=== PATIENT | male | born 2005 | race Caucasian/White ===

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

== ENCOUNTER 2024-01-10 00:16 | Emergency (ER) | payer MEDICAID, SELFPAY ==
[2024-01-10 00:14] VITALS: BP 121/84; PULSE 140; TEMP 36.6; O2SAT 99; BMI 16.0
--- OUTSIDE RECORDS SUMMARY | 2024-01-10 00:21 | XMS_ITS | CCD ---
Author Organization [facility] Care Team Providers Care Clinical Unit Coordinator Name Role Phone Christina Marcano Primary Care Provider [phone] EMMIE NIEVES Admitting Unavailable EMMIE NIEVES Attending [...] VICTOR HUGO Palmer Admitting Unavailabl e Santiago FEATHER CURLING MACHINE OPERATOR, Reyna Primary Care Provider EBONY ROBLEDO Attending Unavailable SANTIAGO, REYNA Referring Unavailable SANTIAGO, REYNA Primary Care Unavailable EBONY ROBLEDO Attending Unavailable SANTIAGO, REYNA Referring Unavailable SANTIAGO, REYNA Primary Care Unavailable KRISHAN BENOIT Attending Unavailable SANTIAGO, REYNA Referring Unavailable [...] Admit Provider MD Raymond Baez Attending Provider [phone] MD Dominga Pete Other Provider MD Dominic Rodrigez Attending Provider [phone] NO FAMILY, PHYSICIAN Primary Care Provider Unava ilable DO Israel Sanchez Emergency Provider MD Raymond Baez Admit Provider MD Ryan Pete Other Provider MD Dominic Rodrigez Attending Provider [phone] [place], [facility] [place] Emergency Provider MD Kartik Schwarz Admit Provider [phone] MD Kartik Schwarz Attending Provider PARISH Harris Other Provider Unavailable PARISH Hogan Other Provider Unavailable Osmani RN Helen Other Provider Unavailable PARISH Price Other Provider Unavailable PARISH Rivera Other Provider Unavailable PARISH Burns Other Provider Unavailable Dials, RAIL ENGINEER Char M Other Provider DO Esteban Barraza Other Provider MD Rubio Pérez Other Provider DO Palomo Banegas Other Provider MD Harvey Crain Other Provider MD Stella Powell Other Provider [phone] KESHA Godfrey Other Provider [phone] MD Dominic Rodrigez Other Provider [phone] MD Arnoldo Weber Other Provider MD Allison Malik Other Provider MD Raymond Baez Other Provider DO Otf Turner Other Provider [phone] MD Fransico Culp Other Provider MD Alberto Rodriguez Other Provider NISREEN Cavanaugh-Kit Lemus Other Provider MD Sukhi Posadas Other Provider MD Kris Bolanos Other Provider MD Preston Medrano Other Provider MD Vahe Bass Other Provider DO Madison Vogel Other Provider DO Cliff Brar Other Provider DO Nomi Cooper Other Provider [phone] KESHA Hogan Other Provider DO Ari Dodson Other Provider [phone] MD Rashi Clark Other Provider KESHA Purcell Other Provider KESHA Robert Other Provider MD Jeri Deleon Other Provider MD Anthony Samson Other Provider KESHA Groves Other Provider DO Salma Thorne Other Provider PARISH Robertson Other Provider Unavailable NO FAMILY, PHYSICIAN Primary Care Provider Unava ilable MD Ryan Pete Attending Provider [phone] MD Tash Purcell Emergency Provider [phone] MD Rashi Clark Admit Provider MD Rashi Clark Attending Provider NO FAMILY, PHYSICIAN Primary Care Unavailable Keri [...] 0 02/16/2020 02/23/2020 Active Baqsimi 3 mg/actuation [place] (1 source) Start: 05-10-2020 Baqsimi 3 mg/actuation [place] PLACE 1 SPRAY(S) IN ONE NOSTRIL ONCE [...] Antihypoglycemic Agent Start: 05-10-2020 Baqsimi 3 mg/actuation [place] PL[place] 1 SPRAY(S) IN ONE NOSTRIL ONCE [...] 6.5 mmol/L Normal 6.0-15.0 [facility] Comment on above: Performed By: #### B MP ####[place] [id number] [facility] Calcium [Mass/Vol] 7.3 mg/dL Low 8.6-10.3 [facility] Comment on above: Performed By: #### B MP ####[place] [id number] [facility] Chloride [Moles/Vol] 117 mmol/L High 98-107 [facility] Comment on above: Performed By: #### B MP ####[place] [id number] [facility] CO2 [Moles/Vol] 23.2 mmol/L Normal 21.0-31.0 [facility] Comment on above: Performed By: #### B MP ####[place] [id number] [facility] Creatinine [Mass/Vol] 0.46 mg/dL Low 0.70-1.30 [facility] Comment on above: Performed By: #### B MP ####[place] [id number] [facility] Creatinine Clr Calc Pharmacy 215.91 Normal [facility] Comment on above: Result Comment: PERF ORMED BY:[address] [place], [place] [phone] MEDICAL JEFFREY VALENTINO M.D. Performed By: #### B MP ####[address] [address] [facility] GFR/1.73 sq M.predicted MDRD (S/P/Bld) [Vol rate/Area] mL/min/{1.73_m2} Normal [facility] Comment on above: Performed By: #### B MP ####[place] [id number] [facility] Glucose [Mass/Vol] 102 mg/dL High 70-100 [facility] Comment on above: Result Comment: [place] Glucose Reference Range is dependent on time and content of last meal. Glucose of more than 200 mg/dL in a nonstressed, ambulatory subject supports the diagnosis of Diabetes Mellitus. ADA recommended reference range Performed By: #### B MP ####[address] [address] [facility] Potassium [Moles/Vol] 3.7 mmol/L Normal 3.5-5.1 [facility] Comment on above: Performed By: #### B MP ####[place] [id number] [facility] Sodium [Moles/Vol] 143 mmol/L Normal 136-145 [facility] Comment on above: Performed By: #### B MP ####[place] [id number] [facility] Urea nitrogen [Mass/Vol] 2 mg/dL Low 7-25 [facility] Comment on above: Performed By: #### B MP ####[address] [address] [facility] Anion gap [Moles/Vol] 12.4 mmol/L Normal 6.0-15.0 Th e [facility] Comment on above: Order Comment: Comme nt DKA Performed By: #### B MP ####[address] [address] [facility] Calcium [Mass/Vol] 7.2 mg/dL Low 8.6-10.3 [facility] Comment on above: Order Comment: Comme nt DKA Performed By: #### B MP ####[address] [address] [place] Chloride [Moles/Vol] 110 mmol/L High 98-107 [facility] Comment on above: Order Comment: Comme nt DKA Performed By: #### B MP ####[address] [address] [place] CO2 [Moles/Vol] 22.8 mmol/L Normal 21.0-31.0 [facility] Comment on above: Order Comment: Comme nt DKA Performed By: #### B MP ####[place] [address] [place] [address] [facility] Creatinine [Mass/Vol] 0.47 mg/dL Low 0.70-1.30 [facility] Comment on above: Order Comment: Comme nt DKA Performed By: #### B MP ####[address] [address] [place] Creatinine Clr Calc Pharmacy 211.32 Normal [facility] Comment on above: Order Comment: Comme nt DKA Result Comment: PERF ORMED BY:[address] [place], [place] [phone] MEDICAL DIRECTORANN VALENTINO M.D. Performed By: #### B MP ####[address] [address] [place] GFR/1.73 sq M.predicted MDRD (S/P/Bld) [Vol rate/Area] mL/min/{1.73_m2} Normal [facility] Comment on above: Order Comment: Comme nt DKA Performed By: #### B MP ####[address] [address] [facility] Glucose [Mass/Vol] 147 mg/dL High 70-100 [facility] Comment on above: Order Comment: Comme nt DKA Result Comment: [place] Glucose Reference Range is dependent on time and content of last meal. Glucose of more than 200 mg/dL in a nonstressed, ambulatory subject supports the diagnosis of Diabetes Mellitus. ADA recommended reference range Performed By: #### B MP ####[address] [address] [facility] Potassium [Moles/Vol] 3.2 mmol/L Low 3.5-5.1 [facility] Comment on above: Order Comment: Comme nt DKA Performed By: #### B MP ####[address] [address] [facility] Sodium [Moles/Vol] 142 mmol/L Normal 136-145 [facility] Comment on above: Order Comment: Comme nt DKA Performed By: #### B MP ####[facility] [id number] [place] [address] [facility] Urea nitrogen [Mass/Vol] 2 mg/dL Low 7-25 [facility] Comment on above: Order Comment: Comme nt DKA Performed By: #### B MP ####[facility] [id number] [place] [address] [facility] Glucose Poct Glucometerson 0 04-10-2023 Glucose [Mass/Vol] 217 mg/dL Normal [facility] Comment on above: Result Comment: [place] om Glucose Reference Range is dependent on time and content of last meal. Glucose of more than 200 mg/dL in a nonstressed, ambulatory subject supports the diagnosis of Diabetes Mellitus.PERFORMED BY:[address] [place], [place] [phone] MEDICAL DIRECTORANN VALENTINO M.D. Performed By: #### G LULS ####Point of Care testing, Glucose [Mass/Vol] 165 mg/dL Normal [facility] Comment on above: Result Comment: [place] Glucose Reference Range is dependent on time and content of last meal. Glucose of more than 200 mg/dL in a nonstressed, ambulatory subject supports the diagnosis of Diabetes Mellitus.PERFORMED BY:[place] [address] [address] [place], [place] [phone] MEDICAL DIRECTORANN VALENTINO M.D. Performed By: #### G LULS ####Point of Care testing, Glucose [Mass/Vol] 115 mg/dL Normal [facility] Comment on above: Result Comment: [place] Glucose Reference Range is dependent on time and content of last meal. Glucose of more than 200 mg/dL in a nonstressed, ambulatory subject supports the diagnosis of Diabetes Mellitus. Performed By: #### G LULS ####Point of Care testing, Commemt1 Glu2: Cleaned Meter Normal [facility] Comment on above: Result Comment: PERF ORMED BY:[place] [address] [address] [place], [place] [phone] MEDICAL DIRECTORANN VALENTINO M.D. Performed By: #### G LULS ####Point of Care testing, Glucose [Mass/Vol] 124 mg/dL Normal [facility] Comment on above: Result Comment: [place] om Glucose Reference Range is dependent on time and content of last meal. Glucose of more than 200 mg/dL in a nonstressed, ambulatory subject supports the diagnosis of Diabetes Mellitus. Performed By: #### G LULS ####Point of Care testing, Glucose [Mass/Vol] 151 mg/dL Normal [facility] Comment on above: Result Comment: [place] om Glucose Reference Range is dependent on time and content of last meal. Glucose of more than 200 mg/dL in a nonstressed, ambulatory subject supports the diagnosis of Diabetes Mellitus. Performed By: #### G LULS ####Point of Care testing, Glucose [Mass/Vol] 107 mg/dL Normal [facility] Comment on above: Result Comment: [place] om Glucose Reference Range is dependent on time and content of last meal. Glucose of more than 200 mg/dL in a nonstressed, ambulatory subject supports the diagnosis of Diabetes Mellitus. Performed By: #### G LULS ####Point of Care testing, Glucose [Mass/Vol] 129 mg/dL Normal [facility] Comment on above: Result Comment: [place] om Glucose Reference Range is dependent on time and content of last meal. Glucose of more than 200 mg/dL in a nonstressed, ambulatory subject supports the diagnosis of Diabetes Mellitus. Performed By: #### G LULS ####Point of Care testing, Commemt1 Glu2: Cleaned Meter Normal [facility] Comment on above: Result Comment: PERF ORMED BY:[place] [id number] [place] [place], [place] [phone] MEDICAL DIRECTORANN VALENTINO M.D. Performed By: #### G LULS ####Point of Care testing, Glucose [Mass/Vol] 115 mg/dL Normal [facility] Comment on above: Result Comment: [place] om Glucose Reference Range is dependent on time and content of last meal. Glucose of more than 200 mg/dL in a nonstressed, ambulatory subject supports the diagnosis of Diabetes Mellitus. Performed By: #### G LULS ####Point of Care testing, Glucose [Mass/Vol] 135 mg/dL Normal [facility] Comment on above: Result Comment: [facility] Glucose Reference Range is dependent on time and content of last meal. Glucose of more than 200 mg/dL in a nonstressed, ambulatory subject supports the diagnosis of Diabetes Mellitus. Performed By: #### G BRII ####Point of Care testing, Basic Metabolic Panelon 03-14 Anion gap [Moles/Vol] 9.7 mmol/L Normal 6.0-15.0 [facility] Comment on above: Performed By: #### B MP ####[address] [address] [facility] Calcium [Mass/Vol] 7.0 mg/dL Low 8.6-10.3 [facility] Comment on above: Performed By: #### B MP ####[address] [address] [facility] Chloride [Moles/Vol] 112 mmol/L High 98-107 [facility] Comment on above: Performed By: #### B MP ####[address] [address] [facility] CO2 [Moles/Vol] 20.0 mmol/L Low 21.0-31.0 [facility] Comment on above: Performed By: #### B MP ####[address] [address] [facility] Creatinine [Mass/Vol] 0.45 mg/dL Low 0.70-1.30 [facility] Comment on above: Performed By: #### B MP ####[address] [address] [facility] Creatinine Clr Calc Pharmacy 220.71 Normal [facility] Comment on above: Result Comment: PERF ORMED BY:[address] [place], [place] [phone] MEDICAL DIRECTORANN VALENTINO M.D. Performed By: #### B MP ####[address] [address] [place] GFR/1.73 sq M.predicted MDRD (S/P/Bld) [Vol rate/Area] mL/min/{1.73_m2} Normal [facility] Comment on above: Performed By: #### B MP ####[address] [address] [facility] Glucose [Mass/Vol] 188 mg/dL High 70-100 [facility] Comment on above: Result Comment: [place] Glucose Reference Range is dependent on time and content of last meal. Glucose of more than 200 mg/dL in a nonstressed, ambulatory subject supports the diagnosis of Diabetes Mellitus. ADA recommended reference range Performed By: #### B MP ####[address] [address] [facility] Potassium [Moles/Vol] 3.7 mmol/L Normal 3.5-5.1 [facility] Comment on above: Performed By: #### B MP ####[address] [address] [facility] Sodium [Moles/Vol] 138 mmol/L Normal 136-145 [facility] Comment on above: Performed By: #### B MP ####[address] [address] [facility] Urea nitrogen [Mass/Vol] 2 mg/dL Low 7-25 [facility] Comment on above: Performed By: #### B MP ####[address] [address] [facility] Anion gap [Moles/Vol] Not performed Normal 6.0-15.0 [facility] Comment on above: Performed By: #### M Mis, BMP ####[address] [address] [facility] Calcium [Mass/Vol] 7.1 mg/dL Low 8.6-10.3 [facility] Comment on above: Performed By: #### M Mis, BMP ####[address] [address] [facility] Chloride [Moles/Vol] 114 mmol/L High 98-107 [facility] Comment on above: Performed By: #### Melany Abebe, BMP ####[address] [place] [address] [facility] CO2 [Moles/Vol] 19.5 mmol/L Low 21.0-31.0 [facility] Comment on above: Performed By: #### Melany Mis, BMP ####[place] [address] [facility] Creatinine [Mass/Vol] 0.52 mg/dL Low 0.70-1.30 [facility] Comment on above: Performed By: #### Melany Abebe, BMP ####[place] [address] [facility] Creatinine Clr Calc Pharmacy 191.00 Normal [facility] Comment on above: Performed By: #### M Mis, BMP ####[place] [id number] [facility] GFR/1.73 sq M.predicted MDRD (S/P/Bld) [Vol rate/Area] mL/min/{1.73_m2} Normal [facility] Comment on above: Performed By: #### Melany Abebe, BMP ####[place] [address] [facility] Glucose [Mass/Vol] 137 mg/dL High 70-100 [facility] Comment on above: Result Comment: [facility] Glucose Reference Range is dependent on time and content of last meal. Glucose of more than 200 mg/dL in a nonstressed, ambulatory subject supports the diagnosis of Diabetes Mellitus. ADA recommended reference range Performed By: #### M G, BMP ####[place] [id number] [facility] Potassium Normal 3.5-5.1 [facility] Comment on above: Result Comment: Spec imen hemolyzed, redraw requested Performed By: #### M G, BMP ####[place] [address] [facility] Sodium [Moles/Vol] 137 mmol/L Normal 136-145 [facility] Comment on above: Performed By: #### M G, BMP ####[place] [address] [facility] Urea nitrogen [Mass/Vol] 3 mg/dL Low 7-25 [facility] Comment on above: Performed By: #### M G, BMP ####[place] [address] [facility] Anion gap [Moles/Vol] 6.3 mmol/L Normal 6.0-15.0 [facility] Comment on above: Performed By: #### B MP ####[place] [address] [facility] Calcium [Mass/Vol] 7.1 mg/dL Low 8.6-10.3 [facility] Comment on above: Performed By: #### B MP ####[place] [address] [facility] Chloride [Moles/Vol] 116 mmol/L High 98-107 [facility] Comment on above: Performed By: #### B MP ####[place] [address] [facility] CO2 [Moles/Vol] 19.9 mmol/L Low 21.0-31.0 [facility] Comment on above: Performed By: #### B MP ####[place] [address] [facility] Creatinine [Mass/Vol] 0.55 mg/dL Low 0.70-1.30 [facility] Comment on above: Performed By: #### B MP ####[place] [address] [facility] Creatinine Clr Calc Pharmacy 180.58 Normal [facility] Comment on above: Result Comment: PERF ORMED BY:[address] [place], [place] [phone] MEDICAL DIRECTORANN VALENTINO M.D. Performed By: #### B MP ####[address] [address] [facility] GFR/1.73 sq M.predicted MDRD (S/P/Bld) [Vol rate/Area] mL/min/{1.73_m2} Normal [facility] Comment on above: Performed By: #### B MP ####[place] [address] [place] [id number] [facility] Glucose [Mass/Vol] 115 mg/dL High 70-100 [facility] Comment on above: Result Comment: [place] Glucose Reference Range is dependent on time and content of last meal. Glucose of more than 200 mg/dL in a nonstressed, ambulatory subject supports the diagnosis of Diabetes Mellitus. ADA recommended reference range Performed By: #### B MP ####[address] Potassium [Moles/Vol] 3.2 mmol/L Low 3.5-5.1 [facility] Comment on above: Performed By: #### B MP ####[address] Sodium [Moles/Vol] 139 mmol/L Normal 136-145 [facility] Comment on above: Performed By: #### B MP ####[address] Urea nitrogen [Mass/Vol] 4 mg/dL Low 7-25 [facility] Comment on above: Performed By: #### B MP ####[address] Anion gap [Moles/Vol] 5.9 mmol/L Low 6.0-15.0 [facility] Comment on above: Performed By: #### B MP ####[address] Calcium [Mass/Vol] 7.0 mg/dL Low 8.6-10.3 [facility] Comment on above: Performed By: #### B MP ####[place] [id number] [place] Chloride [Moles/Vol] 116 mmol/L High 98-107 [facility] Comment on above: Performed By: #### B MP ####[address] CO2 [Moles/Vol] 18.3 mmol/L Low 21.0-31.0 [facility] Comment on above: Performed By: #### B MP ####[address] [address] [facility] Creatinine [Mass/Vol] 0.55 mg/dL Low 0.70-1.30 [facility] Comment on above: Performed By: #### B MP ####[address] [address] [facility] Creatinine Clr Calc Pharmacy 176.92 Normal [facility] Comment on above: Result Comment: PERF ORMED BY:[address] [place], [place] [id number] MEDICAL JEFFREY VALENTINO M.D. Performed By: #### B MP ####[address] [address] [facility] GFR/1.73 sq M.predicted MDRD (S/P/Bld) [Vol rate/Area] mL/min/{1.73_m2} Normal [facility] Comment on above: Performed By: #### B MP ####[place] [id number] [facility] Glucose [Mass/Vol] 144 mg/dL High 70-100 [facility] Comment on above: Result Comment: [place] Glucose Reference Range is dependent on time and content of last meal. Glucose of more than 200 mg/dL in a nonstressed, ambulatory subject supports the diagnosis of Diabetes Mellitus. ADA recommended reference range Performed By: #### B MP ####[place] [id number] [facility] Potassium [Moles/Vol] 3.2 mmol/L Low 3.5-5.1 [facility] Comment on above: Performed By: #### B MP ####[address] [address] [facility] Sodium [Moles/Vol] 137 mmol/L Normal 136-145 [facility] Comment on above: Performed By: #### B MP ####[place] [address] [facility] Urea nitrogen [Mass/Vol] 4 mg/dL Low 7-25 [facility] Comment on above: Performed By: #### B MP ####[address] [address] [facility] Complete Blood Count Auto Di ffon 04-09-2023 Basophils (Bld) [#/Vol] 0.0 10*3/uL Normal 0.0-0.2 [facility] Comment on above: Result Comment: PERF ORMED BY:[address] SANTOSMiriFELICITAS, [place] [phone] MEDICAL DIRECTORANN VALENTION M.D. Performed By: #### C BC ####[place] [id number] [facility] Basophils/100 WBC (Bld) 0.7 % Normal . [facility] Comment on above: Performed By: #### C BC ####[address] Eosinophils (Bld) [#/Vol] 0.6 10*3/uL High 0.0-0.45 [facility] Comment on above: Performed By: #### C BC ####[place] [id number] [facility] Eosinophils/100 WBC (Bld) 8.9 % Normal . [facility] Comment on above: Performed By: #### C BC ####[place] [id number] [facility] Erythrocyte distribution width (RBC) [Ratio] 13.1 % Normal 12.0-14.8 [facility] Comment on above: Performed By: #### C BC ####[place] [id number] [facility] Hematocrit (Bld) [Volume fraction] 37.9 % Low 38.8-50.0 [facility] Comment on above: Performed By: #### C BC ####[place] [id number] [facility] Hemoglobin (Bld) [Mass/Vol] 13.3 g/dL Normal 13.0-17.0 [facility] Comment on above: Performed By: #### C BC ####[address] Lymphocytes (Bld) [#/Vol] 1.6 10*3/uL Normal 1.00-4.8 [facility] Comment on above: Performed By: #### C BC ####[address] Lymphocytes/100 WBC (Bld) 21.8 % Normal . [facility] Comment on above: Performed By: #### C BC ####[address] MCH (RBC) [Entitic mass] 31.2 pg Normal 27.5-35.2 [facility] Comment on above: Performed By: #### C BC ####[address] MCV (RBC) [Entitic vol] 88.5 fL Normal 83.5-101 [facility] Comment on above: Performed By: #### C BC ####[address] Mean Corpuscular HGB Conc 35.2 g/dL Normal 32.5-35.6 [facility] Comment on above: Performed By: #### C BC ####[address] Monocytes (Bld) [#/Vol] 0.9 10*3/uL High 0.0-0.8 [facility] Comment on above: Performed By: #### C BC ####[address] Monocytes/100 WBC (Bld) 12.0 % Normal . [facility] Comment on above: Performed By: #### C BC ####[address] Neutrophils (Bld) [#/Vol] 4.0 10*3/uL Normal 1.8-7.7 [facility] Comment on above: Performed By: #### C BC ####[address] Neutrophils/100 WBC (Bld) 56.6 % Normal . [facility] Comment on above: Performed By: #### C BC ####[address] NRBC% 0.1 /100{WBC} Normal 0-0.5 [facility] Comment on above: Performed By: #### C BC ####[place] [id number] [facility] Platelet mean volume (Bld) [Entitic vol] 6.8 fL Normal 6.6-10.1 [facility] Comment on above: Performed By: #### C BC ####[address] Platelets (Bld) [#/Vol] 297 10*3/uL Normal 150-450 [facility] Comment on above: Performed By: #### C BC ####[address] RBC (Bld) [#/Vol] 4.28 10*6/uL Normal 3.90-5.60 [facility] Comment on above: Performed By: #### C BC ####[place] [id number] [facility] WBC (Bld) [#/Vol] 7.1 10*3/uL Normal 4.1-10.5 [facility] Comment on above: Performed By: #### C BC ####[place] [id number] [facility] Glucose Poct Glucometerson 0 04-09-2023 Commemt1 Glu2: Cleaned Meter Normal [facility] Comment on above: Result Comment: PERF ORMED BY:[address] [place], [place] [id number] MEDICAL JEFFREY VALENTINO M.D. Performed By: #### G BRII ####Point of Care testing, Glucose [Mass/Vol] 133 mg/dL Normal [facility] Comment on above: Result Comment: [place] Glucose Reference Range is dependent on time and content of last meal. Glucose of more than 200 mg/dL in a nonstressed, ambulatory subject supports the diagnosis of Diabetes Mellitus. Performed By: #### G LULS ####Point of Care testing, Commemt1 Glu2: Cleaned Meter Normal [facility] Comment on above: Result Comment: PERF ORMED BY:[address] SANTOSMiriFELICITAS, [place] [phone] MEDICAL DIRECTORANN VALENTINO M.D. Performed By: #### G LULS ####Point of Care testing, Glucose [Mass/Vol] 151 mg/dL Normal [facility] Comment on above: Result Comment: [place] om Glucose Reference Range is dependent on time and content of last meal. Glucose of more than 200 mg/dL in a nonstressed, ambulatory subject supports the diagnosis of Diabetes Mellitus. Performed By: #### G LULS ####Point of Care testing, Glucose [Mass/Vol] 174 mg/dL Normal [facility] Comment on above: Result Comment: [place] om Glucose Reference Range is dependent on time and content of last meal. Glucose of more than 200 mg/dL in a nonstressed, ambulatory subject supports the diagnosis of Diabetes Mellitus.PERFORMED BY:[address] SANTSOMiriFELICITAS, [place] [phone] MEDICAL JEFFREY VALENTINO M.D. Performed By: #### G LULS ####Point of Care testing, Glucose [Mass/Vol] 171 mg/dL Normal [facility] Comment on above: Result Comment: [place] om Glucose Reference Range is dependent on time and content of last meal. Glucose of more than 200 mg/dL in a nonstressed, ambulatory subject supports the diagnosis of Diabetes Mellitus.PERFORMED BY:[address]OH[address] NUÑEZDRUMMOND ISLAND, [place] [phone] MEDICAL JEFFREY VALENTINO M.D. Performed By: #### G LULS ####Point of Care testing, Glucose [Mass/Vol] 109 mg/dL Normal [facility] Comment on above: Result Comment: [place] om Glucose Reference Range is dependent on time and content of last meal. Glucose of more than 200 mg/dL in a nonstressed, ambulatory subject supports the diagnosis of Diabetes Mellitus.PERFORMED BY:[place] [address] [address] SANTOSMiriFELICITASDRUMMOND [place]LAND, [place] [phone] MEDICAL JEFFREY VALENTINO M.D. Performed By: #### G LULS ####Point of Care testing, Glucose [Mass/Vol] 136 mg/dL Normal [facility] Comment on above: Result Comment: [facility] Glucose Reference Range is dependent on time and content of last meal. Glucose of more than 200 mg/dL in a nonstressed, ambulatory subject supports the diagnosis of Diabetes Mellitus.PERFORMED BY:[address] SANTOSMiriFELICITASDRUMMOND [place], [place] [id number] MEDICAL DIRECTORANN VALENTINO M.D. Performed By: #### G LULS ####Point of Care testing, Glucose [Mass/Vol] 129 mg/dL Normal [facility] Comment on above: Result Comment: [facility] Glucose Reference Range is dependent on time and content of last meal. Glucose of more than 200 mg/dL in a nonstressed, ambulatory subject supports the diagnosis of Diabetes Mellitus.PERFORMED BY:[place] [address] [address] SANTOSANUPFELICITAS, [place] [phone] MEDICAL JEFFREY VALENTINO M.D. Performed By: #### G LULS ####Point of Care testing, Glucose [Mass/Vol] 125 mg/dL Normal [facility] Comment on above: Result Comment: [facility] Glucose Reference Range is dependent on time and content of last meal. Glucose of more than 200 mg/dL in a nonstressed, ambulatory subject supports the diagnosis of Diabetes Mellitus.PERFORMED BY:[address] SANTOSMiriFELICITASDRUMMOND [place], [place] [phone] BREANN VALENTINO M.D. Performed By: #### G LULS ####Point of Care testing, Glucose [Mass/Vol] 114 mg/dL Normal [facility] Comment on above: Result Comment: [facility] Glucose Reference Range is dependent on time and content of last meal. Glucose of more than 200 mg/dL in a nonstressed, ambulatory subject supports the diagnosis of Diabetes Mellitus.PERFORMED BY:[place] [address] [address] [place]OSMiriF[place], [place] [phone] MEDICAL JEFFREY VALENTINO M.D. Performed By: #### G LULS ####Point of Care testing, Glucose [Mass/Vol] 126 mg/dL Normal [facility] Comment on above: Result Comment: [place] Glucose Reference Range is dependent on time and content of last meal. Glucose of more than 200 mg/dL in a nonstressed, ambulatory subject supports the diagnosis of Diabetes Mellitus.PERFORMED BY:[address] SANTOSMiriFELICITAS, [place] [phone] MEDICAL JEFFREY VALENTINO M.D. Performed By: #### G LULS ####Point of Care testing, Glucose [Mass/Vol] 136 mg/dL Normal [facility] Comment on above: Result Comment: [facility] Glucose Reference Range is dependent on time and content of last meal. Glucose of more than 200 mg/dL in a nonstressed, ambulatory subject supports the diagnosis of Diabetes Mellitus.PERFORMED BY:[place] [address] [address] [place]OS[place], [place] [phone] BREANN VALENTINO M.D. Performed By: #### G LULS ####Point of Care testing, Glucose [Mass/Vol] 130 mg/dL Normal [facility] Comment on above: Result Comment: [facility] Glucose Reference Range is dependent on time and content of last meal. Glucose of more than 200 mg/dL in a nonstressed, ambulatory subject supports the diagnosis of Diabetes Mellitus.PERFORMED BY:[address] SANTOSMiriFEL[place]ITASDRUM[place], [place] [phone] BREANN VALENTINO M.D. Performed By: #### G LULS ####Point of Care testing, Glucose [Mass/Vol] 123 mg/dL Normal [facility] Comment on above: Result Comment: [place] Glucose Reference Range is dependent on time and content of last meal. Glucose of more than 200 mg/dL in a nonstressed, ambulatory subject supports the diagnosis of Diabetes Mellitus.PERFORMED BY:[place] [address] [address] [place], [place] [phone] MEDICAL DIRECTORANN VALENTINO M.D. Performed By: #### G BRII ####Point of Care testing, Magnesiumon 04-09-2023 Magnesium [Mass/Vol] 1.6 mg/dL Low 1.9-2.7 [facility] Comment on above: Result Comment: PERF ORMED BY:[place] [address] [address] [place], [place] [phone] MEDICAL DIRECTORANN VALENTINO M.D. Performed By: #### M Mis, BMP ####[address] [address] [facility] Redraw Potassiumon Potassium [Moles/Vol] 3.5 mmol/L Normal 3.5-5.1 [facility] Comment on above: Result Comment: PERF ORMED BY:[place] [address] [address] [place], [place] [phone] MEDICAL DIRECTORANN VALENTINO M.D. Performed By: #### R BLANCHE Madden ####[address] [address] [facility] Arterial Blood Gason 024 ABG Base Excess -22.5 mmol/L Low -3.0-3.0 [facility] Comment on above: Performed By: #### A BG ####Point of Care testing, ABG Frac Inspired O2 21 % Normal [facility] Comment on above: Performed By: #### A BG ####Point of Care testing, ABG Oxygen Content 10.5 mmol/L High 6.6-9.7 [facility] Comment on above: Performed By: #### A BG ####Point of Care testing, ABG Oxygen Saturation 98.0 % Normal 95.0-100.0 [facility] Comment on above: Performed By: #### A BG ####Point of Care testing, ABG PCO2 19.9 mm[Hg] Off scale low 35.0-45.0 [facility] Comment on above: Performed By: #### A BG ####Point of Care testing, ABG PH 7.07 Off scale low 7.35-7.45 [facility] Comment on above: Performed By: #### A BG ####Point of Care testing, ABG PO2 116.0 mm[Hg] High 80.0-100.0 [facility] Comment on above: Performed By: #### A BG ####Point of Care testing, CO2 [Moles/Vol] 6.3 mmol/L Low 23.0-27.0 [facility] Comment on above: Performed By: #### A BG ####Point of Care testing, HCO3 (Bld) [Moles/Vol] 5.7 mmol/L Low 23.0-29.0 [facility] Comment on above: Performed By: #### A BG ####Point of Care testing, Respiratory Critical Normal [facility] Comment on above: Result Comment: Crit ical Value called on: 04/08/2023 at 02:25PERFORMED BY:[address] [place], [place] [phone] MEDICAL DIRECTORANN VALETNINO M.D. Performed By: #### A BG ####Point of Care testing, VBG Draw Site Left Radial Normal [facility] Comment on above: Performed By: #### A BG ####Point of Care testing, Basic Metabolic Panel 03-14 Anion gap [Moles/Vol] 11.1 mmol/L Normal 6.0-15.0 Th e [facility] Comment on above: Performed By: #### P HOS, MG, BMP ####[address] [address] [facility] Calcium [Mass/Vol] 7.0 mg/dL Low 8.6-10.3 [facility] Comment on above: Performed By: #### P HOS, MG, BMP ####[address] [address] [facility] Chloride [Moles/Vol] 114 mmol/L High 98-107 [facility] Comment on above: Performed By: #### P HOS, MG, BMP ####[address] CO2 [Moles/Vol] 15.5 mmol/L Low 21.0-31.0 [facility] Comment on above: Performed By: #### P HOS, MG, BMP ####[address] Creatinine [Mass/Vol] 0.54 mg/dL Low 0.70-1.30 [facility] Comment on above: Performed By: #### P HOS, MG, BMP ####[address] Creatinine Clr Calc Pharmacy 180.19 Normal [facility] Comment on above: Performed By: #### P HOS, MG, BMP ####[address] GFR/1.73 sq M.predicted MDRD (S/P/Bld) [Vol rate/Area] mL/min/{1.73_m2} Normal [facility] Comment on above: Performed By: #### P HOS, MG, BMP ####[address] Glucose [Mass/Vol] 132 mg/dL High 70-100 [facility] Comment on above: Result Comment: [place] Glucose Reference Range is dependent on time and content of last meal. Glucose of more than 200 mg/dL in a nonstressed, ambulatory subject supports the diagnosis of Diabetes Mellitus. ADA recommended reference range Performed By: #### P HOS, MG, BMP ####[address] Potassium [Moles/Vol] 3.6 mmol/L Normal 3.5-5.1 [facility] Comment on above: Performed By: #### P HOS, MG, BMP ####[address] Sodium [Moles/Vol] 137 mmol/L Normal 136-145 [facility] Comment on above: Performed By: #### P HOS, MG, BMP ####[address] [address] [facility] Urea nitrogen [Mass/Vol] 6 mg/dL Low 7-25 [facility] Comment on above: Performed By: #### P HOS, MG, BMP ####[address] [address] [facility] Anion gap [Moles/Vol] 9.0 mmol/L Normal 6.0-15.0 [facility] Comment on above: Performed By: #### B MP ####[address] [address] [facility] Calcium [Mass/Vol] 7.3 mg/dL Low 8.6-10.3 [facility] Comment on above: Performed By: #### B MP ####[place] [id number] [facility] Chloride [Moles/Vol] 115 mmol/L High 98-107 [facility] Comment on above: Performed By: #### B MP ####[place] [id number] [facility] CO2 [Moles/Vol] 15.4 mmol/L Low 21.0-31.0 [facility] Comment on above: Performed By: #### B MP ####[place] [id number] [facility] Creatinine [Mass/Vol] 0.59 mg/dL Low 0.70-1.30 [facility] Comment on above: Performed By: #### B MP ####[address] [address] [facility] Creatinine Clr Calc Pharmacy 164.92 Normal [facility] Comment on above: Result Comment: PERF ORMED BY:[place] [address] [address]OT[address] IZQUIERDOFELICITAS, [place] [phone] MEDICAL DIRECTORANN VALENTINO M.D. Performed By: #### B MP ####[place] [phone] [facility] GFR/1.73 sq M.predicted MDRD (S/P/Bld) [Vol rate/Area] mL/min/{1.73_m2} Normal [facility] Comment on above: Performed By: #### B MP ####[place] [id number] Glucose [Mass/Vol] 145 mg/dL High 70-100 [facility] Comment on above: Result Comment: [facility] Glucose Reference Range is dependent on time and content of last meal. Glucose of more than 200 mg/dL in a nonstressed, ambulatory subject supports the diagnosis of Diabetes Mellitus. ADA recommended reference range Performed By: #### B MP ####[address] Potassium [Moles/Vol] 3.4 mmol/L Low 3.5-5.1 [facility] Comment on above: Performed By: #### B MP ####[address] Sodium [Moles/Vol] 136 mmol/L Normal 136-145 [facility] Comment on above: Performed By: #### B MP ####[place] [id number] [facility] Urea nitrogen [Mass/Vol] 6 mg/dL Low 7-25 [facility] Comment on above: Performed By: #### B MP ####[place] [id number] [facility] Anion gap [Moles/Vol] 11.3 mmol/L Normal 6.0-15.0 [facility] e [facility] Comment on above: Performed By: #### B HOB, BMP, PHOS, MG ####[place] [id number] [place] Calcium [Mass/Vol] 7.1 mg/dL Low 8.6-10.3 [facility] Comment on above: Performed By: #### B HOB, BMP, PHOS, MG ####[place] [id number] [facility] Chloride [Moles/Vol] 112 mmol/L High 98-107 [facility] Comment on above: Performed By: #### B HOB, BMP, PHOS, MG ####[place] [id number] CO2 [Moles/Vol] 16.1 mmol/L Low 21.0-31.0 [facility] Comment on above: Performed By: #### B HOB, BMP, PHOS, MG ####[address] Creatinine [Mass/Vol] 0.69 mg/dL Low 0.70-1.30 [facility] Comment on above: Performed By: #### B HOB, BMP, PHOS, MG ####[place] [address] [place] Creatinine Clr Calc Pharmacy 141.02 Normal [facility] Comment on above: Performed By: #### B HOB, BMP, PHOS, MG ####[address] GFR/1.73 sq M.predicted MDRD (S/P/Bld) [Vol rate/Area] mL/min/{1.73_m2} Normal [facility] Comment on above: Performed By: #### B HOB, BMP, PHOS, MG ####[address] Glucose [Mass/Vol] 168 mg/dL High 70-100 [facility] Comment on above: Result Comment: [place] Glucose Reference Range is dependent on time and content of last meal. Glucose of more than 200 mg/dL in a nonstressed, ambulatory subject supports the diagnosis of Diabetes Mellitus. ADA recommended reference range Performed By: #### B HOB, BMP, PHOS, MG ####[address] Potassium [Moles/Vol] 3.4 mmol/L Low 3.5-5.1 [facility] Comment on above: Performed By: #### B HOB, BMP, PHOS, MG ####[address] Sodium [Moles/Vol] 136 mmol/L Normal 136-145 [facility] Comment on above: Performed By: #### B HOB, BMP, PHOS, MG ####[address] Urea nitrogen [Mass/Vol] 7 mg/dL Normal 7-25 [facility] Comment on above: Performed By: #### B HOB, BMP, PHOS, MG ####[address] Anion gap [Moles/Vol] 14.8 mmol/L Normal 6.0-15.0 Th e [facility] Comment on above: Performed By: #### B MP ####[address] Calcium [Mass/Vol] 7.3 mg/dL Low 8.6-10.3 [facility] Comment on above: Performed By: #### B MP ####[address] Chloride [Moles/Vol] 114 mmol/L High 98-107 [facility] Comment on above: Performed By: #### B MP ####[address] CO2 [Moles/Vol] 10.3 mmol/L Low 21.0-31.0 [facility] Comment on above: Performed By: #### B MP ####[place] [id number] [facility] Creatinine [Mass/Vol] 0.67 mg/dL Low 0.70-1.30 [facility] Comment on above: Performed By: #### B MP ####[place] [id number] [facility] Creatinine Clr Calc Pharmacy 145.23 Normal [facility] Comment on above: Result Comment: PERF ORMED BY:[address] [place], [place] [phone] MEDICAL DIRECTORANN VALENTINO M.D. Performed By: #### B MP ####[place] [id number] [facility] GFR/1.73 sq M.predicted MDRD (S/P/Bld) [Vol rate/Area] mL/min/{1.73_m2} Normal [facility] Comment on above: Performed By: #### B MP ####[address] Glucose [Mass/Vol] 250 mg/dL High 70-100 [facility] Comment on above: Result Comment: [facility] Glucose Reference Range is dependent on time and content of last meal. Glucose of more than 200 mg/dL in a nonstressed, ambulatory subject supports the diagnosis of Diabetes Mellitus. ADA recommended reference range Performed By: #### B MP ####[address] Potassium [Moles/Vol] 4.1 mmol/L Normal 3.5-5.1 [facility] Comment on above: Performed By: #### B MP ####[address] Sodium [Moles/Vol] 135 mmol/L Low 136-145 [facility] Comment on above: Performed By: #### B MP ####[place] [id number] [facility] Urea nitrogen [Mass/Vol] 8 mg/dL Normal 7-25 [facility] Comment on above: Performed By: #### B MP ####[place] [phone] [facility] Anion gap [Moles/Vol] 18.8 mmol/L High 6.0-15.0 [facility] e [facility] Comment on above: Performed By: #### C BC, BMP ####[place] [phone] [place] Calcium [Mass/Vol] 6.5 mg/dL Significant change down 8.6-10.3 [facility] Comment on above: Performed By: #### C BC, BMP ####[place] [phone] [place] Chloride [Moles/Vol] 117 mmol/L High 98-107 [facility] Comment on above: Performed By: #### C BC, BMP ####[address] [address] [facility] CO2 [Moles/Vol] 6.3 mmol/L Low 21.0-31.0 [facility] Comment on above: Performed By: #### C BC, BMP ####[address] [address] [facility] Creatinine [Mass/Vol] 0.66 mg/dL Low 0.70-1.30 [facility] Comment on above: Performed By: #### C BC, BMP ####[address] [address] [place] Creatinine Clr Calc Pharmacy 147.43 Normal [facility] Comment on above: Result Comment: PERF ORMED BY:[address] [place], [place] [phone] MEDICAL DIRECTORANN VALENTINO M.D. Performed By: #### C BC, BMP ####[address] [address] [facility] GFR/1.73 sq M.predicted MDRD (S/P/Bld) [Vol rate/Area] mL/min/{1.73_m2} Normal [facility] Comment on above: Performed By: #### C BC, BMP ####[address] [address] [facility] Glucose [Mass/Vol] 280 mg/dL Significant change up 70-100 [facility] Comment on above: Result Comment: [place] Glucose Reference Range is dependent on time and content of last meal. Glucose of more than 200 mg/dL in a nonstressed, ambulatory subject supports the diagnosis of Diabetes Mellitus. ADA recommended reference range Performed By: #### C BC, BMP ####[address] [address] [facility] Potassium [Moles/Vol] 4.1 mmol/L Normal 3.5-5.1 [facility] Comment on above: Performed By: #### C BC, BMP ####[place] [id number] [facility] Sodium [Moles/Vol] 138 mmol/L Normal 136-145 [facility] Comment on above: Performed By: #### C BC, BMP ####[address] Urea nitrogen [Mass/Vol] 9 mg/dL Normal 7-25 [facility] Comment on above: Performed By: #### C BC, BMP ####[place] [id number] [facility] Beta Hydroxybuterateon 04-08 Beta Hydroxybuterate 0.70 mmol/L High 0.02-0.27 [facility] Comment on above: Result Comment: PERF ORMED BY:[address] [place]IERDO[place], [place] [phone] MEDICAL DIRECTORANN VALENTINO M.D. Performed By: #### B HOB, BMP, PHOS, MG ####[address] Beta Hydroxybuterate 11.10 mmol/L High 0.02-0.27 [facility] Comment on above: Result Comment: PERF ORMED BY:[address] [place]IERDO[place], [place] [phone] MEDICAL DIRECTORANN VALENTINO M.D. Performed By: #### M G, PHOS, CMP, BHOB, DIFF CBC ####[place] [id number] [facility] Complete Blood Count Auto Di ffon 04-08-2023 Basophils (Bld) [#/Vol] 0.0 10*3/uL Normal 0.0-0.2 [facility] Comment on above: Result Comment: PERF ORMED BY:[address] [place], [place] [phone] MEDICAL DIRECTORANN VALENTINO M.D. Performed By: #### C BC, BMP ####[place] [id number] [facility] Basophils/100 WBC (Bld) 0.4 % Normal . [facility] Comment on above: Performed By: #### C BC, BMP ####[address] Eosinophils (Bld) [#/Vol] 0.4 10*3/uL Normal 0.0-0.45 [facility] Comment on above: Performed By: #### C BC, BMP ####[address] Eosinophils/100 WBC (Bld) 3.1 % Normal . [facility] Comment on above: Performed By: #### C BC, BMP ####[address] Erythrocyte distribution width (RBC) [Ratio] 12.9 % Normal 12.0-14.8 [facility] Comment on above: Performed By: #### C BC, BMP ####[address] Hematocrit (Bld) [Volume fraction] 42.1 % Significant change down 38.8-50.0 [facility] Comment on above: Performed By: #### C BC, BMP ####[address] Hemoglobin (Bld) [Mass/Vol] 14.2 g/dL Significant change down 13.0-17.0 [facility] Comment on above: Performed By: #### C BC, BMP ####[address] Lymphocytes (Bld) [#/Vol] 1.3 10*3/uL Normal 1.00-4.8 [facility] Comment on above: Performed By: #### C BC, BMP ####[address] Lymphocytes/100 WBC (Bld) 11.7 % Normal . [facility] Comment on above: Performed By: #### C BC, BMP ####[address] MCH (RBC) [Entitic mass] 30.9 pg Normal 27.5-35.2 [facility] Comment on above: Performed By: #### C BC, BMP ####[address] MCV (RBC) [Entitic vol] 91.3 fL Normal 83.5-101 [facility] Comment on above: Performed By: #### C BC, BMP ####[address] Mean Corpuscular HGB Conc 33.9 g/dL Normal 32.5-35.6 [facility] Comment on above: Performed By: #### C BC, BMP ####[address] Monocytes (Bld) [#/Vol] 0.8 10*3/uL Normal 0.0-0.8 [facility] Comment on above: Performed By: #### C BC, BMP ####[address] Monocytes/100 WBC (Bld) 7.3 % Normal . [facility] Comment on above: Performed By: #### C BC, BMP ####[address] Neutrophils (Bld) [#/Vol] 8.8 10*3/uL High 1.8-7.7 [facility] Comment on above: Performed By: #### C BC, BMP ####[address] Neutrophils/100 WBC (Bld) 77.5 % Normal . [facility] Comment on above: Performed By: #### C BC, BMP ####[address] NRBC% 0.1 /100{WBC} Normal 0-0.5 [facility] Comment on above: Performed By: #### C BC, BMP ####[address] Platelet mean volume (Bld) [Entitic vol] 7.2 fL Normal 6.6-10.1 [facility] Comment on above: Performed By: #### C BC, BMP ####[address] Platelets (Bld) [#/Vol] 334 10*3/uL Normal 150-450 [facility] Comment on above: Performed By: #### C BC, BMP ####[address] RBC (Bld) [#/Vol] 4.61 10*6/uL Normal 3.90-5.60 [facility] Comment on above: Performed By: #### C BC, BMP ####[address] WBC (Bld) [#/Vol] 11.3 10*3/uL High 4.1-10.5 [facility] Comment on above: Performed By: #### C BC, BMP ####[address] Comprehensive Metabolic Pane maureen 04-08-2023 Albumin [Mass/Vol] 3.8 g/dL Normal 3.5-5.7 [facility] Comment on above: Performed By: #### M G, PHOS, CMP, BHOB, DIFF CBC ####[address] Albumin/Globulin [Mass ratio] 1.5 {ratio} Normal [facility] Comment on above: Performed By: #### M G, PHOS, CMP, BHOB, DIFF CBC ####[address] ALP [Catalytic activity/Vol] 98 U/L Normal 34-104 [facility] Comment on above: Performed By: #### M G, PHOS, CMP, BHOB, DIFF CBC ####[address] ALT [Catalytic activity/Vol] 12 U/L Normal 7-52 [facility] Comment on above: Performed By: #### M G, PHOS, CMP, BHOB, DIFF CBC ####[address] Anion gap [Moles/Vol] 28.9 mmol/L High 6.0-15.0 [facility] Comment on above: Performed By: #### M G, PHOS, CMP, BHOB, DIFF CBC ####[address] AST [Catalytic activity/Vol] 10 U/L Low 13-39 [facility] Comment on above: Performed By: #### M G, PHOS, CMP, BHOB, DIFF CBC ####[address] Bilirubin [Mass/Vol] 0.4 mg/dL Normal 0.3-1.0 [facility] Comment on above: Performed By: #### M G, PHOS, CMP, BHOB, DIFF CBC ####[address] Calcium [Mass/Vol] 8.2 mg/dL Low 8.6-10.3 [facility] Comment on above: Performed By: #### M G, PHOS, CMP, BHOB, DIFF CBC ####[address] Chloride [Moles/Vol] 105 mmol/L Normal 98-107 [facility] Comment on above: Performed By: #### M G, PHOS, CMP, BHOB, DIFF CBC ####[address] CO2 [Moles/Vol] 6.1 mmol/L Low 21.0-31.0 [facility] Comment on above: Performed By: #### M G, PHOS, CMP, BHOB, DIFF CBC ####[address] Creatinine [Mass/Vol] 0.85 mg/dL Normal 0.70-1.30 [facility] Comment on above: Performed By: #### M G, PHOS, CMP, BHOB, DIFF CBC ####[place] [id number] [place] [id number] [facility] Creatinine Clr Calc Pharmacy 115.86 Normal [facility] Comment on above: Result Comment: PERF ORMED BY:[address] [place], [place] [phone] MEDICAL JEFFREY VALENTINO M.D. Performed By: #### M G, PHOS, CMP, BHOB, DIFF CBC ####[place] [id number] [facility] GFR/1.73 sq M.predicted MDRD (S/P/Bld) [Vol rate/Area] mL/min/{1.73_m2} Normal [facility] Comment on above: Performed By: #### M G, PHOS, CMP, BHOB, DIFF CBC ####[place] [id number] [facility] Globulin (S) [Mass/Vol] 2.5 g/dL Normal [facility] Comment on above: Performed By: #### M G, PHOS, CMP, BHOB, DIFF CBC ####[place] [id number] [facility] Glucose [Mass/Vol] 421 mg/dL High 70-100 [facility] Comment on above: Result Comment: [facility] Glucose Reference Range is dependent on time and content of last meal. Glucose of more than 200 mg/dL in a nonstressed, ambulatory subject supports the diagnosis of Diabetes Mellitus. ADA recommended reference range Performed By: #### M G, PHOS, CMP, BHOB, DIFF CBC ####[place] [id number] [facility] Potassium [Moles/Vol] 4.0 mmol/L Normal 3.5-5.1 [facility] Comment on above: Performed By: #### M G, PHOS, CMP, BHOB, DIFF CBC ####[place] [id number] [facility] Protein [Mass/Vol] 6.3 g/dL Low 6.4-8.9 [facility] Comment on above: Performed By: #### M G, PHOS, CMP, BHOB, DIFF CBC ####[address] Sodium [Moles/Vol] 136 mmol/L Normal 136-145 [facility] Comment on above: Performed By: #### M G, PHOS, CMP, BHOB, DIFF CBC ####[address] Urea nitrogen [Mass/Vol] 9 mg/dL Normal 7-25 [facility] Comment on above: Performed By: #### M G, PHOS, CMP, BHOB, DIFF CBC ####[address] Diff and CBCon 04-08-2023 Basophils/100 WBC (Bld) 3 % High 0-2 [facility] Comment on above: Performed By: #### M G, PHOS, CMP, BHOB, DIFF CBC ####[address] Eosinophils/100 WBC (Bld) 3 % Normal 1-3 [facility] Comment on above: Performed By: #### M G, PHOS, CMP, BHOB, DIFF CBC ####[address] Erythrocyte distribution width (RBC) [Ratio] 13.0 % Normal 12.0-14.8 [facility] Comment on above: Performed By: #### M G, PHOS, CMP, BHOB, DIFF CBC ####[address] Hematocrit (Bld) [Volume fraction] 53.6 % High 38.8-50.0 [facility] Comment on above: Performed By: #### M G, PHOS, CMP, BHOB, DIFF CBC ####[address] Hemoglobin (Bld) [Mass/Vol] 18.3 g/dL High 13.0-17.0 [facility] Comment on above: Performed By: #### M G, PHOS, CMP, BHOB, DIFF CBC ####[address] Lymphocytes/100 WBC (Bld) 17 % Low 18-42 [facility] Comment on above: Performed By: #### M G, PHOS, CMP, BHOB, DIFF CBC ####[address] MCH (RBC) [Entitic mass] 31.0 pg Normal 27.5-35.2 [facility] Comment on above: Performed By: #### M G, PHOS, CMP, BHOB, DIFF CBC ####[address] MCV (RBC) [Entitic vol] 91.0 fL Normal 83.5-101 [facility] Comment on above: Performed By: #### M G, PHOS, CMP, BHOB, DIFF CBC ####[address] Mean Corpuscular HGB Conc 34.0 g/dL Normal 32.5-35.6 [facility] Comment on above: Performed By: #### M G, PHOS, CMP, BHOB, DIFF CBC ####[address] Metamyelocytes 3 % High 0-0 [facility] Comment on above: Performed By: #### M G, PHOS, CMP, BHOB, DIFF CBC ####[address] Monocytes/100 WBC (Bld) 16.06 % Normal 0.00-20.00 [facility] Comment on above: Result Comment: PERF ORMED BY:[address] [place], [place] [phone] MEDICAL DIRECTORANN VALENTINO M.D. Performed By: #### M G, PHOS, CMP, BHOB, DIFF CBC ####[address] Monocytes/100 WBC (Bld) 9 % Normal 2-11 [facility] Comment on above: Performed By: #### M G, PHOS, CMP, BHOB, DIFF CBC ####[address] Myelocytes 3 % High 0-0 [facility] Comment on above: Performed By: #### M G, PHOS, CMP, BHOB, DIFF CBC ####[place] [id number] [facility] Platelet Estimate Increased Normal Normal [facility] Comment on above: Performed By: #### M G, PHOS, CMP, BHOB, DIFF CBC ####[place] [phone] [facility] Platelet mean volume (Bld) [Entitic vol] 7.5 fL Normal 6.6-10.1 [facility] Comment on above: Performed By: #### M G, PHOS, CMP, BHOB, DIFF CBC ####[address] Platelet Morphology Normal Normal Normal [facility] Comment on above: Result Comment: PERF ORMED BY:[address] [place], [place] [phone] MEDICAL DIRECTORANN VALENTINO M.D. Performed By: #### M G, PHOS, CMP, BHOB, DIFF CBC ####[address] [address] [facility] Platelets (Bld) [#/Vol] 460 10*3/uL High 150-450 [facility] Comment on above: Performed By: #### M G, PHOS, CMP, BHOB, DIFF CBC ####[address] [address] [facility] RBC (Bld) [#/Vol] 5.89 10*6/uL High 3.90-5.60 [facility] Comment on above: Performed By: #### M G, PHOS, CMP, BHOB, DIFF CBC ####[place] [phone] [facility] RBC morphology finding Nom (Bld) Normal Normal Normal [facility] Comment on above: Performed By: #### M G, PHOS, CMP, BHOB, DIFF CBC ####[address] [address] [facility] Reactive Lymphocytes 1 % Normal 0-12 [facility] Comment on above: Performed By: #### M G, PHOS, CMP, BHOB, DIFF CBC ####[address] [address] [facility] Segmented neutrophils/100 WBC (Bld) 62 % Normal 50-70 [facility] Comment on above: Performed By: #### M G, PHOS, CMP, BHOB, DIFF CBC ####[address] [address] [facility] WBC (Bld) [#/Vol] 12.5 10*3/uL High 4.1-10.5 [facility] Comment on above: Performed By: #### M G, PHOS, CMP, BHOB, DIFF CBC ####[address] [address] [facility] Dipstick and Microscopicon 0 04-08-2023 Appearance (U) Clear Normal Clear [facility] Comment on above: Order Comment: Name Collection Type:: Clean-Voided Midstream Performed By: #### A DDONUAPLUS ####[address] [address] [facility] Bacteria,Urine None Seen Normal None Seen [facility] Comment on above: Order Comment: Name Collection Type:: Clean-Voided Midstream Performed By: #### A DDONUAPLUS ####[address] [address] [facility] Bilirubin,Urine Negative Normal Negative [facility] Comment on above: Order Comment: Name Collection Type:: Clean-Voided Midstream Performed By: #### A DDONUAPLUS ####[address] [address] [facility] Color (U) Yellow Normal Yellow [facility] Comment on above: Order Comment: Name Collection Type:: Clean-Voided Midstream Performed By: #### A DDONUAPLUS ####[address] [address] [facility] Glucose Ql (U) >=1000 High Normal [facility] Comment on above: Order Comment: Name Collection Type:: Clean-Voided Midstream Performed By: #### A DDONUAPLUS ####[address] [address] [facility] Hyaline Casts,Urine 0-8 Normal 0-8 [facility] Comment on above: Order Comment: Name Collection Type:: Clean-Voided Midstream Result Comment: PERF ORMED BY:[place] [address] [address] [place], [place] [phone] MEDICAL DIRECTORANN VALENTINO M.D. Performed By: #### A DDONUAPLUS ####[address] [address] [facility] Ketones Ql (U) 4+ High Negative [facility] Comment on above: Order Comment: Name Collection Type:: Clean-Voided Midstream Performed By: #### A DDONUAPLUS ####[address] [address] [facility] Leukocyte esterase Test strip Ql (U) Negative Normal Negative [facility] Comment on above: Order Comment: Name Collection Type:: Clean-Voided Midstream Performed By: #### A DDONUAPLUS ####[address] [address] [facility] Nitrite,Urine Negative Normal Negative [facility] Comment on above: Order Comment: Name Collection Type:: Clean-Voided Midstream Performed By: #### A DDONUAPLUS ####[address] [address] [facility] Occult Blood,Urine Negative Normal Negative [facility] Comment on above: Order Comment: Name Collection Type:: Clean-Voided Midstream Result Comment: PERF ORMED BY:[place] [address] [address] [place], [place] [phone] MEDICAL DIRECTORANN VALENTINO M.D. Performed By: #### A DDONUAPLUS ####[address] pH (U) 5.5 [pH] Normal 5.0-9.0 [facility] Comment on above: Order Comment: Name Collection Type:: Clean-Voided Midstream Performed By: #### A DDONUAPLUS ####[address] Protein (U) [Mass/Vol] 30 mg/dL High Negative [facility] Comment on above: Order Comment: Name Collection Type:: Clean-Voided Midstream Performed By: #### A DDONUAPLUS ####[address] RBC,Urine None Seen Normal 0-4 [facility] Comment on above: Order Comment: Name Collection Type:: Clean-Voided Midstream Performed By: #### A DDONUAPLUS ####[address] Specificy [place],Urine 1.027 Normal 1.001-1.030 [facility] Comment on above: Order Comment: Name Collection Type:: Clean-Voided Midstream Performed By: #### A DDONUAPLUS ####[address] Squamous Epithelial Cell,Urine 0-1 Normal 0-2 [facility] Comment on above: Order Comment: Name Collection Type:: Clean-Voided Midstream Performed By: #### A DDONUAPLUS ####[address] Urobilinogen,Urine Normal Normal Normal [facility] Comment on above: Order Comment: Name Collection Type:: Clean-Voided Midstream Performed By: #### A DDONUAPLUS ####[address] WBC LM.HPF (Urine sed) [#/Area] 0 /[HPF] Normal 0-4 [facility] Comment on above: Order Comment: Name Collection Type:: Clean-Voided Midstream Performed By: #### A DDONUAPLUS ####[address] [address] [facility] ECG 12 lead ECGon 04-08-2023 ECG 12 lead ECG Normal [facility] Glucose Poct Glucometerson 0 04-08-2023 Glucose [Mass/Vol] 126 mg/dL Normal [facility] Comment on above: Result Comment: [facility] Glucose Reference Range is dependent on time and content of last meal. Glucose of more than 200 mg/dL in a nonstressed, ambulatory subject supports the diagnosis of Diabetes Mellitus.PERFORMED BY:[address] [place], [place] [phone] MEDICAL DIRECTORANN VALENTINO M.D. Performed By: #### G LULS ####Point of Care testing, Glucose [Mass/Vol] 128 mg/dL Normal [facility] Comment on above: Result Comment: [facility] Glucose Reference Range is dependent on time and content of last meal. Glucose of more than 200 mg/dL in a nonstressed, ambulatory subject supports the diagnosis of Diabetes Mellitus.PERFORMED BY:[address] [place], [place] [phone] MEDICAL JEFFREY VALENTINO M.D. Performed By: #### G LULS ####Point of Care testing, Glucose [Mass/Vol] 145 mg/dL Normal [facility] Comment on above: Result Comment: [facility] Glucose Reference Range is dependent on time and content of last meal. Glucose of more than 200 mg/dL in a nonstressed, ambulatory subject supports the diagnosis of Diabetes Mellitus.PERFORMED BY:[address] NUÑE[place]MON[place], [place] [phone] MEDICAL JEFFREY VALENTINO M.D. Performed By: #### G LULS ####Point of Care testing, Glucose [Mass/Vol] 140 mg/dL Normal [facility] Comment on above: Result Comment: [facility] Glucose Reference Range is dependent on time and content of last meal. Glucose of more than 200 mg/dL in a nonstressed, ambulatory subject supports the diagnosis of Diabetes Mellitus.PERFORMED BY:[address] N[address]ÑE[place]MON[place], [place] [phone] MEDICAL JEFFREY VALENTINO M.D. Performed By: #### G LULS ####Point of Care testing, Glucose [Mass/Vol] 128 mg/dL Normal [facility] Comment on above: Result Comment: [facility] Glucose Reference Range is dependent on time and content of last meal. Glucose of more than 200 mg/dL in a nonstressed, ambulatory subject supports the diagnosis of Diabetes Mellitus.PERFORMED BY:[address] [place]OMPKINSS[place], [place] [phone] MEDICAL DIRECTORANN VALENTINO M.D. Performed By: #### G LULS ####Point of Care testing, Glucose [Mass/Vol] 130 mg/dL Normal [facility] Comment on above: Result Comment: [facility] Glucose Reference Range is dependent on time and content of last meal. Glucose of more than 200 mg/dL in a nonstressed, ambulatory subject supports the diagnosis of Diabetes Mellitus.PERFORMED BY:[address] [place], [place] [phone] MEDICAL JEFFREY VALENTINO M.D. Performed By: #### G LULS ####Point of Care testing, Glucose [Mass/Vol] 116 mg/dL Normal [facility] Comment on above: Result Comment: [facility] Glucose Reference Range is dependent on time and content of last meal. Glucose of more than 200 mg/dL in a nonstressed, ambulatory subject supports the diagnosis of Diabetes Mellitus.PERFORMED BY:[address] [place], [place] [phone] MEDICAL JEFFREY VALENTINO M.D. Performed By: #### G LULS ####Point of Care testing, Glucose [Mass/Vol] 155 mg/dL Normal [facility] Comment on above: Result Comment: [facility] Glucose Reference Range is dependent on time and content of last meal. Glucose of more than 200 mg/dL in a nonstressed, ambulatory subject supports the diagnosis of Diabetes Mellitus.PERFORMED BY:[address] [place], [place] [phone] MEDICAL JEFFREY VALENTINO M.D. Performed By: #### G LULS ####Point of Care testing, Glucose [Mass/Vol] 194 mg/dL Normal [facility] Comment on above: Result Comment: [facility] Glucose Reference Range is dependent on time and content of last meal. Glucose of more than 200 mg/dL in a nonstressed, ambulatory subject supports the diagnosis of Diabetes Mellitus.PERFORMED BY:[address] [place], [place] [phone] MEDICAL JEFFREY VALENTINO M.D. Performed By: #### G LULS ####Point of Care testing, Glucose [Mass/Vol] 236 mg/dL Normal [facility] Comment on above: Result Comment: [facility] Glucose Reference Range is dependent on time and content of last meal. Glucose of more than 200 mg/dL in a nonstressed, ambulatory subject supports the diagnosis of Diabetes Mellitus.PERFORMED BY:[address] [place], [place] [phone] MEDICAL JEFFREY VALENTINO M.D. Performed By: #### G LULS ####Point of Care testing, Glucose [Mass/Vol] 203 mg/dL Normal [facility] Comment on above: Result Comment: [facility] Glucose Reference Range is dependent on time and content of last meal. Glucose of more than 200 mg/dL in a nonstressed, ambulatory subject supports the diagnosis of Diabetes Mellitus.PERFORMED BY:[place] [address] [address] [place], [place] [phone] MEDICAL JEFFREY VALENTINO M.D. Performed By: #### G LULS ####Point of Care testing, Commemt1 Glu2: Cleaned Meter Normal [facility] Comment on above: Result Comment: PERF ORMED BY:[place] [address] [address] [place], [place] [phone] BREANN VALENTINO M.D. Performed By: #### G LULS ####Point of Care testing, Glucose [Mass/Vol] 217 mg/dL Normal [facility] Comment on above: Result Comment: [facility] Glucose Reference Range is dependent on time and content of last meal. Glucose of more than 200 mg/dL in a nonstressed, ambulatory subject supports the diagnosis of Diabetes Mellitus. Performed By: #### G LULS ####Point of Care testing, Commemt1 Glu2: Cleaned Meter Normal [facility] Comment on above: Result Comment: PERF ORMED BY:[address] [place], [place] [phone] MEDICAL DIRECTORANN VALENTINO M.D. Performed By: #### G LULS ####Point of Care testing, Glucose [Mass/Vol] 211 mg/dL Normal [facility] Comment on above: Result Comment: [facility] Glucose Reference Range is dependent on time and content of last meal. Glucose of more than 200 mg/dL in a nonstressed, ambulatory subject supports the diagnosis of Diabetes Mellitus. Performed By: #### G LULS ####Point of Care testing, Commemt1 Glu2: Cleaned Meter Normal [facility] Comment on above: Result Comment: PERF ORMED BY:[address] [place], [place] [phone] MEDICAL DIRECTORANN VALENTINO M.D. Performed By: #### G LULS ####Point of Care testing, Glucose [Mass/Vol] 259 mg/dL Normal [facility] Comment on above: Result Comment: [facility] Glucose Reference Range is dependent on time and content of last meal. Glucose of more than 200 mg/dL in a nonstressed, ambulatory subject supports the diagnosis of Diabetes Mellitus. Performed By: #### G LULS ####Point of Care testing, Commemt1 Glu2: Cleaned Meter Normal [facility] Comment on above: Result Comment: PERF ORMED BY:[address] SANTOSMiriFELIC[place], [place] [phone] MEDICAL JEFFREY VALENTINO M.D. Performed By: #### G LULS ####Point of Care testing, Glucose [Mass/Vol] 237 mg/dL Normal [facility] Comment on above: Result Comment: [facility] Glucose Reference Range is dependent on time and content of last meal. Glucose of more than 200 mg/dL in a nonstressed, ambulatory subject supports the diagnosis of Diabetes Mellitus. Performed By: #### G LULS ####Point of Care testing, Commemt1 Glu2: Cleaned Meter Normal [facility] Comment on above: Result Comment: PERF ORMED BY:[address] [place], [place] [phone] MEDICAL DIRECTORANN VALENTINO M.D. Performed By: #### G LULS ####Point of Care testing, Glucose [Mass/Vol] 285 mg/dL Normal [facility] Comment on above: Result Comment: [facility] Glucose Reference Range is dependent on time and content of last meal. Glucose of more than 200 mg/dL in a nonstressed, ambulatory subject supports the diagnosis of Diabetes Mellitus. Performed By: #### G LULS ####Point of Care testing, Glucose [Mass/Vol] 397 mg/dL Normal [facility] Comment on above: Result Comment: [facility] Glucose Reference Range is dependent on time and content of last meal. Glucose of more than 200 mg/dL in a nonstressed, ambulatory subject supports the diagnosis of Diabetes Mellitus.PERFORMED BY:[address] [place], [place] [phone] MEDICAL JEFFREY VALENTINO M.D. Performed By: #### G LULS ####Point of Care testing, Magnesiumon 04-08-2023 Magnesium [Mass/Vol] 1.8 mg/dL Low 1.9-2.7 [facility] Comment on above: Result Comment: PERF ORMED BY:[address] [place], [place] [id number] MEDICAL DIRECTORANN VALENTINO M.D. Performed By: #### P HOS, MG, BMP ####[address] [address] [facility] Magnesium [Mass/Vol] 1.5 mg/dL Low 1.9-2.7 [facility] Comment on above: Performed By: #### B HOB, BMP, PHOS, MG ####[place] [id number] [facility] Magnesium [Mass/Vol] 1.9 mg/dL Normal 1.9-2.7 [facility] Comment on above: Performed By: #### M G, PHOS, CMP, BHOB, DIFF CBC ####[place] [id number] [facility] Phosphoruson 04-08-2023 Phosphate [Mass/Vol] 4.4 mg/dL Normal 2.5-4.5 [facility] Comment on above: Performed By: #### P HOS, MG, BMP ####[address] Phosphate [Mass/Vol] 1.9 mg/dL Low 2.5-4.5 [facility] Comment on above: Performed By: #### B HOB, BMP, PHOS, MG ####[place] [id number] [facility] Phosphate [Mass/Vol] 3.4 mg/dL Normal 2.5-4.5 [facility] Comment on above: Performed By: #### M G, PHOS, CMP, BHOB, DIFF CBC ####[place] [id number] [facility] XR lumbar spine 2-3V*on 03-14 XR lumbar spine 2-3V* Normal [facility] Basic Metabolic Panelon 03-13 Anion gap [Moles/Vol] 7.3 mmol/L Normal 6.0-15.0 [facility] Comment on above: Performed By: #### M G, CBCNO, BMP ####[place] [id number] [facility] Calcium [Mass/Vol] 7.4 mg/dL Low 8.6-10.3 [facility] Comment on above: Performed By: #### M G, CBCNO, BMP ####[place] [id number] [facility] Chloride [Moles/Vol] 110 mmol/L High 98-107 [facility] Comment on above: Performed By: #### ZAYRA Dimas, BMP ####[place] [address] CO2 [Moles/Vol] 25.9 mmol/L Normal 21.0-31.0 [facility] Comment on above: Performed By: #### ZAYRA Dimas, BMP ####[address] Creatinine [Mass/Vol] 0.46 mg/dL Low 0.70-1.30 [facility] Comment on above: Performed By: #### ZAYRA Dimas, BMP ####[place] [address] Creatinine Clr Calc Pharmacy 224.68 Normal [facility] Comment on above: Performed By: #### ZAYRA Dimas, BMP ####[address] GFR/1.73 sq M.predicted MDRD (S/P/Bld) [Vol rate/Area] mL/min/{1.73_m2} Normal [facility] Comment on above: Performed By: #### ZAYRA Dimas, BMP ####[address] Glucose [Mass/Vol] 157 mg/dL High 70-100 [facility] Comment on above: Result Comment: [place] Glucose Reference Range is dependent on time and content of last meal. Glucose of more than 200 mg/dL in a nonstressed, ambulatory subject supports the diagnosis of Diabetes Mellitus. ADA recommended reference range Performed By: #### ZAYRA Dimas, BMP ####[place] [address] [place] [id number] [facility] Potassium [Moles/Vol] 3.2 mmol/L Low 3.5-5.1 [facility] Comment on above: Performed By: #### ZAYRA Dimas, BMP ####[place] [address] Sodium [Moles/Vol] 140 mmol/L Normal 136-145 [facility] Comment on above: Performed By: #### M G, CBCNO, BMP ####[facility] Acw[address] [place] [id number] [facility] Urea nitrogen [Mass/Vol] 9 mg/dL Normal 7-25 [facility] Comment on above: Performed By: #### M G, CBCNO, BMP ####[facility] Cac[address] [place] [id number] [facility] Calcium [Mass/volume] in Ser um or PlasmaOrdered By: Obkarla Hahnomar on 03-23-2023 Calcium [Mass/Vol] 7.4 mg/dL 8.6-10.3 [facility] Carbon dioxide, total [Moles /volume] in Serum or PlasmaOrdered By: Rashi Hahnomar on 03-23-2023 CO2 [Moles/Vol] 25.9 mmol/L 21.0-31.0 [facility] Chloride [Moles/volume] in S del or PlasmaOrdered By: Rashi Hahnomar on 03-23-2023 Chloride [Moles/Vol] 110 mmol/L 98-107 [facility] Creatinine [Mass/volume] in Serum or PlasmaOrdered By: Obdeenadacandace Hahnomar on 03-23-2023 Creatinine [Mass/Vol] 0.46 mg/dL 0.70-1.30 [facility] Erythrocyte distribution wid th Auto (RBC) [Ratio]Ordered By: Rashi Clark on 03-23-2023 Erythrocyte distribution width (RBC) [Ratio] 12.3 % 12.0-14.8 [facility] Glucose Glucometer (BldC) [M ass/Vol]Ordered By: Rashi Clark on 03-23-2023 Glucose [Mass/Vol] 272 mg/dL [facility] Comment on above: Random Glucose Refer ence Range is dependent on time and content of last meal. Glucose of more than 200 mg/dL in a nonstressed, ambulatory subject supports the diagnosis of Diabetes Mellitus. Glucose Poct Glucometerson 0 03-23-2023 Commemt1 Glu2: Cleaned Meter Normal [facility] Comment on above: Result Comment: PERF ORMED BY:[facility] [place], [place] [phone] MEDICAL DIRECTORANN VALENTINO M.D. Performed By: #### G LULS ####Point of Care testing, Glucose [Mass/Vol] 272 mg/dL Normal [facility] Comment on above: Result Comment: [place] om Glucose Reference Range is dependent on time and content of last meal. Glucose of more than 200 mg/dL in a nonstressed, ambulatory subject supports the diagnosis of Diabetes Mellitus. Performed By: #### G LULS ####Point of Care testing, Glucose [Mass/volume] in Ser um or PlasmaOrdered By: Rashi Clark on 03-23-2023 Glucose [Mass/Vol] 157 mg/dL 70-100 [facility] Comment on above: ADA recommended refe rence rangeRandom Glucose Reference Range is dependent on time and content of last meal. Glucose of more than 200 mg/dL in a nonstressed, ambulatory subject supports the diagnosis of Diabetes Mellitus. Hematocrit Auto (Bld) [Volum e fraction]Ordered By: Rashi Clark on 03-23-2023 Hematocrit (Bld) [Volume fraction] 34.6 % 38.8-50.0 [facility] Hemoglobin [Mass/volume] in BloodOrdered By: Rashi Clark on 03-23-2023 Hemoglobin (Bld) [Mass/Vol] 12.3 g/dL 13.0-17.0 [facility] Hemogram CBC Without Diffon 03-23-2023 Erythrocyte distribution width (RBC) [Ratio] 12.3 % Normal 12.0-14.8 [facility] Comment on above: Performed By: #### M Mis, CBCNO, BMP ####[facility] [id number] [place] [id number] [facility] Hematocrit (Bld) [Volume fraction] 34.6 % Low 38.8-50.0 [facility] Comment on above: Performed By: #### M G, CBCNO, BMP ####[facility] Uvi[address] [place] [id number] [facility] Hemoglobin (Bld) [Mass/Vol] 12.3 g/dL Low 13.0-17.0 [facility] Comment on above: Performed By: #### AZYRA Dimas, BMP ####[address] MCH (RBC) [Entitic mass] 31.3 pg Normal 27.5-35.2 [facility] Comment on above: Performed By: #### ZAYRA Dimas, BMP ####[address] MCV (RBC) [Entitic vol] 88.2 fL Normal 83.5-101 [facility] Comment on above: Performed By: #### ZAYRA Dimas, BMP ####[address] Mean Corpuscular HGB Conc 35.5 g/dL Normal 32.5-35.6 [facility] Comment on above: Performed By: #### ZAYRA Dimas, BMP ####[address] Platelet mean volume (Bld) [Entitic vol] 7.1 fL Normal 6.6-10.1 [facility] Comment on above: Result Comment: PERF ORMED BY:[address] [place], [place] [phone] MEDICAL DIRECTORANN VALENTINO M.D. Performed By: #### ZAYRA Dimas, BMP ####[address] Platelets (Bld) [#/Vol] 271 10*3/uL Normal 150-450 [facility] Comment on above: Performed By: #### ZAYRA Dimas, BMP ####[address] RBC (Bld) [#/Vol] 3.93 10*6/uL Normal 3.90-5.60 [facility] Comment on above: Performed By: #### ZAYRA Dimas, BMP ####[address] [place] [address] [facility] WBC (Bld) [#/Vol] 5.8 10*3/uL Normal 4.1-10.5 [facility] Comment on above: Performed By: #### M ZAYRA Abebe, BMP ####[address] [address] [facility] Leukocytes [#/volume] correc fide for nucleated erythrocytes in Blood by Automated counOrdered By: Obdeenadacandace Hahnomar on 03-23-2023 WBC corrected for nucl RBC Auto (Bld) [#/Vol] 5.8 10*3/uL 4.1-10.5 [facility] MCH Auto (RBC) [Entitic mass ]Ordered By: Rashi Hahnomar on 03-23-2023 MCH (RBC) [Entitic mass] 31.3 pg 27.5-35.2 [facility] MCHC Auto (RBC) [Mass/Vol]Or dered By: Obdeenadacandace Hahnomar on 03-23-2023 MCHC (RBC) [Mass/Vol] 35.5 g/dL 32.5-35.6 [facility] MCV Auto (RBC) [Entitic vol] Ordered By: Rashi Hahnomar on 03-23-2023 MCV (RBC) [Entitic vol] 88.2 fL 83.5-101 [facility] Magnesiumon 03-23-2023 Magnesium [Mass/Vol] 1.7 mg/dL Low 1.9-2.7 [facility] Comment on above: Result Comment: PERF ORMED BY:[address] [place], [place] [phone] MEDICAL DIRECTORANN VALENTINO M.D. Performed By: #### M ZAYRA Abebe, BMP ####[address] [address] [facility] Magnesium [Mass/volume] in S del or PlasmaOrdered By: Rashi Hahnomar on 03-23-2023 Magnesium [Mass/Vol] 1.7 mg/dL 1.9-2.7 [facility] No Panel InformationOrdered By: Rasih Clark on 03-23-2023 Bedside Glucose Comment Glu2: cleaned meter [facility] Estimated GFR (CKD-EPI) > 60.0 mL/Min [facility] Pharmacy Creatinine Clearance (Chem 224.68 [facility] Platelet mean volume Auto (B ld) [Entitic vol]Ordered By: Obdeenadah Daromar on 03-23-2023 Platelet mean volume (Bld) [Entitic vol] 7.1 fL 6.6-10.1 [facility] Platelets Auto (Bld) [#/Vol] Ordered By: Obaydah Daromar on 03-23-2023 Platelets (Bld) [#/Vol] 271 10*3/uL 150-450 [facility] Potassium [Moles/volume] in Serum or PlasmaOrdered By: Obdeenadah Daromar on 03-23-2023 Potassium [Moles/Vol] 3.2 mmol/L 3.5-5.1 [facility] RBC Auto (Bld) [#/Vol]Ordere d By: Obdeenadah Daromar on 03-23-2023 RBC (Bld) [#/Vol] 3.93 10*6/uL 3.90-5.60 [facility] Serum or plasma anion gap de terminationOrdered By: Obdeenadah Daromar on 03-23-2023 Anion gap [Moles/Vol] 7.3 mmol/L 6.0-15.0 [facility] Sodium [Moles/volume] in Ser um or PlasmaOrdered By: Obdeenadah Daromar on 03-23-2023 Sodium [Moles/Vol] 140 mmol/L 136-145 [facility] Urea nitrogen [Mass/volume] in Serum or PlasmaOrdered By: Obdeenadah Daromar on 03-23-2023 Urea nitrogen [Mass/Vol] 9 mg/dL 7-25 [facility] A1C with Estimated Average G luon 03-22-2023 Glucose [Mass/Vol] 433 mg/dL Normal [facility] Comment on above: Order Comment: Comme nt add Result Comment: PERF ORMED BY:[place] [id number] [place] [phone] MEDICAL DIRECTORANN VALENTINO M.D. Performed By: #### A 1C [facility] eA ####[place] [address] [place] [address] [facility] HbA1c (Bld) [Mass fraction] 16.7 % High 4.3-5.6 [facility] Comment on above: Order Comment: Comme nt add Result Comment: Incr eased risk for diabetes: 5.7 - 6.4 diabetes: >6.4 glycemic control for adults with diabetes: <7.0 Performed By: #### A 1C [facility] eA ####[place] [address] [place] [address] [facility] Alanine aminotransferase [En zymatic activity/volume] in Serum or PlasmaOrdered By: Rashi Rodriguezr on 03-22-2023 ALT [Catalytic activity/Vol] 10 U/L 7-52 [facility] Albumin [Mass/volume] in Ser um or Plasma by Bromocresol green (BCG) dye binding methoOrdered By: Obkarla Rodriguezr on 03-22-2023 Albumin BCG dye [Mass/Vol] 2.4 g/dL 3.5-5.7 [facility] Comment on above: Delta: 3.5 on -1435 Alkaline phosphatase [Enzyma tic activity/volume] in Serum or PlasmaOrdered By: Obdeenadacandace Hahnomar on 03-22-2023 ALP [Catalytic activity/Vol] 60 U/L 34-104 [facility] Aspartate aminotransferase [ Enzymatic activity/volume] in Serum or PlasmaOrdered By: Obdeenadah Jovaniomar on 03-22-2023 AST [Catalytic activity/Vol] 11 U/L 13-39 [facility] Basic Metabolic Panelon 03-13 Anion gap [Moles/Vol] 9.1 mmol/L Normal 6.0-15.0 [facility] Comment on above: Performed By: #### B MP ####[place] [address] [place] [address] [facility] Calcium [Mass/Vol] 7.5 mg/dL Low 8.6-10.3 [facility] Comment on above: Performed By: #### B MP ####[place] [id number] [facility] Chloride [Moles/Vol] 110 mmol/L High 98-107 [facility] Comment on above: Performed By: #### B MP ####[place] [id number] [facility] CO2 [Moles/Vol] 21.4 mmol/L Normal 21.0-31.0 [facility] Comment on above: Performed By: #### B MP ####[place] [id number] [facility] Creatinine [Mass/Vol] 0.57 mg/dL Low 0.70-1.30 [facility] Comment on above: Performed By: #### B MP ####[place] [id number] [facility] Creatinine Clr Calc Pharmacy 176.31 Normal [facility] Comment on above: Result Comment: PERF ORMED BY:[address] [place], [place] [phone] MEDICAL JEFFREY VALENTINO M.D. Performed By: #### B MP ####[place] [id number] [facility] GFR/1.73 sq M.predicted MDRD (S/P/Bld) [Vol rate/Area] mL/min/{1.73_m2} Normal [facility] Comment on above: Performed By: #### B MP ####[place] [id number] [facility] Glucose [Mass/Vol] 130 mg/dL Significant change up 70-100 [facility] Comment on above: Result Comment: [place] om Glucose Reference Range is dependent on time and content of last meal. Glucose of more than 200 mg/dL in a nonstressed, ambulatory subject supports the diagnosis of Diabetes Mellitus. ADA recommended reference range Performed By: #### B MP ####[place] [id number] [facility] Potassium [Moles/Vol] 3.5 mmol/L Normal 3.5-5.1 [facility] Comment on above: Performed By: #### B MP ####[place] [address] [place] [address] [facility] Sodium [Moles/Vol] 137 mmol/L Normal 136-145 [facility] Comment on above: Performed By: #### B MP ####[place] [address] [place] [address] [facility] Urea nitrogen [Mass/Vol] 10 mg/dL Normal 7-25 [facility] Comment on above: Performed By: #### B MP ####[facility] [place] [address] [facility] Basophils Auto (Bld) [#/Vol] Ordered By: Obdeenadacandace Hahnomar on 03-22-2023 Basophils (Bld) [#/Vol] 0.0 10*3/uL 0.0-0.2 [facility] Basophils/100 WBC Auto (Bld) Ordered By: Obaydah Jovaniomar on 03-22-2023 Basophils/100 WBC (Bld) 0.5 % . [facility] Bilirubin.total [Mass/volume ] in Serum or PlasmaOrdered By: Obdeenadacandace Hahnomar on 03-22-2023 Bilirubin [Mass/Vol] 0.5 mg/dL 0.3-1.0 [facility] Complete Blood Count Auto Di ffon 03-22-2023 Basophils (Bld) [#/Vol] 0.0 10*3/uL Normal 0.0-0.2 [facility] Comment on above: Order Comment: DRAW ALL LABS AT 0800 PER RN Result Comment: PERF ORMED BY:[address] [place], [place] [phone] MEDICAL JEFFREY VALENTINO M.D. Performed By: #### C MP, CBC, MG ####[facility] [place] [address] [facility] Basophils/100 WBC (Bld) 0.5 % Normal . [facility] Comment on above: Order Comment: DRAW ALL LABS AT 0800 PER RN Performed By: #### C MP, CBC, MG ####[address] Eosinophils (Bld) [#/Vol] 0.4 10*3/uL Normal 0.0-0.45 [facility] Comment on above: Order Comment: DRAW ALL LABS AT 0800 PER RN Performed By: #### C MP, CBC, MG ####[address] Eosinophils/100 WBC (Bld) 6.2 % Normal . [facility] Comment on above: Order Comment: DRAW ALL LABS AT 0800 PER RN Performed By: #### C MP, CBC, MG ####[address] Erythrocyte distribution width (RBC) [Ratio] 12.2 % Normal 12.0-14.8 [facility] Comment on above: Order Comment: DRAW ALL LABS AT 0800 PER RN Performed By: #### C MP, CBC, MG ####[address] Hematocrit (Bld) [Volume fraction] 35.3 % Significant change down 38.8-50.0 [facility] Comment on above: Order Comment: DRAW ALL LABS AT 0800 PER RN Performed By: #### C MP, CBC, MG ####[address] Hemoglobin (Bld) [Mass/Vol] 12.3 g/dL Low 13.0-17.0 [facility] Comment on above: Order Comment: DRAW ALL LABS AT 0800 PER RN Performed By: #### C MP, CBC, MG ####[address] Lymphocytes (Bld) [#/Vol] 1.4 10*3/uL Normal 1.00-4.8 [facility] Comment on above: Order Comment: DRAW ALL LABS AT 0800 PER RN Performed By: #### C MP, CBC, MG ####[address] Lymphocytes/100 WBC (Bld) 19.7 % Normal . [facility] Comment on above: Order Comment: DRAW ALL LABS AT 0800 PER RN Performed By: #### C MP, CBC, MG ####[address] MCH (RBC) [Entitic mass] 30.8 pg Normal 27.5-35.2 [facility] Comment on above: Order Comment: DRAW ALL LABS AT 0800 PER RN Performed By: #### C MP, CBC, MG ####[address] MCV (RBC) [Entitic vol] 88.5 fL Normal 83.5-101 [facility] Comment on above: Order Comment: DRAW ALL LABS AT 0800 PER RN Performed By: #### C MP, CBC, MG ####[address] Mean Corpuscular HGB Conc 34.9 g/dL Normal 32.5-35.6 [facility] Comment on above: Order Comment: DRAW ALL LABS AT 0800 PER RN Performed By: #### C MP, CBC, MG ####[address] Monocytes (Bld) [#/Vol] 0.6 10*3/uL Normal 0.0-0.8 [facility] Comment on above: Order Comment: DRAW ALL LABS AT 0800 PER RN Performed By: #### C MP, CBC, MG ####[address] Monocytes/100 WBC (Bld) 9.1 % Normal . [facility] Comment on above: Order Comment: DRAW ALL LABS AT 0800 PER RN Performed By: #### C MP, CBC, MG ####[address] Neutrophils (Bld) [#/Vol] 4.5 10*3/uL Normal 1.8-7.7 [facility] Comment on above: Order Comment: DRAW ALL LABS AT 0800 PER RN Performed By: #### C MP, CBC, MG ####[place] [id number] [place] Neutrophils/100 WBC (Bld) 64.5 % Normal . [facility] Comment on above: Order Comment: DRAW ALL LABS AT 0800 PER RN Performed By: #### C MP, CBC, MG ####[address] NRBC% 0.1 /100{WBC} Normal 0-0.5 [facility] Comment on above: Order Comment: DRAW ALL LABS AT 0800 PER RN Performed By: #### C MP, CBC, MG ####[address] Platelet mean volume (Bld) [Entitic vol] 7.4 fL Normal 6.6-10.1 [facility] Comment on above: Order Comment: DRAW ALL LABS AT 0800 PER RN Performed By: #### C MP, CBC, MG ####[address] Platelets (Bld) [#/Vol] 279 10*3/uL Normal 150-450 [facility] Comment on above: Order Comment: DRAW ALL LABS AT 0800 PER RN Performed By: #### C MP, CBC, MG ####[address] RBC (Bld) [#/Vol] 3.99 10*6/uL Normal 3.90-5.60 [facility] Comment on above: Order Comment: DRAW ALL LABS AT 0800 PER RN Performed By: #### C MP, CBC, MG ####[address] WBC (Bld) [#/Vol] 7.0 10*3/uL Normal 4.1-10.5 [facility] Comment on above: Order Comment: DRAW ALL LABS AT 0800 PER RN Performed By: #### C MP, CBC, MG ####[address] Comprehensive Metabolic Pane maureen 03-22-2023 Albumin [Mass/Vol] 2.4 g/dL Significant change down 3.5-5.7 [facility] Comment on above: Order Comment: DRAW ALL LABS AT 0800 PER RN Performed By: #### C MP, CBC, MG ####[place] [id number] [facility] Albumin/Globulin [Mass ratio] 1.7 {ratio} Normal [facility] Comment on above: Order Comment: DRAW ALL LABS AT 0800 PER RN Performed By: #### C MP, CBC, MG ####[place] [id number] [facility] ALP [Catalytic activity/Vol] 60 U/L Normal 34-104 [facility] Comment on above: Order Comment: DRAW ALL LABS AT 0800 PER RN Performed By: #### C MP, CBC, MG ####[place] [id number] [facility] ALT [Catalytic activity/Vol] 10 U/L Normal 7-52 [facility] Comment on above: Order Comment: DRAW ALL LABS AT 0800 PER RN Performed By: #### C MP, CBC, MG ####[place] [id number] [facility] Anion gap [Moles/Vol] 11.1 mmol/L Normal 6.0-15.0 [facility] e [facility] Comment on above: Order Comment: DRAW ALL LABS AT 0800 PER RN Performed By: #### C MP, CBC, MG ####[place] [id number] [facility] AST [Catalytic activity/Vol] 11 U/L Low 13-39 [facility] Comment on above: Order Comment: DRAW ALL LABS AT 0800 PER RN Performed By: #### C MP, CBC, MG ####[place] [id number] [facility] Bilirubin [Mass/Vol] 0.5 mg/dL Normal 0.3-1.0 [facility] Comment on above: Order Comment: DRAW ALL LABS AT 0800 PER RN Performed By: #### C MP, CBC, MG ####[place] [id number] [facility] Calcium [Mass/Vol] 7.1 mg/dL Low 8.6-10.3 [facility] Comment on above: Order Comment: DRAW ALL LABS AT 0800 PER RN Performed By: #### C MP, CBC, MG ####[address] Chloride [Moles/Vol] 109 mmol/L High 98-107 [facility] Comment on above: Order Comment: DRAW ALL LABS AT 0800 PER RN Performed By: #### C MP, CBC, MG ####[address] CO2 [Moles/Vol] 20.2 mmol/L Low 21.0-31.0 [facility] Comment on above: Order Comment: DRAW ALL LABS AT 0800 PER RN Performed By: #### C MP, CBC, MG ####[address] Creatinine [Mass/Vol] 0.59 mg/dL Low 0.70-1.30 [facility] Comment on above: Order Comment: DRAW ALL LABS AT 0800 PER RN Performed By: #### C MP, CBC, MG ####[address] Creatinine Clr Calc Pharmacy 175.18 Normal [facility] Comment on above: Order Comment: DRAW ALL LABS AT 0800 PER RN Performed By: #### C MP, CBC, MG ####[address] GFR/1.73 sq M.predicted MDRD (S/P/Bld) [Vol rate/Area] mL/min/{1.73_m2} Normal [facility] Comment on above: Order Comment: DRAW ALL LABS AT 0800 PER RN Performed By: #### C MP, CBC, MG ####[place] [id number] [facility] Globulin (S) [Mass/Vol] 1.4 g/dL Normal [facility] Comment on above: Order Comment: DRAW ALL LABS AT 0800 PER RN Performed By: #### C MP, CBC, MG ####[place] [address] [place] Glucose [Mass/Vol] 224 mg/dL High 70-100 [facility] Comment on above: Order Comment: DRAW ALL LABS AT 0800 PER RN Result Comment: [facility] Glucose Reference Range is dependent on time and content of last meal. Glucose of more than 200 mg/dL in a nonstressed, ambulatory subject supports the diagnosis of Diabetes Mellitus. ADA recommended reference range Performed By: #### C MP, CBC, MG ####[place] [id number] Potassium [Moles/Vol] 3.3 mmol/L Low 3.5-5.1 [facility] Comment on above: Order Comment: DRAW ALL LABS AT 0800 PER RN Performed By: #### C MP, CBC, MG ####[place] [id number] Protein [Mass/Vol] 3.8 g/dL Significant change down 6.4-8.9 [facility] Comment on above: Order Comment: DRAW ALL LABS AT 0800 PER RN Performed By: #### C MP, CBC, MG ####[place] [id number] [facility] Sodium [Moles/Vol] 137 mmol/L Normal 136-145 [facility] Comment on above: Order Comment: DRAW ALL LABS AT 0800 PER RN Performed By: #### C MP, CBC, MG ####[place] [id number] [facility] Urea nitrogen [Mass/Vol] 9 mg/dL Normal 7-25 [facility] Comment on above: Order Comment: DRAW ALL LABS AT 0800 PER RN Performed By: #### C MP, CBC, MG ####[place] [id number] [place] Eosinophils Auto (Bld) [#/Vo l]Ordered By: Rashi Clark on 03-22-2023 Eosinophils (Bld) [#/Vol] 0.4 10*3/uL 0.0-0.45 [facility] Eosinophils/100 WBC Auto (Bl d)Ordered By: Rashi Clark on 03-22-2023 Eosinophils/100 WBC (Bld) 6.2 % . [facility] Globulin Calc (S) [Mass/Vol] Ordered By: Rashi Clark on 03-22-2023 Globulin (S) [Mass/Vol] 1.4 g/dL [facility] Glucose Poct Glucometerson 0 03-22-2023 Glucose [Mass/Vol] 313 mg/dL Normal [facility] Comment on above: Result Comment: [facility] Glucose Reference Range is dependent on time and content of last meal. Glucose of more than 200 mg/dL in a nonstressed, ambulatory subject supports the diagnosis of Diabetes Mellitus.PERFORMED BY:[address] TOMPKINSSYR[address], [place] [phone] MEDICAL DIRECTORANN VALENTINO M.D. Performed By: #### G LULS ####Point of Care testing, Glucose [Mass/Vol] 282 mg/dL Normal [facility] Comment on above: Result Comment: [facility] Glucose Reference Range is dependent on time and content of last meal. Glucose of more than 200 mg/dL in a nonstressed, ambulatory subject supports the diagnosis of Diabetes Mellitus.PERFORMED BY:[place] [address] [address]Ñ[place], [place] [phone] MEDICAL JEFFREY VALENTINO M.D. Performed By: #### G LULS ####Point of Care testing, Glucose [Mass/Vol] 235 mg/dL Normal [facility] Comment on above: Result Comment: [facility] Glucose Reference Range is dependent on time and content of last meal. Glucose of more than 200 mg/dL in a nonstressed, ambulatory subject supports the diagnosis of Diabetes Mellitus.PERFORMED BY:[address] N[address]ÑEZDRUMMOND ISLAND, [place] [phone] MEDICAL JEFFREY VALENTINO M.D. Performed By: #### G LULS ####Point of Care testing, Glucose [Mass/Vol] 152 mg/dL Normal [facility] Comment on above: Result Comment: [facility] Glucose Reference Range is dependent on time and content of last meal. Glucose of more than 200 mg/dL in a nonstressed, ambulatory subject supports the diagnosis of Diabetes Mellitus.PERFORMED BY:[place] [address] [address]Ñ[place], [place] [phone] MEDICAL JEFFREY VALENTINO M.D. Performed By: #### G LULS ####Point of Care testing, Commemt1 Glu2: Cleaned Meter Normal [facility] Comment on above: Result Comment: PERF ORMED BY:[place] [address] [address]UÑ[place], [place] [phone] MEDICAL JEFFREY VALENTINO M.D. Performed By: #### G LULS ####Point of Care testing, Glucose [Mass/Vol] 198 mg/dL Normal [facility] Comment on above: Result Comment: [facility] [facility] Glucose Reference Range is dependent on time and content of last meal. Glucose of more than 200 mg/dL in a nonstressed, ambulatory subject supports the diagnosis of Diabetes Mellitus. Performed By: #### G LULS ####Point of Care testing, Commemt1 Glu2: Cleaned Meter Normal [facility] Comment on above: Result Comment: PERF ORMED BY:[address] TOMPKINSSYRACUSE, [place] [phone] MEDICAL JEFFREY VALENTINO M.D. Performed By: #### G LULS ####Point of Care testing, Glucose [Mass/Vol] 226 mg/dL Normal [facility] Comment on above: Result Comment: [place] [facility] Glucose Reference Range is dependent on time and content of last meal. Glucose of more than 200 mg/dL in a nonstressed, ambulatory subject supports the diagnosis of Diabetes Mellitus. Performed By: #### G LULS ####Point of Care testing, Commemt1 Glu2: Cleaned Meter Normal [facility] Comment on above: Result Comment: PERF ORMED BY:[address] NUÑEZDRUMMOND [place]LAND, [place] [phone] BREANN VALENTINO M.D. Performed By: #### G LULS ####Point of Care testing, Glucose [Mass/Vol] 119 mg/dL Normal [facility] Comment on above: Result Comment: [place] [facility] Glucose Reference Range is dependent on time and content of last meal. Glucose of more than 200 mg/dL in a nonstressed, ambulatory subject supports the diagnosis of Diabetes Mellitus. Performed By: #### G LULS ####Point of Care testing, Glucose [Mass/Vol] 128 mg/dL Normal [facility] Comment on above: Result Comment: [place] [facility] Glucose Reference Range is dependent on time and content of last meal. Glucose of more than 200 mg/dL in a nonstressed, ambulatory subject supports the diagnosis of Diabetes Mellitus.PERFORMED BY:[address] ALIDAOtiliaMiriFELICITAS, [place] [phone] MEDICAL DIRECTORANN VALENTINO M.D. Performed By: #### G LULS ####Point of Care testing, Glucose [Mass/Vol] 98 mg/dL Normal [facility] Comment on above: Result Comment: [place] [facility] Glucose Reference Range is dependent on time and content of last meal. Glucose of more than 200 mg/dL in a nonstressed, ambulatory subject supports the diagnosis of Diabetes Mellitus.PERFORMED BY:[address] DANIELLEMiriFELICIT[place], [place] [phone] MEDICAL JEFFREY VALENTINO M.D. Performed By: #### G LULS ####Point of Care testing, Glucose [Mass/Vol] 119 mg/dL Normal [facility] Comment on above: Result Comment: [place] [facility] Glucose Reference Range is dependent on time and content of last meal. Glucose of more than 200 mg/dL in a nonstressed, ambulatory subject supports the diagnosis of Diabetes Mellitus.PERFORMED BY:[address] [place]ANIELLEMiriFELICIT[place], [place] [phone] MEDICAL DIRECTORANN VALENTINO M.D. Performed By: #### G LULS ####Point of Care testing, Glucose [Mass/Vol] 123 mg/dL Normal [facility] Comment on above: Result Comment: [place] [facility] Glucose Reference Range is dependent on time and content of last meal. Glucose of more than 200 mg/dL in a nonstressed, ambulatory subject supports the diagnosis of Diabetes Mellitus.PERFORMED BY:[place] [address] [address] SANTOSMiriFELICITASDR[place], [place] [phone] MEDICAL DIRECTORANN VALENTINO M.D. Performed By: #### G LULS ####Point of Care testing, Glucose [Mass/Vol] 135 mg/dL Normal [facility] Comment on above: Result Comment: [place] [facility] Glucose Reference Range is dependent on time and content of last meal. Glucose of more than 200 mg/dL in a nonstressed, ambulatory subject supports the diagnosis of Diabetes Mellitus.PERFORMED BY:[address] TOMPKINSSYRACUSE, [place] [phone] MEDICAL DIRECTORANN VALENTINO M.D. Performed By: #### G LULS ####Point of Care testing, Glucose [Mass/Vol] 178 mg/dL Normal [facility] Comment on above: Result Comment: [place] [facility] Glucose Reference Range is dependent on time and content of last meal. Glucose of more than 200 mg/dL in a nonstressed, ambulatory subject supports the diagnosis of Diabetes Mellitus.PERFORMED BY:[place] [address] [address] SANTOSMiriFELICITAS, [place] [phone] MEDICAL DIRECTORANN VAELNTINO M.D. Performed By: #### G LULS ####Point of Care testing, Glucose [Mass/Vol] 174 mg/dL Normal [facility] Comment on above: Result Comment: [place] [facility] Glucose Reference Range is dependent on time and content of last meal. Glucose of more than 200 mg/dL in a nonstressed, ambulatory subject supports the diagnosis of Diabetes Mellitus.PERFORMED BY:[address] SANTOSMiriFELICITASDRUMMOND [place]LAND, [place] [phone] MEDICAL DIRECTORANN VALENTINO M.D. Performed By: #### G LULS ####Point of Care testing, Glucose [Mass/Vol] 180 mg/dL Normal [facility] Comment on above: Result Comment: [place] [facility] Glucose Reference Range is dependent on time and content of last meal. Glucose of more than 200 mg/dL in a nonstressed, ambulatory subject supports the diagnosis of Diabetes Mellitus.PERFORMED BY:[address] N[address]ÑEZ, [place] [phone] MEDICAL DIRECTORANN VALENTINO M.D. Performed By: #### G LULEE ####Point of Care testing, Glucose mean value [Mass/vol ume] in Blood Estimated from glycated hemoglobinOrdered By: Rashi Clark on 03-22-2023 Average glucose Estimated from glycated hemoglobin (Bld) [Mass/Vol] 433 mg/dL [facility] Hemoglobin A1c percentageOrd ered By: Rashi Clark on 03-22-2023 HbA1c (Bld) [Mass fraction] 16.7 % 4.3-5.6 [facility] Comment on above: Increased risk for d iabetes: 5.7 - 6.4diabetes: >6.4glycemic control for adults with diabetes: <7.0 Lymphocytes Auto (Bld) [#/Vo l]Ordered By: Rashi Rodriguezr on 03-22-2023 Lymphocytes (Bld) [#/Vol] 1.4 10*3/uL 1.00-4.8 [facility] Lymphocytes/100 WBC Auto (Bl d)Ordered By: [facility] Michaelr on 03-22-2023 Lymphocytes/100 WBC (Bld) 19.7 % . [facility] Magnesiumon 03-22-2023 Magnesium [Mass/Vol] 1.4 mg/dL Low 1.9-2.7 [facility] Comment on above: Order Comment: DRAW ALL LABS AT 0800 PER RN Result Comment: PERF ORMED BY:[place] [address] [address] [place], [place] [phone] MEDICAL DIRECTORANN VALENTINO M.D. Performed By: #### C MP, CBC, MG ####[facility] [place] [address] [place] Monocytes Auto (Bld) [#/Vol] Ordered By: Rashi Clark on 03-22-2023 Monocytes (Bld) [#/Vol] 0.6 10*3/uL 0.0-0.8 [facility] Monocytes/100 WBC Auto (Bld) Ordered By: Rashi Clark on 03-22-2023 Monocytes/100 WBC (Bld) 9.1 % . [facility] Neutrophils Auto (Bld) [#/Vo l]Ordered By: Obdeenadacandace Daromar on 03-22-2023 Neutrophils (Bld) [#/Vol] 4.5 10*3/uL 1.8-7.7 [facility] Neutrophils/100 WBC Auto (Bl d)Ordered By: Obdeenadah Jovaniomar on 03-22-2023 Neutrophils/100 WBC (Bld) 64.5 % . [facility] Nucleated erythrocytes [Pres ence] in Blood by Automated countOrdered By: Obdeenadacandace Hahnomar on 03-22-2023 Nucleated RBC Auto Ql (Bld) 0.1 /100{WBC} 0-0.5 [facility] Protein [Mass/volume] in Ser um or PlasmaOrdered By: Obdeenadacandace Hahnomar on 03-22-2023 Protein [Mass/Vol] 3.8 g/dL 6.4-8.9 [facility] Comment on above: Delta: 6.1 on -1435 Serum or plasma albumin/glob ulin mass ratioOrdered By: Obdeenadah Jovaniomar on 03-22-2023 Albumin/Globulin [Mass ratio] 1.7 {ratio} [facility] WBC Auto (Bld) [#/Vol]Ordere d By: Obaydah Daromar on 03-22-2023 WBC (Bld) [#/Vol] 7.0 10*3/uL 4.1-10.5 [facility] Activated partial thrombopla stin time (aPTT) in platelet poor plasma by coagulation aOrdered By: Piper Yarbrough on 03-21-2023 aPTT Coag (PPP) [Time] 30.6 s 25.1-36.5 [facility] Comment on above: A hematocrit value g reater than 55% may lead to inaccurate results in coagulation testing. Patients having hematocrit values >55% require a special collection tube for coagulation studies. Please contact the laboratory at [phone] for redraw instructions. Alanine aminotransferase [En zymatic activity/volume] in Serum or PlasmaOrdered By: Piper Yarbrough on 03-21-2023 ALT [Catalytic activity/Vol] 17 U/L 7-52 [facility] Albumin [Mass/volume] in Ser um or Plasma by Bromocresol green (BCG) dye binding methoOrdered By: Piper Yarbrough on 03-21-2023 Albumin BCG dye [Mass/Vol] 3.5 g/dL 3.5-5.7 [facility] Alkaline phosphatase [Enzyma tic activity/volume] in Serum or PlasmaOrdered By: Piper Yarbrough on 03-21-2023 ALP [Catalytic activity/Vol] 136 U/L 34-104 [facility] Aspartate aminotransferase [ Enzymatic activity/volume] in Serum or PlasmaOrdered By: Piper Yarbrough on 03-21-2023 AST [Catalytic activity/Vol] 14 U/L 13-39 [facility] Basic Metabolic Panelon 02 Anion gap [Moles/Vol] 16.4 mmol/L High 6.0-15.0 [facility] Comment on above: Performed By: #### B MP ####[address] Calcium [Mass/Vol] 7.2 mg/dL Low 8.6-10.3 [facility] Comment on above: Performed By: #### B MP ####[address] Chloride [Moles/Vol] 109 mmol/L High 98-107 [facility] Comment on above: Performed By: #### B MP ####[place] [id number] [facility] CO2 [Moles/Vol] 14.6 mmol/L Low 21.0-31.0 [facility] Comment on above: Performed By: #### B MP ####[place] [id number] [facility] Creatinine [Mass/Vol] 0.57 mg/dL Low 0.70-1.30 [facility] Comment on above: Performed By: #### B MP ####[place] [id number] [facility] Creatinine Clr Calc Pharmacy 176.31 Normal [facility] Comment on above: Result Comment: PERF ORMED BY:[place] [address] [address] [place], [place] [phone] MEDICAL JEFFREY VALENTINO M.D. Performed By: #### B MP ####[place] [id number] [facility] GFR/1.73 sq M.predicted MDRD (S/P/Bld) [Vol rate/Area] mL/min/{1.73_m2} Normal [facility] Comment on above: Performed By: #### B MP ####[place] [id number] [facility] Glucose [Mass/Vol] 250 mg/dL Significant change up 70-100 [facility] Comment on above: Result Comment: [place] Glucose Reference Range is dependent on time and content of last meal. Glucose of more than 200 mg/dL in a nonstressed, ambulatory subject supports the diagnosis of Diabetes Mellitus. ADA recommended reference range Performed By: #### B MP ####[place] [id number] [facility] Potassium [Moles/Vol] 4.0 mmol/L Normal 3.5-5.1 [facility] Comment on above: Performed By: #### B MP ####[place] [id number] [facility] Sodium [Moles/Vol] 136 mmol/L Normal 136-145 [facility] Comment on above: Performed By: #### B MP ####[place] [id number] [facility] Urea nitrogen [Mass/Vol] 13 mg/dL Normal 7-25 [facility] Comment on above: Performed By: #### B MP ####[place] [id number] [facility] Anion gap [Moles/Vol] Not performed Normal 6.0-15.0 [facility] Comment on above: Performed By: #### B HOB, BMP, HEPATIC, CBC, LIPASE ####[address] [place] [address] [place] Calcium [Mass/Vol] 8.2 mg/dL Low 8.6-10.3 [facility] Comment on above: Performed By: #### B HOB, BMP, HEPATIC, CBC, LIPASE ####[address] Chloride [Moles/Vol] 96 mmol/L Low 98-107 [facility] Comment on above: Performed By: #### B HOB, BMP, HEPATIC, CBC, LIPASE ####[address] CO2 [Moles/Vol] 15.1 mmol/L Low 21.0-31.0 [facility] Comment on above: Performed By: #### B HOB, BMP, HEPATIC, CBC, LIPASE ####[address] Creatinine [Mass/Vol] 0.78 mg/dL Normal 0.70-1.30 [facility] Comment on above: Performed By: #### B HOB, BMP, HEPATIC, CBC, LIPASE ####[address] Creatinine Clr Calc Pharmacy 129.81 Normal [facility] Comment on above: Performed By: #### B HOB, BMP, HEPATIC, CBC, LIPASE ####[address] GFR/1.73 sq M.predicted MDRD (S/P/Bld) [Vol rate/Area] mL/min/{1.73_m2} Normal [facility] Comment on above: Performed By: #### B HOB, BMP, HEPATIC, CBC, LIPASE ####[address] Glucose [Mass/Vol] 482 mg/dL High 70-100 [facility] Comment on above: Result Comment: [place] Glucose Reference Range is dependent on time and content of last meal. Glucose of more than 200 mg/dL in a nonstressed, ambulatory subject supports the diagnosis of Diabetes Mellitus. ADA recommended reference range Performed By: #### B HOB, BMP, HEPATIC, CBC, LIPASE ####[place] [id number] Potassium Normal 3.5-5.1 [facility] Comment on above: Result Comment: Spec imen hemolyzed, redraw requested Performed By: #### B HOB, BMP, HEPATIC, CBC, LIPASE ####[place] [id number] Sodium [Moles/Vol] 132 mmol/L Low 136-145 [facility] Comment on above: Performed By: #### B HOB, BMP, HEPATIC, CBC, LIPASE ####[address] Urea nitrogen [Mass/Vol] 15 mg/dL Normal 7-25 [facility] Comment on above: Performed By: #### B HOB, BMP, HEPATIC, CBC, LIPASE ####[address] Basophils Auto (Bld) [#/Vol] Ordered By: Piper Yarbrough on 03-21-2023 Basophils (Bld) [#/Vol] 0.1 10*3/uL 0.0-0.2 [facility] Basophils/100 WBC Auto (Bld) Ordered By: Piper Yarbrough on 03-21-2023 Basophils/100 WBC (Bld) 0.9 % . [facility] Beta Hydroxybuterateon 03-21 Beta Hydroxybuterate 8.80 mmol/L High 0.02-0.27 [facility] Comment on above: Result Comment: PERF ORMED BY:[address] [place], [place] [phone] MEDICAL DIRECTORANN VALENTINO M.D. Performed By: #### B HOB, BMP, HEPATIC, CBC, LIPASE ####[address] Beta hydroxybutyrate [Moles/ volume] in Serum or PlasmaOrdered By: Piper Yarbrough on 03-21-2023 Beta hydroxybutyrate [Moles/Vol] 8.80 mmol/L 0.02-0.27 [facility] Bilirubin Test strip Ql (U)O rdered By: Piper Yarbrough on 03-21-2023 Bilirubin Ql (U) Negative Negative [facility] Bilirubin.direct [Mass/volum e] in Serum or PlasmaOrdered By: Piper Yarbrough on 03-21-2023 Bilirubin.direct [Mass/Vol] 0.10 mg/dL 0.03-0.18 [facility] Bilirubin.total [Mass/volume ] in Serum or PlasmaOrdered By: Piper Yarbrough on 03-21-2023 Bilirubin [Mass/Vol] 0.6 mg/dL 0.3-1.0 [facility] CT abdomen pelvis w conon CT abdomen pelvis w con Normal [facility] Calcium [Mass/volume] in Ser um or PlasmaOrdered By: Piper Yarbrough on 03-21-2023 Calcium [Mass/Vol] 8.2 mg/dL 8.6-10.3 [facility] Carbon dioxide, total [Moles /volume] in Serum or PlasmaOrdered By: Piper Yarbrough on 03-21-2023 CO2 [Moles/Vol] 15.1 mmol/L 21.0-31.0 [facility] Chloride [Moles/volume] in S del or PlasmaOrdered By: Piper Yarbrough on 03-21-2023 Chloride [Moles/Vol] 96 mmol/L 98-107 [facility] Color Auto (U)Ordered By: Irish Yarbrough on 03-21-2023 Color (U) Yellow Yellow [facility] Complete Blood Count Auto Di ffon 03-21-2023 Basophils (Bld) [#/Vol] 0.1 10*3/uL Normal 0.0-0.2 [facility] Comment on above: Result Comment: PERF ORMED BY:[facility] [place], [place] [phone] MEDICAL DIRECTORANN VALENTINO M.D. Performed By: #### B HOB, BMP, HEPATIC, CBC, LIPASE ####[facility] [place] [address] [facility] Basophils/100 WBC (Bld) 0.9 % Normal . [facility] Comment on above: Performed By: #### B HOB, BMP, HEPATIC, CBC, LIPASE ####[address] Eosinophils (Bld) [#/Vol] 0.4 10*3/uL Normal 0.0-0.45 [facility] Comment on above: Performed By: #### B HOB, BMP, HEPATIC, CBC, LIPASE ####[address] Eosinophils/100 WBC (Bld) 4.3 % Normal . [facility] Comment on above: Performed By: #### B HOB, BMP, HEPATIC, CBC, LIPASE ####[address] Erythrocyte distribution width (RBC) [Ratio] 12.1 % Normal 12.0-14.8 [facility] Comment on above: Performed By: #### B HOB, BMP, HEPATIC, CBC, LIPASE ####[address] Hematocrit (Bld) [Volume fraction] 49.9 % Normal 38.8-50.0 [facility] Comment on above: Performed By: #### B HOB, BMP, HEPATIC, CBC, LIPASE ####[address] Hemoglobin (Bld) [Mass/Vol] 16.9 g/dL Normal 13.0-17.0 [facility] Comment on above: Performed By: #### B HOB, BMP, HEPATIC, CBC, LIPASE ####[address] Lymphocytes (Bld) [#/Vol] 1.4 10*3/uL Normal 1.00-4.8 [facility] Comment on above: Performed By: #### B HOB, BMP, HEPATIC, CBC, LIPASE ####[address] Lymphocytes/100 WBC (Bld) 14.5 % Normal . [facility] Comment on above: Performed By: #### B HOB, BMP, HEPATIC, CBC, LIPASE ####[address] MCH (RBC) [Entitic mass] 30.8 pg Normal 27.5-35.2 [facility] Comment on above: Performed By: #### B HOB, BMP, HEPATIC, CBC, LIPASE ####[address] MCV (RBC) [Entitic vol] 90.7 fL Normal 83.5-101 [facility] Comment on above: Performed By: #### B HOB, BMP, HEPATIC, CBC, LIPASE ####[address] Mean Corpuscular HGB Conc 33.9 g/dL Normal 32.5-35.6 [facility] Comment on above: Performed By: #### B HOB, BMP, HEPATIC, CBC, LIPASE ####[address] Monocytes (Bld) [#/Vol] 0.8 10*3/uL Normal 0.0-0.8 [facility] Comment on above: Performed By: #### B HOB, BMP, HEPATIC, CBC, LIPASE ####[address] Monocytes/100 WBC (Bld) 15.43 % Normal 0.00-20.00 [facility] Comment on above: Performed By: #### B HOB, BMP, HEPATIC, CBC, LIPASE ####[address] Monocytes/100 WBC (Bld) 8.0 % Normal . [facility] Comment on above: Performed By: #### B HOB, BMP, HEPATIC, CBC, LIPASE ####[address] Neutrophils (Bld) [#/Vol] 7.1 10*3/uL Normal 1.8-7.7 [facility] Comment on above: Performed By: #### B HOB, BMP, HEPATIC, CBC, LIPASE ####[address] Neutrophils/100 WBC (Bld) 72.3 % Normal . [facility] Comment on above: Performed By: #### B HOB, BMP, HEPATIC, CBC, LIPASE ####[address] NRBC% 0.2 /100{WBC} Normal 0-0.5 [facility] Comment on above: Performed By: #### B HOB, BMP, HEPATIC, CBC, LIPASE ####[address] Platelet mean volume (Bld) [Entitic vol] 7.8 fL Normal 6.6-10.1 [facility] Comment on above: Performed By: #### B HOB, BMP, HEPATIC, CBC, LIPASE ####[address] Platelets (Bld) [#/Vol] 352 10*3/uL Normal 150-450 [facility] Comment on above: Performed By: #### B HOB, BMP, HEPATIC, CBC, LIPASE ####[address] RBC (Bld) [#/Vol] 5.50 10*6/uL Normal 3.90-5.60 [facility] Comment on above: Performed By: #### B HOB, BMP, HEPATIC, CBC, LIPASE ####[address] WBC (Bld) [#/Vol] 9.8 10*3/uL Normal 4.1-10.5 [facility] Comment on above: Performed By: #### B HOB, BMP, HEPATIC, CBC, LIPASE ####[address] Creatinine [Mass/volume] in Serum or PlasmaOrdered By: Piper Yarbrough on 03-21-2023 Creatinine [Mass/Vol] 0.78 mg/dL 0.70-1.30 [facility] ECG 12 lead ECGon 03-21-2023 ECG 12 lead ECG Normal [facility] Eosinophils Auto (Bld) [#/Vo l]Ordered By: Piper Yarbrough on 03-21-2023 Eosinophils (Bld) [#/Vol] 0.4 10*3/uL 0.0-0.45 [facility] Eosinophils/100 WBC Auto (Bl d)Ordered By: Piper Yarbrough on 03-21-2023 Eosinophils/100 WBC (Bld) 4.3 % . [facility] Erythrocyte distribution wid th Auto (RBC) [Ratio]Ordered By: Piper Yarbrough on 03-21-2023 Erythrocyte distribution width (RBC) [Ratio] 12.1 % 12.0-14.8 [facility] Globulin Calc (S) [Mass/Vol] Ordered By: Piper Yarbrough on 03-21-2023 Globulin (S) [Mass/Vol] 2.6 g/dL [facility] Glucose Glucometer (BldC) [M ass/Vol]Ordered By: Tash Purcell on 03-21-2023 Glucose [Mass/Vol] 305 mg/dL [facility] Comment on above: Random Glucose Refer ence Range is dependent on time and content of last meal. Glucose of more than 200 mg/dL in a nonstressed, ambulatory subject supports the diagnosis of Diabetes Mellitus. Glucose Poct Glucometerson 0 03-21-2023 Glucose [Mass/Vol] 178 mg/dL Normal [facility] Comment on above: Result Comment: [facility] Glucose Reference Range is dependent on time and content of last meal. Glucose of more than 200 mg/dL in a nonstressed, ambulatory subject supports the diagnosis of Diabetes Mellitus.PERFORMED BY:[facility] [place], [place] [phone] MEDICAL DIRECTORANN VALENTINO M.D. Performed By: #### G LULS ####Point of Care testing, Glucose [Mass/Vol] 250 mg/dL Normal [facility] Comment on above: Result Comment: [facility] Glucose Reference Range is dependent on time and content of last meal. Glucose of more than 200 mg/dL in a nonstressed, ambulatory subject supports the diagnosis of Diabetes Mellitus.PERFORMED BY:[place] [address] [address] [place], [place] [phone] MEDICAL DIRECTORANN VALENTINO M.D. Performed By: #### G LULS ####Point of Care testing, Commemt1 Glu2: Cleaned Meter Normal [facility] Comment on above: Result Comment: PERF ORMED BY:[address] NUÑEZDRUMMON[place], [place] [phone] MEDICAL DIRECTORANN VALENTINO M.D. Performed By: #### G LULS ####Point of Care testing, Glucose [Mass/Vol] 272 mg/dL Normal [facility] Comment on above: Result Comment: [facility] Glucose Reference Range is dependent on time and content of last meal. Glucose of more than 200 mg/dL in a nonstressed, ambulatory subject supports the diagnosis of Diabetes Mellitus. Performed By: #### G LULS ####Point of Care testing, Glucose [Mass/Vol] 305 mg/dL Normal [facility] Comment on above: Result Comment: [facility] Glucose Reference Range is dependent on time and content of last meal. Glucose of more than 200 mg/dL in a nonstressed, ambulatory subject supports the diagnosis of Diabetes Mellitus.PERFORMED BY:[place] [address] [address], [place] [phone] MEDICAL JEFFREY VALENTINO M.D. Performed By: #### G LULS ####Point of Care testing, Commemt1 Glu2: Cleaned Meter Normal [facility] Comment on above: Result Comment: PERF ORMED BY:[address] TOMPKINSSYRAC[place], [place] [phone] MEDICAL DIRECTORANN VALENTINO M.D. Performed By: #### G LULS ####Point of Care testing, Glucose [Mass/Vol] 395 mg/dL Normal [facility] Comment on above: Result Comment: [facility] [facility] Glucose Reference Range is dependent on time and content of last meal. Glucose of more than 200 mg/dL in a nonstressed, ambulatory subject supports the diagnosis of Diabetes Mellitus. Performed By: #### G LULS ####Point of Care testing, Glucose [Mass/Vol] 385 mg/dL Normal [facility] Comment on above: Result Comment: [place] Glucose Reference Range is dependent on time and content of last meal. Glucose of more than 200 mg/dL in a nonstressed, ambulatory subject supports the diagnosis of Diabetes Mellitus.PERFORMED BY:[place] [address] [address], [place] [phone] MEDICAL DIRECTORANN VALENITNO M.D. Performed By: #### G LULS ####Point of Care testing, Commemt1 Glu2: Cleaned Meter Normal [facility] Comment on above: Performed By: #### G LULS ####Point of Care testing, Commemt2 WILL NOTIFY DR/PARISH Normal [facility] Comment on above: Result Comment: PERF ORMED BY:[place] [address] [address] SANTOSMiriFELICITASDRUMMOND ISLAND, [place] [phone] MEDICAL DIRECTORANN VALENTINO M.D. Performed By: #### G LULS ####Point of Care testing, Glucose [Mass/Vol] 503 mg/dL Off scale high Th [facility] Comment on above: Result Comment: [place] [facility] Glucose Reference Range is dependent on time and content of last meal. Glucose of more than 200 mg/dL in a nonstressed, ambulatory subject supports the diagnosis of Diabetes Mellitus. Performed By: #### G LULS ####Point of Care testing, Glucose [Mass/volume] in Ser um or PlasmaOrdered By: Piper Yarbrough on 03-21-2023 Glucose [Mass/Vol] 482 mg/dL 70-100 [facility] Comment on above: ADA recommended refe rence rangeRandom Glucose Reference Range is dependent on time and content of last meal. Glucose of more than 200 mg/dL in a nonstressed, ambulatory subject supports the diagnosis of Diabetes Mellitus. Hematocrit Auto (Bld) [Volum e fraction]Ordered By: Piper Yarbrough on 03-21-2023 Hematocrit (Bld) [Volume fraction] 49.9 % 38.8-50.0 [facility] Hemoglobin [Mass/volume] in BloodOrdered By: Piper Yarbrough on 03-21-2023 Hemoglobin (Bld) [Mass/Vol] 16.9 g/dL 13.0-17.0 [facility] Hepatic Panelon 03-21-2023 Albumin [Mass/Vol] 3.5 g/dL Normal 3.5-5.7 [facility] Comment on above: Performed By: #### B HOB, BMP, HEPATIC, CBC, LIPASE ####[address] Albumin/Globulin [Mass ratio] 1.3 {ratio} Normal [facility] Comment on above: Performed By: #### B HOB, BMP, HEPATIC, CBC, LIPASE ####[address] ALP [Catalytic activity/Vol] 136 U/L High 34-104 [facility] Comment on above: Performed By: #### B HOB, BMP, HEPATIC, CBC, LIPASE ####[address] ALT [Catalytic activity/Vol] 17 U/L Normal 7-52 [facility] Comment on above: Performed By: #### B HOB, BMP, HEPATIC, CBC, LIPASE ####[address] AST [Catalytic activity/Vol] 14 U/L Normal 13-39 [facility] Comment on above: Performed By: #### B HOB, BMP, HEPATIC, CBC, LIPASE ####[place] [id number] [facility] Bilirubin [Mass/Vol] 0.6 mg/dL Normal 0.3-1.0 [facility] Comment on above: Performed By: #### B HOB, BMP, HEPATIC, CBC, LIPASE ####[place] [id number] [facility] Bilirubin,Indirect 0.5 mg/dL Normal [facility] Comment on above: Performed By: #### B HOB, BMP, HEPATIC, CBC, LIPASE ####[address] Bilirubin.indirect [Mass/Vol] 0.10 mg/dL Normal 0.03-0.18 [facility] Comment on above: Performed By: #### B HOB, BMP, HEPATIC, CBC, LIPASE ####[place] [id number] Globulin (S) [Mass/Vol] 2.6 g/dL Normal [facility] Comment on above: Performed By: #### B HOB, BMP, HEPATIC, CBC, LIPASE ####[place] [phone] Protein [Mass/Vol] 6.1 g/dL Low 6.4-8.9 [facility] Comment on above: Performed By: #### B HOB, BMP, HEPATIC, CBC, LIPASE ####[place] [phone] INR in Platelet poor plasma by Coagulation assayOrdered By: Piper Yarbrough on 03-21-2023 INR Coag (PPP) [Relative time] 0.9 {INR} [facility] Comment on above: INR Therapeutic Rang [...] on 03-21-2023 Ketones (U) [Mass/Vol] 4+ Negative [facility] Laboratory - Chemistry and C hemistry - challengeOrdered By: PROVIDER TEMP on 03-21-2023 CO2 [Moles/Vol] 16.5 mmol/L 24.0-29.0 [facility] HCO3 (Bld) [Moles/Vol] 15.3 mmol/L 23.0-29.0 [facility] Leukocytes [#/volume] correc fide for nucleated erythrocytes in Blood by Automated counOrdered By: Piper Yarbrough on 03-21-2023 WBC corrected for nucl RBC Auto (Bld) [#/Vol] 9.8 10*3/uL 4.1-10.5 [facility] Lipaseon 03-21-2023 Lipase [Catalytic activity/Vol] 5.0 U/L Low 11.0-82.0 [facility] Comment on above: Performed By: #### B HOB, BMP, HEPATIC, CBC, LIPASE ####[facility] [id number] [place] [id number] [facility] Lipase [Enzymatic activity/v olume] in Serum or PlasmaOrdered By: Piper Yarbrough on 03-21-2023 Lipase [Catalytic activity/Vol] 5.0 U/L 11.0-82.0 [facility] Lymphocytes Auto (Bld) [#/Vo l]Ordered By: Piper Yarbrough on 03-21-2023 Lymphocytes (Bld) [#/Vol] 1.4 10*3/uL 1.00-4.8 [facility] Lymphocytes/100 WBC Auto (Bl d)Ordered By: Piper Yarbrough on 03-21-2023 Lymphocytes/100 WBC (Bld) 14.5 % . [facility] MCH Auto (RBC) [Entitic mass ]Ordered By: Piper Yarbrough on 03-21-2023 MCH (RBC) [Entitic mass] 30.8 pg 27.5-35.2 [facility] MCHC Auto (RBC) [Mass/Vol]Or dered By: Piper Yarbrough on 03-21-2023 MCHC (RBC) [Mass/Vol] 33.9 g/dL 32.5-35.6 [facility] MCV Auto (RBC) [Entitic vol] Ordered By: Piper Yarbrough on 03-21-2023 MCV (RBC) [Entitic vol] 90.7 fL 83.5-101 [facility] Monocyte distribution width [Entitic volume] in Blood by AutomatedOrdered By: Piper Yarbrough on 03-21-2023 Monocyte distribution width Auto (Bld) [Entitic vol] 15.43 % 0.00-20.00 [facility] Monocytes Auto (Bld) [#/Vol] Ordered By: Piper Yarbrough on 03-21-2023 Monocytes (Bld) [#/Vol] 0.8 10*3/uL 0.0-0.8 [facility] Monocytes/100 WBC Auto (Bld) Ordered By: Piper Yarbrough on 03-21-2023 Monocytes/100 WBC (Bld) 8.0 % . [facility] Neutrophils Auto (Bld) [#/Vo l]Ordered By: Piper Yarbrough on 03-21-2023 Neutrophils (Bld) [#/Vol] 7.1 10*3/uL 1.8-7.7 [facility] Neutrophils/100 WBC Auto (Bl d)Ordered By: Piper Yarbrough on 03-21-2023 Neutrophils/100 WBC (Bld) 72.3 % . [facility] Nitrite Test strip Ql (U)Ord ered By: Piper Yarbrough on 03-21-2023 Nitrite Ql (U) Negative Negative [facility] No Panel InformationOrdered By: Tash Purcell on 03-21-2023 Bedside Glucose Comment Glu2: cleaned meter [facility] No Panel InformationOrdered By: CLAY MEJIA on 03-21-2023 Blood Gas Critical Value See comment [facility] Comment on above: Critical Value arambula d on: 03/21/2023 at 14:52 Blood Gas Sample Site Venous Fir [facility] FiO2 21 % [facility] Venous Blood Base Excess -12.0 mmol/L -3.0-3.0 [facility] Venous Blood Oxygen Content 6.1 mmol/L 6.6-9.7 [facility] Venous Blood Oxygen Saturation 55.0 % 73.0-76.0 [facility] Venous Blood Partial Pressure CO2 39.5 mm[Hg] 38.0-50.0 [facility] Venous Blood Partial Pressure O2 30.1 mm[Hg] 35.0-45.0 [facility] Venous Blood pH 7.21 7.32-7.43 [facility] Bedside Glucose #[address]/rn [facility] No Panel InformationOrdered By: Piper Yarbrough on 03-21-2023 Estimated GFR (CKD-EPI) > 60.0 mL/Min [facility] Creatinine Clearance (Chem 129.81 [facility] Nucleated erythrocytes [Pres ence] in Blood by Automated countOrdered By: Piper Yarbrough on 03-21-2023 Nucleated RBC Auto Ql (Bld) 0.2 /100{WBC} 0-0.5 [facility] Partial Thromboplastin Timeo n 03-21-2023 aPTT Coag (Bld) [Time] 30.6 s Normal 25.1-36.5 [facility] Comment on above: Result Comment: A he matocrit value greater than 55% may lead to inaccurate results in coagulation testing. Patients having hematocrit values >55% require a special collection tube for coagulation studies. Please contact the laboratory at [phone] for redraw instructions.PERFORMED BY:[facility] [place], [place] [phone] MEDICAL DIRECTORANN VALENTINO M.D. Performed By: #### P TT, PT ####[facility] [place] [address] [facility] Platelet mean volume Auto (B ld) [Entitic vol]Ordered By: Piper Yarbrough on 03-21-2023 Platelet mean volume (Bld) [Entitic vol] 7.8 fL 6.6-10.1 [facility] Platelets Auto (Bld) [#/Vol] Ordered By: Piper Yarbrough on 03-21-2023 Platelets (Bld) [#/Vol] 352 10*3/uL 150-450 [facility] Potassium [Moles/volume] in Serum or PlasmaOrdered By: Tash Purcell on 03-21-2023 Potassium [Moles/Vol] 3.9 mmol/L 3.5-5.1 [facility] Protein Auto test strip (U) [Mass/Vol]Ordered By: Piper Yarbrough on 03-21-2023 Protein (U) [Mass/Vol] Negative Negative [facility] Protein [Mass/volume] in Ser um or PlasmaOrdered By: Piper Yarbrough on 03-21-2023 Protein [Mass/Vol] 6.1 g/dL 6.4-8.9 [facility] Prothrombin Time INRon 03-21 INR Coag (PPP) [Relative time] 0.9 {INR} Normal [facility] Comment on above: Result Comment: [...] 4.5 Performed By: #### P TT, PT ####[facility] [place] [address] [facility] PT Coag (PPP) [Time] 10.5 s Normal 9.0-12.9 [facility] Comment on above: Result Comment: A he matocrit value greater than 55% may lead to inaccurate results in coagulation testing. Patients having hematocrit values >55% require a special collection tube for coagulation studies. Please contact the laboratory at [phone] for redraw instructions. Performed By: #### P TT, PT ####[facility] [place] [address] [facility] Prothrombin time (PT)Ordered By: Piper Yarbrough on 03-21-2023 PT Coag (PPP) [Time] 10.5 s 9.0-12.9 [facility] Comment on above: A hematocrit value g reater than 55% may lead to inaccurate results in coagulation testing. Patients having hematocrit values >55% require a special collection tube for coagulation studies. Please contact the laboratory at [phone] for redraw instructions. RBC Auto (Bld) [#/Vol]Ordere d By: Piper Yarbrough on 03-21-2023 RBC (Bld) [#/Vol] 5.50 10*6/uL 3.90-5.60 [facility] Redraw Potassiumon Potassium [Moles/Vol] 3.9 mmol/L Normal 3.5-5.1 [facility] Comment on above: Result Comment: PERF ORMED BY:[facility] [place] [address] [place], [place] [phone] MEDICAL DIRECTORANN VALENTINO M.D. Performed By: #### R EDRAW K ####[place] [id number] Serum or plasma albumin/glob ulin mass ratioOrdered By: Piper Yarbrough on 03-21-2023 Albumin/Globulin [Mass ratio] 1.3 {ratio} [facility] Serum or plasma anion gap de terminationOrdered By: Piper Yarbrough on 03-21-2023 Anion gap [Moles/Vol] TNP [facility] Comment on above: Test not performed Serum or plasma non-glucuron idated bilirubin measurement (mass/volume)Ordered By: Piper Yarbrough on 03-21-2023 Bilirubin.indirect [Mass/Vol] 0.5 mg/dL [facility] Sodium [Moles/volume] in Ser um or PlasmaOrdered By: Piper Yarbrough on 03-21-2023 Sodium [Moles/Vol] 132 mmol/L 136-145 [facility] Specific gravity Auto test s trip (U) [Rel density]Ordered By: Piper Yarbrough on 03-21-2023 Specific gravity (U) [Rel density] 1.031 1.001-1.030 [facility] Urea nitrogen [Mass/volume] in Serum or PlasmaOrdered By: Piper Yarbrough on 03-21-2023 Urea nitrogen [Mass/Vol] 15 mg/dL 7-25 [facility] Urinalysison 03-21-2023 Appearance (U) Clear Normal Clear [facility] Comment on above: Order Comment: Name Collection Type:: Clean-Voided Midstream Performed By: #### U A ####[address] Bilirubin,Urine Negative Normal Negative [facility] Comment on above: Order Comment: Name Collection Type:: Clean-Voided Midstream Performed By: #### U A ####[address] Color (U) Yellow Normal Yellow [facility] Comment on above: Order Comment: Name Collection Type:: Clean-Voided Midstream Performed By: #### U A ####[place] [id number] [facility] Glucose Ql (U) >=1000 High Normal [facility] Comment on above: Order Comment: Name Collection Type:: Clean-Voided Midstream Performed By: #### U A ####[address] [address] [facility] Ketones Ql (U) 4+ High Negative [facility] Comment on above: Order Comment: Name Collection Type:: Clean-Voided Midstream Performed By: #### U A ####[address] [address] [facility] Leukocyte esterase Test strip Ql (U) Negative Normal Negative [facility] Comment on above: Order Comment: Name Collection Type:: Clean-Voided Midstream Performed By: #### U A ####[place] [id number] [facility] Nitrite,Urine Negative Normal Negative [facility] Comment on above: Order Comment: Name Collection Type:: Clean-Voided Midstream Performed By: #### U A ####[address] [address] [facility] Occult Blood,Urine Negative Normal Negative [facility] Comment on above: Order Comment: Name Collection Type:: Clean-Voided Midstream Result Comment: PERF ORMED BY:[address] [place], [place] [phone] MEDICAL JEFFREY VALENTINO M.D. Performed By: #### U A ####[address] [address] [facility] pH (U) 5.0 [pH] Normal 5.0-9.0 [facility] Comment on above: Order Comment: Name Collection Type:: Clean-Voided Midstream Performed By: #### U A ####[address] [address] [facility] Protein,Urine Negative Normal Negative [facility] Comment on above: Order Comment: Name Collection Type:: Clean-Voided Midstream Performed By: #### U A ####[address] [address] [facility] Specificy [place],Urine 1.031 High 1.001-1.030 [facility] Comment on above: Order Comment: Name Collection Type:: Clean-Voided Midstream Performed By: #### U A ####[facility] [id number] [place] [id number] [facility] Urobilinogen,Urine Normal Normal Normal [facility] Comment on above: Order Comment: Name Collection Type:: Clean-Voided Midstream Performed By: #### U A ####[facility] [id number] [place] [id number] [facility] Urine clarity by refractomet ry automatedOrdered By: Piper Yarbrough on 03-21-2023 Clarity Refractometry automated (U) Clear Clear [facility] Urine glucose measurement by automated test strip (mass/volume)Ordered By: Piper Yarbrough on 03-21-2023 Glucose Auto test strip (U) [Mass/Vol] >=1000 mg/dL Normal [facility] Urine hemoglobin detection b y automated test stripOrdered By: Piper Yarbrough on 03-21-2023 Hemoglobin Auto test strip Ql (U) Negative Negative [facility] Urine leukocyte esterase det ection by automated test stripOrdered By: Piper Yarbrough on 03-21-2023 Leukocyte esterase Auto test strip Ql (U) Negative Negative [facility] Urobilinogen Auto test strip (U) [Mass/Vol]Ordered By: Piper Yarbrough on 03-21-2023 Urobilinogen (U) [Mass/Vol] Normal mg/dL Normal [facility] Venous Blood Gason CO2 [Moles/Vol] 16.5 mmol/L Low 24.0-29.0 [facility] Comment on above: Performed By: #### V BG ####Point of Care testing, HCO3 (Bld) [Moles/Vol] 15.3 mmol/L Low 23.0-29.0 [facility] Comment on above: Performed By: #### V BG ####Point of Care testing, Respiratory Critical Normal [facility] Comment on above: Result Comment: Crit ical Value called on: 03/21/2023 at 14:52PERFORMED BY:[facility] [place] [phone] MEDICAL DIRECTORANN VALENTINO M.D. Performed By: #### V BG ####Point of Care testing, VBG Base Excess -12.0 mmol/L Low -3.0-3.0 [facility] Comment on above: Performed By: #### V BG ####Point of Care testing, VBG Draw Site Venous Normal [facility] Comment on above: Performed By: #### V BG ####Point of Care testing, VBG Frac Inspired O2 21 % Normal [facility] Comment on above: Performed By: #### V BG ####Point of Care testing, VBG O2 Content 6.1 mmol/L Low 6.6-9.7 [facility] Comment on above: Performed By: #### V BG ####Point of Care testing, VBG Oxygen Saturation 55.0 % Off scale low 73.0-76.0 [facility] Comment on above: Performed By: #### V BG ####Point of Care testing, VBG PCO2 39.5 mm[Hg] Normal 38.0-50.0 [facility] Comment on above: Performed By: #### V BG ####Point of Care testing, VBG PH Venous PH 7.21 Low 7.32-7.43 [facility] Comment on above: Performed By: #### V BG ####Point of Care testing, VBG PO2 30.1 mm[Hg] Low 35.0-45.0 [facility] Comment on above: Performed By: #### V BG ####Point of Care testing, WBC Auto (Bld) [#/Vol]Ordere d By: Piper Yarbrough on 03-21-2023 WBC (Bld) [#/Vol] 9.8 10*3/uL 4.1-10.5 [facility] XR chest 2V*on 03-21-2023 XR chest 2V* Normal [facility] pH Auto test strip (U)Ordere d By: Piper Yarbrough on 03-21-2023 pH (U) 5.0 [pH] 5.0-9.0 [facility] Glucose Glucometer (BldC) [M ass/Vol]Ordered By: Kartik Schwarz on 01-13-2023 Glucose [Mass/Vol] 111 mg/dL [facility] Comment on above: Random Glucose Refer ence Range is dependent on time and content of last meal. Glucose of more than 200 mg/dL in a nonstressed, ambulatory subject supports the diagnosis of Diabetes Mellitus. Glucose Poct Glucometerson 1 03-16-2022 Glucose [Mass/Vol] 111 mg/dL Normal [facility] Comment on above: Result Comment: [place] Glucose Reference Range is dependent on time and content of last meal. Glucose of more than 200 mg/dL in a nonstressed, ambulatory subject supports the diagnosis of Diabetes Mellitus.PERFORMED BY:[place] [address] [address] [place], [place] [phone] MEDICAL DIRECTORANN VALENTINO M.D. Performed By: #### G LULS ####Point of Care testing, Glucose [Mass/Vol] 361 mg/dL Normal [facility] Comment on above: Result Comment: [place] Glucose Reference Range is dependent on time and content of last meal. Glucose of more than 200 mg/dL in a nonstressed, ambulatory subject supports the diagnosis of Diabetes Mellitus.PERFORMED BY:[place] [address] [address] [place], [place] [phone] MEDICAL JEFFREY VALENTINO M.D. Performed By: #### G LULS ####Point of Care testing, Glucose [Mass/Vol] 205 mg/dL Normal [facility] Comment on above: Result Comment: [place] Glucose Reference Range is dependent on time and content of last meal. Glucose of more than 200 mg/dL in a nonstressed, ambulatory subject supports the diagnosis of Diabetes Mellitus.PERFORMED BY:[place] [address] [address] [place], [place] [phone] MEDICAL JEFFREY VALENTINO M.D. Performed By: #### G LULS ####Point of Care testing, Glucose Poct Glucometerson 1 2-03-2023 Commemt1 Glu2: Cleaned Meter Normal [facility] Comment on above: Result Comment: PERF ORMED BY:[place] [address] [address], [place] [phone] MEDICAL DIRECTORANN VALENTINO M.D. Performed By: #### G LULS ####Point of Care testing, Glucose [Mass/Vol] 333 mg/dL Normal [facility] Comment on above: Result Comment: [place] [facility] Glucose Reference Range is dependent on time and content of last meal. Glucose of more than 200 mg/dL in a nonstressed, ambulatory subject supports the diagnosis of Diabetes Mellitus. Performed By: #### G LULS ####Point of Care testing, Commemt1 Glu2: Cleaned Meter Normal [facility] Comment on above: Result Comment: PERF ORMED BY:[address] TOMPKINSSYRACUSE, [place] [phone] MEDICAL DIRECTORANN VALENTINO M.D. Performed By: #### G LULS ####Point of Care testing, Glucose [Mass/Vol] 307 mg/dL Normal [facility] Comment on above: Result Comment: [place] om Glucose Reference Range is dependent on time and content of last meal. Glucose of more than 200 mg/dL in a nonstressed, ambulatory subject supports the diagnosis of Diabetes Mellitus. Performed By: #### G LULS ####Point of Care testing, Commemt1 Glu2: Cleaned Meter Normal [facility] Comment on above: Result Comment: PERF ORMED BY:[address] [place], [place] [phone] MEDICAL DIRECTORANN VALENTINO M.D. Performed By: #### G LULS ####Point of Care testing, Glucose [Mass/Vol] 351 mg/dL Normal [facility] Comment on above: Result Comment: [place] om Glucose Reference Range is dependent on time and content of last meal. Glucose of more than 200 mg/dL in a nonstressed, ambulatory subject supports the diagnosis of Diabetes Mellitus. Performed By: #### G LULS ####Point of Care testing, Commemt1 Normal [facility] Comment on above: Result Comment: Glu2 : WILL NOTIFY DR/RN Performed By: #### G LULS ####Point of Care testing, Commemt2 Cleaned Meter Normal [facility] Comment on above: Result Comment: PERF ORMED BY:[address] [address] [address] TOMPKINSSYRACUSE, [place] [phone] MEDICAL DIRECTORANN VALENTINO M.D. Performed By: #### G LULS ####Point of Care testing, Glucose [Mass/Vol] 500 mg/dL Off scale high Th e [facility] Comment on above: Result Comment: [place] om Glucose Reference Range is dependent on time and content of last meal. Glucose of more than 200 mg/dL in a nonstressed, ambulatory subject supports the diagnosis of Diabetes Mellitus. Performed By: #### G LULS ####Point of Care testing, Commemt1 Glu2: Cleaned Meter Normal [facility] Comment on above: Result Comment: PERF ORMED BY:[address] [place]IERDO[place], [place] [phone] MEDICAL DIRECTORANN VALENTINO M.D. Performed By: #### G LULS ####Point of Care testing, Glucose [Mass/Vol] 345 mg/dL Normal [facility] Comment on above: Result Comment: [place] Glucose Reference Range is dependent on time and content of last meal. Glucose of more than 200 mg/dL in a nonstressed, ambulatory subject supports the diagnosis of Diabetes Mellitus. Performed By: #### G LULS ####Point of Care testing, No Panel InformationOrdered By: Kartik Schwarz on 01-12-2023 Bedside Glucose Comment Glu2: cleaned meter [facility] Bedside Glucose #2 Comment Cleaned meter [facility] Basic Metabolic Panelon Anion gap [Moles/Vol] 8.7 mmol/L Normal 6.0-15.0 [facility] Comment on above: Performed By: #### B MP, BHOB ####[address] [address] [facility] Calcium [Mass/Vol] 8.7 mg/dL Normal 8.6-10.3 [facility] Comment on above: Performed By: #### B ACOSTA, BHOB ####[address] Chloride [Moles/Vol] 101 mmol/L Normal 98-107 [facility] Comment on above: Performed By: #### B ACOSTA, BHOB ####[address] CO2 [Moles/Vol] 30.4 mmol/L Normal 21.0-31.0 [facility] Comment on above: Performed By: #### B ACOSTA, BHOB ####[address] Creatinine [Mass/Vol] 0.90 mg/dL Normal 0.70-1.30 [facility] Comment on above: Performed By: #### B ACOSTA, BHOB ####[address] Creatinine Clr Calc Pharmacy 111.19 Normal [facility] Comment on above: Performed By: #### B ACOSTA, BHOB ####[address] GFR/1.73 sq M.predicted MDRD (S/P/Bld) [Vol rate/Area] mL/min/{1.73_m2} Normal [facility] Comment on above: Performed By: #### B ACOSTA, BHOB ####[address] Glucose [Mass/Vol] 428 mg/dL High 70-100 [facility] Comment on above: Result Comment: [place] Glucose Reference Range is dependent on time and content of last meal. Glucose of more than 200 mg/dL in a nonstressed, ambulatory subject supports the diagnosis of Diabetes Mellitus. ADA recommended reference range Performed By: #### B ACOSTA, BHOB ####[address] Potassium [Moles/Vol] 4.1 mmol/L Normal 3.5-5.1 [facility] Comment on above: Performed By: #### B MP, BHOB ####[facility] [id number] [facility] Sodium [Moles/Vol] 136 mmol/L Normal 136-145 [facility] Comment on above: Performed By: #### B ACOSTA, BHOB ####[facility] [id number] [facility] Urea nitrogen [Mass/Vol] 12 mg/dL Normal 7-25 [facility] Comment on above: Performed By: #### B ACOSTA, BHOB ####[address] [place] [id number] [facility] Beta Hydroxybuterateon 01-11 Beta Hydroxybuterate 0.20 mmol/L Normal 0.02-0.27 [facility] Comment on above: Result Comment: PERF ORMED BY:[address] [place], [place] [phone] MEDICAL DIRECTORANN VALENTINO M.D. Performed By: #### B ACOSTA, BHOB ####[address] [place] [phone] [facility] Beta hydroxybutyrate [Moles/ volume] in Serum or PlasmaOrdered By: Marianela Hogan on 01-11-2023 Beta hydroxybutyrate [Moles/Vol] 0.20 mmol/L 0.02-0.27 [facility] Calcium [Mass/volume] in Ser um or PlasmaOrdered By: Marianela Hogan on 01-11-2023 Calcium [Mass/Vol] 8.7 mg/dL 8.6-10.3 [facility] Carbon dioxide, total [Moles /volume] in Serum or PlasmaOrdered By: Marianela Hogan on 01-11-2023 CO2 [Moles/Vol] 30.4 mmol/L 21.0-31.0 [facility] Chloride [Moles/volume] in S del or PlasmaOrdered By: Marianela Hogan on 01-11-2023 Chloride [Moles/Vol] 101 mmol/L 98-107 [facility] Creatinine [Mass/volume] in Serum or PlasmaOrdered By: Marianela Hogan on 01-11-2023 Creatinine [Mass/Vol] 0.90 mg/dL 0.70-1.30 [facility] Glucose Poct Glucometerson 1 03-14-2022 Commemt1 Glu2: Cleaned Meter Normal [facility] Comment on above: Result Comment: PERF ORMED BY:[address] [address] [address] [place], [place] [phone] MEDICAL DIRECTORANN VALENTINO M.D. Performed By: #### G LULS ####Point of Care testing, Glucose [Mass/Vol] 314 mg/dL Normal [facility] Comment on above: Result Comment: [place] Glucose Reference Range is dependent on time and content of last meal. Glucose of more than 200 mg/dL in a nonstressed, ambulatory subject supports the diagnosis of Diabetes Mellitus. Performed By: #### G LULS ####Point of Care testing, Commemt1 Glu2: Cleaned Meter Normal [facility] Comment on above: Result Comment: PERF ORMED BY:[address] [address] [address] [place], [place] [phone] MEDICAL JEFFREY VALENTINO M.D. Performed By: #### G LULS ####Point of Care testing, Glucose [Mass/Vol] 361 mg/dL Normal [facility] Comment on above: Result Comment: [place] Glucose Reference Range is dependent on time and content of last meal. Glucose of more than 200 mg/dL in a nonstressed, ambulatory subject supports the diagnosis of Diabetes Mellitus. Performed By: #### G LULS ####Point of Care testing, Commemt1 Normal [facility] Comment on above: Result Comment: Glu2 : WILL NOTIFY DR/PARISH Performed By: #### G LULS ####Point of Care testing, Commemt2 Cleaned Meter Normal [facility] Comment on above: Result Comment: PERF ORMED BY:[address] [address] [address] [place], [place] [phone] MEDICAL JEFFREY VALENTINO M.D. Performed By: #### G LULS ####Point of Care testing, Glucose [Mass/Vol] 453 mg/dL Off scale high Th e [facility] Comment on above: Result Comment: [place] Glucose Reference Range is dependent on time and content of last meal. Glucose of more than 200 mg/dL in a nonstressed, ambulatory subject supports the diagnosis of Diabetes Mellitus. Performed By: #### G LULS ####Point of Care testing, Commemt1 Glu2: Cleaned Meter Normal [facility] Comment on above: Performed By: #### G LULS ####Point of Care testing, Commemt2 Will Repeat Test Normal [facility] Comment on above: Result Comment: PERF ORMED BY:[address] IRWINOtiliaMiriFELICITAS, [place] [phone] MEDICAL DIRECTORANN VALENTINO M.D. Performed By: #### G LULS ####Point of Care testing, Glucose [Mass/Vol] 491 mg/dL Off scale high Th e [facility] Comment on above: Result Comment: [place] Glucose Reference Range is dependent on time and content of last meal. Glucose of more than 200 mg/dL in a nonstressed, ambulatory subject supports the diagnosis of Diabetes Mellitus. Performed By: #### G LULS ####Point of Care testing, Commemt1 Glu2: Cleaned Meter Normal [facility] Comment on above: Result Comment: PERF ORMED BY:[address] [place], [place] [phone] MEDICAL DIRECTORANN VALENTINO M.D. Performed By: #### G LULS ####Point of Care testing, Glucose [Mass/Vol] 322 mg/dL Normal [facility] Comment on above: Result Comment: [place] Glucose Reference Range is dependent on time and content of last meal. Glucose of more than 200 mg/dL in a nonstressed, ambulatory subject supports the diagnosis of Diabetes Mellitus. Performed By: #### G LULS ####Point of Care testing, Glucose [Mass/volume] in Ser um or PlasmaOrdered By: Marianela Hogan on 01-11-2023 Glucose [Mass/Vol] 428 mg/dL 70-100 [facility] Comment on above: ADA recommended refe rence rangeRandom Glucose Reference Range is dependent on time and content of last meal. Glucose of more than 200 mg/dL in a nonstressed, ambulatory subject supports the diagnosis of Diabetes Mellitus. No Panel InformationOrdered By: Marianela Hogan on 01-11-2023 Estimated GFR (CKD-EPI) > 60.0 mL/Min [facility] Creatinine Clearance (Chem 111.19 [facility] Potassium [Moles/volume] in Serum or PlasmaOrdered By: Marianela Hogan on 01-11-2023 Potassium [Moles/Vol] 4.1 mmol/L 3.5-5.1 [facility] Serum or plasma anion gap de terminationOrdered By: Marianela Hogan on 01-11-2023 Anion gap [Moles/Vol] 8.7 mmol/L 6.0-15.0 [facility] Sodium [Moles/volume] in Ser um or PlasmaOrdered By: Marianela Hogan on 01-11-2023 Sodium [Moles/Vol] 136 mmol/L 136-145 [facility] Urea nitrogen [Mass/volume] in Serum or PlasmaOrdered By: Marianela Hogan on 01-11-2023 Urea nitrogen [Mass/Vol] 12 mg/dL 7-25 [facility] Glucose Poct Glucometerson 1 03-13-2022 Glucose [Mass/Vol] 328 mg/dL Normal [facility] Comment on above: Result Comment: [facility] Glucose Reference Range is dependent on time and content of last meal. Glucose of more than 200 mg/dL in a nonstressed, ambulatory subject supports the diagnosis of Diabetes Mellitus.PERFORMED BY:[address] [address] [address] [place], [place] [phone] MEDICAL DIRECTORANN VALENTINO M.D. Performed By: #### G BRII ####Point of Care testing, Glucose [Mass/Vol] 379 mg/dL Normal [facility] Comment on above: Result Comment: [facility] Glucose Reference Range is dependent on time and content of last meal. Glucose of more than 200 mg/dL in a nonstressed, ambulatory subject supports the diagnosis of Diabetes Mellitus.PERFORMED BY:[address] [address] [address] NUEÑZDRUMMOND ISLAND, [place] [phone] MEDICAL DIRECTORANN VALENTINO M.D. Performed By: #### G LULS ####Point of Care testing, Commemt1 Glu2: Cleaned Meter Normal [facility] Comment on above: Result Comment: PERF ORMED BY:[address] [address] [address] NUÑEZDRUMMOND ISLAND, [place] [phone] MEDICAL DIRECTORANN VALENTINO M.D. Performed By: #### G LULS ####Point of Care testing, Glucose [Mass/Vol] 351 mg/dL Normal [facility] Comment on above: Result Comment: [place] Glucose Reference Range is dependent on time and content of last meal. Glucose of more than 200 mg/dL in a nonstressed, ambulatory subject supports the diagnosis of Diabetes Mellitus. Performed By: #### G LULS ####Point of Care testing, Glucose [Mass/Vol] 210 mg/dL Normal [facility] Comment on above: Result Comment: [place] Glucose Reference Range is dependent on time and content of last meal. Glucose of more than 200 mg/dL in a nonstressed, ambulatory subject supports the diagnosis of Diabetes Mellitus.PERFORMED BY:[address] [address] [address] NUÑEZDRUMMOND IS[place], [place] [phone] MEDICAL JEFFREY VALENTINO M.D. Performed By: #### G LULS ####Point of Care testing, Glucose Poct Glucometerson 03-11-2022 Commemt1 Normal [facility] Comment on above: Result Comment: Glu2 : WILL NOTIFY /MATILDEERFORMED BY:[address] [address] [address] NUÑEZDRUMMOND ISLAND, [place] [phone] MEDICAL DIRECTORANN VALENTINO M.D. Performed By: #### G LULS ####Point of Care testing, Glucose [Mass/Vol] 450 mg/dL Off scale high Th e [facility] Comment on above: Result Comment: [place] Glucose Reference Range is dependent on time and content of last meal. Glucose of more than 200 mg/dL in a nonstressed, ambulatory subject supports the diagnosis of Diabetes Mellitus. Performed By: #### G LULS ####Point of Care testing, Commemt1 Glu2: Cleaned Meter Normal [facility] Comment on above: Result Comment: PERF ORMED BY:[address] [address] [address] NUÑEZDRUMMOND ISLAND, [place] [phone] MEDICAL DIRECTORANN VALENTINO M.D. Performed By: #### G LULS ####Point of Care testing, Glucose [Mass/Vol] 395 mg/dL Normal [facility] Comment on above: Result Comment: [place] Glucose Reference Range is dependent on time and content of last meal. Glucose of more than 200 mg/dL in a nonstressed, ambulatory subject supports the diagnosis of Diabetes Mellitus. Performed By: #### G LULS ####Point of Care testing, Commemt1 Glu2: Cleaned Meter Normal [facility] Comment on above: Result Comment: PERF ORMED BY:[address] [place], [place] [phone] MEDICAL DIRECTORANN VALENTINO M.D. Performed By: #### G LULS ####Point of Care testing, Glucose [Mass/Vol] 141 mg/dL Normal [facility] Comment on above: Result Comment: [place] Glucose Reference Range is dependent on time and content of last meal. Glucose of more than 200 mg/dL in a nonstressed, ambulatory subject supports the diagnosis of Diabetes Mellitus. Performed By: #### G LULS ####Point of Care testing, Commemt1 Glu2: Cleaned Meter Normal [facility] Comment on above: Result Comment: PERF ORMED BY:[address] [place], [place] [phone] MEDICAL DIRECTORANN VALENTINO M.D. Performed By: #### G LULS ####Point of Care testing, Glucose [Mass/Vol] 96 mg/dL Normal [facility] Comment on above: Result Comment: [place] Glucose Reference Range is dependent on time and content of last meal. Glucose of more than 200 mg/dL in a nonstressed, ambulatory subject supports the diagnosis of Diabetes Mellitus. Performed By: #### G LULS ####Point of Care testing, Commemt1 Glu2: Cleaned Meter Normal [facility] Comment on above: Result Comment: PERF ORMED BY:[address] [address] [address] NUÑEZDRUMMOND [place], [place] [phone] MEDICAL DIRECTORANN VALENTINO M.D. Performed By: #### G LULS ####Point of Care testing, Glucose [Mass/Vol] 64 mg/dL Normal [facility] Comment on above: Result Comment: [place] Glucose Reference Range is dependent on time and content of last meal. Glucose of more than 200 mg/dL in a nonstressed, ambulatory subject supports the diagnosis of Diabetes Mellitus. Performed By: #### G LULS ####Point of Care testing, Glucose Poct Glucometerson 1 03-10-2022 Glucose [Mass/Vol] 160 mg/dL Normal [facility] Comment on above: Result Comment: [place] Glucose Reference Range is dependent on time and content of last meal. Glucose of more than 200 mg/dL in a nonstressed, ambulatory subject supports the diagnosis of Diabetes Mellitus.PERFORMED BY:[address] TOMPKINSSYRACUSE, [place] [phone] MEDICAL JEFFREY VALENTINO M.D. Performed By: #### G LULS ####Point of Care testing, Glucose [Mass/Vol] 288 mg/dL Normal [facility] Comment on above: Result Comment: [place] Glucose Reference Range is dependent on time and content of last meal. Glucose of more than 200 mg/dL in a nonstressed, ambulatory subject supports the diagnosis of Diabetes Mellitus.PERFORMED BY:[address] NUÑEZDRUMMOND ISLAND, [place] [phone] MEDICAL JEFFREY VALENTINO M.D. Performed By: #### G LULS ####Point of Care testing, Glucose [Mass/Vol] 221 mg/dL Normal [facility] Comment on above: Result Comment: [place] Glucose Reference Range is dependent on time and content of last meal. Glucose of more than 200 mg/dL in a nonstressed, ambulatory subject supports the diagnosis of Diabetes Mellitus.PERFORMED BY:[address] SANTOSMiriFELICITASDRUMMOND ISLAND, [place] [phone] MEDICAL DIRECTORANN VALENTINO M.D. Performed By: #### G LULS ####Point of Care testing, Glucose [Mass/Vol] 307 mg/dL Normal [facility] Comment on above: Result Comment: [place] Glucose Reference Range is dependent on time and content of last meal. Glucose of more than 200 mg/dL in a nonstressed, ambulatory subject supports the diagnosis of Diabetes Mellitus.PERFORMED BY:[address] ALIDAOtiliaMiriFELICITASDRUMMOND ISLAND, [place] [phone] MEDICAL DIRECTORANN VALENTINO M.D. Performed By: #### G LULS ####Point of Care testing, Commemt1 Glu2: Cleaned Meter Normal [facility] Comment on above: Result Comment: PERF ORMED BY:[address] ALIDAOtiliaMiriFELICITASDRUMMOND ISLAND, [place] [phone] MEDICAL DIRECTORANN VALENTINO M.D. Performed By: #### G LULS ####Point of Care testing, Glucose [Mass/Vol] 84 mg/dL Normal [facility] Comment on above: Result Comment: [place] Glucose Reference Range is dependent on time and content of last meal. Glucose of more than 200 mg/dL in a nonstressed, ambulatory subject supports the diagnosis of Diabetes Mellitus. Performed By: #### G LULS ####Point of Care testing, A1C with Estimated Average [facility] 01-07-2023 Glucose [Mass/Vol] 407 mg/dL Normal [facility] Comment on above: Result Comment: PERF ORMED BY:[address] SANTOSMiriFELICITASDRUMMOND ISLAND, [place] [phone] MEDICAL DIRECTORANN VALENTINO M.D. Performed By: #### A 1C [facility] eA ####[address] [address] [facility] HbA1c (Bld) [Mass fraction] 15.8 % High 4.3-5.6 [facility] Comment on above: Result Comment: Incr eased risk for diabetes: 5.7 - 6.4 diabetes: >6.4 glycemic control for adults with diabetes: <7.0 Performed By: #### A 1C [facility] ####[facility] Jeanunc health [place] [address] [place] Glucose Glucometer (BldC) [M ass/Vol]Ordered By: Kartik Schwarz on 01-07-2023 Glucose [Mass/Vol] 215 mg/dL [facility] Comment on above: Random Glucose Refer ence Range is dependent on time and content of last meal. Glucose of more than 200 mg/dL in a nonstressed, ambulatory subject supports the diagnosis of Diabetes Mellitus. Glucose Poct Glucometerson 1 03-09-2022 Commemt1 Glu2: Cleaned Meter Normal [facility] Comment on above: Result Comment: PERF ORMED BY:[address] [address] [place], [place] [phone] MEDICAL DIRECTORANN VALENTINO M.D. Performed By: #### G LULS ####Point of Care testing, Glucose [Mass/Vol] 96 mg/dL Normal [facility] Comment on above: Result Comment: [place] Glucose Reference Range is dependent on time and content of last meal. Glucose of more than 200 mg/dL in a nonstressed, ambulatory subject supports the diagnosis of Diabetes Mellitus. Performed By: #### G LULS ####Point of Care testing, Glucose [Mass/Vol] 136 mg/dL Normal [facility] Comment on above: Result Comment: [place] om Glucose Reference Range is dependent on time and content of last meal. Glucose of more than 200 mg/dL in a nonstressed, ambulatory subject supports the diagnosis of Diabetes Mellitus.PERFORMED BY:[address] [address] [address] IZQUIERDOFELICITASDRUMMOND [place]LAND, [place] [phone] MEDICAL DIRECTORANN VALENTINO M.D. Performed By: #### G LULS ####Point of Care testing, Glucose [Mass/Vol] 194 mg/dL Normal [facility] Comment on above: Result Comment: [place] om Glucose Reference Range is dependent on time and content of last meal. Glucose of more than 200 mg/dL in a nonstressed, ambulatory subject supports the diagnosis of Diabetes Mellitus.PERFORMED BY:[address] [address] [address] ALIDAOtiliaMiriFELICITAS, [place] [phone] MEDICAL DIRECTORANN VALENTINO M.D. Performed By: #### G LULS ####Point of Care testing, Glucose [Mass/Vol] 209 mg/dL Normal [facility] Comment on above: Result Comment: [facility] Glucose Reference Range is dependent on time and content of last meal. Glucose of more than 200 mg/dL in a nonstressed, ambulatory subject supports the diagnosis of Diabetes Mellitus.PERFORMED BY:[address] [address] [address] SANTOSMiriFELICITAS, [place] [phone] MEDICAL DIRECTORANN VALENTINO M.D. Performed By: #### G LULS ####Point of Care testing, Glucose [Mass/Vol] 215 mg/dL Normal [facility] Comment on above: Result Comment: [facility] Glucose Reference Range is dependent on time and content of last meal. Glucose of more than 200 mg/dL in a nonstressed, ambulatory subject supports the diagnosis of Diabetes Mellitus.PERFORMED BY:[address] [address] [address] SANTOSMiriFELICITAS, [place] [phone] MEDICAL DIRECTORANN VALENTINO M.D. Performed By: #### G LULS ####Point of Care testing, Glucose mean value [Mass/vol ume] in Blood Estimated from glycated hemoglobinOrdered By: Kartik Schwarz on 01-07-2023 Average glucose Estimated from glycated hemoglobin (Bld) [Mass/Vol] 407 mg/dL [facility] Hemoglobin A1c percentageOrd ered By: Kartik Schwarz on 01-07-2023 HbA1c (Bld) [Mass fraction] 15.8 % 4.3-5.6 [facility] Comment on above: Increased risk for d iabetes: 5.7 - 6.4diabetes: >6.4glycemic control for adults with diabetes: <7.0 Alanine aminotransferase [En zymatic activity/volume] in Serum or PlasmaOrdered By: Jalen Orellana on 01-06-2023 ALT [Catalytic activity/Vol] 11 U/L 7-52 [facility] Albumin [Mass/volume] in Ser um or Plasma by Bromocresol green (BCG) dye binding methoOrdered By: Jalen Orellana on 01-06-2023 Albumin BCG dye [Mass/Vol] 3.8 g/dL 3.5-5.7 [facility] Alkaline phosphatase [Enzyma tic activity/volume] in Serum or PlasmaOrdered By: Jalen Orellana on 01-06-2023 ALP [Catalytic activity/Vol] 95 U/L 34-104 [facility] Amphetamine Screen Ql (U)Ord ered By: Jalen Orellana on 01-06-2023 Amphetamines Ql (U) Negative Negative [facility] Aspartate aminotransferase [ Enzymatic activity/volume] in Serum or PlasmaOrdered By: Jalen Orellana on 01-06-2023 AST [Catalytic activity/Vol] 11 U/L 13-39 [facility] Barbiturates [Presence] in U rine by Screen methodOrdered By: Jalen Orellana on 01-06-2023 Barbiturates Screen Ql (U) Negative Negative [facility] Basophils Auto (Bld) [#/Vol] Ordered By: Jalen Orellana on 01-06-2023 Basophils (Bld) [#/Vol] 0.0 10*3/uL 0.0-0.1 [facility] Basophils/100 WBC Auto (Bld) Ordered By: Jalen Orellana on 01-06-2023 Basophils/100 WBC (Bld) 0.5 % . [facility] Benzodiazepines Screen Ql (U )Ordered By: Jalen Orellana on 01-06-2023 Benzodiazepines Ql (U) Negative Negative [facility] Benzoylecgonine [Presence] i n Urine by Screen methodOrdered By: Jalen Orellana on 01-06-2023 Benzoylecgonine Screen Ql (U) Negative Negative [facility] Beta Hydroxybuterateon 01-06 Beta Hydroxybuterate 2.70 mmol/L High 0.02-0.27 [facility] Comment on above: Result Comment: PERF ORMED BY:[place] [id number] [address] [place], [place] [phone] MEDICAL DIRECTORANN VALENTINO M.D. Performed By: #### C MP, CBC, BHOB, ETOH ####[facility] [id number] [place] [id number] [facility] Beta hydroxybutyrate [Moles/ volume] in Serum or PlasmaOrdered By: Jalen Orellana on 01-06-2023 Beta hydroxybutyrate [Moles/Vol] 2.70 mmol/L 0.02-0.27 [facility] Bilirubin Test strip Ql (U)O rdered By: Jalen Orellana on 01-06-2023 Bilirubin Ql (U) Negative Negative [facility] Bilirubin.total [Mass/volume ] in Serum or PlasmaOrdered By: Jalen Orellana on 01-06-2023 Bilirubin [Mass/Vol] 0.6 mg/dL 0.3-1.0 [facility] Calcium [Mass/volume] in Ser um or PlasmaOrdered By: Jalen Orellana on 01-06-2023 Calcium [Mass/Vol] 8.6 mg/dL 8.6-10.3 [facility] Cannabinoids [Presence] in U rine by Screen methodOrdered By: Jalen Orellana on 01-06-2023 Cannabinoids Screen Ql (U) Negative Negative [facility] Comment on above: These are unconfirme d results and should not be used for legal purposes. Drug Cut-Off Concentration: AMPH 1000 ng/mL DUKE 200 ng/mL ARNOLD 200 ng/mL COCM 300 ng/mL OP 300 ng/mL PCP 25 ng/mL THC 20 ng/mL Carbon dioxide, total [Moles /volume] in Serum or PlasmaOrdered By: Jalen Orellana on 01-06-2023 CO2 [Moles/Vol] 27.7 mmol/L 21.0-31.0 [facility] Chloride [Moles/volume] in S del or PlasmaOrdered By: Jalen Orellana on 01-06-2023 Chloride [Moles/Vol] 98 mmol/L 98-107 [facility] Cholesterol [Mass/volume] in Serum or PlasmaOrdered By: Kartik Schwarz on 01-06-2023 Cholesterol [Mass/Vol] 188 mg/dL 140-200 [facility] Comment on above: Chol less than 200 m g/dl low riskChol 201-239 mg/dl borderline riskChol 240 mg/dl and greater high risk Cholesterol in LDL Calc [Mas s/Vol]Ordered By: Kartik Schwarz on 01-06-2023 Cholesterol in LDL [Mass/Vol] 102 mg/dL 0-100 [facility] Comment on above: LDL ATP III CLASSIFI CATIONLDL less than 100 mg/dL OptimalLDL 100-129 mg/dL Near or above optimalLDL 130-159 mg/dL Borderline highLDL 160-189 mg/dL HighLDL greater than 189 mg/dL Very high Cholesterol in VLDL Calc [Ma ss/Vol]Ordered By: Kartik Schwarz on 01-06-2023 Cholesterol in VLDL [Mass/Vol] 49 mg/dL [facility] Color Auto (U)Ordered By: Herbert Orellana on 01-06-2023 Color (U) Yellow Yellow [facility] Complete Blood Count Auto Di ffon 01-06-2023 Basophils (Bld) [#/Vol] 0.0 10*3/uL Normal 0.0-0.1 [facility] Comment on above: Result Comment: PERF ORMED BY:[address] [place], [place] [phone] MEDICAL DIRECTORANN VALENTINO M.D. Performed By: #### C MP, CBC, BHOB, ETOH ####[place] [id number] [facility] Basophils/100 WBC (Bld) 0.5 % Normal . [facility] Comment on above: Performed By: #### C MP, CBC, BHOB, ETOH ####[facility] [place] [address] [place] Eosinophils (Bld) [#/Vol] 0.6 10*3/uL Normal 0.0-0.7 [facility] Comment on above: Performed By: #### C MP, CBC, BHOB, ETOH ####[place] [id number] [place] Eosinophils/100 WBC (Bld) 8.4 % Normal . [facility] Comment on above: Performed By: #### C MP, CBC, BHOB, ETOH ####[address] Erythrocyte distribution width (RBC) [Ratio] 12.8 % Normal 12.0-14.8 [facility] Comment on above: Performed By: #### C MP, CBC, BHOB, ETOH ####[address] Hematocrit (Bld) [Volume fraction] 46.3 % Normal 37.0-49.0 [facility] Comment on above: Performed By: #### C MP, CBC, BHOB, ETOH ####[address] Hemoglobin (Bld) [Mass/Vol] 16.4 g/dL High 13.0-16.0 [facility] Comment on above: Performed By: #### C MP, CBC, BHOB, ETOH ####[address] Lymphocytes (Bld) [#/Vol] 1.5 10*3/uL Normal 1.20-4.8 [facility] Comment on above: Performed By: #### C MP, CBC, BHOB, ETOH ####[address] Lymphocytes/100 WBC (Bld) 20.9 % Normal . [facility] Comment on above: Performed By: #### C MP, CBC, BHOB, ETOH ####[address] MCH (RBC) [Entitic mass] 30.6 pg Normal 25.0-35.0 [facility] Comment on above: Performed By: #### C MP, CBC, BHOB, ETOH ####[address] MCV (RBC) [Entitic vol] 86.2 fL Normal 78-98 [facility] Comment on above: Performed By: #### C MP, CBC, BHOB, ETOH ####[address] Mean Corpuscular HGB Conc 35.5 g/dL Normal 31.0-37.0 [facility] Comment on above: Performed By: #### C MP, CBC, BHOB, ETOH ####[address] Monocytes (Bld) [#/Vol] 0.5 10*3/uL Normal 0.1-1.00 [facility] Comment on above: Performed By: #### C MP, CBC, BHOB, ETOH ####[address] Monocytes/100 WBC (Bld) 18.46 % Normal 0.00-20.00 [facility] Comment on above: Performed By: #### C MP, CBC, BHOB, ETOH ####[address] Monocytes/100 WBC (Bld) 7.5 % Normal . [facility] Comment on above: Performed By: #### C MP, CBC, BHOB, ETOH ####[address] Neutrophils (Bld) [#/Vol] 4.4 10*3/uL Normal 1.2-7.7 [facility] Comment on above: Performed By: #### C MP, CBC, BHOB, ETOH ####[address] Neutrophils/100 WBC (Bld) 62.7 % Normal . [facility] Comment on above: Performed By: #### C MP, CBC, BHOB, ETOH ####[address] NRBC% 0.5 /100{WBC} Normal 0-0.5 [facility] Comment on above: Performed By: #### C MP, CBC, BHOB, ETOH ####[address] Platelet mean volume (Bld) [Entitic vol] 7.9 fL Normal 6.6-10.1 [facility] Comment on above: Performed By: #### C MP, CBC, BHOB, ETOH ####[address] Platelets (Bld) [#/Vol] 332 10*3/uL Normal 150-450 [facility] Comment on above: Performed By: #### C MP, CBC, BHOB, ETOH ####[address] RBC (Bld) [#/Vol] 5.38 10*6/uL High 4.50-5.30 [facility] Comment on above: Performed By: #### C MP, CBC, BHOB, ETOH ####[address] WBC (Bld) [#/Vol] 7.0 10*3/uL Normal 4.5-13.5 [facility] Comment on above: Performed By: #### C MP, CBC, BHOB, ETOH ####[address] Comprehensive Metabolic Pane maureen 01-06-2023 Albumin [Mass/Vol] 3.8 g/dL Normal 3.5-5.7 [facility] Comment on above: Performed By: #### C MP, CBC, BHOB, ETOH ####[address] Albumin/Globulin [Mass ratio] 1.7 {ratio} Normal [facility] Comment on above: Performed By: #### C MP, CBC, BHOB, ETOH ####[address] ALP [Catalytic activity/Vol] 95 U/L Normal 34-104 [facility] Comment on above: Performed By: #### C MP, CBC, BHOB, ETOH ####[address] ALT [Catalytic activity/Vol] 11 U/L Normal 7-52 [facility] Comment on above: Performed By: #### C MP, CBC, BHOB, ETOH ####[facility] [address] Anion gap [Moles/Vol] 12.3 mmol/L Normal 6.0-15.0 [facility] Comment on above: Performed By: #### C MP, CBC, BHOB, ETOH ####[address] AST [Catalytic activity/Vol] 11 U/L Low 13-39 [facility] Comment on above: Performed By: #### C MP, CBC, BHOB, ETOH ####[address] Bilirubin [Mass/Vol] 0.6 mg/dL Normal 0.3-1.0 [facility] Comment on above: Performed By: #### C MP, CBC, BHOB, ETOH ####[address] Calcium [Mass/Vol] 8.6 mg/dL Normal 8.6-10.3 [facility] Comment on above: Performed By: #### C MP, CBC, BHOB, ETOH ####[address] Chloride [Moles/Vol] 98 mmol/L Normal 98-107 [facility] Comment on above: Performed By: #### C MP, CBC, BHOB, ETOH ####[place] [id number] [facility] CO2 [Moles/Vol] 27.7 mmol/L Normal 21.0-31.0 [facility] Comment on above: Performed By: #### C MP, CBC, BHOB, ETOH ####[place] [id number] [facility] Creatinine [Mass/Vol] 0.71 mg/dL Normal 0.70-1.30 [facility] Comment on above: Performed By: #### C MP, CBC, BHOB, ETOH ####[place] [id number] [facility] Creatinine Clr Calc Pharmacy 138.54 Normal [facility] Comment on above: Result Comment: PERF ORMED BY:[address] [place], [place] [phone] MEDICAL DIRECTORANN VALENTINO M.D. Performed By: #### C MP, CBC, BHOB, ETOH ####[address] [address] [facility] GFR/1.73 sq M.predicted MDRD (S/P/Bld) [Vol rate/Area] mL/min/{1.73_m2} Normal [facility] Comment on above: Performed By: #### C MP, CBC, BHOB, ETOH ####[place] [id number] [facility] Globulin (S) [Mass/Vol] 2.2 g/dL Normal [facility] Comment on above: Performed By: #### C MP, CBC, BHOB, ETOH ####[address] Glucose [Mass/Vol] 413 mg/dL High 70-100 [facility] Comment on above: Result Comment: [facility] Glucose Reference Range is dependent on time and content of last meal. Glucose of more than 200 mg/dL in a nonstressed, ambulatory subject supports the diagnosis of Diabetes Mellitus. ADA recommended reference range Performed By: #### C MP, CBC, BHOB, ETOH ####[place] [id number] [facility] Potassium [Moles/Vol] 4.0 mmol/L Normal 3.5-5.1 [facility] Comment on above: Performed By: #### C MP, CBC, BHOB, ETOH ####[place] [id number] [facility] Protein [Mass/Vol] 6.0 g/dL Low 6.4-8.9 [facility] Comment on above: Performed By: #### C MP, CBC, BHOB, ETOH ####[place] [id number] [facility] Sodium [Moles/Vol] 134 mmol/L Low 136-145 [facility] Comment on above: Performed By: #### C MP, CBC, BHOB, ETOH ####[place] [id number] [facility] Urea nitrogen [Mass/Vol] 11 mg/dL Normal 7-25 [facility] Comment on above: Performed By: #### C MP, CBC, BHOB, ETOH ####[place] [id number] [facility] Creatinine [Mass/volume] in Serum or PlasmaOrdered By: Jalen Orellana on 01-06-2023 Creatinine [Mass/Vol] 0.71 mg/dL 0.70-1.30 [facility] Drug Screen,Urineon 01-07-20 23 Amphetamine Screen,Urine Negative Normal Negative [facility] Comment on above: Performed By: #### U A, URDS ####[place] [id number] [facility] Barbiturate Screen,Urine Negative Normal Negative [facility] Comment on above: Performed By: #### U A, URDS ####[place] [id number] [facility] Benzodiazepines Screen,Urine Negative Normal Negative [facility] Comment on above: Performed By: #### U A, URDS ####[place] [id number] [facility] Cannabinoid Screen,Urine Negative Normal Negative [facility] Comment on above: Result Comment: Thes e are unconfirmed results and should not be used for legal purposes. Drug Cut-Off Concentration: AMPH 1000 ng/mL DUKE 200 ng/mL ARNOLD 200 ng/mL COCM 300 ng/mL OP 300 ng/mL PCP 25 ng/mL THC 20 ng/mLPERFORMED BY:[address] [place], [place] [phone] MEDICAL DIRECTORANN VALENTINO M.D. Performed By: #### U A, URDS ####[place] [id number] [facility] Cocaine Screen,Urine Negative Normal Negative [facility] Comment on above: Performed By: #### U A, URDS ####[place] [id number] [place] Opiate Screen,Urine Negative Normal Negative [facility] Comment on above: Performed By: #### U A, URDS ####[place] [id number] [address] Phencyclidine Screen,Urine Negative Normal Negative [facility] Comment on above: Performed By: #### U A, URDS ####[address] ECG 12 lead ECGon 01-06-2023 ECG 12 lead ECG Normal [facility] Eosinophils Auto (Bld) [#/Vo l]Ordered By: Jalen Orellana on 01-06-2023 Eosinophils (Bld) [#/Vol] 0.6 10*3/uL 0.0-0.7 [facility] Eosinophils/100 WBC Auto (Bl d)Ordered By: Jalen Orellana on 01-06-2023 Eosinophils/100 WBC (Bld) 8.4 % . [facility] Erythrocyte distribution wid th Auto (RBC) [Ratio]Ordered By: Jalen Orellana on 01-06-2023 Erythrocyte distribution width (RBC) [Ratio] 12.8 % 12.0-14.8 [facility] Ethanol [Mass/volume] in Ser um or PlasmaOrdered By: Jalen Orellana on 01-06-2023 Ethanol [Mass/Vol] mg/dL [facility] Ethanol [Mass/Vol] TNP [facility] Comment on above: Test not performed Ethyl Alcohol Profileon 12-12 Ethanol [Mass/Vol] mg/dL Normal [facility] Comment on above: Performed By: #### C MP, CBC, BHOB, ETOH ####[address] Percent Ethanol Not performed Normal [facility] Comment on above: Result Comment: PERF ORMED BY:[address] [place], [place] [phone] MEDICAL DIRECTORANN VALENTINO M.D. Performed By: #### C MP, CBC, BHOB, ETOH ####[address] Globulin Calc (S) [Mass/Vol] Ordered By: Jalen Orellana on 01-06-2023 Globulin (S) [Mass/Vol] 2.2 g/dL [facility] Glucose [Mass/volume] in Ser um or PlasmaOrdered By: Jalen Orellana on 01-06-2023 Glucose [Mass/Vol] 413 mg/dL 70-100 [facility] Comment on above: ADA recommended refe rence rangeRandom Glucose Reference Range is dependent on time and content of last meal. Glucose of more than 200 mg/dL in a nonstressed, ambulatory subject supports the diagnosis of Diabetes Mellitus. Hematocrit Auto (Bld) [Volum e fraction]Ordered By: Jalen Orellana on 01-06-2023 Hematocrit (Bld) [Volume fraction] 46.3 % 37.0-49.0 [facility] Hemoglobin [Mass/volume] in BloodOrdered By: Jalen Orellana on 01-06-2023 Hemoglobin (Bld) [Mass/Vol] 16.4 g/dL 13.0-16.0 [facility] Ketones Auto test strip (U) [Mass/Vol]Ordered By: Jalen Orellana on 01-06-2023 Ketones (U) [Mass/Vol] 2+ Negative [facility] Leukocytes [#/volume] correc fide for nucleated erythrocytes in Blood by Automated counOrdered By: Jalen Orellana on 01-06-2023 WBC corrected for nucl RBC Auto (Bld) [#/Vol] 7.0 10*3/uL 4.5-13.5 [facility] Lipid Panelon 01-06-2023 Cholesterol [Mass/Vol] 188 mg/dL Normal 140-200 [facility] Comment on above: Order Comment: CROW Soliz Comment USE BLODD COLLECTED IN ER PLEASE Result Comment: Chol less than 200 mg/dl low risk Chol 201-239 mg/dl borderline risk Chol 240 mg/dl and greater high risk Performed By: #### L IPID, [id number], TSH3 wRFLX ####[facility] [id number] [place] [id number] [facility] Cholesterol in HDL [Mass/Vol] 37 mg/dL Normal 23-92 [facility] Comment on above: Order Comment: CROW Soliz Comment USE BLODD COLLECTED IN ER PLEASE Result Comment: HDL CHOL ATP-III CLASSIFICATION Cardiovascular Risk HDL > or equal to 60 mg/dL LOW HDL < 40 mg/dL HIGH Performed By: #### L IPID, [id number], TSH3 wRFLX ####[place] [id number] [facility] Cholesterol.total/Cho lesterol in HDL [Mass ratio] 5.1 {ratio} Normal <5.0 [facility] Comment on above: Order Comment: CROW Soliz Comment USE BLODD COLLECTED IN ER PLEASE Performed By: #### L IPID, [id number], TSH3 wRFLX ####[address] LDL Cholesterol,Calculate d 102 mg/dL High 0-100 [facility] Comment on above: Order Comment: CROW Soliz Comment USE BLODD COLLECTED IN ER PLEASE Result Comment: LDL ATP III CLASSIFICATION LDL less than 100 mg/dL Optimal LDL 100-129 mg/dL Near or above optimal LDL 130-159 mg/dL Borderline high LDL 160-189 mg/dL High LDL greater than 189 mg/dL Very high Performed By: #### L IPID, [id number], TSH3 wRFLX ####[address] Triglyceride w/Reflex 247 mg/dL High 0-149 [facility] Comment on above: Order Comment: CROW Soliz Comment USE BLODD COLLECTED IN ER PLEASE Result Comment: TRIG ATP III CLASSIFICATION TRIG less than 150 mg/dL Normal TRIG 150-199 mg/dL Borderline high TRIG 200-500 mg/dL High TRIG greater than 500 mg/dL Very high Standard traceable to the Center for Disease Conrtrol and Prevention (CDC) test method. Performed By: #### L IPID, [id number], TSH3 wRFLX ####[facility] [id number] [place], [place] [id number] [facility] VLDL CHOLESTEROL 49 mg/dL Normal [facility] Comment on above: Order Comment: CROW Soliz Comment USE BLODD COLLECTED IN ER PLEASE Performed By: #### L IPID, [id number], TSH3 wRFLX ####[facility] [id number] [place] [address] [facility] Lymphocytes Auto (Bld) [#/Vo l]Ordered By: Jalen Orellana on 01-06-2023 Lymphocytes (Bld) [#/Vol] 1.5 10*3/uL 1.20-4.8 [facility] Lymphocytes/100 WBC Auto (Bl d)Ordered By: Jalen Orellana on 01-06-2023 Lymphocytes/100 WBC (Bld) 20.9 % . [facility] MCH Auto (RBC) [Entitic mass ]Ordered By: Jalen Orellana on 01-06-2023 MCH (RBC) [Entitic mass] 30.6 pg 25.0-35.0 [facility] MCHC Auto (RBC) [Mass/Vol]Or dered By: Jalen Orellana on 01-06-2023 MCHC (RBC) [Mass/Vol] 35.5 g/dL 31.0-37.0 [facility] MCV Auto (RBC) [Entitic vol] Ordered By: Jalen Orellana on 01-06-2023 MCV (RBC) [Entitic vol] 86.2 fL 78-98 [facility] Monocyte distribution width [Entitic volume] in Blood by AutomatedOrdered By: Jalen Orellana on 01-06-2023 Monocyte distribution width Auto (Bld) [Entitic vol] 18.46 % 0.00-20.00 [facility] Monocytes Auto (Bld) [#/Vol] Ordered By: Jalen Orellana on 01-06-2023 Monocytes (Bld) [#/Vol] 0.5 10*3/uL 0.1-1.00 [facility] Monocytes/100 WBC Auto (Bld) Ordered By: Jalen Orellana on 01-06-2023 Monocytes/100 WBC (Bld) 7.5 % . [facility] Neutrophils Auto (Bld) [#/Vo l]Ordered By: Jalen Orellana on 01-06-2023 Neutrophils (Bld) [#/Vol] 4.4 10*3/uL 1.2-7.7 [facility] Neutrophils/100 WBC Auto (Bl d)Ordered By: Jalen Orellana on 01-06-2023 Neutrophils/100 WBC (Bld) 62.7 % . [facility] Nitrite Test strip Ql (U)Ord ered By: Jalen Orellana on 01-06-2023 Nitrite Ql (U) Negative Negative [facility] No Panel InformationOrdered By: Jalen Orellana on 01-06-2023 Estimated GFR (CKD-EPI) > 60.0 mL/Min [facility] Creatinine Clearance (Chem 138.54 [facility] Nucleated erythrocytes [Pres ence] in Blood by Automated countOrdered By: Jalen Orellana on 01-06-2023 Nucleated RBC Auto Ql (Bld) 0.5 /100{WBC} 0-0.5 [facility] Opiates [Presence] in Urine by Screen methodOrdered By: Jalen Orellana on 01-06-2023 Opiates Screen Ql (U) Negative Negative [facility] Phencyclidine Screen Ql (U)O rdered By: Jalen Orellana on 01-06-2023 Phencyclidine Ql (U) Negative Negative [facility] Platelet mean volume Auto (B ld) [Entitic vol]Ordered By: Jalen Orellana on 01-06-2023 Platelet mean volume (Bld) [Entitic vol] 7.9 fL 6.6-10.1 [facility] Platelets Auto (Bld) [#/Vol] Ordered By: Jalen Orellana on 01-06-2023 Platelets (Bld) [#/Vol] 332 10*3/uL 150-450 [facility] Potassium [Moles/volume] in Serum or PlasmaOrdered By: Jalen Orellana on 01-06-2023 Potassium [Moles/Vol] 4.0 mmol/L 3.5-5.1 [facility] Protein Auto test strip (U) [Mass/Vol]Ordered By: Jalen Orellana on 01-06-2023 Protein (U) [Mass/Vol] Negative Negative [facility] Protein [Mass/volume] in Ser um or PlasmaOrdered By: Jalen Orellana on 01-06-2023 Protein [Mass/Vol] 6.0 g/dL 6.4-8.9 [facility] RBC Auto (Bld) [#/Vol]Ordere d By: Jalen Orellana on 01-06-2023 RBC (Bld) [#/Vol] 5.38 10*6/uL 4.50-5.30 [facility] Serum or plasma albumin/glob ulin mass ratioOrdered By: Jalen Orellana on 01-06-2023 Albumin/Globulin [Mass ratio] 1.7 {ratio} [facility] Serum or plasma anion gap de terminationOrdered By: Jalen Orellana on 01-06-2023 Anion gap [Moles/Vol] 12.3 mmol/L 6.0-15.0 [facility] Serum or plasma high density lipoprotein (HDL) cholesterol measurementOrdered By: Kartik Schwarz on 01-06-2023 Cholesterol in HDL [Mass/Vol] 37 mg/dL 23-92 [facility] Comment on above: HDL CHOL ATP-III CLA SSIFICATION Cardiovascular RiskHDL > or equal to 60 mg/dL LOWHDL < 40 mg/dL HIGH Serum or plasma total choles terol/high density lipoprotein (HDL) cholesterol mass ratOrdered By: Kartik Schwarz on 01-06-2023 Cholesterol.total/Cho lesterol in HDL [Mass ratio] 5.1 {ratio} <5.0 [facility] Sodium [Moles/volume] in Ser um or PlasmaOrdered By: Jalen Orellana on 01-06-2023 Sodium [Moles/Vol] 134 mmol/L 136-145 [facility] Specific gravity Auto test s trip (U) [Rel density]Ordered By: Jalen Orellana on 01-06-2023 Specific gravity (U) [Rel density] 1.034 1.001-1.030 [facility] Thyroid Stim Hormone w/Rflxo n 01-06-2023 Thyroid Stim Hormone w/Rflx 0.51 u[iU]/mL Normal 0.45-5.33 [facility] Comment on above: Order Comment: FASTNida DIAZ Y Comment USE BLODD COLLECTED IN ER PLEASE Performed By: #### L IPID, [id number], TSH3 [id number] ####[facility] [id number] [place] [address] [facility] Thyrotropin [Units/volume] i n Serum or PlasmaOrdered By: Kartik Schwarz on 01-06-2023 TSH Qn 0.51 m[IU]/L 0.45-5.33 [facility] Triglyceride [Mass/volume] i n Serum or PlasmaOrdered By: Kartik Schwarz on 01-06-2023 Triglyceride [Mass/Vol] 247 mg/dL 0-149 [facility] Comment on above: TRIG ATP III CLASSIF ICATIONTRIG less than 150 mg/dL NormalTRIG 150-199 mg/dL Borderline highTRIG 200-500 mg/dL High TRIG greater than 500 mg/dL Very highStandard traceable to the Center for Disease Conrtrol and Prevention (CDC) test method. Urea nitrogen [Mass/volume] in Serum or PlasmaOrdered By: Jalen Orellana on 01-06-2023 Urea nitrogen [Mass/Vol] 11 mg/dL 7-25 [facility] Urinalysison 01-06-2023 Appearance (U) Clear Normal Clear [facility] Comment on above: Order Comment: Name Collection Type:: Clean-Voided Midstream Performed By: #### U A, URDS ####[address] Bilirubin,Urine Negative Normal Negative [facility] Comment on above: Order Comment: Name Collection Type:: Clean-Voided Midstream Performed By: #### U A, URDS ####[address] Color (U) Yellow Normal Yellow [facility] Comment on above: Order Comment: Name Collection Type:: Clean-Voided Midstream Performed By: #### U A, URDS ####[place] [id number] [facility] Glucose Ql (U) >=1000 High Normal [facility] Comment on above: Order Comment: Name Collection Type:: Clean-Voided Midstream Performed By: #### U A, URDS ####[place] [id number] [facility] Ketones Ql (U) 2+ High Negative [facility] Comment on above: Order Comment: Name Collection Type:: Clean-Voided Midstream Performed By: #### U A, URDS ####[place] [id number] [facility] Leukocyte esterase Test strip Ql (U) Negative Normal Negative [facility] Comment on above: Order Comment: Name Collection Type:: Clean-Voided Midstream Performed By: #### U A, URDS ####[address] [address] [facility] Nitrite,Urine Negative Normal Negative [facility] Comment on above: Order Comment: Name Collection Type:: Clean-Voided Midstream Performed By: #### U A, URDS ####[address] [address] [facility] Occult Blood,Urine Negative Normal Negative [facility] Comment on above: Order Comment: Name Collection Type:: Clean-Voided Midstream Result Comment: PERF ORMED BY:[address] [place], [place] [id number] MEDICAL DIRECTORANN VALENTINO M.D. Performed By: #### U A, URDS ####[place] [id number] [facility] pH (U) 6.0 [pH] Normal 5.0-9.0 [facility] Comment on above: Order Comment: Name Collection Type:: Clean-Voided Midstream Performed By: #### U A, URDS ####[place] [id number] [facility] Protein,Urine Negative Normal Negative [facility] Comment on above: Order Comment: Name Collection Type:: Clean-Voided Midstream Performed By: #### U A, URDS ####[place] [id number] [facility] Specificy [place],Urine 1.034 High 1.001-1.030 [facility] Comment on above: Order Comment: Name Collection Type:: Clean-Voided Midstream Performed By: #### U A, URDS ####[place] [id number] [facility] Urobilinogen,Urine Normal Normal Normal [facility] Comment on above: Order Comment: Name Collection Type:: Clean-Voided Midstream Performed By: #### U A, URDS ####[place] [address] [place] [address] [facility] Urine clarity by refractomet ry automatedOrdered By: Jalen Orellana on 01-06-2023 Clarity Refractometry automated (U) Clear Clear [facility] Urine glucose measurement by automated test strip (mass/volume)Ordered By: Jalen Orellana on 01-06-2023 Glucose Auto test strip (U) [Mass/Vol] >=1000 mg/dL Normal [facility] Urine hemoglobin detection b y automated test stripOrdered By: Jalen Orellana on 01-06-2023 Hemoglobin Auto test strip Ql (U) Negative Negative [facility] Urine leukocyte esterase det ection by automated test stripOrdered By: Jalen Orellana on 01-06-2023 Leukocyte esterase Auto test strip Ql (U) Negative Negative [facility] Urobilinogen Auto test strip (U) [Mass/Vol]Ordered By: Jalen Orellana on 01-06-2023 Urobilinogen (U) [Mass/Vol] Normal mg/dL Normal [facility] Vitamin D 25 Hydroxy Totalon 01-06-2023 Vitamin D 25 Hydroxy Total 23.4 ng/mL Low 30-100 [facility] Comment on above: Order Comment: FASTI NG Y Comment USE BLODD COLLECTED IN ER PLEASE Result Comment: ANGELO MIN D STATUS 25(OH)VITAMIN D RANGE (ng/mL) Deficient <20 Insufficient 20 to <30 Sufficient 30 to 100 Reference: Woody MF,Karissa NC, Dakota FARRELL, et al. Evaluation,treatment, and prevention of vitamin D deficiency; an Endocrine Society clinical practice guideline. JCEM. 2010; 96(7):1911-30.PERFORMED BY:[facility] [place], [place] [phone] MEDICAL DIRECTORANN VALENTINO M.D. Performed By: #### L IPID, [id number], TSH3 [id number] ####[facility] [id number] [place] [address] [facility] Vitamin D+Metabolites [Mass/ volume] in Serum or PlasmaOrdered By: Kartik Schwarz on 01-06-2023 Vitamin D+Metabolites [Mass/Vol] 23.4 ng/mL 30-100 [facility] Comment on above: VITAMIN D STATUS 25( [place])VITAMIN D RANGE (ng/mL) Deficient <20 Insufficient 20 to <30Sufficient 30 to 100Reference: Woody MF,Karissa MILLIGAN, Dakota FARRELL, et al. Evaluation,treatment, and prevention of vitamin D deficiency; an Endocrine Society clinical practice guideline. JCEM. 2010; 96(7):1911-30. WBC Auto (Bld) [#/Vol]Ordere d By: Jalen Orellana on 01-06-2023 WBC (Bld) [#/Vol] 7.0 10*3/uL 4.5-13.5 [facility] pH Auto test strip (U)Ordere d By: Jalen Orellana on 01-06-2023 pH (U) 6.0 [pH] 5.0-9.0 [facility] Basic Metabolic Panelon 10-11 Anion gap [Moles/Vol] 4.8 mmol/L Low 6.0-15.0 [facility] Comment on above: Performed By: #### C BC, BMP ####[address] [address] [facility] Calcium [Mass/Vol] 7.9 mg/dL Low 8.6-10.3 [facility] Comment on above: Performed By: #### C BC, BMP ####[address] [address] [facility] Chloride [Moles/Vol] 110 mmol/L High 98-107 [facility] Comment on above: Performed By: #### C BC, BMP ####[address] [address] [facility] CO2 [Moles/Vol] 28.1 mmol/L Normal 21.0-31.0 [facility] Comment on above: Performed By: #### C BC, BMP ####[place] [address] [place] [address] [facility] Creatinine [Mass/Vol] 0.65 mg/dL Low 0.70-1.30 [facility] Comment on above: Performed By: #### C BC, BMP ####[address] [place] [address] [facility] Creatinine Clr Calc Pharmacy 159.02 Normal [facility] Comment on above: Result Comment: PERF ORMED BY:[place] [address] [address] [place], [place] [phone] MEDICAL JEFFREY VALENTINO M.D. Performed By: #### C BC, BMP ####[address] [address] [facility] GFR/1.73 sq M.predicted MDRD (S/P/Bld) [Vol rate/Area] mL/min/{1.73_m2} Normal [facility] Comment on above: Performed By: #### C BC, BMP ####[place] [id number] [facility] Glucose [Mass/Vol] 112 mg/dL Significant change up 70-100 [facility] Comment on above: Result Comment: [facility] Glucose Reference Range is dependent on time and content of last meal. Glucose of more than 200 mg/dL in a nonstressed, ambulatory subject supports the diagnosis of Diabetes Mellitus. ADA recommended reference range Performed By: #### C BC, BMP ####[place] [id number] [facility] Potassium [Moles/Vol] 2.9 mmol/L Off scale low 3.5-5.1 [facility] Comment on above: Result Comment: Crit ical Result Called to and read back by: MAGALYS MORRELL at: 10/28/2022 05:03:32 by:[id number] Performed By: #### C BC, BMP ####[address] [address] [facility] Sodium [Moles/Vol] 140 mmol/L Normal 136-145 [facility] Comment on above: Performed By: #### C BC, BMP ####[place] [id number] [facility] Urea nitrogen [Mass/Vol] 7 mg/dL Normal 7-25 [facility] Comment on above: Performed By: #### C BC, BMP ####[address] [place] [address] [facility] Basophils Auto (Bld) [#/Vol] Ordered By: Raymond Baez on 10-28-2022 Basophils (Bld) [#/Vol] 0.1 10*3/uL 0.0-0.1 [facility] Basophils/100 WBC Auto (Bld) Ordered By: Raymond Baez on 10-28-2022 Basophils/100 WBC (Bld) 0.8 % . [facility] Calcium [Mass/volume] in Ser um or PlasmaOrdered By: Raymond Baez on 10-28-2022 Calcium [Mass/Vol] 7.9 mg/dL 8.6-10.3 [facility] Carbon dioxide, total [Moles /volume] in Serum or PlasmaOrdered By: Raymond Baez on 10-28-2022 CO2 [Moles/Vol] 28.1 mmol/L 21.0-31.0 [facility] Chloride [Moles/volume] in S del or PlasmaOrdered By: Raymond Baez on 10-28-2022 Chloride [Moles/Vol] 110 mmol/L 98-107 [facility] Complete Blood Count Auto Di ffon 10-28-2022 Basophils (Bld) [#/Vol] 0.1 10*3/uL Normal 0.0-0.1 [facility] Comment on above: Result Comment: PERF ORMED BY:[address] [place], [place] [phone] MEDICAL DIRECTORANN VALENTINO M.D. Performed By: #### C GRACIELA, BMP ####[place] [id number] [facility] Basophils/100 WBC (Bld) 0.8 % Normal . [facility] Comment on above: Performed By: #### C GRACIELA, BMP ####[place] [id number] [facility] Eosinophils (Bld) [#/Vol] 0.7 10*3/uL Normal 0.0-0.7 [facility] Comment on above: Performed By: #### C GRACIELA, BMP ####[place] [id number] [facility] Eosinophils/100 WBC (Bld) 10.5 % Normal . [facility] Comment on above: Performed By: #### C BC, BMP ####[place] [id number] [facility] Erythrocyte distribution width (RBC) [Ratio] 13.0 % Normal 12.0-14.8 [facility] Comment on above: Performed By: #### C BC, BMP ####[place] [id number] [facility] Hematocrit (Bld) [Volume fraction] 35.5 % Low 37.0-49.0 [facility] Comment on above: Performed By: #### C BC, BMP ####[address] Hemoglobin (Bld) [Mass/Vol] 12.5 g/dL Low 13.0-16.0 [facility] Comment on above: Performed By: #### C BC, BMP ####[address] Lymphocytes (Bld) [#/Vol] 2.2 10*3/uL Normal 1.20-4.8 [facility] Comment on above: Performed By: #### C BC, BMP ####[place] [id number] [facility] Lymphocytes/100 WBC (Bld) 32.6 % Normal . [facility] Comment on above: Performed By: #### C BC, BMP ####[place] [id number] [facility] MCH (RBC) [Entitic mass] 30.6 pg Normal 25.0-35.0 [facility] Comment on above: Performed By: #### C BC, BMP ####[place] [id number] [facility] MCV (RBC) [Entitic vol] 86.8 fL Normal 78-98 [facility] Comment on above: Performed By: #### C BC, BMP ####[address] [address] [facility] Mean Corpuscular HGB Conc 35.3 g/dL Normal 31.0-37.0 [facility] Comment on above: Performed By: #### C BC, BMP ####[address] [address] [facility] Monocytes (Bld) [#/Vol] 0.7 10*3/uL Normal 0.1-1.00 [facility] Comment on above: Performed By: #### C BC, BMP ####[place] [id number] [facility] Monocytes/100 WBC (Bld) 11.2 % Normal . [facility] Comment on above: Performed By: #### C GRACIELA, BMP ####[address] [address] [facility] Neutrophils (Bld) [#/Vol] 3.0 10*3/uL Normal 1.2-7.7 [facility] Comment on above: Performed By: #### C GRACIELA, BMP ####[address] [address] [facility] Neutrophils/100 WBC (Bld) 44.9 % Normal . [facility] Comment on above: Performed By: #### C GRACIELA, BMP ####[address] [address] [facility] NRBC% 0.2 /100{WBC} Normal 0-0.5 [facility] Comment on above: Performed By: #### C BC, BMP ####[place] [id number] [facility] Platelet mean volume (Bld) [Entitic vol] 7.4 fL Normal 6.6-10.1 [facility] Comment on above: Performed By: #### C BC, BMP ####[address] [address] [facility] Platelets (Bld) [#/Vol] 259 10*3/uL Normal 150-450 [facility] Comment on above: Performed By: #### C BC, BMP ####[place] [address] [place] [address] [facility] RBC (Bld) [#/Vol] 4.09 10*6/uL Low 4.50-5.30 [facility] Comment on above: Performed By: #### C BC, BMP ####[facility] [place] [address] [facility] WBC (Bld) [#/Vol] 6.7 10*3/uL Normal 4.5-13.5 [facility] Comment on above: Performed By: #### C GRACIELA, BMP ####[place] [address] [place] [address] [facility] Creatinine [Mass/volume] in Serum or PlasmaOrdered By: Raymond Baez on 10-28-2022 Creatinine [Mass/Vol] 0.65 mg/dL 0.70-1.30 [facility] Eosinophils Auto (Bld) [#/Vo l]Ordered By: Raymond Baez on 10-28-2022 Eosinophils (Bld) [#/Vol] 0.7 10*3/uL 0.0-0.7 [facility] Eosinophils/100 WBC Auto (Bl d)Ordered By: Raymond Baez on 10-28-2022 Eosinophils/100 WBC (Bld) 10.5 % . [facility] Erythrocyte distribution wid th Auto (RBC) [Ratio]Ordered By: Raymond Baez on 10-28-2022 Erythrocyte distribution width (RBC) [Ratio] 13.0 % 12.0-14.8 [facility] Glucose Glucometer (BldC) [M ass/Vol]Ordered By: Dominic Rodrigez on 10-28-2022 Glucose [Mass/Vol] 261 mg/dL [facility] Comment on above: Random Glucose Refer ence Range is dependent on time and content of last meal. Glucose of more than 200 mg/dL in a nonstressed, ambulatory subject supports the diagnosis of Diabetes Mellitus. Glucose Poct Glucometerson 0 10-28-2022 Commemt1 Glu2: Cleaned Meter Normal [facility] Comment on above: Result Comment: PERF ORMED BY:[place] [id number] [id number] MEDICAL DIRECTORANN VALENTINO M.D. Performed By: #### G LULS ####Point of Care testing, Glucose [Mass/Vol] 261 mg/dL Normal [facility] Comment on above: Result Comment: [facility] Glucose Reference Range is dependent on time and content of last meal. Glucose of more than 200 mg/dL in a nonstressed, ambulatory subject supports the diagnosis of Diabetes Mellitus. Performed By: #### G LULS ####Point of Care testing, Commemt1 Glu2: Cleaned Meter Normal [facility] Comment on above: Result Comment: PERF ORMED BY:[facility] [place], [place] [phone] MEDICAL DIRECTORANN VALENTINO M.D. Performed By: #### G LULS ####Point of Care testing, Glucose [Mass/Vol] 168 mg/dL Normal [facility] Comment on above: Result Comment: [facility] Glucose Reference Range is dependent on time and content of last meal. Glucose of more than 200 mg/dL in a nonstressed, ambulatory subject supports the diagnosis of Diabetes Mellitus. Performed By: #### G LULS ####Point of Care testing, Glucose [Mass/volume] in Ser um or PlasmaOrdered By: Raymond Baez on 10-28-2022 Glucose [Mass/Vol] 112 mg/dL 70-100 [facility] Comment on above: Delta: 473 on -[id number] recommended reference rangeRandom Glucose Reference Range is dependent on time and content of last meal. Glucose of more than 200 mg/dL in a nonstressed, ambulatory subject supports the diagnosis of Diabetes Mellitus. Hematocrit Auto (Bld) [Volum e fraction]Ordered By: Raymond Baez on 10-28-2022 Hematocrit (Bld) [Volume fraction] 35.5 % 37.0-49.0 [facility] Hemoglobin [Mass/volume] in BloodOrdered By: Raymond Baez on 10-28-2022 Hemoglobin (Bld) [Mass/Vol] 12.5 g/dL 13.0-16.0 [facility] Leukocytes [#/volume] correc fide for nucleated erythrocytes in Blood by Automated counOrdered By: Raymond Baez on 10-28-2022 WBC corrected for nucl RBC Auto (Bld) [#/Vol] 6.7 10*3/uL 4.5-13.5 [facility] Lymphocytes Auto (Bld) [#/Vo l]Ordered By: Raymond Baez on 10-28-2022 Lymphocytes (Bld) [#/Vol] 2.2 10*3/uL 1.20-4.8 [facility] Lymphocytes/100 WBC Auto (Bl d)Ordered By: Raymond Baez on 10-28-2022 Lymphocytes/100 WBC (Bld) 32.6 % . [facility] MCH Auto (RBC) [Entitic mass ]Ordered By: Raymond Baez on 10-28-2022 MCH (RBC) [Entitic mass] 30.6 pg 25.0-35.0 [facility] MCHC Auto (RBC) [Mass/Vol]Or dered By: Raymond Baez on 10-28-2022 MCHC (RBC) [Mass/Vol] 35.3 g/dL 31.0-37.0 [facility] MCV Auto (RBC) [Entitic vol] Ordered By: Raymond Baez on 10-28-2022 MCV (RBC) [Entitic vol] 86.8 fL 78-98 [facility] Monocytes Auto (Bld) [#/Vol] Ordered By: Raymond Baez on 10-28-2022 Monocytes (Bld) [#/Vol] 0.7 10*3/uL 0.1-1.00 [facility] Monocytes/100 WBC Auto (Bld) Ordered By: Raymond Baez on 10-28-2022 Monocytes/100 WBC (Bld) 11.2 % . [facility] Neutrophils Auto (Bld) [#/Vo l]Ordered By: Raymond Baez on 10-28-2022 Neutrophils (Bld) [#/Vol] 3.0 10*3/uL 1.2-7.7 [facility] Neutrophils/100 WBC Auto (Bl d)Ordered By: Raymond Baez on 10-28-2022 Neutrophils/100 WBC (Bld) 44.9 % . [facility] No Panel InformationOrdered By: Dominic oRdrigez on 10-28-2022 Bedside Glucose Comment Glu2: cleaned meter [facility] No Panel InformationOrdered By: Raymond Baez on 10-28-2022 Estimated GFR (CKD-EPI) > 60.0 mL/Min [facility] Creatinine Clearance (Chem 159.02 [facility] Nucleated erythrocytes [Pres ence] in Blood by Automated countOrdered By: Raymond Baez on 10-28-2022 Nucleated RBC Auto Ql (Bld) 0.2 /100{WBC} 0-0.5 [facility] Platelet mean volume Auto (B ld) [Entitic vol]Ordered By: Raymond Baez on 10-28-2022 Platelet mean volume (Bld) [Entitic vol] 7.4 fL 6.6-10.1 [facility] Platelets Auto (Bld) [#/Vol] Ordered By: Raymond Baez on 10-28-2022 Platelets (Bld) [#/Vol] 259 10*3/uL 150-450 [facility] Potassium [Moles/volume] in Serum or PlasmaOrdered By: Raymond Baez on 10-28-2022 Potassium [Moles/Vol] 2.9 mmol/L 3.5-5.1 [facility] Comment on above: Critical Result Call ed to and read back by: MAGALYS MORRELL at: 10/28/2022 05:03:32 by:[id number] RBC Auto (Bld) [#/Vol]Ordere d By: Raymond Baez on 10-28-2022 RBC (Bld) [#/Vol] 4.09 10*6/uL 4.50-5.30 [facility] Serum or plasma anion gap de terminationOrdered By: Raymond Baez on 10-28-2022 Anion gap [Moles/Vol] 4.8 mmol/L 6.0-15.0 [facility] Sodium [Moles/volume] in Ser um or PlasmaOrdered By: Raymond Baez on 10-28-2022 Sodium [Moles/Vol] 140 mmol/L 136-145 [facility] Urea nitrogen [Mass/volume] in Serum or PlasmaOrdered By: Raymond Baez on 10-28-2022 Urea nitrogen [Mass/Vol] 7 mg/dL 7- [facility] WBC Auto (Bld) [#/Vol]Ordere d By: Raymond Baez on 10-28-2022 WBC (Bld) [#/Vol] 6.7 10*3/uL 4.5-13.5 [facility] Basic Metabolic Panelon 10-11 Anion gap [Moles/Vol] Not performed Normal 6.0-15.0 [facility] Comment on above: Performed By: #### B MP ####[place] [id number] [facility] Calcium [Mass/Vol] 7.4 mg/dL Low 8.6-10.3 [facility] Comment on above: Performed By: #### B MP ####[place] [id number] [facility] Chloride [Moles/Vol] 110 mmol/L High 98-107 [facility] Comment on above: Performed By: #### B MP ####[address] [address] [facility] CO2 [Moles/Vol] 20.6 mmol/L Low 21.0-31.0 [facility] Comment on above: Performed By: #### B MP ####[place] [id number] [facility] Creatinine [Mass/Vol] 0.86 mg/dL Normal 0.70-1.30 [facility] Comment on above: Performed By: #### B MP ####[address] [address] [facility] Creatinine Clr Calc Pharmacy 120.19 Normal [facility] Comment on above: Result Comment: PERF ORMED BY:[address] [place], [place] [phone] MEDICAL DIRECTORANN VALENTINO M.D. Performed By: #### B MP ####[address] [address] [facility] GFR/1.73 sq M.predicted MDRD (S/P/Bld) [Vol rate/Area] mL/min/{1.73_m2} Normal [facility] Comment on above: Performed By: #### B MP ####[address] [address] [facility] Glucose [Mass/Vol] 473 mg/dL Significant change up 70-100 [facility] Comment on above: Result Comment: [facility] Glucose Reference Range is dependent on time and content of last meal. Glucose of more than 200 mg/dL in a nonstressed, ambulatory subject supports the diagnosis of Diabetes Mellitus. ADA recommended reference range Performed By: #### B MP ####[address] [address] [facility] Potassium Normal 3.5-5.1 [facility] Comment on above: Result Comment: Spec imen hemolyzed, redraw requested Performed By: #### B MP ####[address] [address] [facility] Sodium Normal 136-145 [facility] Comment on above: Result Comment: Spec imen hemolyzed, redraw requested Performed By: #### B MP ####[address] [address] [facility] Urea nitrogen [Mass/Vol] 10 mg/dL Normal 7-25 [facility] Comment on above: Performed By: #### B MP ####[address] [address] [facility] Anion gap [Moles/Vol] 11.0 mmol/L Normal 6.0-15.0 [facility] e [facility] Comment on above: Performed By: #### B MP ####[place] [id number] [facility] Calcium [Mass/Vol] 7.7 mg/dL Low 8.6-10.3 [facility] Comment on above: Performed By: #### B MP ####[place] [id number] [facility] Chloride [Moles/Vol] 110 mmol/L High 98-107 [facility] Comment on above: Performed By: #### B MP ####[place] [id number] [facility] CO2 [Moles/Vol] 18.9 mmol/L Low 21.0-31.0 [facility] Comment on above: Performed By: #### B MP ####[place] [id number] [facility] Creatinine [Mass/Vol] 0.70 mg/dL Normal 0.70-1.30 [facility] Comment on above: Performed By: #### B MP ####[place] [id number] [facility] Creatinine Clr Calc Pharmacy 147.66 Normal [facility] Comment on above: Result Comment: PERF ORMED BY:[address] [place], [place] [phone] MEDICAL DIRECTORANN VALENTINO M.D. Performed By: #### B MP ####[place] [id number] [facility] GFR/1.73 sq M.predicted MDRD (S/P/Bld) [Vol rate/Area] mL/min/{1.73_m2} Normal [facility] Comment on above: Performed By: #### B MP ####[place] [id number] [facility] Glucose [Mass/Vol] 225 mg/dL High 70-100 [facility] Comment on above: Result Comment: [facility] Glucose Reference Range is dependent on time and content of last meal. Glucose of more than 200 mg/dL in a nonstressed, ambulatory subject supports the diagnosis of Diabetes Mellitus. ADA recommended reference range Performed By: #### B MP ####[place] [id number] [facility] Potassium [Moles/Vol] 3.9 mmol/L Normal 3.5-5.1 [facility] Comment on above: Performed By: #### B MP ####[place] [id number] [facility] Sodium [Moles/Vol] 136 mmol/L Normal 136-145 [facility] Comment on above: Performed By: #### B MP ####[place] [id number] [facility] Urea nitrogen [Mass/Vol] 10 mg/dL Normal 7-25 [facility] Comment on above: Performed By: #### B MP ####[address] Anion gap [Moles/Vol] 14.1 mmol/L Normal 6.0-15.0 Th e [facility] Comment on above: Performed By: #### B MP ####[address] Calcium [Mass/Vol] 7.3 mg/dL Low 8.6-10.3 [facility] Comment on above: Performed By: #### B MP ####[address] Chloride [Moles/Vol] 108 mmol/L High 98-107 [facility] Comment on above: Performed By: #### B MP ####[place] [id number] [facility] CO2 [Moles/Vol] 18.2 mmol/L Low 21.0-31.0 [facility] Comment on above: Performed By: #### B MP ####[place] [id number] [facility] Creatinine [Mass/Vol] 0.77 mg/dL Normal 0.70-1.30 [facility] Comment on above: Performed By: #### B MP ####[place] [id number] [facility] Creatinine Clr Calc Pharmacy 134.24 Normal [facility] Comment on above: Result Comment: PERF ORMED BY:[address] [place], [place] [phone] MEDICAL DIRECTORANN VALENTINO M.D. Performed By: #### B MP ####[place] [id number] [facility] GFR/1.73 sq M.predicted MDRD (S/P/Bld) [Vol rate/Area] mL/min/{1.73_m2} Normal [facility] Comment on above: Performed By: #### B MP ####[place] [id number] [facility] Glucose [Mass/Vol] 261 mg/dL Significant change up 70-100 [facility] Comment on above: Result Comment: [facility] Glucose Reference Range is dependent on time and content of last meal. Glucose of more than 200 mg/dL in a nonstressed, ambulatory subject supports the diagnosis of Diabetes Mellitus. ADA recommended reference range Performed By: #### B MP ####[place] [id number] [facility] Potassium [Moles/Vol] 3.3 mmol/L Low 3.5-5.1 [facility] Comment on above: Performed By: #### B MP ####[place] [id number] [facility] Sodium [Moles/Vol] 137 mmol/L Normal 136-145 [facility] Comment on above: Performed By: #### B MP ####[place] [id number] [facility] Urea nitrogen [Mass/Vol] 12 mg/dL Normal 7-25 [facility] Comment on above: Performed By: #### B MP ####[place] [id number] [facility] Anion gap [Moles/Vol] 13.6 mmol/L Normal 6.0-15.0 Th e [facility] Comment on above: Performed By: #### B MP ####[place] [id number] [facility] Calcium [Mass/Vol] 7.7 mg/dL Low 8.6-10.3 [facility] Comment on above: Performed By: #### B MP ####[place] [id number] [facility] Chloride [Moles/Vol] 109 mmol/L High 98-107 [facility] Comment on above: Performed By: #### B MP ####[address] CO2 [Moles/Vol] 18.8 mmol/L Low 21.0-31.0 [facility] Comment on above: Performed By: #### B MP ####[address] Creatinine [Mass/Vol] 0.75 mg/dL Normal 0.70-1.30 [facility] Comment on above: Performed By: #### B MP ####[address] Creatinine Clr Calc Pharmacy 137.81 Normal [facility] Comment on above: Result Comment: PERF ORMED BY:[address] [place], [place] [phone] MEDICAL DIRECTORANN VALENTINO M.D. Performed By: #### B MP ####[address] GFR/1.73 sq M.predicted MDRD (S/P/Bld) [Vol rate/Area] mL/min/{1.73_m2} Normal [facility] Comment on above: Performed By: #### B MP ####[address] Glucose [Mass/Vol] 154 mg/dL High 70-100 [facility] Comment on above: Result Comment: [place] Glucose Reference Range is dependent on time and content of last meal. Glucose of more than 200 mg/dL in a nonstressed, ambulatory subject supports the diagnosis of Diabetes Mellitus. ADA recommended reference range Performed By: #### B MP ####[address] Potassium [Moles/Vol] 3.4 mmol/L Low 3.5-5.1 [facility] Comment on above: Performed By: #### B MP ####[place] [id number] [facility] Sodium [Moles/Vol] 138 mmol/L Normal 136-145 [facility] Comment on above: Performed By: #### B MP ####[place] [id number] [facility] Urea nitrogen [Mass/Vol] 12 mg/dL Normal 7-25 [facility] Comment on above: Performed By: #### B MP ####[address] Bilirubin Test strip Ql (U)O rdered By: Israel Sanchez on 10-27-2022 Bilirubin Ql (U) Negative Negative [facility] Color Auto (U)Ordered By: Mega Sanchez on 10-27-2022 Color (U) Yellow Yellow [facility] Complete Blood Count Auto Di ffon 10-27-2022 Basophils (Bld) [#/Vol] 0.0 10*3/uL Normal 0.0-0.1 [facility] Comment on above: Result Comment: PERF ORMED BY:[address] [place], [place] [phone] MEDICAL DIRECTORANN VALENTINO M.D. Performed By: #### P HOS, MG, CBC ####[address] Basophils/100 WBC (Bld) 0.4 % Normal . [facility] Comment on above: Performed By: #### P HOS, MG, CBC ####[place] [id number] [facility] Eosinophils (Bld) [#/Vol] 0.5 10*3/uL Normal 0.0-0.7 [facility] Comment on above: Performed By: #### P HOS, MG, CBC ####[address] Eosinophils/100 WBC (Bld) 6.4 % Normal . [facility] Comment on above: Performed By: #### P HOS, MG, CBC ####[place] [id number] [place] Erythrocyte distribution width (RBC) [Ratio] 12.8 % Normal 12.0-14.8 [facility] Comment on above: Performed By: #### P HOS, MG, CBC ####[address] Hematocrit (Bld) [Volume fraction] 33.9 % Significant change down 37.0-49.0 [facility] Comment on above: Performed By: #### P HOS, MG, CBC ####[address] Hemoglobin (Bld) [Mass/Vol] 11.9 g/dL Low 13.0-16.0 [facility] Comment on above: Performed By: #### P HOS, MG, CBC ####[address] Lymphocytes (Bld) [#/Vol] 1.8 10*3/uL Normal 1.20-4.8 [facility] Comment on above: Performed By: #### P HOS, MG, CBC ####[address] Lymphocytes/100 WBC (Bld) 21.8 % Normal . [facility] Comment on above: Performed By: #### P HOS, MG, CBC ####[address] MCH (RBC) [Entitic mass] 30.8 pg Normal 25.0-35.0 [facility] Comment on above: Performed By: #### P HOS, MG, CBC ####[address] MCV (RBC) [Entitic vol] 87.9 fL Normal 78-98 [facility] Comment on above: Performed By: #### P HOS, MG, CBC ####[address] Mean Corpuscular HGB Conc 35.1 g/dL Normal 31.0-37.0 [facility] Comment on above: Performed By: #### P HOS, MG, CBC ####[place] [id number] [facility] Monocytes (Bld) [#/Vol] 0.9 10*3/uL Normal 0.1-1.00 [facility] Comment on above: Performed By: #### P HOS, MG, CBC ####[place] [id number] [facility] Monocytes/100 WBC (Bld) 11.0 % Normal . [facility] Comment on above: Performed By: #### P HOS, MG, CBC ####[place] [id number] [facility] Neutrophils (Bld) [#/Vol] 4.9 10*3/uL Normal 1.2-7.7 [facility] Comment on above: Performed By: #### P HOS, MG, CBC ####[place] [id number] [facility] Neutrophils/100 WBC (Bld) 60.4 % Normal . [facility] Comment on above: Performed By: #### P HOS, MG, CBC ####[place] [id number] [facility] NRBC% 0.2 /100{WBC} Normal 0-0.5 [facility] Comment on above: Performed By: #### P HOS, MG, CBC ####[place] [id number] [facility] Platelet mean volume (Bld) [Entitic vol] 7.7 fL Normal 6.6-10.1 [facility] Comment on above: Performed By: #### P HOS, MG, CBC ####[place] [id number] [facility] Platelets (Bld) [#/Vol] 252 10*3/uL Normal 150-450 [facility] Comment on above: Performed By: #### P HOS, MG, CBC ####[place] [id number] [facility] RBC (Bld) [#/Vol] 3.86 10*6/uL Low 4.50-5.30 [facility] Comment on above: Performed By: #### P HOS, MG, CBC ####[address] [address] [facility] WBC (Bld) [#/Vol] 8.1 10*3/uL Normal 4.5-13.5 [facility] Comment on above: Performed By: #### P HOS, MG, CBC ####[place] [id number] [facility] Glucose Poct Glucometerson 0 10-27-2022 Glucose [Mass/Vol] 227 mg/dL Normal [facility] Comment on above: Result Comment: [place] [facility] Glucose Reference Range is dependent on time and content of last meal. Glucose of more than 200 mg/dL in a nonstressed, ambulatory subject supports the diagnosis of Diabetes Mellitus.PERFORMED BY:[address] TOMPKINSSYR[place], [place] [phone] MEDICAL DIRECTORANN VALENTINO M.D. Performed By: #### G LULS ####Point of Care testing, Commemt1 Glu2: Cleaned Meter Normal [facility] Comment on above: Result Comment: PERF ORMED BY:[address] SANTOSMiriFELICITAS, [place] [phone] MEDICAL JEFFREY VALENTINO M.D. Performed By: #### G LULS ####Point of Care testing, Glucose [Mass/Vol] 345 mg/dL Normal [facility] Comment on above: Result Comment: [place] [facility] Glucose Reference Range is dependent on time and content of last meal. Glucose of more than 200 mg/dL in a nonstressed, ambulatory subject supports the diagnosis of Diabetes Mellitus. Performed By: #### G LULS ####Point of Care testing, Commemt1 Glu2: Cleaned Meter Normal [facility] Comment on above: Result Comment: PERF ORMED BY:[address] TOMPKINSSYR[place], [place] [phone] MEDICAL DIRECTORANN VALENTINO M.D. Performed By: #### G LULS ####Point of Care testing, Glucose [Mass/Vol] 345 mg/dL Normal [facility] Comment on above: Result Comment: [place] [facility] Glucose Reference Range is dependent on time and content of last meal. Glucose of more than 200 mg/dL in a nonstressed, ambulatory subject supports the diagnosis of Diabetes Mellitus. Performed By: #### G LULS ####Point of Care testing, Commemt1 Glu2: Cleaned Meter Normal [facility] Comment on above: Result Comment: PERF ORMED BY:[place] [address] [address] SANTOSMiriFELIC[place], [place] [phone] MEDICAL DIRECTORANN VALENTINO M.D. Performed By: #### G LULS ####Point of Care testing, Glucose [Mass/Vol] 196 mg/dL Normal [facility] Comment on above: Result Comment: [place] [facility] Glucose Reference Range is dependent on time and content of last meal. Glucose of more than 200 mg/dL in a nonstressed, ambulatory subject supports the diagnosis of Diabetes Mellitus. Performed By: #### G LULS ####Point of Care testing, Glucose [Mass/Vol] 216 mg/dL Normal [facility] Comment on above: Result Comment: [place] [facility] Glucose Reference Range is dependent on time and content of last meal. Glucose of more than 200 mg/dL in a nonstressed, ambulatory subject supports the diagnosis of Diabetes Mellitus.PERFORMED BY:[address] SANTOSMiriFELICITAS, [place] [phone] MEDICAL JEFFREY VALENTINO M.D. Performed By: #### G LULS ####Point of Care testing, Glucose [Mass/Vol] 209 mg/dL Normal [facility] Comment on above: Result Comment: [place] [facility] Glucose Reference Range is dependent on time and content of last meal. Glucose of more than 200 mg/dL in a nonstressed, ambulatory subject supports the diagnosis of Diabetes Mellitus.PERFORMED BY:[place] [address] [address] [place], [place] [phone] MEDICAL JEFFREY VALENTINO M.D. Performed By: #### G LULS ####Point of Care testing, Glucose [Mass/Vol] 272 mg/dL Normal [facility] Comment on above: Result Comment: [place] [facility] Glucose Reference Range is dependent on time and content of last meal. Glucose of more than 200 mg/dL in a nonstressed, ambulatory subject supports the diagnosis of Diabetes Mellitus.PERFORMED BY:[address] [place]OMPKINSSYRAC[place], [place] [phone] MEDICAL DIRECTORANN VALENTINO M.D. Performed By: #### G LULS ####Point of Care testing, Glucose [Mass/Vol] 268 mg/dL Normal [facility] Comment on above: Result Comment: [place] [facility] Glucose Reference Range is dependent on time and content of last meal. Glucose of more than 200 mg/dL in a nonstressed, ambulatory subject supports the diagnosis of Diabetes Mellitus.PERFORMED BY:[address] [place], [place] [phone] MEDICAL JEFFREY VALENTINO M.D. Performed By: #### G LULS ####Point of Care testing, Glucose [Mass/Vol] 289 mg/dL Normal [facility] Comment on above: Result Comment: [place] [facility] Glucose Reference Range is dependent on time and content of last meal. Glucose of more than 200 mg/dL in a nonstressed, ambulatory subject supports the diagnosis of Diabetes Mellitus.PERFORMED BY:[address] [place], [place] [phone] MEDICAL JEFFREY VALENTINO M.D. Performed By: #### G LULS ####Point of Care testing, Glucose [Mass/Vol] 143 mg/dL Normal [facility] Comment on above: Result Comment: [place] [facility] Glucose Reference Range is dependent on time and content of last meal. Glucose of more than 200 mg/dL in a nonstressed, ambulatory subject supports the diagnosis of Diabetes Mellitus.PERFORMED BY:[address] [place], [place] [phone] BREANN VALENTINO M.D. Performed By: #### G LULS ####Point of Care testing, Glucose [Mass/Vol] 157 mg/dL Normal [facility] Comment on above: Result Comment: [place] [facility] Glucose Reference Range is dependent on time and content of last meal. Glucose of more than 200 mg/dL in a nonstressed, ambulatory subject supports the diagnosis of Diabetes Mellitus.PERFORMED BY:[place] [address] [address] [place], [place] [phone] MEDICAL DIRECTORANN VALENTINO M.D. Performed By: #### G LULS ####Point of Care testing, Commemt1 Glu2: Cleaned Meter Normal [facility] Comment on above: Result Comment: PERF ORMED BY:[address] [place], [place] [phone] MEDICAL DIRECTORANN VALENTINO M.D. Performed By: #### G LULS ####Point of Care testing, Glucose [Mass/Vol] 182 mg/dL Normal [facility] Comment on above: Result Comment: [place] [facility] Glucose Reference Range is dependent on time and content of last meal. Glucose of more than 200 mg/dL in a nonstressed, ambulatory subject supports the diagnosis of Diabetes Mellitus. Performed By: #### G LULS ####Point of Care testing, Glucose [Mass/Vol] 191 mg/dL Normal [facility] Comment on above: Result Comment: [place] [facility] Glucose Reference Range is dependent on time and content of last meal. Glucose of more than 200 mg/dL in a nonstressed, ambulatory subject supports the diagnosis of Diabetes Mellitus.PERFORMED BY:[place] [address] [address] [place], [place] [phone] MEDICAL DIRECTORANN VALENTINO M.D. Performed By: #### G LULS ####Point of Care testing, Ketones Auto test strip (U) [Mass/Vol]Ordered By: Israel Sanchez on 10-27-2022 Ketones (U) [Mass/Vol] 4+ Negative [facility] Magnesiumon 10-27-2022 Magnesium [Mass/Vol] 1.5 mg/dL Low 1.9-2.7 [facility] Comment on above: Result Comment: PERF ORMED BY:[place] [address] [address] [place], [place] [phone] MEDICAL DIRECTORANN VALENTINO M.D. Performed By: #### P HOS, MG, CBC ####[address] [address] [facility] Magnesium [Mass/volume] in S del or PlasmaOrdered By: Raymond Baez on 10-27-2022 Magnesium [Mass/Vol] 1.5 mg/dL 1.9-2.7 [facility] Nitrite Test strip Ql (U)Ord ered By: Israel Sanchez on 10-27-2022 Nitrite Ql (U) Negative Negative [facility] Phosphate [Mass/volume] in S del or PlasmaOrdered By: Raymond Baez on 10-27-2022 Phosphate [Mass/Vol] 3.1 mg/dL 3.7-7.2 [facility] Phosphoruson 10-27-2022 Phosphate [Mass/Vol] 3.1 mg/dL Low 3.7-7.2 [facility] Comment on above: Performed By: #### P HOS, MG, CBC ####[address] [address] [facility] Protein Auto test strip (U) [Mass/Vol]Ordered By: Israel Sanchez on 10-27-2022 Protein (U) [Mass/Vol] Negative Negative [facility] Redraw Potassiumon 3 Potassium [Moles/Vol] 3.8 mmol/L Normal 3.5-5.1 [facility] Comment on above: Result Comment: PERF ORMED BY:[place] [address] [address] [place], [place] [phone] MEDICAL DIRECTORANN VALENTINO M.D. Performed By: #### R PASTORA WALTERW K ####[address] [address] [facility] Redraw Sodiumon 10-27-2022 Sodium [Moles/Vol] 133 mmol/L Low 136-145 [facility] Comment on above: Performed By: #### R BLANCHE HE REDRAW K ####[address] [address] [facility] Specific gravity Auto test s trip (U) [Rel density]Ordered By: Israel Daniel on 10-27-2022 Specific gravity (U) [Rel density] 1.031 1.001-1.030 [facility] Urinalysison 10-27-2022 Appearance (U) Clear Normal Clear [facility] Comment on above: Order Comment: Name Collection Type:: Clean-Voided Midstream Performed By: #### U A ####[place] [id number] [facility] Bilirubin,Urine Negative Normal Negative [facility] Comment on above: Order Comment: Name Collection Type:: Clean-Voided Midstream Performed By: #### U A ####[address] [address] [facility] Color (U) Yellow Normal Yellow [facility] Comment on above: Order Comment: Name Collection Type:: Clean-Voided Midstream Performed By: #### U A ####[address] [address] [facility] Glucose Ql (U) >=1000 High Normal [facility] Comment on above: Order Comment: Name Collection Type:: Clean-Voided Midstream Performed By: #### U A ####[address] [address] [facility] Ketones Ql (U) 4+ High Negative [facility] Comment on above: Order Comment: Name Collection Type:: Clean-Voided Midstream Performed By: #### U A ####[address] [address] [facility] Leukocyte esterase Test strip Ql (U) Negative Normal Negative [facility] Comment on above: Order Comment: Name Collection Type:: Clean-Voided Midstream Performed By: #### U A ####[address] [address] [facility] Nitrite,Urine Negative Normal Negative [facility] Comment on above: Order Comment: Name Collection Type:: Clean-Voided Midstream Performed By: #### U A ####[place] [id number] [facility] Occult Blood,Urine Negative Normal Negative [facility] Comment on above: Order Comment: Name Collection Type:: Clean-Voided Midstream Result Comment: PERF ORMED BY:[address] [place], [place] [phone] MEDICAL DIRECTORANN VALENTINO M.D. Performed By: #### U A ####[place] [id number] [facility] pH (U) 5.5 [pH] Normal 5.0-9.0 [facility] Comment on above: Order Comment: Name Collection Type:: Clean-Voided Midstream Performed By: #### U A ####[place] [id number] [facility] Protein,Urine Negative Normal Negative [facility] Comment on above: Order Comment: Name Collection Type:: Clean-Voided Midstream Performed By: #### U A ####[place] [id number] [facility] Specificy [place],Urine 1.031 High 1.001-1.030 [facility] Comment on above: Order Comment: Name Collection Type:: Clean-Voided Midstream Performed By: #### U A ####[place] [id number] [facility] Urobilinogen,Urine Normal Normal Normal [facility] Comment on above: Order Comment: Name Collection Type:: Clean-Voided Midstream Performed By: #### U A ####[place] [id number] [facility] Urine clarity by refractomet ry automatedOrdered By: Israel Sanchez on 10-27-2022 Clarity Refractometry automated (U) Clear Clear [facility] Urine glucose measurement by automated test strip (mass/volume)Ordered By: Israel Sanchez on 10-27-2022 Glucose Auto test strip (U) [Mass/Vol] >=1000 mg/dL Normal [facility] Urine hemoglobin detection b y automated test stripOrdered By: Israel Sanchez on 10-27-2022 Hemoglobin Auto test strip Ql (U) Negative Negative [facility] Urine leukocyte esterase det ection by automated test stripOrdered By: Israel Sanchez on 10-27-2022 Leukocyte esterase Auto test strip Ql (U) Negative Negative [facility] Urobilinogen Auto test strip (U) [Mass/Vol]Ordered By: Israel Sanchez on 10-27-2022 Urobilinogen (U) [Mass/Vol] Normal mg/dL Normal [facility] pH Auto test strip (U)Ordere d By: Israel Sanchez on 10-27-2022 pH (U) 5.5 [pH] 5.0-9.0 [facility] Alanine aminotransferase [En zymatic activity/volume] in Serum or PlasmaOrdered By: Israel Sanchez on 10-26-2022 ALT [Catalytic activity/Vol] 18 U/L 7-52 [facility] Albumin [Mass/volume] in Ser um or Plasma by Bromocresol green (BCG) dye binding methoOrdered By: Israel Sanchez on 10-26-2022 Albumin BCG dye [Mass/Vol] 4.1 g/dL 3.5-5.7 [facility] Alkaline phosphatase [Enzyma tic activity/volume] in Serum or PlasmaOrdered By: Israel Sanchez on 10-26-2022 ALP [Catalytic activity/Vol] 180 U/L 34-104 [facility] Arterial Blood Gason 023 ABG Base Excess -12.3 mmol/L Low -3.0-3.0 [facility] Comment on above: Performed By: #### A BG ####Point of Care testing, ABG Frac Inspired O2 21 % Normal [facility] Comment on above: Performed By: #### A BG ####Point of Care testing, ABG Oxygen Content 9.3 mmol/L Normal 6.6-9.7 [facility] Comment on above: Performed By: #### A BG ####Point of Care testing, ABG Oxygen Saturation 97.8 % Normal 95.0-100.0 [facility] Comment on above: Performed By: #### A BG ####Point of Care testing, ABG PCO2 28.9 mm[Hg] Off scale low 35.0-45.0 [facility] Comment on above: Performed By: #### A BG ####Point of Care testing, ABG PH 7.27 Low 7.35-7.45 [facility] Comment on above: Performed By: #### A BG ####Point of Care testing, ABG PO2 105.7 mm[Hg] High 80.0-100.0 [facility] Comment on above: Performed By: #### A BG ####Point of Care testing, CO2 [Moles/Vol] 13.9 mmol/L Low 23.0-27.0 [facility] Comment on above: Performed By: #### A BG ####Point of Care testing, HCO3 (Bld) [Moles/Vol] 13.0 mmol/L Low 23.0-29.0 [facility] Comment on above: Performed By: #### A BG ####Point of Care testing, Respiratory Critical Normal [facility] Comment on above: Result Comment: Crit ical Value called on: 10/26/2022 at 16:27PERFORMED BY:[place] [id number] [place], [place] [phone] MEDICAL DIRECTORANN VALENTINO M.D. Performed By: #### A BG ####Point of Care testing, VBG Draw Site Left Radial Normal [facility] Comment on above: Performed By: #### A BG ####Point of Care testing, Aspartate aminotransferase [ Enzymatic activity/volume] in Serum or PlasmaOrdered By: Israel Sanchez on 10-26-2022 AST [Catalytic activity/Vol] 19 U/L 13-39 [facility] Basic Metabolic Panelon 10-11 Anion gap [Moles/Vol] 16.2 mmol/L High 6.0-15.0 [facility] Comment on above: Performed By: #### B MP ####[facility] [place] [address] [place] Calcium [Mass/Vol] 7.9 mg/dL Low 8.6-10.3 [facility] Comment on above: Performed By: #### B MP ####[place] [id number] [facility] Chloride [Moles/Vol] 106 mmol/L Normal 98-107 [facility] Comment on above: Performed By: #### B MP ####[place] [id number] [facility] CO2 [Moles/Vol] 15.8 mmol/L Low 21.0-31.0 [facility] Comment on above: Performed By: #### B MP ####[place] [id number] [facility] Creatinine [Mass/Vol] 0.84 mg/dL Normal 0.70-1.30 [facility] Comment on above: Performed By: #### B MP ####[place] [id number] [facility] Creatinine Clr Calc Pharmacy 123.05 Normal [facility] Comment on above: Result Comment: PERF ORMED BY:[address] [place], [place] [phone] MEDICAL JEFFREY VALENTINO M.D. Performed By: #### B MP ####[place] [id number] [facility] GFR/1.73 sq M.predicted MDRD (S/P/Bld) [Vol rate/Area] mL/min/{1.73_m2} Normal [facility] Comment on above: Performed By: #### B MP ####[place] [id number] [facility] Glucose [Mass/Vol] 242 mg/dL High 70-100 [facility] Comment on above: Result Comment: [place] Glucose Reference Range is dependent on time and content of last meal. Glucose of more than 200 mg/dL in a nonstressed, ambulatory subject supports the diagnosis of Diabetes Mellitus. ADA recommended reference range Performed By: #### B MP ####[place] [id number] [facility] Potassium [Moles/Vol] 4.0 mmol/L Normal 3.5-5.1 [facility] Comment on above: Performed By: #### B MP ####[address] [address] [facility] Sodium [Moles/Vol] 134 mmol/L Low 136-145 [facility] Comment on above: Performed By: #### B MP ####[address] [address] [facility] Urea nitrogen [Mass/Vol] 14 mg/dL Normal 7-25 [facility] Comment on above: Performed By: #### B MP ####[place] [id number] [facility] Anion gap [Moles/Vol] 24.3 mmol/L High 6.0-15.0 [facility] e [facility] Comment on above: Performed By: #### B MP ####[place] [id number] [facility] Calcium [Mass/Vol] 8.7 mg/dL Normal 8.6-10.3 [facility] Comment on above: Performed By: #### B MP ####[place] [id number] [facility] Chloride [Moles/Vol] 103 mmol/L Normal 98-107 [facility] Comment on above: Performed By: #### B MP ####[place] [id number] [facility] CO2 [Moles/Vol] 14.5 mmol/L Low 21.0-31.0 [facility] Comment on above: Performed By: #### B MP ####[place] [id number] [facility] Creatinine [Mass/Vol] 0.90 mg/dL Normal 0.70-1.30 [facility] Comment on above: Performed By: #### B MP ####[place] [id number] [facility] Creatinine Clr Calc Pharmacy 114.85 Normal [facility] Comment on above: Result Comment: PERF ORMED BY:[address] [place], [place] [phone] MEDICAL DIRECTORANN VALENTINO M.D. Performed By: #### B MP ####[place] [id number] [facility] GFR/1.73 sq M.predicted MDRD (S/P/Bld) [Vol rate/Area] mL/min/{1.73_m2} Normal [facility] Comment on above: Performed By: #### B MP ####[place] [id number] [facility] Glucose [Mass/Vol] 328 mg/dL Significant change up 70-100 [facility] Comment on above: Result Comment: [facility] Glucose Reference Range is dependent on time and content of last meal. Glucose of more than 200 mg/dL in a nonstressed, ambulatory subject supports the diagnosis of Diabetes Mellitus. ADA recommended reference range Performed By: #### B MP ####[place] [id number] [facility] Potassium [Moles/Vol] 4.8 mmol/L Normal 3.5-5.1 [facility] Comment on above: Performed By: #### B MP ####[place] [id number] [facility] Sodium [Moles/Vol] 137 mmol/L Normal 136-145 [facility] Comment on above: Performed By: #### B MP ####[place] [id number] [facility] Urea nitrogen [Mass/Vol] 17 mg/dL Normal 7-25 [facility] Comment on above: Performed By: #### B MP ####[place] [id number] [facility] Anion gap [Moles/Vol] 30.7 mmol/L High 6.0-15.0 [facility] Comment on above: Performed By: #### H EPATIC, CBC, LIPASE, BMP, BHOB ####[place] [id number] [facility] Calcium [Mass/Vol] 9.0 mg/dL Normal 8.6-10.3 [facility] Comment on above: Performed By: #### H EPATIC, CBC, LIPASE, BMP, BHOB ####[address] Chloride [Moles/Vol] 93 mmol/L Low 98-107 [facility] Comment on above: Performed By: #### H EPATIC, CBC, LIPASE, BMP, BHOB ####[address] CO2 [Moles/Vol] 13.0 mmol/L Low 21.0-31.0 [facility] Comment on above: Performed By: #### H EPATIC, CBC, LIPASE, BMP, BHOB ####[address] Creatinine [Mass/Vol] 1.05 mg/dL Normal 0.70-1.30 [facility] Comment on above: Performed By: #### H EPATIC, CBC, LIPASE, BMP, BHOB ####[address] Creatinine Clr Calc Pharmacy 99.55 Normal [facility] Comment on above: Performed By: #### H EPATIC, CBC, LIPASE, BMP, BHOB ####[address] GFR/1.73 sq M.predicted MDRD (S/P/Bld) [Vol rate/Area] mL/min/{1.73_m2} Normal [facility] Comment on above: Performed By: #### H EPATIC, CBC, LIPASE, BMP, BHOB ####[address] Glucose [Mass/Vol] 583 mg/dL Off scale high 70-100 [facility] e [facility] Comment on above: Result Comment: [...] #### H EPATIC, CBC, LIPASE, BMP, BHOB ####[place] [id number] Potassium [Moles/Vol] 4.7 mmol/L Normal 3.5-5.1 [facility] Comment on above: Performed By: #### H EPATIC, CBC, LIPASE, BMP, BHOB ####[address] Sodium [Moles/Vol] 132 mmol/L Low 136-145 [facility] Comment on above: Performed By: #### H EPATIC, CBC, LIPASE, BMP, BHOB ####[address] Urea nitrogen [Mass/Vol] 19 mg/dL Normal 7-25 [facility] Comment on above: Performed By: #### H EPATIC, CBC, LIPASE, BMP, BHOB ####[address] Basophils Auto (Bld) [#/Vol] Ordered By: Israel Sanchez on 10-26-2022 Basophils (Bld) [#/Vol] 0.0 10*3/uL 0.0-0.1 [facility] Basophils/100 WBC Auto (Bld) Ordered By: Israel Sanchez on 10-26-2022 Basophils/100 WBC (Bld) 0.3 % . [facility] Beta Hydroxybuterateon 10-26 Beta Hydroxybuterate 8.60 mmol/L High 0.02-0.27 [facility] Comment on above: Result Comment: PERF ORMED BY:[address] [place], [place] [phone] MEDICAL DIRECTORANN VALENTINO M.D. Performed By: #### H EPATIC, CBC, LIPASE, BMP, BHOB ####[address] Beta hydroxybutyrate [Moles/ volume] in Serum or PlasmaOrdered By: Israel Sanchez on 10-26-2022 Beta hydroxybutyrate [Moles/Vol] 8.60 mmol/L 0.02-0.27 [facility] Bilirubin.direct [Mass/volum e] in Serum or PlasmaOrdered By: Israel Sanchez on 10-26-2022 Bilirubin.direct [Mass/Vol] 0.20 mg/dL 0.03-0.18 [facility] Bilirubin.total [Mass/volume ] in Serum or PlasmaOrdered By: Israel Sanchez on 10-26-2022 Bilirubin [Mass/Vol] 0.9 mg/dL 0.3-1.0 [facility] Calcium [Mass/volume] in Ser um or PlasmaOrdered By: Israel Sanchez on 10-26-2022 Calcium [Mass/Vol] 9.0 mg/dL 8.6-10.3 [facility] Carbon dioxide, total [Moles /volume] in Serum or PlasmaOrdered By: Israel Sanchez on 10-26-2022 CO2 [Moles/Vol] 13.0 mmol/L 21.0-31.0 [facility] Chloride [Moles/volume] in S del or PlasmaOrdered By: Israel Sanchez on 10-26-2022 Chloride [Moles/Vol] 93 mmol/L 98-107 [facility] Complete Blood Count Auto Di ffon 10-26-2022 Basophils (Bld) [#/Vol] 0.0 10*3/uL Normal 0.0-0.1 [facility] Comment on above: Result Comment: PERF ORMED BY:[address] [place], [place] [phone] MEDICAL DIRECTORANN VALENTINO M.D. Performed By: #### H EPATIC, CBC, LIPASE, BMP, BHOB ####[address] [address] [facility] Basophils/100 WBC (Bld) 0.3 % Normal . [facility] Comment on above: Performed By: #### H EPATIC, CBC, LIPASE, BMP, BHOB ####[facility] [place] [address] [facility] Eosinophils (Bld) [#/Vol] 0.4 10*3/uL Normal 0.0-0.7 [facility] Comment on above: Performed By: #### H EPATIC, CBC, LIPASE, BMP, BHOB ####[address] Eosinophils/100 WBC (Bld) 3.0 % Normal . [facility] Comment on above: Performed By: #### H EPATIC, CBC, LIPASE, BMP, BHOB ####[address] Erythrocyte distribution width (RBC) [Ratio] 13.0 % Normal 12.0-14.8 [facility] Comment on above: Performed By: #### H EPATIC, CBC, LIPASE, BMP, BHOB ####[address] Hematocrit (Bld) [Volume fraction] 46.0 % Normal 37.0-49.0 [facility] Comment on above: Performed By: #### H EPATIC, CBC, LIPASE, BMP, BHOB ####[address] Hemoglobin (Bld) [Mass/Vol] 15.6 g/dL Normal 13.0-16.0 [facility] Comment on above: Performed By: #### H EPATIC, CBC, LIPASE, BMP, BHOB ####[address] Lymphocytes (Bld) [#/Vol] 1.8 10*3/uL Normal 1.20-4.8 [facility] Comment on above: Performed By: #### H EPATIC, CBC, LIPASE, BMP, BHOB ####[address] Lymphocytes/100 WBC (Bld) 12.6 % Normal . [facility] Comment on above: Performed By: #### H EPATIC, CBC, LIPASE, BMP, BHOB ####[address] MCH (RBC) [Entitic mass] 30.5 pg Normal 25.0-35.0 [facility] Comment on above: Performed By: #### H EPATIC, CBC, LIPASE, BMP, BHOB ####[address] MCV (RBC) [Entitic vol] 89.6 fL Normal 78-98 [facility] Comment on above: Performed By: #### H EPATIC, CBC, LIPASE, BMP, BHOB ####[address] Mean Corpuscular HGB Conc 34.0 g/dL Normal 31.0-37.0 [facility] Comment on above: Performed By: #### H EPATIC, CBC, LIPASE, BMP, BHOB ####[address] Monocytes (Bld) [#/Vol] 1.1 10*3/uL High 0.1-1.00 [facility] Comment on above: Performed By: #### H EPATIC, CBC, LIPASE, BMP, BHOB ####[address] Monocytes/100 WBC (Bld) 17.77 % Normal 0.00-20.00 [facility] Comment on above: Performed By: #### H EPATIC, CBC, LIPASE, BMP, BHOB ####[address] Monocytes/100 WBC (Bld) 7.5 % Normal . [facility] Comment on above: Performed By: #### H EPATIC, CBC, LIPASE, BMP, BHOB ####[address] Neutrophils (Bld) [#/Vol] 11.0 10*3/uL High 1.2-7.7 [facility] Comment on above: Performed By: #### H EPATIC, CBC, LIPASE, BMP, BHOB ####[address] Neutrophils/100 WBC (Bld) 76.6 % Normal . [facility] Comment on above: Performed By: #### H EPATIC, CBC, LIPASE, BMP, BHOB ####[address] NRBC% 0.0 /100{WBC} Normal 0-0.5 [facility] Comment on above: Performed By: #### H EPATIC, CBC, LIPASE, BMP, BHOB ####[address] Platelet mean volume (Bld) [Entitic vol] 8.2 fL Normal 6.6-10.1 [facility] Comment on above: Performed By: #### H EPATIC, CBC, LIPASE, BMP, BHOB ####[address] Platelets (Bld) [#/Vol] 339 10*3/uL Normal 150-450 [facility] Comment on above: Performed By: #### H EPATIC, CBC, LIPASE, BMP, BHOB ####[address] RBC (Bld) [#/Vol] 5.13 10*6/uL Normal 4.50-5.30 [facility] Comment on above: Performed By: #### H EPATIC, CBC, LIPASE, BMP, BHOB ####[address] WBC (Bld) [#/Vol] 14.3 10*3/uL High 4.5-13.5 [facility] Comment on above: Performed By: #### H EPATIC, CBC, LIPASE, BMP, BHOB ####[address] Creatinine [Mass/volume] in Serum or PlasmaOrdered By: Israel Sanchez on 10-26-2022 Creatinine [Mass/Vol] 1.05 mg/dL 0.70-1.30 [facility] Eosinophils Auto (Bld) [#/Vo l]Ordered By: Israel Sanchez on 10-26-2022 Eosinophils (Bld) [#/Vol] 0.4 10*3/uL 0.0-0.7 [facility] Eosinophils/100 WBC Auto (Bl d)Ordered By: Israel Sanchez on 10-26-2022 Eosinophils/100 WBC (Bld) 3.0 % . [facility] Erythrocyte distribution wid th Auto (RBC) [Ratio]Ordered By: Israel Sanchez on 10-26-2022 Erythrocyte distribution width (RBC) [Ratio] 13.0 % 12.0-14.8 [facility] Globulin Calc (S) [Mass/Vol] Ordered By: Israel Sanchez on 10-26-2022 Globulin (S) [Mass/Vol] 2.5 g/dL [facility] Glucose Glucometer (BldC) [M ass/Vol]Ordered By: Raymond Baez on 10-26-2022 Glucose [Mass/Vol] 306 mg/dL [facility] Comment on above: Random Glucose Refer ence Range is dependent on time and content of last meal. Glucose of more than 200 mg/dL in a nonstressed, ambulatory subject supports the diagnosis of Diabetes Mellitus. Glucose Poct Glucometerson 0 10-26-2022 Glucose [Mass/Vol] 234 mg/dL Normal [facility] Comment on above: Result Comment: [place] Glucose Reference Range is dependent on time and content of last meal. Glucose of more than 200 mg/dL in a nonstressed, ambulatory subject supports the diagnosis of Diabetes Mellitus.PERFORMED BY:[place] [address] [address] [place], [place] [phone] MEDICAL DIRECTORANN VALENTINO M.D. Performed By: #### G LULS ####Point of Care testing, Glucose [Mass/Vol] 269 mg/dL Normal [facility] Comment on above: Result Comment: [place] Glucose Reference Range is dependent on time and content of last meal. Glucose of more than 200 mg/dL in a nonstressed, ambulatory subject supports the diagnosis of Diabetes Mellitus.PERFORMED BY:[place] [address] [address] [place], [place] [phone] MEDICAL JEFFREY VALENTINO M.D. Performed By: #### G LULS ####Point of Care testing, Glucose [Mass/Vol] 294 mg/dL Normal [facility] Comment on above: Result Comment: [place] om Glucose Reference Range is dependent on time and content of last meal. Glucose of more than 200 mg/dL in a nonstressed, ambulatory subject supports the diagnosis of Diabetes Mellitus.PERFORMED BY:[place] [address] [address] [place], [place] [phone] MEDICAL DIRECTORANN VALENTINO M.D. Performed By: #### G LULS ####Point of Care testing, Glucose [Mass/Vol] 306 mg/dL Normal [facility] Comment on above: Result Comment: [place] om Glucose Reference Range is dependent on time and content of last meal. Glucose of more than 200 mg/dL in a nonstressed, ambulatory subject supports the diagnosis of Diabetes Mellitus.PERFORMED BY:[place] [address] [address] [place], [place] [phone] MEDICAL DIRECTORANN VALENTINO M.D. Performed By: #### G LULS ####Point of Care testing, Glucose [Mass/Vol] 390 mg/dL Normal [facility] Comment on above: Result Comment: [place] om Glucose Reference Range is dependent on time and content of last meal. Glucose of more than 200 mg/dL in a nonstressed, ambulatory subject supports the diagnosis of Diabetes Mellitus.PERFORMED BY:[place] [address] [address] [place], [place] [phone] MEDICAL DIRECTORANN VALENTINO M.D. Performed By: #### G LULS ####Point of Care testing, Commemt1 Normal [facility] Comment on above: Result Comment: Glu2 : WILL NOTIFY DR/MATILDEERFORMED BY:[place] [address] [address]OS[address]F[place], [place] [phone] MEDICAL DIRECTORANN VALENTINO M.D. Performed By: #### G LULS ####Point of Care testing, Glucose [Mass/Vol] 540 mg/dL Off scale high Th e [facility] Comment on above: Result Comment: [place] om Glucose Reference Range is dependent on time and content of last meal. Glucose of more than 200 mg/dL in a nonstressed, ambulatory subject supports the diagnosis of Diabetes Mellitus. Performed By: #### G BRII ####Point of Care testing, Glucose [Mass/volume] in Ser um or PlasmaOrdered By: Israel Sanchez on 10-26-2022 Glucose [Mass/Vol] 583 mg/dL 70-100 [facility] Comment on above: Critical Result Call [...] Hematocrit (Bld) [Volume fraction] 46.0 % 37.0-49.0 [facility] Hemoglobin [Mass/volume] in BloodOrdered By: Israel Sanchez on 10-26-2022 Hemoglobin (Bld) [Mass/Vol] 15.6 g/dL 13.0-16.0 [facility] Hepatic Panelon 10-26-2022 Albumin [Mass/Vol] 4.1 g/dL Normal 3.5-5.7 [facility] Comment on above: Performed By: #### H EPATIC, CBC, LIPASE, BMP, BHOB ####[place] [id number] Albumin/Globulin [Mass ratio] 1.6 {ratio} Normal [facility] Comment on above: Performed By: #### H EPATIC, CBC, LIPASE, BMP, BHOB ####[place] [address] [place] [id number] [facility] ALP [Catalytic activity/Vol] 180 U/L High 34-104 [facility] Comment on above: Performed By: #### H EPATIC, CBC, LIPASE, BMP, BHOB ####[facility] [place] [id number] [facility] ALT [Catalytic activity/Vol] 18 U/L Normal 7-52 [facility] Comment on above: Performed By: #### H EPATIC, CBC, LIPASE, BMP, BHOB ####[address] AST [Catalytic activity/Vol] 19 U/L Normal 13-39 [facility] Comment on above: Performed By: #### H EPATIC, CBC, LIPASE, BMP, BHOB ####[address] Bilirubin [Mass/Vol] 0.9 mg/dL Normal 0.3-1.0 [facility] Comment on above: Performed By: #### H EPATIC, CBC, LIPASE, BMP, BHOB ####[address] Bilirubin,Indirect 0.7 mg/dL Normal [facility] Comment on above: Performed By: #### H EPATIC, CBC, LIPASE, BMP, BHOB ####[address] Bilirubin.indirect [Mass/Vol] 0.20 mg/dL High 0.03-0.18 [facility] Comment on above: Performed By: #### H EPATIC, CBC, LIPASE, BMP, BHOB ####[address] Globulin (S) [Mass/Vol] 2.5 g/dL Normal [facility] Comment on above: Performed By: #### H EPATIC, CBC, LIPASE, BMP, BHOB ####[address] Protein [Mass/Vol] 6.6 g/dL Normal 6.4-8.9 [facility] Comment on above: Performed By: #### H EPATIC, CBC, LIPASE, BMP, BHOB ####[address] Laboratory - Chemistry and C hemistry - challengeOrdered By: Israel Sanchez on 10-26-2022 CO2 [Moles/Vol] 13.9 mmol/L 23.0-27.0 [facility] HCO3 (Bld) [Moles/Vol] 13.0 mmol/L 23.0-29.0 [facility] Leukocytes [#/volume] correc fide for nucleated erythrocytes in Blood by Automated counOrdered By: Israel Sanchez on 10-26-2022 WBC corrected for nucl RBC Auto (Bld) [#/Vol] 14.3 10*3/uL 4.5-13.5 [facility] Lipaseon 10-26-2022 Lipase [Catalytic activity/Vol] 6.0 U/L Low 11.0-82.0 [facility] Comment on above: Performed By: #### H EPATIC, CBC, LIPASE, BMP, BHOB ####[facility] [id number] [place] [address] [facility] Lipase [Enzymatic activity/v olume] in Serum or PlasmaOrdered By: Israel Sanchez on 10-26-2022 Lipase [Catalytic activity/Vol] 6.0 U/L 11.0-82.0 [facility] Lymphocytes Auto (Bld) [#/Vo l]Ordered By: Israel Sanchez on 10-26-2022 Lymphocytes (Bld) [#/Vol] 1.8 10*3/uL 1.20-4.8 [facility] Lymphocytes/100 WBC Auto (Bl d)Ordered By: Israel Sanchez on 10-26-2022 Lymphocytes/100 WBC (Bld) 12.6 % . [facility] MCH Auto (RBC) [Entitic mass ]Ordered By: Israel Sanchez on 10-26-2022 MCH (RBC) [Entitic mass] 30.5 pg 25.0-35.0 [facility] MCHC Auto (RBC) [Mass/Vol]Or dered By: Israel Sanchez on 10-26-2022 MCHC (RBC) [Mass/Vol] 34.0 g/dL 31.0-37.0 [facility] MCV Auto (RBC) [Entitic vol] Ordered By: Israel Sanchez on 10-26-2022 MCV (RBC) [Entitic vol] 89.6 fL 78-98 [facility] Monocyte distribution width [Entitic volume] in Blood by AutomatedOrdered By: Israel Sanchez on 10-26-2022 Monocyte distribution width Auto (Bld) [Entitic vol] 17.77 % 0.00-20.00 [facility] Monocytes Auto (Bld) [#/Vol] Ordered By: Israel Sanchez on 10-26-2022 Monocytes (Bld) [#/Vol] 1.1 10*3/uL 0.1-1.00 [facility] Monocytes/100 WBC Auto (Bld) Ordered By: Israel Sanchez on 10-26-2022 Monocytes/100 WBC (Bld) 7.5 % . [facility] Neutrophils Auto (Bld) [#/Vo l]Ordered By: Israel Sanchez on 10-26-2022 Neutrophils (Bld) [#/Vol] 11.0 10*3/uL 1.2-7.7 [facility] Neutrophils/100 WBC Auto (Bl d)Ordered By: Israel Sanchez on 10-26-2022 Neutrophils/100 WBC (Bld) 76.6 % . [facility] No Panel InformationOrdered By: Israel Sanchez on 10-26-2022 Arterial Blood Base Excess -12.3 mmol/L -3.0-3.0 [facility] Arterial Blood Oxygen Content 9.3 mmol/L 6.6-9.7 [facility] Arterial Blood Oxygen Saturation 97.8 % 95.0-100.0 [facility] Arterial Blood Partial Pressure CO2 28.9 mm[Hg] 35.0-45.0 [facility] Arterial Blood Partial Pressure O2 105.7 mm[Hg] 80.0-100.0 [facility] Arterial Blood pH 7.27 7.35-7.45 [facility] Blood Gas Critical Value See comment [facility] Comment on above: Critical Value arambula d on: 10/26/2022 at 16:27 Blood Gas Sample Site Left radial [facility] FiO2 21 % [facility] Estimated GFR (CKD-EPI) > 60.0 mL/Min [facility] Pharmacy Creatinine Clearance (Chem 99.55 [facility] Bedside Glucose Comment See comment [facility] Comment on above: Glu2: WILL NOTIFY DR /RN Nucleated erythrocytes [Pres ence] in Blood by Automated countOrdered By: Israel Sanchez on 10-26-2022 Nucleated RBC Auto Ql (Bld) 0.0 /100{WBC} 0-0.5 [facility] Platelet mean volume Auto (B ld) [Entitic vol]Ordered By: Israel Sanchez on 10-26-2022 Platelet mean volume (Bld) [Entitic vol] 8.2 fL 6.6-10.1 [facility] Platelets Auto (Bld) [#/Vol] Ordered By: Israel Sanchez on 10-26-2022 Platelets (Bld) [#/Vol] 339 10*3/uL 150-450 [facility] Potassium [Moles/volume] in Serum or PlasmaOrdered By: Israel Sanchez on 10-26-2022 Potassium [Moles/Vol] 4.7 mmol/L 3.5-5.1 [facility] Protein [Mass/volume] in Ser um or PlasmaOrdered By: Israel Sanchez on 10-26-2022 Protein [Mass/Vol] 6.6 g/dL 6.4-8.9 [facility] RBC Auto (Bld) [#/Vol]Ordere d By: Israel Sanchez on 10-26-2022 RBC (Bld) [#/Vol] 5.13 10*6/uL 4.50-5.30 [facility] Serum or plasma albumin/glob ulin mass ratioOrdered By: Israel Sanchez on 10-26-2022 Albumin/Globulin [Mass ratio] 1.6 {ratio} [facility] Serum or plasma anion gap de terminationOrdered By: Israel Sanchez on 10-26-2022 Anion gap [Moles/Vol] 30.7 mmol/L 6.0-15.0 [facility] Serum or plasma non-glucuron idated bilirubin measurement (mass/volume)Ordered By: Israel Sanchez on 10-26-2022 Bilirubin.indirect [Mass/Vol] 0.7 mg/dL [facility] Sodium [Moles/volume] in Ser um or PlasmaOrdered By: Israel Sanchez on 10-26-2022 Sodium [Moles/Vol] 132 mmol/L 136-145 [facility] Urea nitrogen [Mass/volume] in Serum or PlasmaOrdered By: Israel Sanchez on 10-26-2022 Urea nitrogen [Mass/Vol] 19 mg/dL 7-25 [facility] WBC Auto (Bld) [#/Vol]Ordere d By: Israel Sanchez on 10-26-2022 WBC (Bld) [#/Vol] 14.3 10*3/uL 4.5-13.5 [facility] HEMOGLOBIN A1Con 04-12-2022 HbA1c (Bld) [Mass fraction] 13.8 % High 4.0-6.0 [facility] Comment on above: Result Comment: [facility], [address] [place] [address] CLIA NO. [id number] Performed By: #### H A1C #### [facility] [address] [place] [address] 23567 HEMOGLOBIN A1Con 01-11-2022 HbA1c (Bld) [Mass fraction] 9.8 % High 4.0-6.0 [facility] Comment on above: Result Comment: [facility], [address] [place] [address] 187[address] CLIA NO. [id number] Performed By: #### H A1C #### [facility] [address] [place] [address]503 BASIC METABOLIC PANELon 10-11 Calcium [Mass/Vol] 9.0 mg/dL Normal 8.4-10.2 [facility] Comment on above: Result Comment: [facility], [address] [place] [address] CLIA NO. [id number] Performed By: #### B MP #### [facility] [address] [place] [address] 67415 Chloride [Moles/Vol] 105 mmol/L Normal 97-107 [facility] Comment on above: Performed By: #### B MP #### [facility] [address] [place] [address] 47547 CO2 [Moles/Vol] 28.0 mmol/L Normal 17-31 [facility] Comment on above: Performed By: #### B MP #### [facility] [address] [facility] [address] Creatinine [Mass/Vol] 0.8 mg/dL Normal 0.6-1.0 [facility] Comment on above: Performed By: #### B MP #### [facility] [address] [facility] [address] Glucose [Mass/Vol] 170 mg/dL High 65-106 [facility] Comment on above: Performed By: #### B MP #### [facility] [address] [facility] [address] Potassium [Moles/Vol] 3.9 mmol/L Normal 3.3-4.7 [facility] Comment on above: Performed By: #### B MP #### [facility] [address] [place] [address] 79576 Sodium [Moles/Vol] 136 mmol/L Normal 135-145 [facility] Comment on above: Performed By: #### B MP #### [facility] [address] [facility] [address] Urea nitrogen [Mass/Vol] 14 mg/dL Normal 6-21 [facility] Comment on above: Performed By: #### B MP #### [facility] [address] [place] [address] Calcium [Mass/Vol] 9.0 mg/dL 8.4 - 10. 2 mg/dL [facility] Comment on above: [facility], [address] [place], [place] [address] CLIA NO. [id number] Chloride [Moles/Vol] 105 mmol/L 97 - 10 7 mmol/L [facility] CO2 [Moles/Vol] 28.0 mmol/L 17 - 31 mmol/L [facility] Creatinine [Mass/Vol] 0.8 mg/dL 0.6 - 1.0 mg/dL [facility] Glucose [Mass/Vol] 170 mg/dL High 65 - 106 mg/dL [facility] Interpretation and review of laboratory results Abnormal [facility] Potassium [Moles/Vol] 3.9 mmol/L 3.3 - 4.7 mmol/L [facility] Sodium [Moles/Vol] 136 mmol/L 135 - 145 mmol/L [facility] Urea nitrogen [Mass/Vol] 14 mg/dL 6 - 21 mg/dL [facility] HEMOGLOBIN A1Con 10-26-2021 HbA1c (Bld) [Mass fraction] 10.8 % High 4.0-6.0 [facility] Comment on above: Result Comment: [facility], [address] [place] [address] CLIA NO. [id number] Performed By: #### H A1C #### [facility] [address] [place] [address] 26946 LIPID PANELon 10-26-2021 Cholesterol [Mass/Vol] 127 mg/dL Normal 1-199 [facility] Comment on above: Result Comment: PEDIATRIC REFERENCE RANGE DESIRABLE <170 mg/dL BORDERLINE 170-199 mg/dL HIGH >199 mg/dL Performed By: #### U AD #### [facility] [address] [place] [address] Cholesterol in HDL [Mass/Vol] 49 mg/dL Normal >40 [facility] Comment on above: Performed By: #### U AD #### [facility] [address] [place] [address] 33934 LDL CHOLESTEROL, CALC 56 mg/dL Normal [facility] Comment on above: Result Comment: PEDIATRIC REFERENCE RANGE DESIRABLE <110 mg/dL BORDERLINE 110-129 mg/dL HIGH >129 mg/dL [facility], [address] [place] [address] CLIA NO. [id number] Performed By: #### U AD #### [facility] [address] [place] [address] 29489 Triglyceride [Mass/Vol] 111 mg/dL Normal 1-129 [facility] Comment on above: Performed By: #### U AD #### [facility] [address] [place] [address] 52718 VLDL CHOLESTEROL, CALC 22 mg/dL Normal [facility] Comment on above: Result Comment: Reference Range: DESIRABLE <20 mg/dL BORDERLINE 21-39 mg/dL HIGH >39 mg/dL Performed By: #### U AD #### [facility] [address] [place] [address] 23704 Cholesterol [Mass/Vol] 127 mg/dL 1 - 199 mg/dL [facility] Comment on above: PEDIATRIC REFERENCE RANGE DESIRABLE <170 mg/dL BORDERLINE 170-199 mg/dL HIGH >199 mg/dL Cholesterol in HDL [Mass/Vol] 49 mg/dL >40 [facility] Cholesterol in LDL [Mass/Vol] 56 mg/dL [facility] Comment on above: PEDIATRIC REFERENCE RANGE DESIRABLE <110 mg/dL BORDERLINE 110-129 mg/dL HIGH >129 mg/dL [facility], [address] [place] [address] CLIA NO. [id number] Cholesterol in VLDL [Mass/Vol] 22 mg/dL [facility] Comment on above: Reference Range: DESIRABLE <20 mg/dL BORDERLINE 21-39 mg/dL HIGH >39 mg/dL Triglyceride [Mass/Vol] 111 mg/dL 1 - 129 mg/dL [facility] MICROALBUMIN,RANDOM URINEon 10-26-2021 Creatinine (U) [Mass/Vol] 91.2 mg/dL Normal [facility] Comment on above: Performed By: #### M IALB #### [facility] [address] [place] [address]6980 MICROALBUMIN/CREATINI NE RATIO 6.5 mg/g Creat Normal [facility] Comment on above: Result Comment: Refe anuja Range: Overnight Ratio: 0-30 mg/g Creatinine Performed By: #### M IALB #### [facility] [address] [place] [address] 55207 TIME PERIOD RANDOM Normal [facility] Comment on above: Result Comment: [facility], [address] [place] [address] CLIA NO. [id number] Performed By: #### M IALB #### [facility] [address] [place] [address] 23049 URINE MICROALBUMIN 5.94 mg/L Normal [facility] Comment on above: Result Comment: Refe rence Range: 24 Hour: 5-30 mg/24 hr Timed: 5-20 ug/min Performed By: #### M IALB #### [facility] [address] [place] [address] 46270 Albumin DL <= 20 mg/L (U) [Mass/Vol] 5.94 mg/L [facility] Comment on above: Reference Range: 24 Hour: 5-30 mg/24 hr Timed: 5-20 ug/min Albumin/Creatinine DL <= 20 mg/L (U) [Mass ratio] 6.5 mg/g mg/g Creat [facility] Comment on above: Reference Range: Overnight Ratio: 0-30 mg/g Creatinine Collection duration (U) RANDOM [facility] Comment on above: [facility], [address] [place] [address] CLIA NO. [id number] Creatinine (U) [Mass/Vol] 91.2 mg/dL [facility] No Panel Informationon 10-26 [facility] T4 FREEon 10-26-2021 Free T4 [Mass/Vol] 1.43 ng/dL Normal 0.77-2.31 [facility] Comment on above: Result Comment: NOTE NEW REFERENCE RANGE [facility], [address] [place] [address]62 CLIA NO. [id number] Performed By: #### F T4 #### [facility] [address] [place] [address] 99327 Free T4 [Mass/Vol] 1.43 ng/dL 0.77 - 2. 31 ng/dL [facility] Comment on above: NOTE NEW REFERENCE R ROYAL [facility], [address] [place] [address]10 CLIA NO. [id number] THYROID ANTIBODY PANELon Thyroglobulin Ab Qn [IU]/mL <40.1 IU/mL [facility] Comment on above: Siemens Immulite 200 0 XPI [facility], [address] [place] [address] 11267 CLIA NO. [id number] TPO Ab Qn [IU]/mL <35.1 IU/mL [facility] ANTI-TG <20.0 Normal <40.1 [facility] Comment on above: Result Comment: Siem ens Immulite 2000 XPI [facility], [address] [place] [address] CLIA NO. [id number] Performed By: #### A TAGC #### [facility] [address] [place] [address] ANTI-TPO <10.0 Normal <35.1 [facility] Comment on above: Performed By: #### A TAGC #### [facility] [address] [place], [place] [id number] TSHon 10-26-2021 TSH 0.66 uIU/mL Normal 0.45-4.52 [facility] Comment on above: Result Comment: NOTE NEW REFERENCE RANGE [facility], [address] [place] [address] CLIA NO. [id number] Performed By: #### T SH #### [facility] [address] [place] [address] TSH Qn 0.66 m[IU]/L [facility] Comment on above: NOTE NEW REFERENCE R ROYAL [facility], [address] [place] [address] 36627 CLIA NO. [id number] TTG IGAon 10-26-2021 TTG IGA 0.3 U/mL Normal <7.0 [facility] Comment on above: Result Comment: INTE RTRETIVE DATA: <7=NEGATIVE 7-10 EQUIVOCAL >10 POSITIVE [facility], [address] [place] [address] CLIA NO. [id number] Performed By: #### T TGIGA #### [facility] [address] [place] [address] 21590 URINALYSIS DIPSTICKon 2021 Appearance (U) CLEAR [facility] Bilirubin (U) [Mass/Vol] Negative NEG mg/dL [facility] Blood Visual Ql (U) Negative NEG [facility] Color (U) YELLOW [facility] Glucose Auto test strip (U) [Mass/Vol] >1000 Abnormal NEG mg/dL [facility] Interpretation and review of laboratory results Abnormal [facility] Ketones (U) [Mass/Vol] Negative NEG mg/dL [facility] Leukocyte esterase Auto test strip Ql (U) Negative NEG [facility] Comment on above: [facility], [address] [place] [address] 19309 CLIA NO. [id number] Nitrite Auto test strip Ql (U) Negative NEG [facility] pH (U) 6.0 [pH] [facility] Protein (U) [Mass/Vol] Negative NEG mg/dL [facility] Specific gravity Refractometry (U) [Rel density] 1.020 g/mL 1.003 - 1.035 g/mL [facility] Urinalysis specimen collection method Nom (U) RAN RANDOM [facility] Urobilinogen (U) [Mass/Vol] 0.2 mg/dL 0.2 - 1.0 mg/dL [facility] URINALYSIS, DIPSTICKon 10-26 Appearance (U) CLEAR Normal [facility] Comment on above: Performed By: #### U AD #### [facility] [address] [place] [address]35 Bilirubin Ql (U) Negative Normal NEG [facility] Comment on above: Performed By: #### U AD #### [facility] [address] [place] [address]157 Color (U) YELLOW Normal [facility] Comment on above: Performed By: #### U AD #### [facility] [address] [place] [address]4314 Glucose Ql (U) >1000 Abnormal NEG [facility] Comment on above: Performed By: #### U AD #### [facility] [address] [facility] [address] Hemoglobin Ql (U) Negative Normal NEG [facility] Comment on above: Performed By: #### U AD #### [facility] [address] [facility] [address] Ketones Ql (U) Negative Normal NEG [facility] Comment on above: Performed By: #### U AD #### [facility] [address] [facility] [address] Leukocyte esterase Test strip Ql (U) Negative Normal NEG [facility] Comment on above: Result Comment: [facility], [address] [place] [address] 33216 CLIA NO. [id number] Performed By: #### U AD #### [facility] [address] [facility] [address] Nitrite Ql (U) Negative Normal NEG [facility] Comment on above: Performed By: #### U AD #### [facility] [address] [place] [address] 41215 pH (U) 6.0 [pH] Normal 4.5-8.0 [facility] Comment on above: Performed By: #### U AD #### [facility] [address] [place] [address] 48105 Protein Ql (U) Negative Normal NEG [facility] Comment on above: Performed By: #### U AD #### [facility] [address] [facility] [address] Specific gravity (U) [Rel density] 1.020 g/mL Normal 1.003-1.035 [facility] Comment on above: Performed By: #### U AD #### [facility] [address] [facility] [address] URINE SOURCE RAN RANDOM Normal [facility] Comment on above: Performed By: #### U AD #### [facility] [address] [facility] [address] Urobilinogen (U) [Mass/Vol] 0.2 mg/dL Normal 0.2-1.0 [facility] Comment on above: Performed By: #### U AD #### [facility] [address] [facility] [address] XR Shoulder - right 2 Viewso n 07-19-2021 IMPRESSION: Healing mildly angulated proximal right humeral metaphyseal fracture. JOHANNA DYER M.D. This document has been electronically reviewed and approved by JOHANNA DYER M.D. The above information is part of the patient's medical record and should be maintained in a confidential manner consistent with medical record policies. MEDICAL IMAGING AT [place] [address] MEDICAL IMAGING DEPARTMENT PATIENT NAME: KIRAN BENSON ORDER: BIRTHDATE: 2005 ACCT: [id number] DOCTOR: , MR: LOCATION: [facility] -- XR SHOULDER 2+ VIEW [...] bone lesion is identified. [place] [facility] [place]anna Dyer MD - 07/19/2021 [place] [address] MEDICAL IMAGING DEPARTMENT PATIENT NAME: KIRAN BENSON ORDER: BIRTHDATE: 2005 ACCT: [id number] DOCTOR: , MR: LOCATION: [facility] -- XR SHOULDER 2+ VIEW [...] confidential manner consistent with medical record policies. [facility] Radiology Study observation (narrative) [facility] XR Shoulder - right 2 ViewsO rdered By: Johanna Dyer on 07-19-2021 [facility] Work Phone: XR Humerus - right 2 Viewson 07-03-2021 IMPRESSION: Mildly impacted and angulated incomplete fracture of the proximal humeral metaphysis. TASH SYED MD This document has been electronically reviewed and approved by TASH SYED MD The above information is part of the patient's medical record and should be maintained in a confidential manner consistent with medical record policies[place] [address] MEDICAL IMAGING DEPARTMENT PATIENT NAME: KIRAN BENSON ORDER: BIRTHDATE: 2005 ACCT: [id number] DOCTOR: , MR: LOCATION: [facility] -- XR HUMERUS 2+ VIEW [...] foreign body is identified. [place] [facility] [place] Tash Syed MD - 07/03/2021 [place] [address] MEDICAL IMAGING DEPARTMENT PATIENT NAME: KIRAN BENSON ORDER: BIRTHDATE: 2005 ACCT: [id number] DOCTOR: , MR: LOCATION: [facility] -- XR HUMERUS 2+ VIEW [...] confidential manner consistent with medical record policies. [facility] Radiology Study observation (narrative) [facility] XR Humerus - right 2 ViewsOr dered By: Tash Syed on 07-03-2021 [facility] Work Phone: XR Shoulder - right 2 Viewso n 07-03-2021 IMPRESSION: Mildly angulated proximal humeral metaphyseal fracture. TASH SYED MD This document has been electronically reviewed and approved by TASH SYED MD The above information is part of the patient's medical record and should be maintained in a confidential manner consistent with medical record policies[place] [address] MEDICAL IMAGING DEPARTMENT PATIENT NAME: KIRAN BENSON ORDER: BIRTHDATE: 2005 ACCT: [id number] DOCTOR: , MR: LOCATION: [facility] -- XR SHOULDER 2+ VIEW RIGHT ORDERING DOCTOR: LEIDA LANDERS ALSO INCLUDES ORDER #(S): -- Right shoulder, axillary and scapular Y views: 07/03/2021 Comparison: Humerus radiographs 07/03/2021 Clinical History: 16-year-old male with history of humerus fracture Findings: There is mild apex anterior angulation at the proximal humeral metaphyseal fracture site. No bone lesion is identified. [place] [place] [facility] [place] Tash Syed MD - 07/03/2021 [place] [address] MEDICAL IMAGING DEPARTMENT PATIENT NAME: KIRAN BENSON ORDER: BIRTHDATE: 2005 ACCT: [id number] DOCTOR: , MR: LOCATION: [facility] -- XR SHOULDER 2+ VIEW [...] confidential manner consistent with medical record policies. [facility] Radiology Study observation (narrative) [facility] SARS CoV 2 RNA(COVID 19), QU [facility] 08-25-2020 SARS CoV 2 RNA Not detected Normal NOT DETECTED [facility] Comment on above: Order Comment: 0 Result [...] providers and patients using the following websites: [email or web address]/fact-she [email or web address]/[email or web address]/Patients/NAAT/ fact-sheet2 This test has been authorized by the FDA under an Emergency Use Authorization (EUA) for use by authorized laboratories. Due to the current public health emergency, [facility] is receiving a high volume of samples [...] about COVID-19 can be found at the [employer] website: [email or web address]. Performed By: #### [id number] #### [facility] [address] [place] [address], [address] [place] [address] In Class Special Education Teacher: Rian Cheney MD Beta hydroxybutyrate [Moles/ Vol]Ordered By: Victor Hugo Hurtado on 08-17-2020 Interpretation and review of laboratory results Abnormal [facility] Beta-HydroxybutyrateOrdered By: Victor Hugo Hurtado on 08-17-2020 Beta hydroxybutyrate [Moles/Vol] 3.5 mmol/L High 0.0 - 0.3 mmol/L [facility] CBC WITH AUTO DIFFERENTIALOr dered By: Victor Hugo Hurtado on 08-17-2020 Basophils (Bld) [#/Vol] 0.05 10*3/uL [facility] Basophils/100 WBC (Bld) 0.4 % [facility] Eosinophils (Bld) [#/Vol] 0.09 10*3/uL [facility] Eosinophils/100 WBC (Bld) 0.8 % [facility] Erythrocyte distribution width (RBC) [Entitic vol] 11.5 % Low 11.6 - 14.8 % [facility] Hematocrit (Bld) [Volume fraction] 43.7 % 37.0 - 49.0 % [facility] Hemoglobin (Bld) [Mass/Vol] 15.5 g/dL 13.0 - 16.0 g/dL [facility] Immature granulocytes (Bld) [#/Vol] 0.04 10*3/uL [facility] Immature granulocytes/100 WBC (Bld) 0.30 % [facility] Comment on above: The IG parameter is the percentage of metamyelocytes, myelocytes and promyelocytes. An immature granulocyte count (IG) of 1% or more suggests the possibility of infection, an IG count of 3% is very likely related to an infection. Interpretation and review of laboratory results Abnormal [facility] Lymphocytes (Bld) [#/Vol] 0.77 10*3/uL Low [facility] Lymphocytes/100 WBC (Bld) 6.7 % [facility] MCH (RBC) [Entitic mass] 30.9 pg 25.0 - 35.0 pg [facility] MCHC (RBC) [Mass/Vol] 35.5 g/dL 31.0 - 37.0 g/dL [facility] MCV (RBC) [Entitic vol] 87.1 fL 78.0 - 98.0 fL [facility] Monocytes (Bld) [#/Vol] 0.66 10*3/uL [facility] Monocytes/100 WBC (Bld) 5.7 % [facility] Neutrophils (Bld) [#/Vol] 9.96 10*3/uL High [facility] Neutrophils/100 WBC (Bld) 86.1 % [facility] Nucleated RBC (Bld) [#/Vol] 0.00 10*3/uL [facility] Nucleated RBC/100 WBC (Bld) [Ratio] 0.0 % [facility] Platelet mean volume (Bld) [Entitic vol] 9.7 fL 9.4 - 12.4 fL [facility] Platelets (Bld) [#/Vol] 265 10*3/uL [facility] RBC (Bld) [#/Vol] 5.02 10*6/uL [facility] WBC (Bld) [#/Vol] 11.57 10*3/uL [facility] CT ABDOMEN PELVIS WITH IV CO NTRAST [...] on FriAug 18, 2020 6:25:19 PM EDT [facility] Comment on above: Order Comment: Injur y/Trauma or Illness?:Illness/Other How long have you had these symptoms (acute/chronic)?:Acute Reason for exam?:left abd pain Type of Exam?:Initial Additional signs and symptoms?:lower abdominal pain, n/v x 6 hours Comprehensive metabolic 2000 panelOrdered By: Victor Hugo Hurtado on 08-17-2020 Albumin [Mass/Vol] 4.8 g/dL High 3.2 - 4.5 g/dL [facility] ALP [Catalytic activity/Vol] 298 U/L 180 - 700 U/L [facility] ALT [Catalytic activity/Vol] 12 U/L 0 - 40 U/L [facility] Anion gap [Moles/Vol] 23 mmol/L High 10 - 2 0 mmol/L [facility] AST [Catalytic activity/Vol] 15 U/L 0 - 45 U/L [facility] Bilirubin [Mass/Vol] 0.9 mg/dL 0.0 - 1 .3 mg/dL [facility] Calcium [Mass/Vol] 9.6 mg/dL 8.4 - 10. 2 mg/dL [facility] Chloride [Moles/Vol] 95 mmol/L Low 98 - 10 8 mmol/L [facility] Creatinine [Mass/Vol] 0.66 mg/dL 0.50 - 1.00 [facility] Glucose [Mass/Vol] 335 mg/dL High 65 - 99 mg/dL [facility] HCO3 [Moles/Vol] 22 mmol/L 21 - 29 mmol/L [facility] Interpretation and review of laboratory results Abnormal [facility] Potassium [Moles/Vol] 4.3 mmol/L 3.5 - 5.1 mmol/L [facility] Protein [Mass/Vol] 7.7 g/dL 6.0 - 8.0 g/dL [facility] Sodium [Moles/Vol] 136 mmol/L 135 - 145 mmol/L [facility] Urea nitrogen [Mass/Vol] 17 mg/dL 8 - 25 mg/dL [facility] Urea nitrogen/Creatinine [Mass ratio] 25.8 mg/mg High [facility] The eGFR should be u sed for monitoring renal function only and not for medication dosing. [facility] Glucose (Bld) [Mass/Vol]Orde red By: Victor Hugo Hurtado on 08-17-2020 Glucose [Mass/Vol] 240 mg/dL High 65 - 99 mg/dL [facility] Interpretation and review of laboratory results Abnormal [facility] Glucose [Mass/Vol] 240 mg/dL Abnormal 65 - 99 mg/dL [facility] Interpretation and review of laboratory results Abnormal [facility] Glucose [Mass/Vol] 302 mg/dL High 65 - 99 mg/dL [facility] Interpretation and review of laboratory results Abnormal [facility] LipaseOrdered By: Victor Hugo patterson on 08-17-2020 Lipase [Catalytic activity/Vol] 18 U/L 15 - 65 U/L [facility] Lipase [Catalytic activity/V ol]Ordered By: Victor Hugo Hurtado on 08-17-2020 Interpretation and review of laboratory results Normal [facility] No Panel InformationOrdered By: Victor Hugo Hurtado on 08-17-2020 [facility] Obtain venous blood gases an d performOrdered By: Victor Hugo Hurtado on 08-17-2020 [facility] POC Venous Blood Gas Panel-P ulmOrdered By: Victor Hugo Hurtado on 08-17-2020 Base excess Calc (BldV) [Moles/Vol] -4.5000 mmol/L Low [facility] Calcium.ionized [Mass/Vol] 4.4 mg/dL Low 4.5 - 5.3 mg/dL [facility] Carboxyhemoglobin (BldA) [Mass fraction] 3.5 High <=1.5 % of total Hb [facility] Comment on above: Reference Ranges: [place] Non-smokers: <1.5% Smokers: 1.5-5.0% Heavy Smokers: 5.0-9.0% Chloride [Moles/Vol] 101 mmol/L 98 - 10 8 mmol/L [facility] CO2 (BldV) [Partial pressure] 47.4 mm[Hg] [facility] Glucose [Mass/Vol] 305 mg/dL High 65 - 99 mg/dL [facility] HCO3 (Bld) [Moles/Vol] 22.4 mmol/L Low 24.0 - 28.0 mmol/L [facility] Hematocrit (BldA) [Volume fraction] 42.8 % 37.0 - 49.0 % [facility] Hemoglobin (Bld) [Mass/Vol] 14.0 g/dL 13.5 - 17.5 g/dL [facility] Interpretation and review of laboratory results Abnormal [facility] Lactate [Moles/Vol] 1.4 mmol/L 0.6 - 2. 0 mmol/L [facility] Methemoglobin (BldA) [Mass fraction] <1.0 0.0 - 2.0 % [facility] Oxygen (BldV) [Partial pressure] 40 mm[Hg] [facility] Oxygen saturation in Venous blood 70.1 % High 40.0 - 70.0 % [facility] Oxyhemoglobin (BldA) [Mass fraction] 67.2 % No established reference range [facility] pH (dV) 7.28 [pH] Low [facility] Potassium [Moles/Vol] 4.4 mmol/L 3.5 - 5.1 mmol/L [facility] Sodium [Moles/Vol] 136 mmol/L 135 - 145 mmol/L [facility] URINALYSISOrdered By: Victor Hugo Hurtado on 08-17-2020 Bacteria Auto Ql (U) None Seen None Se en /hpf [facility] Clarity Refractometry automated (U) Clear Clear [facility] Color (U) Yellow Colorless, Yellow [facility] Glucose Auto test strip (U) [Mass/Vol] >=500 Abnormal Negative mg/dL [facility] Ketones (U) [Mass/Vol] mg/dL Abnormal Negative mg/dL [facility] Leukocyte esterase Auto test strip Ql (U) Negative Negative [facility] pH (U) 5.0 [pH] [facility] Specific gravity (U) [Rel density] 1.026 High [facility] UrinalysisOrdered By: Victor Hugo Hurtado on 08-17-2020 Bilirubin Ql (U) Negative Negative [facility] th Hemoglobin Auto test strip Ql (U) Negative Negative [facility] Interpretation and review of laboratory results Abnormal [facility] Nitrite Auto test strip Ql (U) Negative Negative [facility] Protein (U) [Mass/Vol] Negative Negative mg/dL [facility] RBC Auto (Urine sed) [#/Area] 1 [facility] Urobilinogen (U) [Mass/Vol] mg/dL <2.0 mg/dL [facility] WBC Auto (Urine sed) [#/Area] <1 [facility] Microscopic examinat ion is performed on all urinalysis samples and only positive findings are reported. The test for blood on the chemical analytic portion of urinalysis may also be positive due to hemoglobinuria and myoglobinuria and if red blood cells are present they are quantified by microscopic examination. [facility] POC Glucose Fingerstickon Glucose [Mass/Vol] 271 mg/dL High 75 - 110 mg/dL [place] Interpretation and review of laboratory results Abnormal [place] Basic Metabolic Panelon 12-11 Anion gap [Moles/Vol] 12 mmol/L 9 - 17 mmol/L [place] Comment on above: ADDED ON Bun/Cre Ratio [place] Calcium [Mass/Vol] 8.5 mg/dL 8.4 - 10. 2 mg/dL [place] Comment on above: ADDED ON Chloride [Moles/Vol] 106 mmol/L 98 - 10 7 mmol/L [place] Comment on above: ADDED ON CO2 [Moles/Vol] 19 mmol/L Low 20 - 31 mmol/L [place] Comment on above: ADDED ON Creatinine [Mass/Vol] 0.58 mg/dL 0.57 - 0.87 mg/dL [place] Comment on above: ADDED ON GFR >60 mL/min [place] GFR Non- Pediatric GFR requires additional information. Refer to NKDEP website for calculator. >60 mL/min [place] Comment on above: ADDED ON Glucose [Mass/Vol] 92 mg/dL 60 - 100 mg/dL [place] Comment on above: ADDED ON Interpretation and review of laboratory results Abnormal [place] Potassium [Moles/Vol] 3.8 mmol/L 3.6 - 4.9 mmol/L [place] Comment on above: ADDED ON Sodium [Moles/Vol] 137 mmol/L 135 - 144 mmol/L [place] Comment on above: ADDED ON Urea nitrogen [Mass/Vol] 10 mg/dL 5 - 18 mg/dL [place] Comment on above: ADDED ON Anion gap [Moles/Vol] 13 mmol/L 9 - 17 mmol/L [place] Calcium [Mass/Vol] 8.5 mg/dL 8.4 - 10. 2 mg/dL [place] Chloride [Moles/Vol] 104 mmol/L 98 - 10 7 mmol/L [place] CO2 [Moles/Vol] 18 mmol/L Low 20 - 31 mmol/L [place] Creatinine [Mass/Vol] 0.59 mg/dL 0.57 - 0.87 mg/dL [place] GFR NOT REPORTED >60 mL/min [place] GFR Non- Pediatric GFR requires additional information. Refer to [employer] website for calculator. >60 mL/min [place] GFR/1.73 sq M predicted among non-blacks MDRD (S/P/Bld) [Vol rate/Area] [place] Comment on above: Average GFR for <20 years old not available. Chronic Kidney Disease: <60 mL/min/1.73sq m Kidney failure: <15 mL/min/1.73sq m eGFR calculated using average adult body mass. Additional eGFR calculator available at: http://www.[employer].Sympoz/multiple_crcl_2012.htm GFR/1.73 sq M predicted among non-blacks MDRD (S/P/Bld) [Vol rate/Area] NOT REPORTED [place] Glucose [Mass/Vol] 142 mg/dL High 60 - 100 mg/dL [place] Potassium [Moles/Vol] 3.8 mmol/L 3.6 - 4.9 mmol/L [place] Sodium [Moles/Vol] 135 mmol/L 135 - 144 mmol/L [place] Urea nitrogen [Mass/Vol] 10 mg/dL 5 - 18 mg/dL [place] Anion gap [Moles/Vol] 16 mmol/L 9 - 17 mmol/L [place] Bun/Cre Ratio NOT REPORTED [place] Calcium [Mass/Vol] 8.5 mg/dL 8.4 - 10. 2 mg/dL [place] Chloride [Moles/Vol] 100 mmol/L 98 - 10 7 mmol/L [place] CO2 [Moles/Vol] 16 mmol/L Low 20 - 31 mmol/L [place] Creatinine [Mass/Vol] 0.63 mg/dL 0.57 - 0.87 mg/dL [place] GFR NOT REPORTED >60 mL/min [place] GFR Non- Pediatric GFR requires additional information. Refer to [employer]DEP website for calculator. >60 mL/min [place] GFR/1.73 sq M predicted among non-blacks MDRD (S/P/Bld) [Vol rate/Area] NOT REPORTED [place] GFR/1.73 sq M predicted among non-blacks MDRD (S/P/Bld) [Vol rate/Area] [place] Comment on above: Average GFR for <20 years old not available. Chronic Kidney Disease: <60 mL/min/1.73sq m Kidney failure: <15 mL/min/1.73sq m eGFR calculated using average adult body mass. Additional eGFR calculator available at: http://www.[employer].Sympoz/multiple_crcl_2012.htm Glucose [Mass/Vol] 192 mg/dL High 60 - 100 mg/dL [place] Interpretation and review of laboratory results Abnormal [place] Potassium [Moles/Vol] 4.2 mmol/L 3.6 - 4.9 mmol/L [place] Sodium [Moles/Vol] 132 mmol/L Low 135 - 144 mmol/L [place] Urea nitrogen [Mass/Vol] 12 mg/dL 5 - 18 mg/dL [place] Basic Metabolic Profon 12-25 (cont.) Normal [facility] Comment on above: Result Comment: Aver age GFR for <20 years old not available. Chronic Kidney Disease: <60 mL/min/1.73sq m Kidney failure: <15 mL/min/1.73sq m eGFR calculated using average adult body mass. Additional eGFR calculator available at: http://www.[employer]/multiple_crcl_2012.htm ADDED ON Performed By: #### Mis HALEY, K #### [facility] [address] [place] [id number] Certified Ophthalmic Medical Technician: Zeb Garcia MD Anion gap [Moles/Vol] 12 mmol/L Normal 9-17 [facility] Comment on above: Result Comment: ADDE D ON Performed By: #### Mis HALEY, K #### [facility] [address] [place] [phone] Certified Ophthalmic Medical Technician: Zeb Garcia MD Calcium [Mass/Vol] 8.5 mg/dL Normal 8.4-10.2 [facility] Comment on above: Result Comment: ADDE D ON Performed By: #### Mis HALEY, K #### [facility] [address] [place] [phone] Certified Ophthalmic Medical Technician: Zeb Garcia MD Chloride [Moles/Vol] 106 mmol/L Normal 98-107 [facility] Comment on above: Result Comment: ADDE D ON Performed By: #### Mis HALEY, K #### [facility] [address] [place] [phone] Certified Ophthalmic Medical Technician: Zeb Garcia MD CO2 [Moles/Vol] 19 mmol/L Low 20-31 [facility] Comment on above: Result Comment: ADDE D ON Performed By: #### Mis HALEY, K #### [facility] [address] [place] [phone] Certified Ophthalmic Medical Technician: Zeb Garcia MD Creatinine [Mass/Vol] 0.58 mg/dL Normal 0.57-0.87 [facility] Comment on above: Result Comment: ADDE D ON Performed By: #### Mis HALEY K #### [facility] [address] [place] [phone] Certified Ophthalmic Medical Technician: Zeb Garcia MD GFR,non Amer Pediatric GFR requi res additional information. Refer to NKDEP website for Normal >60 [facility] Comment on above: Result Comment: calc ulator. ADDED ON Performed By: #### Mis HALEY K #### [facility] [address] [place] [address] Certified Ophthalmic Medical Technician: Zeb Garcia MD Glucose [Mass/Vol] 92 mg/dL Normal 60-100 [facility] Comment on above: Result Comment: ADDE D ON Performed By: #### Mis HALYE K #### [address] [address] Certified Ophthalmic Medical Technician: Zeb Garcia MD Potassium [Moles/Vol] 3.8 mmol/L Normal 3.6-4.9 [facility] Comment on above: Result Comment: ADDE D ON Performed By: #### Mis HALEY K #### [address] [address] Certified Ophthalmic Medical Technician: Zeb Garcia MD Sodium [Moles/Vol] 137 mmol/L Normal 135-144 [facility] Comment on above: Result Comment: ADDE D ON Performed By: #### Mis HALEY K #### [facility] [address] [place] [address] Certified Ophthalmic Medical Technician: Zeb Garcia MD Urea nitrogen [Mass/Vol] 10 mg/dL Normal 5-18 [facility] Comment on above: Result Comment: ASAE D ON Performed By: #### Mis HALEY K #### [facility] [address] [place] [phone] Certified Ophthalmic Medical Technician: Zeb Garcia MD BUN/CRE Ratio NOT REPORTED Normal 9-20 [facility] Comment on above: Performed By: #### Mis HALEY K #### [address] [address] Certified Ophthalmic Medical Technician: Zeb Garcia MD GFR, Amer NOT REPORTED Normal >60 [facility] Comment on above: Performed By: #### Mis HALEY K #### [address] [address] Certified Ophthalmic Medical Technician: Zeb Garcia MD Staging: NOT REPORTED Normal [facility] Comment on above: Performed By: #### Mis HALEY, K #### [address] [address] Certified Ophthalmic Medical Technician: Zeb Garcia MD (cont.) [facility] Comment on above: Result Comment: Aver age GFR for <20 years old not available. Chronic Kidney Disease: <60 mL/min/1.73sq m Kidney failure: <15 mL/min/1.73sq m eGFR calculated using average adult body mass. Additional eGFR calculator available at: http://www.[employer].Sympoz/multiple_crcl_2012.htm Performed By: #### Maryanne CANO #### [address] [address] Certified Ophthalmic Medical Technician: Zeb Garcia MD Anion gap [Moles/Vol] 13 mmol/L Normal 9-17 [facility] Comment on above: Performed By: #### Mis HALEY K #### [address] [address] Certified Ophthalmic Medical Technician: Zeb Garcia MD Calcium [Mass/Vol] 8.5 mg/dL Normal 8.4-10.2 [facility] Comment on above: Performed By: #### Mis HALEY K #### [facility] [address] [place] [phone] Certified Ophthalmic Medical Technician: Zeb Garcia MD Chloride [Moles/Vol] 104 mmol/L Normal 98-107 [facility] Comment on above: Performed By: #### Mis HALEY K #### [facility] [address] [place] [address] Certified Ophthalmic Medical Technician: Zeb Garcia MD CO2 [Moles/Vol] 18 mmol/L Low 20-31 [facility] Comment on above: Performed By: #### Mis HALEY K #### [address] [address] Certified Ophthalmic Medical Technician: Zeb Garcia MD Creatinine [Mass/Vol] 0.59 mg/dL Normal 0.57-0.87 [facility] Comment on above: Performed By: #### Mis HALEY K #### [address] [address] Certified Ophthalmic Medical Technician: Zeb Garcia MD GFR,non Amer Pediatric GFR requi res additional information. Refer to DEP website for Normal >60 [facility] Comment on above: Result Comment: calc ulator. Performed By: #### Mis HALEY K #### [address] [address] Certified Ophthalmic Medical Technician: Zeb Garcia MD Glucose [Mass/Vol] 142 mg/dL High 60-100 [facility] Comment on above: Performed By: #### Mis HALEY K #### [address] [address] Certified Ophthalmic Medical Technician: Zeb Garcia MD Potassium [Moles/Vol] 3.8 mmol/L Normal 3.6-4.9 [facility] Comment on above: Performed By: #### Mis HALEY K #### [facility] [address] [place] [phone] Certified Ophthalmic Medical Technician: Zeb Garcia MD Sodium [Moles/Vol] 135 mmol/L Normal 135-144 [facility] Comment on above: Performed By: #### Mis HALEY K #### [facility] [address] [place] [address] [id number] Certified Ophthalmic Medical Technician: Zeb Garcia MD Urea nitrogen [Mass/Vol] 10 mg/dL Normal 5-18 [facility] Comment on above: Performed By: #### Mis HALEY K #### [address] [phone] Certified Ophthalmic Medical Technician: Zeb Garcia MD Bun/Cre Ratio NOT REPORTED Normal 9-20 [place] Comment on above: Performed By: #### Mis HALEY K #### [address] [phone] Certified Ophthalmic Medical Technician: Zeb Garcia MD (cont.) [facility] Comment on above: Result Comment: Aver age GFR for <20 years old not available. Chronic Kidney Disease: <60 mL/min/1.73sq m Kidney failure: <15 mL/min/1.73sq m eGFR calculated using average adult body mass. Additional eGFR calculator available at: http://www.[employer]/multiple_crcl_2012.htm Performed By: #### Maryanne CANO #### [address] [phone] Certified Ophthalmic Medical Technician: Zeb Garcia MD Anion gap [Moles/Vol] 16 mmol/L Normal 9-17 [facility] Comment on above: Performed By: #### Mis HALEY K #### [address] [phone] Certified Ophthalmic Medical Technician: Zeb Garcia MD Calcium [Mass/Vol] 8.5 mg/dL Normal 8.4-10.2 [facility] Comment on above: Performed By: #### Mis HALEY K #### [address] [id number] Certified Ophthalmic Medical Technician: Zeb Garcia MD Chloride [Moles/Vol] 100 mmol/L Normal 98-107 [facility] Comment on above: Performed By: #### Mis HALEY K #### [address] [address] Certified Ophthalmic Medical Technician: Zeb Garcia MD CO2 [Moles/Vol] 16 mmol/L Low 20-31 [facility] Comment on above: Performed By: #### Maryanne CANO #### [address] [address] Certified Ophthalmic Medical Technician: Zeb Garcia MD Creatinine [Mass/Vol] 0.63 mg/dL Normal 0.57-0.87 [facility] Comment on above: Performed By: #### Mis HALEY K #### [address] [address] Certified Ophthalmic Medical Technician: Zeb Garcia MD GFR,non Amer Pediatric GFR requi res additional information. Refer to DEP website for Normal >60 [facility] Comment on above: Result Comment: calc ulator. Performed By: #### Mis HALEY K #### [address] [address] Certified Ophthalmic Medical Technician: Zeb Garcia MD Glucose [Mass/Vol] 192 mg/dL High 60-100 [facility] Comment on above: Performed By: #### Mis HALEY K #### [facility] [address] [place] [address] Certified Ophthalmic Medical Technician: Zeb Garcia MD Potassium [Moles/Vol] 4.2 mmol/L Normal 3.6-4.9 [facility] Comment on above: Performed By: #### Mis HALEY K #### [facility] [address] [place] [phone] Certified Ophthalmic Medical Technician: Zeb Garcia MD Sodium [Moles/Vol] 132 mmol/L Low 135-144 [facility] Comment on above: Performed By: #### Mis HALEY K #### [facility] [address] [place] [phone] Certified Ophthalmic Medical Technician: Zeb Garcia MD Urea nitrogen [Mass/Vol] 12 mg/dL Normal 5-18 [facility] Comment on above: Performed By: #### Maryanne CANO #### [facility] [address] [place] [address] Certified Ophthalmic Medical Technician: Zeb Garcia MD Beta Hydroxybutyrateon 12-25 Beta Hydroxybutyrate 0.41 mmol/L High 0.02-0.27 [facility] Comment on above: Performed By: #### Maryanne CANO #### [facility] [address] [place] [address] Certified Ophthalmic Medical Technician: Zeb Garcia MD Beta Hydroxybutyrate 5.42 mmol/L High 0.02-0.27 [facility] Comment on above: Performed By: #### Maryanne CANO #### [facility] [address] [place] [phone] Certified Ophthalmic Medical Technician: Zeb Garcia MD Beta-Hydroxybutyrateon 12-25 Beta-Hydroxybutyrate 0.41 mmol/L High 0.02 - 0.27 mmol/L [place] Beta-Hydroxybutyrate 5.42 mmol/L High 0.02 - 0.27 mmol/L [place] Interpretation and review of laboratory results Abnormal [place] Metabolic Panelon 12-25-2018 GFR/1.73 sq M predicted among non-blacks MDRD (S/P/Bld) [Vol rate/Area] [place] Comment on above: Average GFR for <20 years old not available. Chronic Kidney Disease: <60 mL/min/1.73sq m Kidney failure: <15 mL/min/1.73sq m eGFR calculated using average adult body mass. Additional eGFR calculator available at: http://www.[employer]poz/multiple_crcl_2012.htm ADDED ON Otheron 12-25-2018 Interpretation and review of laboratory results Abnormal [place] POC BETA-KETONEon 12-25-2018 BHB Reference Range: [place] Comment on above: 0.0 - 0.5 Normal blo od ketone level. 0.6 - 1.5 Moderate blood ketone level. 1.6 - 3.0 Significant blood ketone level. Patient at risk for DKA. Interpretation and review of laboratory results Abnormal [place] POC Beta-Hydroxybutyrate 5.4 mmol/L High 0 - 0.5 mmol/L [place] BHB Reference Range: [place] Comment on above: 0.0 - 0.5 Normal blo od ketone level. 0.6 - 1.5 Moderate blood ketone level. 1.6 - 3.0 Significant blood ketone level. Patient at risk for DKA. Interpretation and review of laboratory results Abnormal [place] POC Beta-Hydroxybutyrate 5.4 mmol/L High 0 - 0.5 mmol/L [place] BHB Reference Range: [place] Comment on above: 0.0 - 0.5 Normal blo od ketone level. 0.6 - 1.5 Moderate blood ketone level. 1.6 - 3.0 Significant blood ketone level. Patient at risk for DKA. POC Beta-Hydroxybutyrate 0.2 mmol/L 0 - 0.5 mmol/L [place] BHB Reference Range: [place] Comment on above: 0.0 - 0.5 Normal blo od ketone level. 0.6 - 1.5 Moderate blood ketone level. 1.6 - 3.0 Significant blood ketone level. Patient at risk for DKA. Interpretation and review of laboratory results Abnormal [place] POC Beta-Hydroxybutyrate 1.9 mmol/L High 0 - 0.5 mmol/L [place] POC Glucose Fingerstickon Glucose [Mass/Vol] 286 mg/dL High 75 - 110 mg/dL [place] Comment on above: Critical Noted Interpretation and review of laboratory results Abnormal [place] Glucose [Mass/Vol] 278 mg/dL High 75 - 110 mg/dL [place] Comment on above: Critical Noted Interpretation and review of laboratory results Abnormal [place] Glucose [Mass/Vol] 120 mg/dL High 75 - 110 mg/dL [place] Interpretation and review of laboratory results Abnormal [place] Glucose [Mass/Vol] 73 mg/dL Low 75 - 110 mg/dL [place] Interpretation and review of laboratory results Abnormal [place] Glucose [Mass/Vol] 78 mg/dL 75 - 110 mg/dL [place] Glucose [Mass/Vol] 77 mg/dL 75 - 110 mg/dL [place] Glucose [Mass/Vol] 102 mg/dL 75 - 110 mg/dL [place] Glucose [Mass/Vol] 115 mg/dL High 75 - 110 mg/dL [place] Interpretation and review of laboratory results Abnormal [place] Glucose [Mass/Vol] 130 mg/dL High 75 - 110 mg/dL [place] Interpretation and review of laboratory results Abnormal [place] Glucose [Mass/Vol] 123 mg/dL High 75 - 110 mg/dL [place] Interpretation and review of laboratory results Abnormal [place] Glucose [Mass/Vol] 153 mg/dL High 75 - 110 mg/dL [place] Interpretation and review of laboratory results Abnormal [place] Glucose [Mass/Vol] 158 mg/dL High 75 - 110 mg/dL [place] Interpretation and review of laboratory results Abnormal [place] Glucose [Mass/Vol] 183 mg/dL High 75 - 110 mg/dL [place] Interpretation and review of laboratory results Abnormal [place] Phosphoruson 12-25-2018 Phosphate [Mass/Vol] 4.8 mg/dL 2.9 - 5 .1 mg/dL [place] Phosphate [Mass/Vol] 5.2 mg/dL High 2.9 - 5 .1 mg/dL [place] Phosphate [Mass/Vol] 4.7 mg/dL 2.9 - 5 .1 mg/dL [place] Phosphorus, Inorg.on 019 Phosphorus, Inorg. 4.8 mg/dL Normal 2.9-5.1 [facility] Comment on above: Performed By: #### G Maryanne HALEY #### [facility] [address] [place] [address] Certified Ophthalmic Medical Technician: Zeb Garcia MD Phosphorus, Inorg. 5.2 mg/dL High 2.9-5.1 [facility] Comment on above: Performed By: #### Maryanne CANO #### [facility] [address] [place] [address] Certified Ophthalmic Medical Technician: Zeb Garcia MD Phosphorus, Inorg. 4.7 mg/dL Normal 2.9-5.1 [facility] Comment on above: Performed By: #### Maryanne CANO #### [facility] [address] [place] [address] Certified Ophthalmic Medical Technician: Zeb Garcia MD Basic Metabolic Panelon - Anion gap [Moles/Vol] 22 mmol/L High 9 - 17 mmol/L [place] Bun/Cre Ratio NOT REPORTED [place] Calcium [Mass/Vol] 8.8 mg/dL 8.4 - 10. 2 mg/dL [place] Chloride [Moles/Vol] 97 mmol/L Low 98 - 10 7 mmol/L [place] CO2 [Moles/Vol] 13 mmol/L Low 20 - 31 mmol/L [place] Creatinine [Mass/Vol] 0.69 mg/dL 0.57 - 0.87 mg/dL [place] GFR NOT REPORTED >60 mL/min [place], [place] GFR Non- Pediatric GFR requires additional information. Refer to NKDEP website for calculator. >60 mL/min [place], [place] GFR/1.73 sq M predicted among non-blacks MDRD (S/P/Bld) [Vol rate/Area] NOT REPORTED [place] GFR/1.73 sq M predicted among non-blacks MDRD (S/P/Bld) [Vol rate/Area] [place], [place] Comment on above: Average GFR for <20 years old not available. Chronic Kidney Disease: <60 mL/min/1.73sq m Kidney failure: <15 mL/min/1.73sq m eGFR calculated using average adult body mass. Additional eGFR calculator available at: http://www.[employer]/multiple_crcl_2012.htm Glucose [Mass/Vol] 251 mg/dL High 60 - 100 mg/dL [place] Interpretation and review of laboratory results Abnormal [place] Potassium [Moles/Vol] 5.0 mmol/L High 3.6 - 4.9 mmol/L [place] Sodium [Moles/Vol] 132 mmol/L Low 135 - 144 mmol/L [place] Urea nitrogen [Mass/Vol] 13 mg/dL 5 - 18 mg/dL [place] Basic Metabolic Profon 12-24 (cont.) Normal [facility] Comment on above: Result Comment: Aver age GFR for <20 years old not available. Chronic Kidney Disease: <60 mL/min/1.73sq m Kidney failure: <15 mL/min/1.73sq m eGFR calculated using average adult body mass. Additional eGFR calculator available at: http://www.[employer]/multiple_crcl_2012.htm Performed By: ###Maryanne MATA #### [facility] [address] [place] [address] Certified Ophthalmic Medical Technician: Zeb Garcia MD Anion gap [Moles/Vol] 22 mmol/L High 9-17 [facility] Comment on above: Performed By: ###Maryanne MATA #### [facility] [address] [place], [place] [id number] Certified Ophthalmic Medical Technician: Zeb Garcia MD Calcium [Mass/Vol] 8.8 mg/dL Normal 8.4-10.2 [facility] Comment on above: Performed By: ###Maryanne MATA #### [facility] [address] [place] [address] [phone] Certified Ophthalmic Medical Technician: Zeb Garcia MD Chloride [Moles/Vol] 97 mmol/L Low 98-107 [facility] Comment on above: Performed By: ###Mike HALEY, K #### [facility] [address] [place] [phone] Certified Ophthalmic Medical Technician: Zeb Garcia MD CO2 [Moles/Vol] 13 mmol/L Low 20-31 [facility] Comment on above: Performed By: #### Mis HALEY K #### [address] [address] Certified Ophthalmic Medical Technician: Zeb Garcia MD Creatinine [Mass/Vol] 0.69 mg/dL Normal 0.57-0.87 [facility] Comment on above: Performed By: #### Mis HALEY K #### [facility] [address] [place] [address] Certified Ophthalmic Medical Technician: Zeb Garcia MD GFR,non Amer Pediatric GFR requi res additional information. Refer to DEP website for Normal >60 [facility] Comment on above: Result Comment: calc ulator. Performed By: #### Mis HALEY K #### [address] [address] Certified Ophthalmic Medical Technician: Zeb Garcia MD Glucose [Mass/Vol] 251 mg/dL High 60-100 [facility] Comment on above: Performed By: #### Mis HALEY K #### [address] [address] Certified Ophthalmic Medical Technician: Zeb Garcia MD Potassium [Moles/Vol] 5.0 mmol/L High 3.6-4.9 [facility] Comment on above: Performed By: #### Msi HALEY K #### [facility] [address] [place] [address] Certified Ophthalmic Medical Technician: Zeb Garcia MD Sodium [Moles/Vol] 132 mmol/L Low 135-144 [facility] Comment on above: Performed By: #### Mis HALEY K #### [facility] [address] [place] [address] [phone] Certified Ophthalmic Medical Technician: Zeb Garcia MD Urea nitrogen [Mass/Vol] 13 mg/dL Normal 5-18 [facility] Comment on above: Performed By: #### Mis AHLEY K #### [address] [address] Certified Ophthalmic Medical Technician: Zeb Garcia MD BUN/CRE Ratio NOT REPORTED Normal 9-20 [facility] Comment on above: Performed By: #### Mis HALEY, K #### [address] [address] Certified Ophthalmic Medical Technician: Zeb Garcia MD GFR, Amer NOT REPORTED Normal >60 [facility] Comment on above: Performed By: #### Mis HALEY, K #### [address] [address] Certified Ophthalmic Medical Technician: Zeb Garcia MD Staging: NOT REPORTED Normal [facility] Comment on above: Performed By: #### Maryanne CANO #### [address] [address] Certified Ophthalmic Medical Technician: Zeb Garcia MD Beta Hydroxybutyrateon 12-24 Beta Hydroxybutyrate 5.91 mmol/L High 0.02-0.27 [facility] Comment on above: Performed By: ###Maryanne MATA #### [address] [address] Certified Ophthalmic Medical Technician: Zeb Garcia MD Beta-Hydroxybutyrateon 12-24 Beta-Hydroxybutyrate 5.91 mmol/L High 0.02 - 0.27 mmol/L [email or web address] [place] Interpretation and review of laboratory results Abnormal [email or web address] [place] Comp Metabolic Profon 2018 (cont.) Normal [facility] Comment on above: Result Comment: Aver age GFR for <20 years old not available. Chronic Kidney Disease: <60 mL/min/1.73sq m Kidney failure: <15 mL/min/1.73sq m eGFR calculated using average adult body mass. Additional eGFR calculator available at: http://www.[employer]/multiple_crcl_2012.htm Performed By: #### Mis HALEY K #### [facility] [address] [place] [address] Certified Ophthalmic Medical Technician: Zeb Garcia MD Albumin [Mass/Vol] 4.2 g/dL Normal 3.2-4.5 [facility] Comment on above: Performed By: #### Mis HALEY, K #### [facility] [address] [place] [address] Certified Ophthalmic Medical Technician: Zeb Garcia MD Albumin/Globulin [Mass ratio] 1.4 {ratio} Normal 1.0-2.5 [facility] Comment on above: Performed By: #### Mis HALEY K #### [facility] [address] [place] [address] Certified Ophthalmic Medical Technician: Zeb Garcia MD Alkaline Phos 407 U/L High 74-390 [facility] Comment on above: Performed By: #### Mis HALEY K #### [facility] [address] [place] [address] Certified Ophthalmic Medical Technician: Zeb Garcia MD ALT [Catalytic activity/Vol] 16 U/L Normal 5-41 [facility] Comment on above: Performed By: #### Mis HALEY K #### [facility] [address] [place] [address] Certified Ophthalmic Medical Technician: Zeb Garcia MD Anion gap [Moles/Vol] 25 mmol/L High 9-17 [facility] Comment on above: Performed By: #### Mis HALEY K #### [facility] [address] [place] [address] Certified Ophthalmic Medical Technician: Zeb Garcia MD AST [Catalytic activity/Vol] 17 U/L Normal <40 [facility] Comment on above: Performed By: #### G TERA, K #### [facility] [address] [place] [address] Certified Ophthalmic Medical Technician: Zeb Garcia MD Bilirubin Ql (U) 0.19 mg/dL Low 0.3-1.2 [facility] Comment on above: Performed By: #### Maryanne CANO #### [address] [address] Certified Ophthalmic Medical Technician: Zeb Garcia MD Calcium [Mass/Vol] 9.3 mg/dL Normal 8.4-10.2 [facility] Comment on above: Performed By: #### Maryanne CANO #### [address] [address] Certified Ophthalmic Medical Technician: Zeb Garcia MD Chloride [Moles/Vol] 101 mmol/L Normal 98-107 [facility] Comment on above: Performed By: #### Mis HALEY K #### [address] [address] Certified Ophthalmic Medical Technician: Zeb Garcia MD CO2 [Moles/Vol] 10 mmol/L Low 20-31 [facility] Comment on above: Performed By: #### Mis HALEY K #### [address] [address] Certified Ophthalmic Medical Technician: Zeb Garcia MD Creatinine [Mass/Vol] 0.67 mg/dL Normal 0.57-0.87 [facility] Comment on above: Performed By: #### Mis HALEY K #### [address] [address] Certified Ophthalmic Medical Technician: Zeb Garcia MD GFR,non Amer Pediatric GFR requi res additional information. Refer to NKDEP website for Normal >60 [facility] Comment on above: Result Comment: calc ulator. Performed By: #### Mis HALEY K #### [address] [address] Certified Ophthalmic Medical Technician: Zeb Garcia MD Glucose [Mass/Vol] 223 mg/dL High 60-100 [facility] Comment on above: Performed By: #### Mis HALEY K #### [address] [address] Certified Ophthalmic Medical Technician: Zeb Garcia MD Potassium [Moles/Vol] 4.8 mmol/L Normal 3.6-4.9 [facility] Comment on above: Performed By: #### Mis HALEY K #### [address] [address] Certified Ophthalmic Medical Technician: Zeb Garcia MD Protein [Mass/Vol] 7.3 g/dL Normal 6.0-8.0 [facility] Comment on above: Performed By: #### Mis HALEY K #### [address] [address] Certified Ophthalmic Medical Technician: Zeb Garcia MD Sodium [Moles/Vol] 136 mmol/L Normal 135-144 [facility] Comment on above: Performed By: #### Mis HALEY K #### [address] [address] Certified Ophthalmic Medical Technician: Zeb Garcia MD Urea nitrogen [Mass/Vol] 18 mg/dL Normal 5-18 [facility] Comment on above: Performed By: #### Mis HALEY K #### [address] [address] Certified Ophthalmic Medical Technician: Zeb Garcia MD BUN/CRE Ratio NOT REPORTED Normal 9-20 [facility] Comment on above: Performed By: #### Mis HALEY K #### [address] [address] Certified Ophthalmic Medical Technician: Zeb Garcia MD GFR, Amer NOT REPORTED Normal >60 [facility] Comment on above: Performed By: #### Mis HALEY K #### [facility] [address] [place], [place] [address], [place] [id number] Certified Ophthalmic Medical Technician: Zeb Garcia MD Staging: NOT REPORTED Normal [facility] Comment on above: Performed By: #### G Maryanne HALEY #### [facility] [address] [place], [place] [phone] Certified Ophthalmic Medical Technician: Zeb Garcia MD Comprehensive metabolic pane maureen 12-24-2018 Albumin [Mass/Vol] 4.2 g/dL 3.2 - 4.5 g/dL [place] Albumin/Globulin [Mass ratio] 1.4 {ratio} [place] ALP [Catalytic activity/Vol] 407 U/L High 74 - 390 U/L [place] ALT [Catalytic activity/Vol] 16 U/L 5 - 41 U/L [place] Anion gap [Moles/Vol] 25 mmol/L High 9 - 17 mmol/L [place] AST [Catalytic activity/Vol] 17 U/L <40 [place] Bilirubin Ql (U) 0.19 mg/dL Low 0.3 - 1.2 mg/dL [place] Bun/Cre Ratio NOT REPORTED [place] Calcium [Mass/Vol] 9.3 mg/dL 8.4 - 10. 2 mg/dL [place] Chloride [Moles/Vol] 101 mmol/L 98 - 10 7 mmol/L [place] CO2 [Moles/Vol] 10 mmol/L Low 20 - 31 mmol/L [place] Creatinine [Mass/Vol] 0.67 mg/dL 0.57 - 0.87 mg/dL [place] GFR NOT REPORTED >60 mL/min [place] GFR Non- Pediatric GFR requires additional information. Refer to NKDEP website for calculator. >60 mL/min [place] GFR/1.73 sq M predicted among non-blacks MDRD (S/P/Bld) [Vol rate/Area] NOT REPORTED [place] GFR/1.73 sq M predicted among non-blacks MDRD (S/P/Bld) [Vol rate/Area] [place] Comment on above: Average GFR for <20 years old not available. Chronic Kidney Disease: <60 mL/min/1.73sq m Kidney failure: <15 mL/min/1.73sq m eGFR calculated using average adult body mass. Additional eGFR calculator available at: http://www.[employer]/multiple_crcl_2012.htm Glucose [Mass/Vol] 223 mg/dL High 60 - 100 mg/dL [place] Interpretation and review of laboratory results Abnormal [place] Potassium [Moles/Vol] 4.8 mmol/L 3.6 - 4.9 mmol/L [place] Protein [Mass/Vol] 7.3 g/dL 6 - 8 g/dL [place] Sodium [Moles/Vol] 136 mmol/L 135 - 144 mmol/L [place] Urea nitrogen [Mass/Vol] 18 mg/dL 5 - 18 mg/dL [place] Osmolalityon 12-24-2018 Osmolality [Osmolality] 299 mOsm/kg High 275-295 [facility] Comment on above: Performed By: #### Maryanne CANO #### [facility] [address] [phone] Certified Ophthalmic Medical Technician: Zeb Garcia MD Interpretation and review of laboratory results Abnormal [place] Serum Osmolality 299 High [place] POC Glucose Fingerstickon Glucose [Mass/Vol] 154 mg/dL High 75 - 110 mg/dL [place] Interpretation and review of laboratory results Abnormal [place] Glucose [Mass/Vol] 207 mg/dL High 75 - 110 mg/dL [place] Comment on above: Critical Noted Interpretation and review of laboratory results Abnormal [place] Glucose [Mass/Vol] 227 mg/dL High 75 - 110 mg/dL [place] Comment on above: Critical Noted Interpretation and review of laboratory results Abnormal [place] Glucose [Mass/Vol] 247 mg/dL High 75 - 110 mg/dL [place] Comment on above: Critical Noted Interpretation and review of laboratory results Abnormal [place] Glucose [Mass/Vol] 227 mg/dL High 75 - 110 mg/dL [place] Interpretation and review of laboratory results Abnormal [place] Glucose [Mass/Vol] 209 mg/dL High 75 - 110 mg/dL [place] Interpretation and review of laboratory results Abnormal [place] Glucose [Mass/Vol] 201 mg/dL High 75 - 110 mg/dL [place] Interpretation and review of laboratory results Abnormal [place] Glucose [Mass/Vol] 203 mg/dL High 75 - 110 mg/dL [place] Comment on above: Critical Noted Interpretation and review of laboratory results Abnormal [place] Phosphoruson 12-24-2018 Phosphate [Mass/Vol] 4.7 mg/dL 2.9 - 5 .1 mg/dL [place] Phosphate [Mass/Vol] 4.4 mg/dL 2.9 - 5 .1 mg/dL [place] Phosphorus, Inorg.on 019 Phosphorus, Inorg. 4.7 mg/dL Normal 2.9-5.1 [facility] Comment on above: Performed By: #### Maryanne CANO #### [facility] [address] [place] [address] [phone] Certified Ophthalmic Medical Technician: Zeb Garcia MD Phosphorus, Inorg. 4.4 mg/dL Normal 2.9-5.1 [facility] Comment on above: Performed By: ###Maryanne MATA #### [facility] [address] [place] [phone] Certified Ophthalmic Medical Technician: Zeb Garcia MD Progress Noteon 10-14-2018 Recreation Counselor Authentication Interface Message Text Transition out of [facility] Normal [facility] Basic Metabolic Profon 08-21 (cont.) Normal [facility] Comment on above: Result Comment: Aver age GFR for <20 years old not available. Chronic Kidney Disease: <60 mL/min/1.73sq m Kidney failure: <15 mL/min/1.73sq m eGFR calculated using average adult body mass. Additional eGFR calculator available at: http://www.[employer]/multiple_crcl_2012.htm Performed By: #### Maryanne CANO #### [address] [address] Certified Ophthalmic Medical Technician: Zeb Garcia MD Anion gap [Moles/Vol] 9 mmol/L Normal 9-17 [facility] Comment on above: Performed By: #### Mis HALEY K #### [address] [address] Certified Ophthalmic Medical Technician: Zeb Garcia MD Calcium [Mass/Vol] 8.7 mg/dL Normal 8.4-10.2 [facility] Comment on above: Performed By: #### Maryanne CANO #### [address] [address] Certified Ophthalmic Medical Technician: Zeb Garcia MD Chloride [Moles/Vol] 105 mmol/L Normal 98-107 [facility] Comment on above: Performed By: #### Maryanne CANO #### [address] [address] Certified Ophthalmic Medical Technician: Zeb Garcia MD CO2 [Moles/Vol] 24 mmol/L Normal 20-31 [facility] Comment on above: Performed By: #### Mis HALEY, K #### [address] [address] Certified Ophthalmic Medical Technician: Zeb Garcia MD Creatinine [Mass/Vol] 0.41 mg/dL Low 0.57-0.87 [facility] Comment on above: Performed By: #### Mis HALEY K #### [address] [address] Certified Ophthalmic Medical Technician: Zeb Garcia MD GFR,non Amer Pediatric GFR requi res additional information. Refer to NKDEP website for Normal >60 [facility] Comment on above: Result Comment: calc ulator. Performed By: #### Mis HALEY K #### [address] [address] Certified Ophthalmic Medical Technician: Zeb Garcia MD Glucose [Mass/Vol] 98 mg/dL Normal 60-100 [facility] Comment on above: Performed By: #### Mis HALEY, K #### [address] [address] Certified Ophthalmic Medical Technician: Zeb Garcia MD Potassium [Moles/Vol] 3.8 mmol/L Normal 3.6-4.9 [facility] Comment on above: Performed By: #### Mis HALEY K #### [address] [address] Certified Ophthalmic Medical Technician: Zeb Garcia MD Sodium [Moles/Vol] 138 mmol/L Normal 135-144 [facility] Comment on above: Performed By: #### Mis HALEY K #### [address] [address] Certified Ophthalmic Medical Technician: Zeb Garcia MD Urea nitrogen [Mass/Vol] 9 mg/dL Normal 5-18 [facility] Comment on above: Performed By: #### Mis HALEY, K #### [address] [address] Certified Ophthalmic Medical Technician: Zeb Garcia MD BUN/CRE Ratio NOT REPORTED Normal 9-20 [facility] Comment on above: Performed By: #### Mis HALEY, K #### [address] [address] Certified Ophthalmic Medical Technician: Zeb Garcia MD GFR, Amer NOT REPORTED Normal >60 [facility] Comment on above: Performed By: #### Mis HALEY, K #### [address] [address] Certified Ophthalmic Medical Technician: Zeb Garcia MD Staging: NOT REPORTED Normal [facility] Comment on above: Performed By: #### Maryanne CANO #### [address] [address] Certified Ophthalmic Medical Technician: Zeb Garcia MD Basic Metabolic Profon 08-20 (cont.) Normal [facility] Comment on above: Result Comment: Aver age GFR for <20 years old not available. Chronic Kidney Disease: <60 mL/min/1.73sq m Kidney failure: <15 mL/min/1.73sq m eGFR calculated using average adult body mass. Additional eGFR calculator available at: http://www.[employer]_crcl_2011.htm Performed By: #### Maryanne CANO #### [address] [address] Certified Ophthalmic Medical Technician: Zeb Garcia MD Anion gap [Moles/Vol] 11 mmol/L Normal 9-17 [facility] Comment on above: Performed By: #### Mis HALEY K #### [address] [address] Certified Ophthalmic Medical Technician: Zeb Garcia MD Calcium [Mass/Vol] 8.1 mg/dL Low 8.4-10.2 [facility] Comment on above: Performed By: #### Maryanne CANO #### [facility] [address] [place] [address] Certified Ophthalmic Medical Technician: Zeb Garcia MD Chloride [Moles/Vol] 105 mmol/L Normal 98-107 [facility] Comment on above: Performed By: #### Mis HALEY K #### [address] [address] Certified Ophthalmic Medical Technician: Zeb Garcia MD CO2 [Moles/Vol] 20 mmol/L Normal 20-31 [facility] Comment on above: Performed By: #### Mis HALEY K #### [facility] [address] [place] [address] Certified Ophthalmic Medical Technician: Zeb Garcia MD Creatinine [Mass/Vol] 0.53 mg/dL Low 0.57-0.87 [facility] Comment on above: Performed By: #### Mis HALEY K #### [address] [address] Certified Ophthalmic Medical Technician: Zeb Garcia MD GFR,non Amer Pediatric GFR requi res additional information. Refer to NKDEP website for Normal >60 [facility] Comment on above: Result Comment: calc ulator. Performed By: #### Mis HALEY K #### [address] [address] Certified Ophthalmic Medical Technician: Zeb Garcia MD Glucose [Mass/Vol] 96 mg/dL Normal 60-100 [facility] Comment on above: Performed By: #### Mis HALEY K #### [address] [address] Certified Ophthalmic Medical Technician: Zeb Garcia MD Potassium [Moles/Vol] 3.3 mmol/L Low 3.6-4.9 [facility] Comment on above: Performed By: #### Mis HALEY K #### [address] [address] Certified Ophthalmic Medical Technician: Zeb Garcia MD Sodium [Moles/Vol] 136 mmol/L Normal 135-144 [facility] Comment on above: Performed By: #### Mis HALEY K #### [address] [address] Certified Ophthalmic Medical Technician: Zeb Garcia MD Urea nitrogen [Mass/Vol] 6 mg/dL Normal 5-18 [facility] Comment on above: Performed By: #### Mis HALEY K #### [address] [address] Certified Ophthalmic Medical Technician: Zeb Garcia MD BUN/CRE Ratio NOT REPORTED Normal 9-20 [facility] Comment on above: Performed By: #### Mis HALEY, K #### [address] [address] Certified Ophthalmic Medical Technician: Zeb Garcia MD GFR, Amer NOT REPORTED Normal >60 [facility] Comment on above: Performed By: #### Mis HALEY, K #### [address] [address] Certified Ophthalmic Medical Technician: Zeb Garcia MD Staging: NOT REPORTED Normal [facility] Comment on above: Performed By: #### Mis HALEY K #### [address] [address] Certified Ophthalmic Medical Technician: Zeb Garcia MD (cont.) [facility] Comment on above: Result Comment: Aver age GFR for <20 years old not available. Chronic Kidney Disease: <60 mL/min/1.73sq m Kidney failure: <15 mL/min/1.73sq m eGFR calculated using average adult body mass. Additional eGFR calculator available at: http://www.[employer]z/multiple_crcl_2012.htm Performed By: #### K #### [address] [address] Certified Ophthalmic Medical Technician: Zeb Garcia MD Anion gap [Moles/Vol] 11 mmol/L Normal 9-17 [facility] Comment on above: Performed By: #### K #### [address] [address] Certified Ophthalmic Medical Technician: Zeb Garcia MD Calcium [Mass/Vol] 8.1 mg/dL Low 8.4-10.2 [facility] Comment on above: Performed By: #### K #### [address] [address] Certified Ophthalmic Medical Technician: Zeb Garcia MD Chloride [Moles/Vol] 105 mmol/L Normal 98-107 [facility] Comment on above: Performed By: #### K #### [address] [address] Certified Ophthalmic Medical Technician: Zeb Garcia MD CO2 [Moles/Vol] 20 mmol/L Normal 20-31 [facility] Comment on above: Performed By: #### K #### [address] [address] Certified Ophthalmic Medical Technician: Zeb Garcia MD Creatinine [Mass/Vol] 0.55 mg/dL Low 0.57-0.87 [facility] Comment on above: Performed By: #### K #### [address] [address] Certified Ophthalmic Medical Technician: Zeb Garcia MD GFR,non [facility] Pediatric GFR requi res additional information. Refer to NKDEP website for Normal >60 [facility] Comment on above: Result Comment: calc ulator. Performed By: #### K #### [address] [address] Certified Ophthalmic Medical Technician: Zeb Garcia MD Glucose [Mass/Vol] 137 mg/dL High 60-100 [facility] Comment on above: Performed By: #### K #### [address] [address] Certified Ophthalmic Medical Technician: Zeb Garcia MD Potassium [Moles/Vol] 3.4 mmol/L Low 3.6-4.9 [facility] Comment on above: Performed By: #### K #### [address] [address] Certified Ophthalmic Medical Technician: Zeb Garcia MD Sodium [Moles/Vol] 136 mmol/L Normal 135-144 [facility] Comment on above: Performed By: #### K #### [address] [address] Certified Ophthalmic Medical Technician: Zeb Garcia MD Urea nitrogen [Mass/Vol] 12 mg/dL Normal 5-18 [facility] Comment on above: Performed By: #### K #### [address] [address] Certified Ophthalmic Medical Technician: Zeb Garcia MD BUN/CRE Ratio NOT REPORTED Normal 9-20 [facility] Comment on above: Performed By: #### K #### [address] [address] Certified Ophthalmic Medical Technician: Zeb Garcia MD GFR, Amer NOT REPORTED Normal >60 [facility] Comment on above: Performed By: #### K #### [address] [address] Certified Ophthalmic Medical Technician: Zeb Garcia MD Staging: NOT REPORTED Normal [facility] Comment on above: Performed By: #### K #### [address] [address] Certified Ophthalmic Medical Technician: Zeb Garcia MD CBC with Diffon 08-20-2018 Abs. Basophil 0.06 k/uL Normal 0.00-0.20 [facility] Comment on above: Performed By: #### K #### [address] [address] Certified Ophthalmic Medical Technician: Zeb Garcia MD Abs.Imm.Granulocyte 0.19 k/uL Normal 0.00-0.30 [facility] Comment on above: Performed By: #### K #### [address] [address] [address] Certified Ophthalmic Medical Technician: Zeb Garcia MD Abs.Neutrophil (Seg) 9.23 k/uL High 1.50-8.00 [facility] Comment on above: Performed By: #### K #### [address] [address] Certified Ophthalmic Medical Technician: Zeb Garcia MD Basophils/100 WBC (Bld) 0 % Normal 0-2 [facility] Comment on above: Performed By: #### K #### [address] [address] Certified Ophthalmic Medical Technician: Zeb Garcia MD Eosinophils (Bld) [#/Vol] 1.78 10*3/uL High 0.00-0.44 [facility] Comment on above: Performed By: #### K #### [address] [address] Certified Ophthalmic Medical Technician: Zeb Garcia MD Eosinophils/100 WBC (Bld) 13 % High 1-4 [facility] Comment on above: Performed By: #### K #### [address] [address] Certified Ophthalmic Medical Technician: Zeb Garcia MD Erythrocyte distribution width (RBC) [Ratio] 12.8 % Normal 11.8-14.4 [facility] Comment on above: Performed By: #### K #### [address] [address] Certified Ophthalmic Medical Technician: Zeb Garcia MD Hematocrit (Bld) [Volume fraction] 35.1 % Low 37.0-49.0 [facility] Comment on above: Performed By: #### K #### [address] [address] Certified Ophthalmic Medical Technician: Zeb Garcia MD Hemoglobin (Bld) [Mass/Vol] 12.1 g/dL Low 13.0-15.0 [facility] Comment on above: Performed By: #### K #### [address] [address] Certified Ophthalmic Medical Technician: Zeb Garcia MD Immature granulocytes (Bld) [#/Vol] 1 % High 0 [facility] Comment on above: Performed By: #### K #### [address] [address] Certified Ophthalmic Medical Technician: Zeb Garcia MD Lymphocytes (Bld) [#/Vol] 1.52 10*3/uL Normal 1.50-6.50 [facility] Comment on above: Performed By: #### K #### [address] [address] Certified Ophthalmic Medical Technician: Zeb Garcia MD Lymphocytes/100 WBC (Bld) 11 % Low 25-45 [facility] Comment on above: Performed By: #### K #### [place] [address] Certified Ophthalmic Medical Technician: Zeb Garcia MD MCH (RBC) [Entitic mass] 29.6 pg Normal 25.0-35.0 [facility] Comment on above: Performed By: #### K #### [place] [address] Certified Ophthalmic Medical Technician: Zeb Garcia MD MCHC (RBC) [Mass/Vol] 34.5 g/dL Normal 28.4-34.8 [facility] Comment on above: Performed By: #### K #### [place] [address] Certified Ophthalmic Medical Technician: Zeb Garcia MD MCV (RBC) [Entitic vol] 85.8 fL Normal 78.0-102.0 [facility] Comment on above: Performed By: #### K #### [place] [address] Certified Ophthalmic Medical Technician: Zeb Garcia MD Monocytes (Bld) [#/Vol] 1.26 10*3/uL Normal 0.10-1.40 [facility] Comment on above: Performed By: #### K #### [place] [address] Certified Ophthalmic Medical Technician: Zeb Garcia MD Monocytes/100 WBC (Bld) 9 % High 2-8 [facility] Comment on above: Performed By: #### K #### [address] [address] Certified Ophthalmic Medical Technician: Zeb Garcia MD Neutrophil (Seg) 66 % High 34-64 [facility] Comment on above: Performed By: #### K #### [address] [address] Certified Ophthalmic Medical Technician: Zeb Garcia MD NRBC Automated 0.0 per 100 WBC Normal 0.0 [facility] Comment on above: Performed By: #### K #### [address] [address] Certified Ophthalmic Medical Technician: Zeb Garcia MD Platelet mean volume (Bld) [Entitic vol] 9.2 fL Normal 8.1-13.5 [facility] Comment on above: Performed By: #### K #### [address] [address] Certified Ophthalmic Medical Technician: Zeb Garcia MD Platelets (Bld) [#/Vol] 303 10*3/uL Normal 138-453 [facility] Comment on above: Performed By: #### K #### [address] [address] Certified Ophthalmic Medical Technician: Zeb Garcia MD RBC (Bld) [#/Vol] 4.09 10*6/uL Low 4.50-5.30 [facility] Comment on above: Performed By: #### K #### [address] [address] Certified Ophthalmic Medical Technician: Zeb Garcia MD WBC (Bld) [#/Vol] 14.0 10*3/uL High 4.5-13.5 [facility] Comment on above: Performed By: #### K #### [address] [place] [address] Certified Ophthalmic Medical Technician: Zeb Garcia MD Auto Diff Performed NOT REPORTED Normal [facility] Comment on above: Performed By: #### K #### [address] [address] Certified Ophthalmic Medical Technician: Zeb Garcia MD Platelets (Bld) [#/Vol] NOT REPORTED Normal [facility] Comment on above: Performed By: #### K #### [address] [address] Certified Ophthalmic Medical Technician: Zbe Garcia MD RBC morphology finding Nom (Bld) NOT REPORTED Normal [facility] Comment on above: Performed By: #### K #### [address] [address] Certified Ophthalmic Medical Technician: Zeb Garcia MD WBC Morphology NOT REPORTED Normal [facility] Comment on above: Performed By: #### K #### [address] [address] Certified Ophthalmic Medical Technician: Zeb Garcia MD K (Potassium)on 08-20-2018 Potassium [Moles/Vol] 3.5 mmol/L Low 3.6-4.9 [facility] Comment on above: Performed By: #### K #### [address] [address] Certified Ophthalmic Medical Technician: Zeb Garcia MD Potassium [Moles/Vol] 3.2 mmol/L Low 3.6-4.9 [facility] Comment on above: Performed By: #### K #### [address] [address] Certified Ophthalmic Medical Technician: Zeb Garcia MD Phosphorus, Inorg.on 019 Phosphorus, Inorg. 5.2 mg/dL High 2.9-5.1 [facility] Comment on above: Performed By: #### G Maryanne HALEY #### [address] [address] Certified Ophthalmic Medical Technician: Zeb Garcia MD Phosphorus, Inorg. 5.3 mg/dL High 2.9-5.1 [facility] Comment on above: Performed By: #### K #### [address] [address] Certified Ophthalmic Medical Technician: Zeb Garcia MD Phosphorus, Inorg. 4.8 mg/dL Normal 2.9-5.1 [facility] Comment on above: Performed By: #### K #### [address] [address] Certified Ophthalmic Medical Technician: Zeb Garcia MD Specimen Rejectionon 019 Reason for rejection Unable to perform testing: Specimen clotted. Normal [facility] Comment on above: Performed By: #### K #### [address] [address] Certified Ophthalmic Medical Technician: Zeb Garcia MD Source of sample .BLOOD Normal [facility] Comment on above: Performed By: #### K #### [address] [address] Certified Ophthalmic Medical Technician: Zeb Garcia MD Test ordered CDP [facility] Comment on above: Performed By: #### K #### [facility] [address] [place] [address] Certified Ophthalmic Medical Technician: Zeb Garcia MD ----- NOT REPORTED [facility] Comment on above: Performed By: #### K #### [address] [address] Certified Ophthalmic Medical Technician: Zeb Garcia MD Basic Metabolic Profon 08-19 (cont.) Normal [facility] Comment on above: Result Comment: Aver age GFR for <20 years old not available. Chronic Kidney Disease: <60 mL/min/1.73sq m Kidney failure: <15 mL/min/1.73sq m eGFR calculated using average adult body mass. Additional eGFR calculator available at: http://www.[employer]poz/multiple_crcl_2012.htm Performed By: #### K #### [address] [address] Certified Ophthalmic Medical Technician: Zeb Garcia MD Anion gap [Moles/Vol] 11 mmol/L Normal 9-17 [facility] Comment on above: Performed By: #### K #### [address] [address] Certified Ophthalmic Medical Technician: Zeb Garcia MD Calcium [Mass/Vol] 8.0 mg/dL Low 8.4-10.2 [facility] Comment on above: Performed By: #### K #### [address] [address] Certified Ophthalmic Medical Technician: Zeb Garcia MD Chloride [Moles/Vol] 105 mmol/L Normal 98-107 [facility] Comment on above: Performed By: #### K #### [address] [address] Certified Ophthalmic Medical Technician: Zeb Garcia MD CO2 [Moles/Vol] 18 mmol/L Low 20-31 [facility] Comment on above: Performed By: #### K #### [address] [address] Certified Ophthalmic Medical Technician: Zeb Garcia MD Creatinine [Mass/Vol] 0.64 mg/dL Normal 0.57-0.87 [facility] Comment on above: Performed By: #### K #### [address] [address] Certified Ophthalmic Medical Technician: Zeb Garcia MD GFR,non Amer Pediatric GFR requi res additional information. Refer to NKDEP website for Normal >60 [facility] Comment on above: Result Comment: calc ulator. Performed By: #### K #### [address] [address] Certified Ophthalmic Medical Technician: Zeb Garcia MD Glucose [Mass/Vol] 160 mg/dL High 60-100 [facility] Comment on above: Performed By: #### K #### [address] [address] Certified Ophthalmic Medical Technician: Zeb Garcia MD Potassium [Moles/Vol] 3.8 mmol/L Normal 3.6-4.9 [facility] Comment on above: Performed By: #### K #### [address] [address] Certified Ophthalmic Medical Technician: Zeb Garcia MD Sodium [Moles/Vol] 134 mmol/L Low 135-144 [facility] Comment on above: Performed By: #### K #### [address] [address] Certified Ophthalmic Medical Technician: Zeb Garcia MD Urea nitrogen [Mass/Vol] 14 mg/dL Normal 5-18 [facility] Comment on above: Performed By: #### K #### [address] [address] Certified Ophthalmic Medical Technician: Zeb Garcia MD (cont.) Normal [facility] Comment on above: Result Comment: Aver age GFR for <20 years old not available. Chronic Kidney Disease: <60 mL/min/1.73sq m Kidney failure: <15 mL/min/1.73sq m eGFR calculated using average adult body mass. Additional eGFR calculator available at: http://www.[employer].com/multiple_crcl_2012.htm Performed By: #### O SMO, ANTONY, CP #### [address] [address] Certified Ophthalmic Medical Technician: Zeb Garcia MD Anion gap [Moles/Vol] 14 mmol/L Normal 9-17 [facility] Comment on above: Performed By: #### O SMO, ANTONY, CP #### [address] [address] Certified Ophthalmic Medical Technician: Zeb Garcia MD Calcium [Mass/Vol] 8.2 mg/dL Low 8.4-10.2 [facility] Comment on above: Performed By: #### O SMO, ANTONY, CP #### [address] [address] Certified Ophthalmic Medical Technician: Zeb Garcia MD Chloride [Moles/Vol] 110 mmol/L High 98-107 [facility] Comment on above: Performed By: #### O SMO, ANTONY, CP #### [address] [address] Certified Ophthalmic Medical Technician: Zeb Garcia MD CO2 [Moles/Vol] 17 mmol/L Low 20-31 [facility] Comment on above: Performed By: #### O SMO, ANTONY, CP #### [address] [address] Certified Ophthalmic Medical Technician: Zeb Garcia MD Creatinine [Mass/Vol] 0.70 mg/dL Normal 0.57-0.87 [facility] Comment on above: Performed By: #### O SMO, ANTONY, CP #### [address] [address] Certified Ophthalmic Medical Technician: Zeb Garcia MD GFR,non Amer Pediatric GFR requi res additional information. Refer to NKDEP website for Normal >60 [facility] Comment on above: Result Comment: calc ulator. Performed By: #### O SMO, ANTONY, CP #### [address] [address] Certified Ophthalmic Medical Technician: Zeb Garcia MD Glucose [Mass/Vol] 186 mg/dL High 60-100 [facility] Comment on above: Performed By: #### O SMO, ANTONY, CP #### [address] [address] Certified Ophthalmic Medical Technician: Zeb Garcia MD Potassium [Moles/Vol] 4.7 mmol/L Normal 3.6-4.9 [facility] Comment on above: Performed By: #### O SMO, ANTONY, CP #### [address] [address] Certified Ophthalmic Medical Technician: Zeb Garcia MD Sodium [Moles/Vol] 141 mmol/L Normal 135-144 [facility] Comment on above: Performed By: #### O SMO, ANTONY, CP #### [address] [address] Certified Ophthalmic Medical Technician: Zeb Garcia MD Urea nitrogen [Mass/Vol] 17 mg/dL Normal 5-18 [facility] Comment on above: Performed By: #### O SMO, ANTONY, CP #### [address] [address] Certified Ophthalmic Medical Technician: Zeb Garcia MD BUN/CRE Ratio NOT REPORTED Normal 9-20 [facility] Comment on above: Performed By: #### K #### [address] [address] Certified Ophthalmic Medical Technician: Zeb Garcia MD Performed By: #### O SMO, ANTONY, CP #### [facility] [address] [place] [address] Certified Ophthalmic Medical Technician: Zeb Garcia MD GFR, Amer NOT REPORTED Normal >60 [facility] Comment on above: Performed By: #### K #### [address] [address] Certified Ophthalmic Medical Technician: Zeb Garcia MD Performed By: #### O SMO, ANTONY, CP #### [facility] [address] [place] [address] Certified Ophthalmic Medical Technician: Zeb Garcia MD Staging: NOT REPORTED Normal [facility] Comment on above: Performed By: #### K #### [address] [address] Certified Ophthalmic Medical Technician: Zeb Garcia MD Performed By: #### O SMO, ANTONY, CP #### [facility] [address] [place] [address] Certified Ophthalmic Medical Technician: Zeb Garcia MD Comp Metabolic Profon 2018 (cont.) Normal [facility] Comment on above: Result Comment: Aver age GFR for <20 years old not available. Chronic Kidney Disease: <60 mL/min/1.73sq m Kidney failure: <15 mL/min/1.73sq m eGFR calculated using average adult body mass. Additional eGFR calculator available at: http://www.[employer]Sympoz/multiple_crcl_2011.htm Performed By: #### O SMO, ANTONY, CP #### [facility] [address] [place] [address] Certified Ophthalmic Medical Technician: Zeb Garcia MD Albumin [Mass/Vol] 3.8 g/dL Normal 3.2-4.5 [facility] Comment on above: Performed By: #### O SMO, ANTONY, CP #### [facility] [address] [place] [address] Certified Ophthalmic Medical Technician: Zeb Garcia MD Albumin/Globulin [Mass ratio] 1.5 {ratio} Normal 1.0-2.5 [facility] Comment on above: Performed By: #### O SMO, ANTONY, CP #### [facility] [address] [place] [address] Certified Ophthalmic Medical Technician: Zeb Garcia MD Alkaline Phos 297 U/L Normal 74-390 [facility] Comment on above: Performed By: #### O SMO, ANTONY, CP #### [facility] [address] [place] [address] Certified Ophthalmic Medical Technician: Zeb Garcia MD ALT [Catalytic activity/Vol] 15 U/L Normal 5-41 [facility] Comment on above: Performed By: #### O SMO, ANTONY, CP #### [facility] [address] [place] [address] Certified Ophthalmic Medical Technician: Zeb Garcia MD Anion gap [Moles/Vol] 20 mmol/L High 9-17 [facility] Comment on above: Performed By: #### O SMO, ANTONY, CP #### [facility] [address] [place] [address] Certified Ophthalmic Medical Technician: Zeb Garcia MD AST [Catalytic activity/Vol] 14 U/L Normal <40 [facility] Comment on above: Performed By: #### O SMO, ANTONY, CP #### [address] [address] Certified Ophthalmic Medical Technician: Zeb Garcia MD Bilirubin Ql (U) 0.16 mg/dL Low 0.3-1.2 [facility] Comment on above: Performed By: #### O SMO, ANTONY, CP #### [address] [address] Certified Ophthalmic Medical Technician: Zeb Garcia MD Calcium [Mass/Vol] 8.5 mg/dL Normal 8.4-10.2 [facility] Comment on above: Performed By: #### O SMO, ANTONY, CP #### [facility] [address] [place] [address] Certified Ophthalmic Medical Technician: Zeb Garcia MD Chloride [Moles/Vol] 106 mmol/L Normal 98-107 [facility] Comment on above: Performed By: #### O SMO, ANTONY, CP #### [facility] [address] [place] [address] Certified Ophthalmic Medical Technician: Zeb Garcia MD CO2 [Moles/Vol] 13 mmol/L Low 20-31 [facility] Comment on above: Performed By: #### O SMO, ANTONY, CP #### [facility] [address] [place] [address] Certified Ophthalmic Medical Technician: Zeb Garcia MD Creatinine [Mass/Vol] 0.79 mg/dL Normal 0.57-0.87 [facility] Comment on above: Performed By: #### O SMO, ANTONY, CP #### [address] [address] Certified Ophthalmic Medical Technician: Zeb Garcia MD GFR,non Amer Pediatric GFR requi res additional information. Refer to NKDEP website for Normal >60 [facility] Comment on above: Result Comment: calc ulator. Performed By: #### O SMO, ANTONY, CP #### [address] [address] Certified Ophthalmic Medical Technician: Zeb Garcia MD Glucose [Mass/Vol] 227 mg/dL High 60-100 [facility] Comment on above: Performed By: #### O SMO, ANTONY, CP #### [address] [address] Certified Ophthalmic Medical Technician: Zeb Garcia MD Potassium [Moles/Vol] 4.6 mmol/L Normal 3.6-4.9 [facility] Comment on above: Performed By: #### O SMO, ANTONY, CP #### [address] [address] Certified Ophthalmic Medical Technician: Zeb Garcia MD Protein [Mass/Vol] 6.4 g/dL Normal 6.0-8.0 [facility] Comment on above: Performed By: #### O SMO, ANTONY, CP #### [facility] [address] [place] [address] Certified Ophthalmic Medical Technician: Zeb Garcia MD Sodium [Moles/Vol] 139 mmol/L Normal 135-144 [facility] Comment on above: Performed By: #### O SMO, ANTONY, CP #### [facility] [address] [place] [address] Certified Ophthalmic Medical Technician: Zeb Garcia MD Urea nitrogen [Mass/Vol] 20 mg/dL High 5-18 [facility] Comment on above: Performed By: #### O SMO, ANTONY, CP #### [facility] [address] [place] [address] Certified Ophthalmic Medical Technician: Zeb Garcia MD Hemoglobin A1Con 08-19-2018 HbA1c (Bld) [Mass fraction] 10.8 % High 4.0-6.0 [facility] Comment on above: Performed By: #### O SMO, ANTONY, CP #### [facility] [address] [place] [address] Certified Ophthalmic Medical Technician: Zeb Garcia MD HbA1c (Bld) [Mass fraction] 263 mg/dL Normal [facility] Comment on above: Result Comment: The ADA and AACC recommend providing the estimated average glucose result to permit better patient understanding of their HBA1c result. Performed By: #### O SMO, ANTONY, CP #### [facility] [address] [place] [address] Certified Ophthalmic Medical Technician: Zeb Garcia MD K (Potassium)on 08-19-2018 Potassium [Moles/Vol] 3.8 mmol/L Normal 3.6-4.9 [facility] Comment on above: Performed By: #### K #### [facility] [address] [place] [address] Certified Ophthalmic Medical Technician: Zeb Garcia MD Osmolalityon 08-19-2018 Osmolality [Osmolality] 326 mOsm/kg Critically high 275-295 [facility] Comment on above: Performed By: #### O SMO, ANTONY, CP #### [facility] [address] [place] [address] Certified Ophthalmic Medical Technician: Zeb Garcia MD Phosphorus, Inorg.on 019 Phosphorus, Inorg. 4.6 mg/dL Normal 2.9-5.1 [facility] Comment on above: Performed By: #### K #### [facility] [address] [place] [address] Certified Ophthalmic Medical Technician: Zeb Garcia MD Phosphorus, Inorg. 3.8 mg/dL Normal 2.9-5.1 [facility] Comment on above: Performed By: #### O SMO, ANTONY, CP #### [facility] [address] [place] [address] Certified Ophthalmic Medical Technician: Zeb Garcia MD Phosphorus, Inorg. 3.5 mg/dL Normal 2.9-5.1 [facility] Comment on above: Performed By: #### O SMO, ANTONY, CP #### [facility] [address] [place] [address] Certified Ophthalmic Medical Technician: Zeb Garcia MD Specimen Rejectionon 019 Reason for rejection Unable to perform testing: Specimen hemolyzed. Normal [facility] Comment on above: Performed By: #### O SMO, ANTONY, CP #### [facility] [address] [place] [address] Certified Ophthalmic Medical Technician: Zeb Garcia MD Source of sample .BLOOD Normal [facility] Comment on above: Performed By: #### O SMO, ANTONY, CP #### [facility] [address] [place] [address] Certified Ophthalmic Medical Technician: Zeb Garcia MD Test ordered CP, ANTONY Normal [facility] Comment on above: Performed By: #### O SMO, ANTONY, CP #### [facility] [address] [place] [address] Certified Ophthalmic Medical Technician: Zeb Garcia MD ----- NOT REPORTED Normal [facility] Comment on above: Performed By: #### O SMO, ANTONY, CP #### [facility] [address] [place] [address] Certified Ophthalmic Medical Technician: Zeb Garcia MD Basic Metabolic Profon 08-04 (cont.) Normal [facility] Comment on above: Result Comment: Aver age GFR for <20 years old not available. Chronic Kidney Disease: <60 mL/min/1.73sq m Kidney failure: <15 mL/min/1.73sq m eGFR calculated using average adult body mass. Additional eGFR calculator available at: http://www.[employer]/multiple_crcl_2012.htm Performed By: #### O SMO, ANTONY, CP #### [facility] [address] [place] [address] Certified Ophthalmic Medical Technician: Zeb Garcia MD Anion gap [Moles/Vol] 11 mmol/L Normal 9-17 [facility] Comment on above: Performed By: #### O SMO, ANTONY, CP #### [address] [address] Certified Ophthalmic Medical Technician: Zeb Garcia MD Calcium [Mass/Vol] 8.5 mg/dL Normal 8.4-10.2 [facility] Comment on above: Performed By: #### O SMO, ANTONY, CP #### [facility] [address] [place] [address] Certified Ophthalmic Medical Technician: Zeb Garcia MD Chloride [Moles/Vol] 110 mmol/L High 98-107 [facility] Comment on above: Performed By: #### O SMO, ANTONY, CP #### [facility] [address] [place] [address] Certified Ophthalmic Medical Technician: Zeb Garcia MD CO2 [Moles/Vol] 17 mmol/L Low 20-31 [facility] Comment on above: Performed By: #### O SMO, ANTONY, CP #### [facility] [address] [place] [address] Certified Ophthalmic Medical Technician: Zeb Garcia MD Creatinine [Mass/Vol] 0.59 mg/dL Normal 0.57-0.87 [facility] Comment on above: Performed By: #### O SMO, ANTONY, CP #### [facility] [address] [place] [address] Certified Ophthalmic Medical Technician: Zeb Garcia MD GFR,non Amer Pediatric GFR requi res additional information. Refer to NKDEP website for Normal >60 [facility] Comment on above: Result Comment: calc ulator. Performed By: #### O SMO, ANTONY, CP #### [facility] [address] [place] [address] Certified Ophthalmic Medical Technician: Zeb Garcia MD Glucose [Mass/Vol] 150 mg/dL High 60-100 [facility] Comment on above: Performed By: #### O SMO, ANTONY, CP #### [facility] [address] [place] [address] Certified Ophthalmic Medical Technician: Zeb Garcia MD Potassium [Moles/Vol] 4.0 mmol/L Normal 3.6-4.9 [facility] Comment on above: Performed By: #### O SMO, ANTONY, CP #### [facility] [address] [place] [address] Certified Ophthalmic Medical Technician: Zeb Garcia MD Sodium [Moles/Vol] 138 mmol/L Normal 135-144 [facility] Comment on above: Performed By: #### O SMO, ANTONY, CP #### [facility] [address] [place] [address] Certified Ophthalmic Medical Technician: Zeb Garcia MD Urea nitrogen [Mass/Vol] 15 mg/dL Normal 5-18 [facility] Comment on above: Performed By: #### O SMO, ANTONY, CP #### [facility] [address] [place] [address] Certified Ophthalmic Medical Technician: Zeb Garcia MD BUN/CRE Ratio NOT REPORTED Normal 9-20 [facility] Comment on above: Performed By: #### O SMO, ANTONY, CP #### [facility] [address] [place] [address] Certified Ophthalmic Medical Technician: Zeb Garcia MD GFR, Amer NOT REPORTED Normal >60 [facility] Comment on above: Performed By: #### O SMO, ANTONY, CP #### [address] [address] Certified Ophthalmic Medical Technician: Zeb Garcia MD Staging: NOT REPORTED Normal [facility] Comment on above: Performed By: #### O SMO, ANTONY, CP #### [address] [address] Certified Ophthalmic Medical Technician: Zeb Garcia MD (cont.) Normal [facility] Comment on above: Result Comment: Aver age GFR for <20 years old not available. Chronic Kidney Disease: <60 mL/min/1.73sq m Kidney failure: <15 mL/min/1.73sq m eGFR calculated using average adult body mass. Additional eGFR calculator available at: http://www.[employer]z/multiple_crcl_2012.htm Performed By: #### O SMO, ANOTNY, CP #### [address] [address] Certified Ophthalmic Medical Technician: Zeb Garcia MD Anion gap [Moles/Vol] 12 mmol/L Normal 9-17 [facility] Comment on above: Performed By: #### O SMO, ANTONY, CP #### [facility] [address] [place] [address] Certified Ophthalmic Medical Technician: Zeb Garcia MD Calcium [Mass/Vol] 8.6 mg/dL Normal 8.4-10.2 [facility] Comment on above: Performed By: #### O SMO, ANTONY, CP #### [facility] [address] [place] [address] Certified Ophthalmic Medical Technician: Zeb Garcia MD Chloride [Moles/Vol] 107 mmol/L Normal 98-107 [facility] Comment on above: Performed By: #### O SMO, ANTONY, CP #### [facility] [address] [place] [address] Certified Ophthalmic Medical Technician: Zeb Garcia MD CO2 [Moles/Vol] 16 mmol/L Low 20-31 [facility] Comment on above: Performed By: #### O SMO, ANTONY, CP #### [address] [address] Certified Ophthalmic Medical Technician: Zeb Garcia MD Creatinine [Mass/Vol] 0.71 mg/dL Normal 0.57-0.87 [facility] Comment on above: Performed By: #### O SMO, ANTONY, CP #### [address] [address] Certified Ophthalmic Medical Technician: Zeb Garcia MD GFR,non Amer Pediatric GFR requi res additional information. Refer to NKDEP website for Normal >60 [facility] Comment on above: Result Comment: calc ulator. Performed By: #### O SMO, ANTONY, CP #### [address] [address] Certified Ophthalmic Medical Technician: Zeb Garcia MD Glucose [Mass/Vol] 173 mg/dL High 60-100 [facility] Comment on above: Performed By: #### O SMO, ANTONY, CP #### [address] [address] Certified Ophthalmic Medical Technician: Zeb Garcia MD Potassium [Moles/Vol] 4.1 mmol/L Normal 3.6-4.9 [facility] Comment on above: Performed By: #### O SMO, ANTONY, CP #### [facility] [address] [place] [address] Certified Ophthalmic Medical Technician: Zeb Garcia MD Sodium [Moles/Vol] 135 mmol/L Normal 135-144 [facility] Comment on above: Performed By: #### O SMO, ANTONY, CP #### [facility] [address] [place] [address] Certified Ophthalmic Medical Technician: Zeb Garcia MD Urea nitrogen [Mass/Vol] 19 mg/dL High 5-18 [facility] Comment on above: Performed By: #### O SMO, ANTONY, CP #### [facility] [address] [place] [address] Certified Ophthalmic Medical Technician: Zeb Garcia MD BUN/CRE Ratio NOT REPORTED Normal 9-20 [facility] Comment on above: Performed By: #### O SMO, ANTONY, CP #### [address] [address] Certified Ophthalmic Medical Technician: Zeb Garcia MD GFR, Amer NOT REPORTED Normal >60 [facility] Comment on above: Performed By: #### O SMO, ANTONY, CP #### [facility] [address] [place] [address] Certified Ophthalmic Medical Technician: eZb Garcia MD Staging: NOT REPORTED Normal [facility] Comment on above: Performed By: #### O SMO, ANTONY, CP #### [facility] [address] [place] [address] Certified Ophthalmic Medical Technician: Zeb Garcia MD CBC with Diffon 08-04-2018 Abs. Basophil 0.00 k/uL Normal 0.0-0.2 [facility] Comment on above: Performed By: #### O SMO, ANTONY, CP #### [facility] [address] [place] [address] Certified Ophthalmic Medical Technician: Zeb Garcia MD Abs.Imm.Granulocyte 0.00 k/uL Normal 0.00-0.30 [facility] Comment on above: Performed By: #### O SMO, ANTONY, CP #### [facility] [address] [place] [address] Certified Ophthalmic Medical Technician: Zeb Garcia MD Abs.Neutrophil (Seg) 15.50 k/uL High 1.5-8.0 [facility] Comment on above: Performed By: #### O SMO, ANTONY, CP #### [address] [address] Certified Ophthalmic Medical Technician: Zeb Garcia MD Basophils/100 WBC (Bld) 0 % Normal 0-2 [facility] Comment on above: Performed By: #### O SMO, ANTONY, CP #### [address] [address] Certified Ophthalmic Medical Technician: Zeb Garcia MD Eosinophils (Bld) [#/Vol] 0.00 10*3/uL Normal 0.0-0.4 [facility] Comment on above: Performed By: #### O SMO, ANTONY, CP #### [place] [address] Certified Ophthalmic Medical Technician: Zeb Garcia MD Eosinophils/100 WBC (Bld) 0 % Low 1-4 [facility] Comment on above: Performed By: #### O SMO, ANTONY, CP #### [address] [address] Certified Ophthalmic Medical Technician: Zeb Garcia MD Immature granulocytes (Bld) [#/Vol] 0 % Normal 0 [facility] Comment on above: Performed By: #### O SMO, ANTONY, CP #### [place] [address] Certified Ophthalmic Medical Technician: Zeb Garcia MD Lymphocytes (Bld) [#/Vol] 0.38 10*3/uL Low 1.5-6.5 [facility] Comment on above: Performed By: #### O SMO, ANTONY, CP #### [address] [address] Certified Ophthalmic Medical Technician: Zeb Garcia MD Lymphocytes/100 WBC (Bld) 2 % Low 25-45 [facility] Comment on above: Performed By: #### O SMO, ANTONY, CP #### [address] [address] Certified Ophthalmic Medical Technician: Zeb Garcia MD Monocytes (Bld) [#/Vol] 3.02 10*3/uL High 0.1-1.4 [facility] Comment on above: Performed By: #### O SMO, ANTONY, CP #### [address] [address] Certified Ophthalmic Medical Technician: Zeb Garcia MD Monocytes/100 WBC (Bld) 16 % High 2-8 [facility] Comment on above: Performed By: #### O SMO, ANTONY, CP #### [address] [address] Certified Ophthalmic Medical Technician: Zeb Garcia MD Morphology Howard (Bld) [Interp] Normal Normal [facility] Comment on above: Performed By: #### O SMO, ANTONY, CP #### [address] [address] Certified Ophthalmic Medical Technician: Zeb Garcia MD Neutrophil (Seg) 82 % High 34-64 [facility] Comment on above: Performed By: #### O SMO, ANTONY, CP #### [address] [address] Certified Ophthalmic Medical Technician: Zeb Garcia MD Erythrocyte distribution width (RBC) [Ratio] 12.4 % Normal 11.8-14.4 [facility] Comment on above: Performed By: #### O SMO, ANTONY, CP #### [address] [address] Certified Ophthalmic Medical Technician: Zeb Garcia MD Hematocrit (Bld) [Volume fraction] 39.7 % Normal 37.0-49.0 [facility] Comment on above: Performed By: #### O SMO, ANTONY, CP #### [address] [address] Certified Ophthalmic Medical Technician: Zeb Garcia MD Hemoglobin (Bld) [Mass/Vol] 13.5 g/dL Normal 13.0-15.0 [facility] Comment on above: Performed By: #### O SMO, ANTONY, CP #### [address] [address] Certified Ophthalmic Medical Technician: Zeb Garcia MD MCH (RBC) [Entitic mass] 29.5 pg Normal 25.0-35.0 [facility] Comment on above: Performed By: #### O SMO, ANTONY, CP #### [address] [address] Certified Ophthalmic Medical Technician: Zeb Garcia MD MCHC (RBC) [Mass/Vol] 34.0 g/dL Normal 28.4-34.8 [facility] Comment on above: Performed By: #### O SMO, ANTONY, CP #### [address] [address] Certified Ophthalmic Medical Technician: Zeb Garcia MD MCV (RBC) [Entitic vol] 86.7 fL Normal 78.0-102.0 [facility] Comment on above: Performed By: #### O SMO, ANTONY, CP #### [address] [address] Certified Ophthalmic Medical Technician: Zeb Garcia MD NRBC Automated 0.0 per 100 WBC Normal 0.0 [facility] Comment on above: Performed By: #### O SMO, ANTONY, CP #### [address] [address] Certified Ophthalmic Medical Technician: Zeb Garcia MD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 and sex 2.47 % Reyna Henderson NP Work Phone: [facility] 07-03-2021 20:02-0400 Body mass index (BMI) [Ratio] 17.37 kg/m2 Reyna Henderson 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 07-03-2021 20:02-0400 Body temperature 98.2 [degF] Reyna Henderson 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 07-03-2021 20:02-0400 Body weight 56.6 kg Reyna Henderson 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 07-03-2021 20:02-0400 Diastolic blood pressure 78 mm[Hg] Reyna Rodriguezbert 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 07-03-2021 20:02-0400 Heart rate 100 /min Reyna [place] 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 07-03-2021 20:02-0400 Respiratory rate 20 /min Reyna [place] 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 07-03-2021 20:02-0400 SaO2% (BldA) [Mass fraction] 98 % Reyna Henderson 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 07-03-2021 20:02-0400 Systolic blood pressure 108 mm[Hg] Reyna [place] 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 08-17-2020 10:16-0400 Diastolic blood pressure 68 mm[Hg] Victor Hugo Hurtado MD Work Phone: [facility] 08-17-2020 10:16-0400 Heart rate 98 /min Victor Hugo Hurtado MD Work Phone: [facility] 08-17-2020 10:16-0400 Respiratory rate 15 /min Victor Hugo Hurtado MD Work Phone: [facility] 08-17-2020 10:16-0400 Systolic blood pressure 117 mm[Hg] Victor Hugo Hurtado MD Work Phone: [facility] 08-17-2020 10:00-0400 SaO2% (BldA) [Mass fraction] 98 % Victor Hugo Hurtado MD Work Phone: [facility] 08-17-2020 07:22-0400 Body height 182.9 cm Victor Hugo Hurtado MD Work Phone: [facility] 08-17-2020 07:22-0400 Body mass index (BMI) [Ratio] 16.76 kg/m2 Victor Hugo Hurtado MD Work Phone: [facility] 08-17-2020 07:22-0400 Body temperature 97.59 [degF] Victor Hugo Hurtado MD Work Phone: [facility] 08-17-2020 07:22-0400 Body weight 56.05 kg Victor Hugo Hurtado MD Work Phone: [facility] 07-11-2020 11:06-0400 Body temperature 97 [degF] Vianey Mat CNP Work Phone: [facility] 07-11-2020 11:06-0400 Body weight 58.51 kg Vianey Mat LINE BUILDER Work Phone: [facility] 07-11-2020 11:06-0400 Diastolic blood pressure 68 mm[Hg] Vianey Mat LINE BUILDER Work Phone: [facility] 07-11-2020 11:06-0400 Heart rate 100 /min Vianey Mat LINE BUILDER Work Phone: [facility] 07-11-2020 11:06-0400 Respiratory rate 16 /min Vianey Mat LINE BUILDER Work Phone: [facility] 07-11-2020 11:06-0400 SaO2% (BldA) [Mass fraction] 98 % Vianey Mat LINE BUILDER Work Phone: [facility] 07-11-2020 11:06-0400 Systolic blood pressure 105 mm[Hg] Vianey Mat LINE BUILDER Work Phone: [facility] 05-19-2020 14:45-0400 Body Temperature 97.7 [degF] [facility] 05-19-2020 14:45-0400 Body weight 56.25 kg [facility] 05-19-2020 14:45-0400 BP Diastolic 64 mm[Hg] [facility] 05-19-2020 14:45-0400 BP Systolic 100 mm[Hg] [facility] 05-19-2020 14:45-0400 Pulse (Heart Rate) 102 /min [facility] 05-19-2020 14:45-0400 Pulse Oximetry 97 % [facility] 05-19-2020 14:45-0400 Respiratory Rate 18 /min [facility] 02-16-2020 09:40-0500 BMI (Body Mass Index) 17.02 kg/m2 [facility] 02-16-2020 09:40-0500 Body Temperature 98.4 [degF] [facility] 02-16-2020 09:40-0500 Body weight 55.34 kg [facility] 02-16-2020 09:40-0500 BP Diastolic 70 mm[Hg] [facility] 02-16-2020 09:40-0500 BP Systolic 100 mm[Hg] [facility] 02-16-2020 09:40-0500 Height 180.3 cm [facility] 02-16-2020 09:40-0500 Pulse (Heart Rate) 107 /min [facility] 02-16-2020 09:40-0500 Pulse Oximetry 97 % [facility] 02-16-2020 09:40-0500 Respiratory Rate 20 /min [facility] 12-26-2018 08:15-0500 BMI (Body Mass Index) 17.85 kg/m2 [facility] [place] [place] 12-26-2018 08:15-0500 Body Temperature 97.5 [degF] [facility] [place] 12-26-2018 08:15-0500 Body weight 49.2 kg [facility] [place] [facility] [place] 12-26-2018 08:15-0500 BP Diastolic 68 mm[Hg] [facility] , [place] 12-26-2018 08:15-0500 BP Systolic 110 mm[Hg] [facility] , [place] 12-26-2018 08:15-0500 Pulse (Heart Rate) 92 /min [facility] [place] [place] 12-26-2018 08:15-0500 Pulse Oximetry 97 % [facility] [place] [facility] [place] 12-26-2018 08:15-0500 Respiratory Rate 18 /min [facility], [place] 12-24-2018 14:45-0500 Height 166 cm [place], [place] Encounters Encounter Date Encounter Type Care Provider Facility Start: 04-08-2023 End: 04-10-2023 Evaluation and management of inpatient Allison Malik Facility:[facility] Start: 04-07-2023 End: 04-07-2023 Emergency department patient visit PHYSICIAN NO FAMILY Facility:[facility] Start: 03-22-2023 Non-patient / Non-visit PHYSICIAN NO [facility] Work Phone: Start: 03-21-2023 End: 03-23-2023 Evaluation and management of inpatient Sarah Jeanette Facility:[facility] Start: 03-21-2023 End: 03-23-2023 Evaluation and management of inpatient PHYSICIAN NO [facility] Work Phone: Start: 01-09-2023 ambulatory Stephan Start: 01-07-2023 End: 01-13-2023 Evaluation and management of inpatient PHYSICIAN NO FAMILY Facility:[facility] Start: 01-07-2023 End: 01-13-2023 Evaluation and management of inpatient PHYSICIAN NO [facility] Work Phone: Start: 01-06-2023 ambulatory PHYSICIAN NO [facility] Fac ility:[facility] Start: 01-06-2023 Registered Recurring PHYSICIAN NO JUAQUIN MÉNDEZ [facility] Start: 10-26-2022 End: 10-28-2022 Evaluation and management of inpatient Marwan Wassouf Facility:[facility] Start: 10-26-2022 End: 10-28-2022 Evaluation and management of inpatient PHYSICIAN NO [facility] Work Phone: Start: 05-28-2022 End: 05-28-2022 Emergency department patient visit REYNA HENDERSON [facility] Start: 04-12-2022 End: 04-12-2022 ambulatory [facility] Start: 2022 ambulatory [facility] Start: 02-05-2022 End: 02-05-2022 ambulatory [facility] Start: 01-21-2022 End: 01-21-2022 ambulatory [facility] Start: 01-11-2022 End: 01-11-2022 ambulatory [facility] Start: 01-08-2022 ambulatory [facility] Start: 12-24-2021 End: 12-24-2021 ambulatory [facility] Start: 12-11-2021 End: 12-11-2021 ambulatory [facility] Start: 11-27-2021 End: 11-27-2021 ambulatory [facility] Start: 10-29-2021 ambulatory [facility] Start: 10-26-2021 End: 10-27-2021 ambulatory [facility] Start: 10-26-2021 End: 10-26-2021 [facility] Start: 10-26-2021 End: 10-26-2021 Subsequent hospital visit by physician Krishna Benoit MD Work Phone: [facility] Start: 07-19-2021 End: 07-19-2021 Subsequent hospital visit by physician Ebony Bridges MD Work Phone: [facility] Comment on above: Arrived Start: 07-03-2021 End: 07-03-2021 Emergency department patient visit Reyna Henderson FEATHER CURLING MACHINE OPERATOR Work Phone: [facility] Comment on above: Closed fracture of p roximal end of right humerus (Primary Dx) Start: 12-15-2020 Ophthalmic examinati on and evaluation Reyna Henderson NP Work Phone: [facility] Work Phone: Start: 08-17-2020 End: 08-17-2020 Emergency department patient visit PHYSICIAN NO [facility] Start: 08-17-2020 End: 08-17-2020 Emergency department patient visit Victor Hugo Hurtado MD Work Phone: [facility] Start: 07-11-2020 End: 07-11-2020 ambulatory PHYSICIAN NO [facility] Start: 07-11-2020 End: 07-11-2020 Office outpatient visit 25 minutes Vianey Bob CNP Work Phone: [facility] Comment on above: Pinworms (Primary Dx ) Start: 05-19-2020 End: 05-19-2020 ambulatory PHYSICIAN NO [facility] Start: 05-19-2020 End: 05-19-2020 Office outpatient visit 15 minutes Batool Vaca Work Phone: [facility] Comment on above: Rhus dermatitis (Fabienne suma Dx) Start: 02-17-2020 End: 02-21-2020 Patient encounter procedure PHYSICIAN NO [facility] Start: 02-16-2020 End: 02-16-2020 ambulatory PHYSICIAN NO [facility] Start: 02-16-2020 End: 02-16-2020 Office outpatient visit 25 minutes Justice Alston Work Phone: [facility] Comment on above: Pinworms (Primary Dx ) Start: 12-24-2018 End: 12-26-2018 Evaluation and management of inpatient RASHED A RUBY [facility] Start: 12-24-2018 End: 12-26-2018 Evaluation and management of inpatient Rashed Noble Gtz Work Phone: [id number] Comment on above: Type 1 diabetes michael itus without complication (HCC) Start: 08-19-2018 End: 08-21-2018 Evaluation and management of inpatient TANIYA PEGUERO [facility] Start: 08-03-2018 End: 08-05-2018 Evaluation and management of inpatient EMMIE NIEVES [facility] Procedures Date Procedure Procedure Detail Performing Clinician [...] stick/tabl et reagent auto microscopy Victor Hugo Hrutado MD Work Phone: Start: 12-26-2018 DISCHARGE PATIENT [...] EMMIE NIEVES Start: 12-24-2018 IP CONSULT TO [facility] VACUUM FURNACE OPERATOR EMMIE NIEVES Start: 12-24-2018 NOTIFY PHYSICIAN (SPECIFY) EMMIE NIEVES Start: 12-24-2018 SKIN CARE EMMIE Juanito MIGUEL Start: 12-24-2018 FULL CODE EMMIE Juanito MIGUEL Start: 12-24-2018 POC BETA-KETONE Kim Gtz Work Phone: Start: 12-24-2018 Glucose blood reagent strip Kim Gtz Work Phone: Start: 12-24-2018 Assay of osmolality blood Darling Cheung Work Phone: Start: 12-24-2018 End: 12-25-2018 Assay of phosphorus inorganic Arrayitnuria Cheung Work Phone: Start: 12-24-2018 Comprehensive metabo [...] instr mnt chem analyzers pr date EMMIE NIVEES Start: 08-20-2018 Potassium serum plasma/whole blood EMMIE [...] EMMIE NIEVES Start: 08-19-2018 IP [facility] VACUUM FURNACE OPERATOR EMMIE NIEVES Start: 08-19-2018 IP CONSULT TO [facility] ENDOCRINOLOGY EMMIE NIEVES Start: 08-19-2018 NOTIFY PHYSICIAN [...] EMMIE NIEVES Start: 08-03-2018 [facility] [facility] EMMIE NIEVES Start: 08-03-2018 Assay [...] EMMIE NIEVES Start: 08-03-2018 IP CONSULT TO [facility] VACUUM FURNACE OPERATOR EMMIE NIEVES Start: 08-03-2018 NEURO CHECKS EMMIE MIGUEL Start: 08-03-2018 SKIN CARE EMMIE MIGUEL Start: 08-03-2018 BEDREST EMMIE MIGUEL Start: 08-03-2018 NOTIFY PHYSICIAN (SPECIFY) EMMIE NIEVES Start: 08-03-2018 STRICT INTAKE AND OUTPUT EMMIE NIEVES Start: 08-03-2018 PATIENT STATUS (DIRECT) EMMIE NIEVES Plan of Treatment Date Care Activity Detail Author Start: 07-22-2026 DTaP/Tdap/Td vaccine (7 - Td) DTaP/Tdap/Td vaccine (7 - Td) [place], [place] Start: 07-22-2026 Tetanus vaccination Tetanus: Every 1 0yrs [facility] Start: 07-22-2026 Tetanus, diphtheria and acellular pertussis vaccination DTAP Vaccines (7 - Td) [facility] Start: 07-22-2026 Vaccination for diphtheria, pertussis, and tetanus DTAP Vaccines (7 - Td or Tdap) [facility] Start: 03-23-2023 [facility] Start: 03-22-2023 Comprehensive metabo lic 2000 panel - Serum or Plasma [facility] Start: 03-22-2023 [facility] Start: 03-21-2023 End: 03-21-2023 [facility] Start: 03-21-2023 Consultation [facility] Start: 03-21-2023 Hospital admission [facility] Start: 01-13-2023 [facility] Start: 01-07-2023 Referral to clinical grain farmer [facility] Start: 01-07-2023 Hospital admission [facility] Start: 10-28-2022 [facility] Start: 10-27-2022 Blood chemistry [facility] Start: 10-27-2022 Blood chemistry [facility] Start: 10-27-2022 Blood chemistry [facility] Start: 10-27-2022 [facility] Start: 10-27-2022 Blood chemistry [facility] Start: 10-26-2022 Blood chemistry [facility] Start: 10-26-2022 Blood chemistry [facility] Start: 10-26-2022 Consultation [facility] Start: 10-26-2022 Hospital admission [facility] Start: 10-26-2022 Referral to psychiatrist [facility] Start: 10-26-2022 [facility] Start: 10-26-2022 [facility] Start: 10-26-2022 LIPIDS LIPIDS [facility] Start: 10-26-2022 MICROALBUMIN MICROALBUMIN [facility] Start: 10-26-2022 Thyrotropin [Units/volume] in Serum or Plasma TSH Level [facility] Start: 04-25-2022 Hemoglobin A1c/Hemoglobin.total in Blood HEMOGLOBIN A1C [facility] Start: 01-18-2022 Hemoglobin A1c/Hemoglobin.total in Blood HEMOGLOBIN A1C [facility] Start: 01-11-2022 End: 01-11-2022 Patient encounter procedure 01/11/2022 Office Visit Diabetes Services [place] [address] Scheduled Diabetes - [facility] Comment on above: Scheduled Start: 11-07-2021 End: 11-07-2021 Fine needle aspiration bx w/us gdn 1st lesion 11/07/2021 Video Visit Psychology [place] [address] [facility]uled [facility] Comment on above: Scheduled Start: 11-02-2021 Thyrotropin [Units/volume] in Serum or Plasma TSH Level [facility] Start: 10-19-2021 End: 10-19-2021 Patient encounter procedure 10/19/2021 Office Visit Diabetes [place] [address] Scheduled Diabetes - [facility] Comment on above: Scheduled Start: 10-14-2021 Hemoglobin A1c/Hemoglobin.total in Blood HEMOGLOBIN A1C [facility] Start: 10-11-2021 Influenza vaccination D [facility] Start: 08-09-2021 End: 08-09-2021 Patient encounter procedure 08/09/2021 Office Visit Orthopaedic Clinic [place] [address] Scheduled Orthopaedics - [facility] Comment on above: Scheduled Start: 07-19-2021 End: 07-19-2021 Patient encounter procedure 07/19/2021 Office Visit Diabetes Services [place] [address] Scheduled Diabetes - [facility] Comment on above: Scheduled Start: 10-11-2020 Influenza vaccination D [facility] Start: 2020 COVID-19 Vaccine (1) COVID-19 Vaccin e (1) [facility] Start: 2020 Meningococcal (ACWY) Vaccine (2 - 2-dose series) [facility] Start: 2020 Meningococcal conjug ate vaccination Meningococcal ACWY Vaccine (1 - 2-dose series) [facility] Start: 2020 Meningococcus vaccination [facility] Start: 02-19-2019 HIV screening HIV Screening [facility] Start: 11-19-2018 A1C test (Diabetic o r Prediabetic) A1C test (Diabetic or Prediabetic) [place] Start: 10-11-2018 Influenza vaccination Flu vaccine (# 1) [place] Start: 2016 Adolescent depressio n screening assessment Depression Screening (PHQ9) [facility] Start: 2016 COVID-19 Vaccine (1) COVID-19 Vaccin e (1) [facility] Start: 2016 Depression screening using PHQ-9 (Patient Health Questionnaire 9) score Depression Screening (PHQ9) [facility] Start: 02-19-2015 HPV VACCINES (1 - Ma le 2-dose series) HPV VACCINES (1 - Male 2-dose series) [facility] Start: 02-19-2015 Meningococcal conjug ate vaccination Meningococcal ACWY Vaccine (1 - 2-dose series) [facility] Start: 02-19-2015 Vaccination for alen n papillomavirus HPV Vaccines (1 - Male 2-dose series) [facility] Start: 02-19-2014 [object Object] Diabetic foot exam M [place] Start: 02-19-2014 Lipid screen Lipid screen [place], [place] Start: 02-19-2011 DTAP/TDAP/TD (1 - Tdap) DTAP/T DAP/TD (1 - Tdap) [facility] Start: 02-19-2011 Tetanus, diphtheria and acellular pertussis vaccination DTAP Vaccines (1 - Tdap) [facility] Start: 02-19-2010 Pneumococcal 0-64 ye ars Vaccine (1 of 1 - PPSV23) Pneumococcal 0-64 years Vaccine (1 of 1 - PPSV23) [place] Start: 02-19-2010 Pneumococcal vaccination PNEUM OCOCCAL VACCINE (1 - PPSV23) [facility] Start: 02-19-2009 COVID-19 VACCINES (#1) COVID-19 VACC AARON (#1) [facility] Start: 02-19-2007 History and physical examination, annual for health maintenance Wellness Visit [facility] Start: 02-19-2005 Hepatitis A immunization HEPAT ITIS A VACCINES (1 of 2 - 2-dose series) [facility] Start: 02-19-2005 HEPATITIS A VACCINES (1 of 2 - 2-dose series) HEPATITIS A VACCINES (1 of 2 - 2-dose series) [facility] Start: 02-19-2005 Ncuufjo-dvffk-fdjdgd a vaccination MMR Vaccine (1 of 2 - Standard series) [facility] Start: 02-19-2005 MMR VACCINES (1 of 2 - Standard series) MMR VACCINES (1 of 2 - Standard series) [facility] Start: 02-19-2005 Varicella vaccination VARICELL A VACCINES (1 of 2 - 2-dose childhood series) [facility] Start: 02-19-2005 VARICELLA VACCINES ( 1 of 2 - 2-dose childhood series) VARICELLA VACCINES (1 of 2 - 2-dose childhood series) [facility] Start: 2004 COVID-19 VACCINES (#1) COVID-19 VACC AARON (#1) [facility] Start: 2004 Inactivated poliovir us vaccine (product) IPV VACCINES (1 of 3 - 4-dose series) [facility] Start: 2004 POLIO VACCINES (1 of 3 - 4-dose series) POLIO VACCINES (1 of 3 - 4-dose series) [facility] Start: 2004 ANNUAL PHYSICAL ANNUAL PHYSICAL Dayt [facility] Start: 2004 Hepatitis B vaccination Hepati tis B Vaccines (1 of 3 - 3-dose primary series) [facility] Start: 2004 HEPATITIS B VACCINES (1 of 3 - 3-dose primary series) HEPATITIS B VACCINES (1 of 3 - 3-dose primary series) [facility] Start: 2004 LIPIDS LIPIDS [facility] Start: 2004 MICROALBUMIN MICROALBUMIN [facility] Start: 2004 Tetanus vaccination Tetanus: Every 1 0yrs [facility] Anion gap measurement [facility] CT Abdomen Pelvis Wi IV Contrast Only CT Abdomen Pelvis With IV Contrast Only Imaging [facility] 08/17/2020 8:55 AM EDT [facility] End: 02-15-2021 Gastrointestinal pathogens DNA and RNA panel - Stool by ANNE with non-probe detection Stool/GI PCR Panel Microbiology Routine Pinworms 1 Occurrences starting 02/16/2020 until 02/15/2021 [facility] Comment on above: 1 Occurrences starti ng 02/16/2020 until 02/15/2021 Patient Education [facility] Work Phone: Patient referral [facility] Work Phone: POCT glucose POCT glucose Poi nt of Care Testing Routine 4X Daily (AC & HS) until discontinued starting 12/24/2018 [facility] [place] Comment on above: 4X Daily (AC & HS) u ntil discontinued starting 12/24/2018 End: 10-26-2021 TTG IGA [facility] Work Phone: Comment on above: 1 Occurrences starti ng 10/26/2021 until 10/26/2021 Immunizations Immunization Date Immunization Notes Care Provider Juaquin le 10-26-2021 HEMOGLOBIN A1C Krishna Benoit MD Work Phone: [facility] 07-19-2021 HEMOGLOBIN A1C Ebony Bridges MD Work Phone: [facility] 04-13-2021 HEMOGLOBIN A1C Reyna heredia NP Work Phone: [facility] 12-21-2019 influenza virus vaccine, unspecified formulation [facility] 2018 Hepatitis A Ped/Adol (Vaqta) [facility], [place] 2018 Human Papillomavirus 9-valent vaccine [facility] 07-22-2016 hepatitis A vaccine, pediatric/adolescent dosage, 2 dose schedule [facility] [place], [place] 07-22-2016 Human Papillomavirus 9-valent vaccine [facility], [place] 07-22-2016 meningococcal polysaccharide (groups A, C, Y and W-135) diphtheria toxoid conjugate vaccine (MCV4P) [facility], [place] 07-22-2016 tetanus toxoid, redu mckenzie diphtheria toxoid, and acellular pertussis vaccine, adsorbed [facility] [place], [place] 07-22-2016 meningococcal vaccin e of unknown formulation and unknown serogroups [place] 12-01-2014 influenza virus vaccine, unspecified formulation [facility] [place] 11-28-2011 influenza virus vaccine, unspecified formulation [facility], [place] 10-27-2009 diphtheria, tetanus toxoids and acellular pertussis vaccine, 5 pertussis antigens [facility] [place] 10-27-2009 measles, mumps, rubella, and varicella virus vaccine [facility], [place] 10-27-2009 poliovirus vaccine, inactivated [facility], [place] 08-22-2005 diphtheria, tetanus toxoids and acellular pertussis vaccine, 5 pertussis antigens [facility], [place] 08-22-2005 poliovirus vaccine, inactivated [facility], [place] 05-22-2005 haemophilus influenz ae type b vaccine, PRP-OMP [place] 05-22-2005 measles, mumps and rubella virus vaccine [facility], [place] 05-22-2005 pneumococcal conjuga te vaccine, 13 valent [facility], [place] 2005 varicella virus vaccine [place] 01-14-2005 influenza virus vaccine, unspecified formulation [place] 2004 influenza virus vaccine, unspecified formulation [place] 2004 hepatitis B vaccine, pediatric or pediatric/adolescent dosage [place] 2004 diphtheria, tetanus toxoids and acellular pertussis vaccine, 5 pertussis antigens [place] 2004 haemophilus influenz ae type b vaccine, PRP-OMP conjugate [place] 2004 diphtheria, tetanus toxoids and acellular pertussis vaccine, Haemophilus influenzae type b conjugate, and poliovirus vaccine, inactivated (FFsJ-Puj-TKT) [place] 2004 pneumococcal conjuga te vaccine, 13 valent [place] 2004 diphtheria, tetanus toxoids and acellular pertussis vaccine, Haemophilus influenzae type b conjugate, and poliovirus vaccine, inactivated (ISiI-Xtj-IEX) [place] 2004 hepatitis B vaccine, pediatric or pediatric/adolescent dosage [place] 2004 pneumococcal conjuga te vaccine, 13 valent [place] 2004 hepatitis B vaccine, pediatric or pediatric/adolescent dosage [place] NEGATED: Highlighted row has not occurred!12-26-2018 influenza, injectable, quadrivalent, preservative free [place] Payers Date Payer Category Payer Self-pay 2022 Medicaid [id number] 2020 Unknown [id number] 2020 Medicaid 2019 Medicaid [employer] [id number] 2019-Present [id number] 2018 Unknown SHIVANIJOSEFINA [facility] MEDICAID xxxxxxxxxxx 2018-Present [phone] CLAIMS DEPARTMENT [address] [place] [address] xxxxxxxxxxx [id number]. [id number] 2018 Unknown [id number] 2004 Unknown [id number] 2.16.840.1.265329.3.579.2.202 2004 Unknown [id number] 2.16.840.1.332220.3.579.2.202 1969 Unknown [id number] 2.16.840.1.880467.3.579.2.900 1969 Unknown [id number] 2.16.840.1.461750.3.579.2.903 1969 Unknown [id number] 2.16.840.1.527871.3.579.2.903 1969 Unknown [id number] 2.16.840.1.935122.3.579.2.903 1969 Unknown [id number] 2.16.840.1.474304.3.579.2.903 Unknown [id number] 2.16.840.1.335850.3.579.2.175 Unknown [id number] 2.16.840.1.485324.3.579.2.175 Unknown [id number] 2.16.840.1.591009.3.579.2.175 02-11-1840 Unknown [id number] 2.16.840.1.546450.3.579.2.202 02-11-1840 Unknown [id number] 2.16.840.1.400805.3.579.2.202 02-11-1840 Unknown [id number] 2.16.840.1.256794.3.579.2.202 02-11-1840 Unknown [id number] 2.16.840.1.208208.3.579.2.202 02-11-1840 Unknown [id number] 2.16.840.1.907529.3.579.2.202 02-11-1840 Unknown [id number] 2.16.840.1.645853.3.579.2.202 02-11-1840 Unknown [id number] 2.16.840.1.752016.3.579.2.202 02-11-1840 Unknown [id number] 2.16.840.1.000170.3.579.2.202 02-11-1840 Unknown [id number] 2.16.840.1.757638.3.579.2.202 02-11-1840 Unknown [id number] 2.16.840.1.980615.3.579.2.202 02-11-1840 Unknown [id number] 2.16.840.1.133160.3.579.2.202 Unknown [id number] Unknown Regular Insurance [id number] Unknown [id number] 2.16.840.1.096582.3.579.2.531 Unknown [id number] 2.16.840.1.261374.3.579.2.531 Unknown [id number] 2.16.840.1.029475.3.579.2.531 Unknown [id number] 2.16.840.1.167370.3.579.2.531 Unknown [id number] 2.16.840.1.964184.3.579.2.531 Unknown [id number] 2.16.840.1.346238.3.579.2.531 Social History Date Type Detail Facility Start: 08-27-2018 End: 03-21-2023 Tobacco smoking status [facility] Start: 2005 Sex Assigned At Not on file M [facility] Start: 02-16-2020 End: 11-02-2020 Tobacco use and exposure Never used [facility] Start: 02-16-2020 End: 10-26-2021 Alcohol intake Lifetime non-drinker (finding) [facility] Start: 02-16-2020 End: 10-26-2021 History SDOH Alcohol Frequency 1 [facility] Start: 06-23-2021 End: 10-26-2021 Exposure to SARS-CoV-2 (event) Not sure [facility] Start: 07-19-2021 End: 10-26-2021 History SDOH Transport Med 2 [facility] Start: 07-19-2021 History SDOH Housing Unable to Pay 3 [facility] Start: 10-26-2021 History SDOH Financial 5 [facility] Start: 2004 Sex Assigned At Male F [facility] Medical Equipment Procedure Code Equipment Code Equipment Origin al Text Equipment Identifier Dates 1 each by Does n ot apply route daily [id number] Start: 08-21-2018 BD Ultra-Fine Na no Pen Needle 32 gauge x 5/32 Ndle [id number] Start: 01-03-[address] strip [id number] Start: 01-03-2020 Hemoclip Ligatin g Clip System Hem-O-Fatuma Clip Size - Xl [id number] Start: 02-24-2021 Use as directed 7 times daily. Please dispense the One touch Ultra test strips. Pt has the One touch Ultra meter. Pt needs this specific test strip, the wrong model was dispensed. [id number] Start: 11-09-2020 Please dispense whatever brand pen needles the insurance will cover. [id number] Start: 12-30-2017 Use as Directed. May use up to 7 per day. [id number] Start: 11-02-2020 Use as directed 7 times daily. Please dispense the One touch Ultra test strips. Pt has the One touch Ultra meter. [id number] Start: 10-26-2021 Use as directed 7 times daily [id number] Start: 10-26-2021 Lancets Start: 01-13-2023 Pen Needle, [...] can help me? Foster mother What might bridge painter my way and what can help me avoid this? Laziness How ready are you to change? 3 - Fairly ready to change The Diabetes Self-Management Support (DSMS) Plan I have selected is: None Formatting of this n ote might be different from the original. What will accomplishing this goal do? Feel better Who or what can help me? Foster mother What might bridge painter my way and what can help me [...] can help me? Foster mother What might bridge painter my way and what can help me avoid this? Laziness How ready are you to change? 3 - Fairly ready to change The Diabetes Self-Management Support (DSMS) Plan I have selected is: None Behavioral goal met: 2 - occasionally 07/19/2021 Behavioral goal met: 4 - most of the time 10/26/2021 Functional Status Date Assessment Result Facility 03-23-2023 Functional status Patient at Baseline [facility] Work Phone: 01-13-2023 Functional status Patient at Baseline [facility] Work Phone: 09-18-2023 Functional status Patient at Baseline [facility] Work Phone: Mental Status Date Assessment Result Facility 03-23-2023 Cognitive function Cognitive Sta tus Patient at Baseline [facility] Work Phone: 01-13-2023 Cognitive function Cognitive Sta tus Patient at Baseline [facility] Work Phone: 10-28-2022 Cognitive function Cognitive Sta tus Patient at Baseline [facility] Work Phone: Clinical Notes 07-11-2020 to 03-22-2023 Note Date & Type Note Facility 03-22-2023 Progress note Note Date/Time March 22, 2023 3:14pm [facility] [address] [place] [address] Hospitalist Progress Note Signed Patient: Kiran Benson MR#: [id number] : 2005 Acct:[id number] Age/Sex: 18 / M Adm Date: 4 Loc: Room: [address] [place] [address] Type: ADM IN Attending Dr: Rashi Clark [...] signed by Rashi Clark MD> 03/22/23 1514 [facility] Work Phone: 1(688) 160-307302-10-2024 Progress note Author Jim Bansal [facility] March 22, 2023 10:51am Note Date/Time March 22, 2023 10:52am [facility] [address] [place] [id number] Progress Note Signed Patient: Kiran Benson MR#: [id number] : 2005 Acct:[id number] Age/Sex: 18 / M Adm Date: 4 Loc: Room: [address] [place] [address] Type: ADM IN Attending Dr: Rashi Clark [...] signed by MD Jim Bansal> 03/22/23 1051 [facility] Work Phone: 1(211) 994-904802-09-2024 History and physical note Author Rahsi Clark [facility] March 21, 2023 5:15pm Note Date/Time March 21, 2023 5 :11pm [facility] [address] [place] [id number] Hospitalist H&P Signed Patient: Kiran Benson MR#: [id number] : 2005 Acct:[id number] Age/Sex: 18 / M Adm Date: 4 Loc: ER Room: Type: [facility] ER Attending Dr: Copies to: Tash [...] he does not have any PCP or blood tester fowl at this time and reports that his [...] as mentioned elsewhere in the documentation [facility] Medical History Type 1 diabetes Problem List [...] % (Auto) 14.5 % (.) 03/21/23 14:35 [place] % (Auto) 8.0 % (.) 03/21/23 14:35 Eos % (Auto) 4.3 % (.) 03/21/23 14:35 Baso % (Auto) 0.9 % (.) 03/21/23 14:35 Nucleat RBC Rel Count 0.2 /100 WBC (0-0.5) 03/21/23 14:35 Neut # (Auto) 7.1 x10E3/uL (1.8-7.7) 03/21/23 14:35 Lymph # (Auto) 1.4 x10E3/uL (1.00-4.8) 03/21/23 14:35 [place] # (Auto) 0.8 x10E3/uL (0.0-0.8) 03/21/23 14:35 [...] pH 5.0 (5.0-9.0) 03/21/23 15:22 Ur Specific [place] 1.031 (1.001-1.030) H 03/21/23 15:22 Urine Protein [...] <Electronically signed by Rashi Clark MD> 03/21/23 9703 [facility] Work Phone: 1(978) 924-301012-04-2023 Hospital Discharge instructions Additional Instructions Important Contact Information You can call [facility] Inpatient Behavioral Health at [phone] any time day or night if you have emergent questions or question regarding discharge instructions. If at any time you are feeling an increase in your psychiatric symptoms, call your physician or behavioral healthcare provider. If any time you have thoughts of harming yourself or others contact one of the following: Call 8-8 (available 02/09) Crisis Text Line (available 02/09) text 4HOPE to [phone] [facility] Line (available 8 a.m. Midnight) call [phone] ([phone]) Please check your glucose levels before meals, at bedtime and as needed at home. Please keep a record of these levels and take it with you to your follow-up appointment. [facility] Work Phone: 1(573) 301-934812-03-2023 Progress note Author Kartik Schwarz [facility] January 12, 2023 10:13am Note Date/Time January 12, 2023 1 0:13am [facility] [address] [place] [address] Psychiatry Progress Note Signed Patient: Kiran Benson MR#: [id number] : 2005 Acct:[id number] Age/Sex: 17 / M Adm Date: 3 Loc: Room: [address] [place] [address] Type : ADM IN Attending Dr: Kartik [...] at our pharmacy tomorrow with discharge to alf tomorrow As insulin that he will need [...] <Electronically signed by Kartik Schwarz MD> 01/12/23 [facility] Work Phone: 1(255) 953-402812-02-2023 Consult note Author Harvey Crain [facility] January 11, 2023 2:39pm Note Date/Time January 07, 2023 7:27pm [facility] [address] [place] [address] Hospitalist Consult Note Signed Patient: Kiran Benson MR#: [id number] : 2005 Acct:[id number] Age/Sex: 17 / M Adm Date: 3 Loc: Room: [address] [place] [address] Type: ADM IN Attending Dr: Kartik Schwarz [...] unless noted in the HPI below [facility] Medical History (Updated 01/09/23 @ 18:10 by [...] Ml Insuln.Pen SUBCUT 01/07/24 07:59 Not Given TID.AC.[facility] Protocol Insulin Glargine 30 units 01/07/23 [...] % (Auto) 62.7, Lymph % (Auto) 20.9, [place] % (Auto) 7.5, Eos % (Auto) 8.4, Baso % (Auto) 0.5, Nucleat RBC Rel Count 0.5, Neut # (Auto) 4.4, Lymph # (Auto) 1.5, [place] # (Auto) 0.5, Eos # (Auto) 0.6, Baso # (Auto) 0.0, Monocyte Dist Width 18.46 01/06/23 21:22: Urine Opiates Screen Negative, Ur Barbiturates Screen Negative, Ur Phencyclidine Scrn Negative, Ur Amphetamines Screen Negative, U Benzodiazepines Scrn Negative, Urine Cocaine Screen Negative, U Marijuana (THC) Screen Negative 01/06/23 21:22: Urine Color Yellow, Urine Appearance Clear, Urine pH 6.0, Ur Specific [place] 1.034 H, Urine Protein Negative, Urine Glucose [...] <Electronically signed by Harvey Crain MD> 01/11/23 6397 [facility] Work Phone: 1(982) 663-148512-02-2023 Progress note Author Kartik Schwarz [facility] January 11, 2023 10:40am Note Date/Time January 11, 2023 1 0:40am [facility] [address] [place] [address] Psychiatry Progress Note Signed Patient: Kiran Benson MR#: [id number] : 2005 Acct:[id number] Age/Sex: 17 / M Adm Date: 3 Loc: Room: [address] [place] [address] Type : ADM IN Attending Dr: Kartik Schwarz MD Copies to: ~ Date of Service: 01/11/2023 Subjective Subjective Narrative: Patient reported that he is doing pretty good today. He reported that his mom would be able to help him out tomorrow with getting his things and his medications. He reported that he will most likely be going to the alf in [place]. He denied any suicidal thoughts at this [...] signed by Kartik Schwarz MD> 01/11/23 1040 [facility] Work Phone: 1(488) 644-371312-01-2023 Progress note Author Kartik Schwarz [facility] January 10, 2023 11:50am Note Date/Time January 10, 2023 1 0:16am [facility] [address] [place], [place] [address] Psychiatry Progress Note Signed Patient: Kiran Benson MR#: [id number] : 2005 Acct:[id number] Age/Sex: 17 / M Adm Date: 3 Loc: 1S Room: [address] [place] [address] Type : ADM IN Attending Dr: Kartik [...] he is scared to makephone calls for alf placement. Does not know why the no [...] He is started making phone calls for alf placement Continue Zoloft 50 mg daily Monitor [...] signed by Kartik Schwarz MD> 01/10/23 1150 [facility] Work Phone: 1(731) 439-758211-30-2023 Progress note Author Kartik Schwarz [facility] January 09, 2023 12:20pm Note Date/Time January 09, 2023 10:04am [facility] [address] [place] [address] Psychiatry Progress Note Signed Patient: Kiarn Benson MR#: [id number] : 2005 Acct:[id number] Age/Sex: 17 / M Adm Date: 3 Loc: Room: [address] [place] [address] Type : ADM IN Attending Dr: Kartik [...] to return we will have to consider alf options Continue Zoloft 50 mg daily Monitor [...] signed by Kartik Schwarz MD> 01/09/23 1220 [facility] Work Phone: 1(170) 647-116511-29-2023 Progress note Author Kartik Schwarz [facility] January 08, 2023 12:28pm Note Date/Time January 08, 2023 12:28pm [facility] [address] [place] [address] Psychiatry Progress Note Signed Patient: Kiran Benson MR#: [id number] : 2005 Acct:[id number] Age/Sex: 17 / M Adm Date: 3 Loc: Room: [address] [place] [address] Type : ADM IN Attending Dr: Kartik [...] <Electronically signed by Kartik Schwarz MD> 01/08/238 [facility] Work Phone: 1(394) 965-202011-28-2023 History and physical note Author Kartik Schwarz [facility] January 07, 2023 2:26pm Note Date/Time January 07, 2023 11:03am [facility] [address] [place] [address] Psychiatry H&P Signed Patient: Kiran Benson MR#: [id number] : 2005 Acct:[id number] Age/Sex: 17 / M Adm Date: 3 Loc: 1S Room: 3Q1310-5 Type: ADM IN Attending Dr: Kartik Schwarz [...] was sent to a foster home in [place]. He aged out of the foster home [...] He denied any symptoms of madhuri. [facility] Medical History Type 1 diabetes Surgical History [...] Appearance Clear Urine pH 6.0 Ur Specific [place] 1.034 H Urine Protein Negative Urine Glucose [...] <Electronically signed by Kartik Schwarz MD> 01/07/23 4156 [facility] Work Phone: 1(152) 443-270409-17-2023 Consult note Author Ryan hnaley [facility] October 27, 2022 2:16pm Note Date/Time October 27, 2022 1:10pm [facility] [address] [place] [address] Psychiatry Consult Note Signed Patient: Kiran Benson MR#: [id number] : 2005 Acct:[id number] Age/Sex: 17 / M Adm Date: 3 Loc: Room: [address] [place] [address] Type : ADM IN Attending Dr: Raymond [...] mom and stepdad, siblings, and roommate Employment: [employer]. Just graduated high school in June. 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 Relationships: close, supportive relationship [...] unless noted below or in HPI [facility] Medical History (Updated 10/26/22 @ 16:35 by [...] Color Urine Appearance Urine pH Ur Specific [place] Urine Protein Urine Glucose (UA) Urine Ketones [...] Color Urine Appearance Urine pH Ur Specific [place] Urine Protein Urine Glucose (UA) Urine Ketones [...] Appearance Clear Urine pH 5.5 Ur Specific [place] 1.031 H Urine Protein Negative Urine Glucose [...] signed by Ryan Pete MD> 10/27/22 1416 [facility] Work Phone: 1(522) 175-154009-17-2023 Progress note Author Raymond Baez [facility] October 27, 2022 1:41pm Note Date/Time October 27, 2022 1:41pm [facility] [address] [place] [address] Hospitalist Progress Note Signed Patient: Kiran Benson MR#: [id number] : 2005 Acct:[id number] Age/Sex: 17 / M Adm Date: 3 Loc: Room: [address] [place] [address] Type: ADM IN Attending Dr: Raymond Baez [...] Syringe SUBCUT 10/27/23 09:59 Not Given DAILY@10 [facility] Glucose 0 gm 10/26/22 17:23 Dextrose 40% Gel 15 Gm Tube PO 10/26/23 17:22 PRN PRN Hypoglycemia Insulin Aspart 0 units 10/27/22 08:00 10/27/22 11:30 Insulin Aspart 300 Units/3 Ml Insuln.Pen SUBCUT 10/27/23 07:59 7 units TID.WM.HS [facility] Administration Protocol Insulin Aspart 0 units 10/27/22 17:00 Insulin Aspart 300 Units/3 Ml Insuln.Pen SUBCUT 10/27/23 16:59 TID.WITH.MEALS [facility] Protocol Insulin Glargine 30 units 10/27/22 09:00 [...] signed by Raymond Baez MD> 10/27/22 1341 [facility] Work Phone: 1(769) 647-891009-16-2023 History and physical note Author Raymond Baez [facility] October 26, 2022 5:33pm Note Date/Time October 26, 2022 5:32pm [facility] [address] [place] [address] Hospitalist H&P Signed Patient: Kiran Benson MR#: [id number] : 2005 Acct:[id number] Age/Sex: 17 / M Adm Date: 3 Loc: Room: [address] [place] [address] Type: ADM IN Attending Dr: Raymond Baez [...] unless noted below or in HPI [facility] Medical History (Updated 10/26/22 @ 16:35 by [...] % (Auto) 12.6 % (.) 10/26/22 14:21 [place] % (Auto) 7.5 % (.) 10/26/22 14:21 Eos % (Auto) 3.0 % (.) 10/26/22 14:21 Baso % (Auto) 0.3 % (.) 10/26/22 14:21 Nucleat RBC Rel Count 0.0 /100 WBC (0-0.5) 10/26/22 14:21 Neut # (Auto) 11.0 x10E3/uL (1.2-7.7) H 10/26/22 14:21 Lymph # (Auto) 1.8 x10E3/uL (1.20-4.8) 10/26/22 14:21 [place] # (Auto) 1.1 x10E3/uL (0.1-1.00) H 10/26/22 [...] signed by Raymond Baez MD> 10/26/22 1733 [facility] Work Phone: 1(388) 363-692905-24-2022 Emergency department Note* Leida Landers PA - 07/03/20212043 EDT CSN: [id number] PATIENT NAME: Kiran Benson DATE OF : 2005 Patient seen in [facility] Emergency Department for: Chief Complaint Patient presents [...] APPENDECTOMY performed by Abelardo Baird MD at [facility] Main OR Family/Social History Has [...] Impaction and anterior angulation noted. Dose of [place] was given as patient was having increased [...] = 3 Follow up: Orthopaedics - [place] [facility] [address] In 5 days Final Clinical Impression: 1. Closed fracture of proximal end of right humerus Electronically signed by: MEGA Ortega 07/03/2021 22:50 Attending Signature documented [facility] Hospital Discharge instructions* Instructions* Leida Landers [...] the support gets splashed, use a chair mender on the cool setting to dry it. If it does not dry completely, call the doctor. Keep dirt, sand, lotion, and powder away from the support. Don't put anything inside the support. Make sure your child doesn't put toys, food, or other objects into it. For itching, use a chair mender on the cool setting to blow air [...] for your child to return to sports. https://kidealth.org/[place]Childrens/en/parents/b-bone.html 2020 The [facility] CenterUrbanBuz [facility] [place]/ClipClock . Used and adapted under license by [facility]. This information is for general use only. For specific medical advice or questions, consult yourhealth healthcare administrative assistant. [id number] documented in this encounterJ.W. [facility]07-08-2021 Emergency department Note* Ebony Hutchison RN - 08/17/2020 11:17 AM EDT Updated [facility] Charge Nurse Vianey of patient drips and [...] Hurtado MD - 08/17/2020 7:35 AM EDT [facility] Patient: Kiran Benson AGE: 15 y.o. Date of Evaluation: 08/17/2020 ED Provider: Victor Hugo Hurtado MD Chief Complaint Vomiting and abdominal pain AUGUSTINE Kiran Benson is a 15 y.o. male that presents to [facility] with adult supervisor cleaning and annealing from his facility for evaluation of vomiting [...] otherwise acutely negative except as in the AUGUSTINE. Past History Past Medical History: Diagnosis Date [...] Social Gatherings with Friends and Family: Attends [employer] Services: Active Member of Clubs or Organizations: [...] Medication Sig Dispense Refill Baqsimi 3 mg/actuation [place] PLACE 1 SPRAY(S) IN ONE NOSTRIL ONCE [...] Abnormal; Notable for the following components: Specific [place] 1.026 (*) Glucose, Urine >=500 (*) Ketones, [...] Procedure Abnormality Status --------- ------ CBC Auto Differential[[id number]] Abnormal Final result Please view results for [...] by using current protocols, practices [facility], and most appropriate amount of direct [...] mild splenomegaly and moderate stool. Discussed with [facility] at our facility and patient will require higher level of care for DKA. Due to the need for transfer to another facility, I have discussed Kiran Benson's ED presentationand ED course with Dr. Esposito from the ED service at [facility]. Based on that discussion we have decided [...] Kiran Benson to be transferred to [facility]. Victor Hugo Hurtado MD ED Attending Physician [facility] (Please note that portions of this note may have been completed with a voice recognition program. Efforts were made to edit the dictations but occasionally words are mis-transcribed.) Victor Hugo Hurtado MD 08/17/20937 documented in this [id number] Instructions* Patient Instructions* Vianey Bob, LINE BUILDER - 07/11/2020 11:21 AM EDT Images from [...] Log into your personal health record on https://[employer] Contenthart.[employer].Sympoz and enter J028 in the Education box to learn more about Pinworms in Children: Care Instructions. Current as of: July 07, 2019 Content Version: 12.8 [employer]. Care instructions adapted under license by your healthcare professional. If you have questions about a medical condition or this instruction, always ask your healthcare professional. [employer] disclaims any warranty or liability for your use of this information. documented in this [id number] History of Present illness Narrative* Vianey Bob CNP - 07/11/2020 11:12 AM EDT Images from the original note were not included. Patient Name: [facility] Location: Kiran Hutchins [facility] [address] Date Of : Date Of Visit: 2005 07/11/2020 MRN# Provider: [id number] Vianey Bob CNP Chief Complaint Patient presents [...] for pinworms. Patient is accompanied by his senior care care person. He had pinworms about 6 months ago. His symptoms started again 2-3 days ago. He c/oanal itching that is much worse at night and he has seen many tiny worms in his stools with bowel movements. He has no abdominal pain, fevers, nausea, vomiting, or diarrhea. He lives in a senior care. He has his own room but the [...] days .6 tablet 0 Baqsimi 3 mg/actuation [place] PLACE 1 SPRAY(S) IN ONE NOSTRIL ONCE [...] Log into your personal health record on [email or web address] and enter J028 in the Education box to learn more about Pinworms in Children: Care Instructions. Current as of: July 07, 2019 Content Version: 12.8 [employer]. Care instructions adapted under license by your healthcare professional. If you have questions about a medical condition or this instruction, always ask your healthcare professional. [employer] disclaims any warranty or liability for your use of this information. documented in this encounterOhioHealthConsult note Author Dominga Pete [facility] October 27, 2022 2:16pm Note Date/Time October 27, 2022 1:10pm [facility] [address] [place] [address] Psychiatry Consult Note Signed Patient: Kiran Benson MR#: [id number] : 2005 Acct:[id number] Age/Sex: 17 / M Adm Date: 3 Loc: Room: [address] [place] [address] Type : ADM IN Attending Dr: Raymond [...] June. 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 Relationships: close, supportive relationship [...] unless noted below or in HPI [facility] Medical History (Updated 10/26/22 @ 16:35 by [...] Color Urine Appearance Urine pH Ur Specific [place] Urine Protein Urine Glucose (UA) Urine Ketones [...] Color Urine Appearance Urine pH Ur Specific [place] Urine Protein Urine Glucose (UA) Urine Ketones [...] Appearance Clear Urine pH 5.5 Ur Specific [place] 1.031 H Urine Protein Negative Urine Glucose [...] signed by Ryan Pete MD> 10/27/22 1416 [facility] Work Phone: Discharge summary Author Rashi Clark [facility] March 23, 2023 12:00pm Note Date/Time March 23, 2023 12:00pm [facility] [address] [place], [place] [address] Discharge Summary Signed Patient: Kiran Benson MR#: [id number] : 2005 Acct:[id number] Age/Sex: 18 / M Adm Date: 4 Loc: Room: [address] [place] [address]: Rashi Clark MD Copies to: NO FAMILY PHYSICIAN Rashi Clark MD~ Providers Date of Discharge: 03/23/23 Discharging Provider: Rashi Clark Primary Care Provider: PHYSICIAN NO FAMILY Consults: 03/21/23 17:05 Consult to Pulmonology Routine Comment: Consulting Provider: [facility] - Pulmon, CC & Sleep Med Reason [...] he does not have any PCP or blood tester fowl at this time and reports that his [...] % (Auto) 64.5, Lymph % (Auto) 19.7, [place] % (Auto) 9.1, Eos % (Auto) 6.2, Baso % (Auto) 0.5, Nucleat RBC Rel Count 0.1, Neut # (Auto) 4.5, Lymph # (Auto) 1.4, [place] # (Auto) 0.6, Eos # (Auto) 0.4, [...] signed by Rashi Clark MD> 03/23/23 1200 [facility] Work Phone: Evaluation note* Diagnosis Pinworms- Primary documented in this encounter [facility] note* Diagnosis Diabetic ketoacidosis without coma associated with type 1 diabetes mellitus (HCC)- Primary Abdominal pain, unspecified abdominal location documented in this encounter [facility] note* Diagnosis Closed fracture of proximal end of right humerus- Primary documented in this encounter [facility] note* Diagnosis ZZNODIAG 999.9 for Transcribed orders with no valid ICD code Use this term when transcribed code does not match to valid/active ICD10 code documented in this encounter [facility] note* Diagnosis Type 1 diabetes mellitus without complications Type I (juvenile type) diabetes mellitus without mention of complication, not stated as uncontrolled [facility] Diagnosis Onset Date Resolution Status DKA (diabetic ketoacidosis) acute [facility] Work Phone: Evaluation note* Diagnosis Onset Date Resolution Status DKA (diabetic ketoacidosis) acute Depression acute Diabetes acute Encounter for medication refill acute [facility] Work Phone: Evaluation note* Diagnosis Onset Date Resolution Status DKA (diabetic ketoacidosis) acute Depression acute Diabetes acute Encounter for medication refill acute MDD (major depressive disorder) acute Type 1 diabetes acute [facility] Work Phone: History and physical note Author Raymond Baez [facility] October 26, 2022 5:33pm Note Date/Time October 26, 2022 5:32pm [facility] [address] [place] [address] Hospitalist H&P Signed Patient: Kiran Benson MR#: [id number] : 2005 Acct:[id number] Age/Sex: 17 / M Adm Date: 3 Loc: Room: [address] [place] [address] Type: ADM IN Attending Dr: Raymond Baez [...] unless noted below or in HPI [facility] Medical History (Updated 10/26/22 @ 16:35 by [...] % (Auto) 12.6 % (.) 10/26/22 14:21 [place] % (Auto) 7.5 % (.) 10/26/22 14:21 Eos % (Auto) 3.0 % (.) 10/26/22 14:21 Baso % (Auto) 0.3 % (.) 10/26/22 14:21 Nucleat RBC Rel Count 0.0 /100 WBC (0-0.5) 10/26/22 14:21 Neut # (Auto) 11.0 x10E3/uL (1.2-7.7) H 10/26/22 14:21 Lymph # (Auto) 1.8 x10E3/uL (1.20-4.8) 10/26/22 14:21 [place] # (Auto) 1.1 x10E3/uL (0.1-1.00) H 10/26/22 [...] signed by Raymond Baez MD> 10/26/22 1733 [facility] Work Phone: History and physical note Author Rashi Clark [facility] March 21, 2023 5:15pm Note Date/Time March 21, 2023 5 :11pm [facility] [address] [place] [address] Hospitalist H&P Signed Patient: Kiran Benson MR#: [id number] : 2005 Acct:[id number] Age/Sex: 18 / M Adm Date: 4 Loc: ER Room: Type: [facility] ER Attending Dr: Copies to: Tash [...] he does not have any PCP or blood tester fowl at this time and reports that his [...] as mentioned elsewhere in the documentation [facility] Medical History Type 1 diabetes Problem List [...] % (Auto) 14.5 % (.) 03/21/23 14:35 [place] % (Auto) 8.0 % (.) 03/21/23 14:35 Eos % (Auto) 4.3 % (.) 03/21/23 14:35 Baso % (Auto) 0.9 % (.) 03/21/23 14:35 Nucleat RBC Rel Count 0.2 /100 WBC (0-0.5) 03/21/23 14:35 Neut # (Auto) 7.1 x10E3/uL (1.8-7.7) 03/21/23 14:35 Lymph # (Auto) 1.4 x10E3/uL (1.00-4.8) 03/21/23 14:35 [place] # (Auto) 0.8 x10E3/uL (0.0-0.8) 03/21/23 14:35 [...] pH 5.0 (5.0-9.0) 03/21/23 15:22 Ur Specific [place] 1.031 (1.001-1.030) H 03/21/23 15:22 Urine Protein [...] <Electronically signed by Rashi Clark MD> 03/21/23 3212 [facility] Work Phone: Progress note Author Raymond Baez [facility] October 27, 2022 1:41pm Note Date/Time October 27, 2022 1:41pm [facility] [address] [place] [address] Hospitalist Progress Note Signed Patient: Kiran Benson MR#: [id number] : 2005 Acct:[id number] Age/Sex: 17 / M Adm Date: 3 Loc: Room: [address] [place] [address] Type: ADM IN Attending Dr: Raymond Baez [...] Units/3 Ml Insuln.Pen SUBCUT 10/27/23 16:59 TID.WITH.MEALS [facility] Protocol Insulin Glargine 30 units 10/27/22 09:00 [...] signed by Raymond Baez MD> 10/27/22 1341 [facility] Work Phone: Reason for referral (narrative)* Consultation (Routine) - Pending Review Specialty Diagnoses / Procedures Referred By Darshana rahman Referred To Contact [facility] Leida Landers PA [address] [place] [address] [place] [address] Referral ID Status Reason Start Date Expiration Date Visits Requested Visits Authorized [id number] Pending Review Specialty Services Required 07/03/2021 1 1 * Radiology Services (Urgent) - Closed Specialty Diagnoses / Procedures Referred By Darshana rahman Referred To Contact Radiology Procedures Right shoulder: 2 Views x-ray Leida Landers PA [address] [place] [address] Referral ID Status Reason Start Date Expiration Date Visits Re quested Visits Authorized [id number] Closed 07/03/2021 1 1 * Radiology Services (Urgent) - Closed Specialty Diagnoses / Procedures Referred By Darshana rahman Referred To Contact Radiology Procedures Right humerus: 2 Views x-ray Leida Landers PA [address] [place] [address] Referral ID Status Reason Start Date Expiration Date Visits Re quested Visits Authorized [id number] Closed 07/03/2021 1 1 [facility] Summary Purpose Family History No Family History Records FoundNo Family History Records FoundNo Family History Records FoundNo Family History Records FoundNo Family History Records FoundNo Family History Records FoundNo Family History Records FoundNo Family History Records FoundNo Family History Records Found Advance Directives No Advanced Directives Records FoundDocuments on File Type Date Recorded Patient Legislative Assistant Expl anation Advance Directives and Living Will Power of Skull Grinder Latest Code Status on File Code Status Date Activated Date Inactivated Comments Full Code 12/24/2018 2:46 PM Full Code 08/19/2018 12:14 PM 08/21/2018 4:51 PM Full Code 08/03/2018 12:58 PM 08/05/2018 5:48 PM Full Code 08/03/2018 12:58 PM 08/03/2018 12:58 PM Documents on File Type Date Recorded Patient Legislative Assistant Expl anation Advance Directives and Living Will Documents on File Type Date Recorded Patient Legislative Assistant Expl anation Advance Directives and Livin g [...] Matthew RN - 12/25/2018 12:37 PM EST residential care provider, Ki calls to check on status and asked about discharge status. Informed tomorrow afternoon. Wanted to know so can arrange for mom to visit tomorrow. * Taniya Uriostegui - 12/25/2018 11:29 AM EST Social Work Patient known to from previous admissions. Patient resides in senior care through [facility]. He is in the custody of Kat BAIRD, Corrina Rosa [phone]. Tried to contact her and left msg on voicemail. Met with patient at bedside. No group home paraprofessional present with him. He reported that he still resides at the senior care and he has the same worker Tash. He stated that he woke up yesterday am with dizziness and vomiting so they took him to [facility]. He was able to speak with his [...] was supposed to be 30 units. Attends [employer] in the 9th grade. Patient will return to the senior care at discharge. * Emmie Nieves MD - 12/25/2018 6:43 AM EST Pediatric Critical Care Note [facility] Patient - Kiran Benson - 2005 Date of Admission - 12/24/2018 2:40 PM Date of evaluation - 12/25/2018 0633/0633-01 Hospital Day - 1 Primary Care Physician - CHRISTINA MARCANO APRN - LINE BUILDER 13 year old male with Type 1 [...] this morning then continue 30 units nightly. religious educator consult Discussed with Dr. Aguila over [...] nursing note reviewed. Exam conducted with a taker off present (Tamika). Constitutional: General: He is not [...] 3:01 PM EDT PATIENT NAME: Kiran Benson [facility] [address] [facility] [id number] : 2005 DATE OF VISIT: 05/19/2020 #: [...] file Gets together: Not on file Attends yarsani service: Not on file Active member of [...] Medication Sig Dispense Refill Baqsimi 3 mg/actuation [place] PLACE 1 SPRAY(S) IN ONE NOSTRIL ONCE [...] Medication Sig Dispense Refill Baqsimi 3 mg/actuation [place] PLACE 1 SPRAY(S) IN ONE NOSTRIL ONCE [...] Log into your personal health record on [email or web address] and enter Z477 in the Education box to learn more about Pinworms: Care Instructions. Current as of: July 07, 2019 Content Version: 12.7 [employer]. Care instructions adapted under license by your healthcare professional. If you have questions about a medical condition or this instruction, always ask your healthcare professional. [employer] disclaims any warranty or liability for your [...] code Procedures Shoulder-Right 2+vw [place] [address] Referral ID Status Reason Start Date Expiration Date Visits Re quested Visits Authorized [id number] Closed 07/19/2021 1 1 Specialty Diagnoses / Procedures Referred By Darshana rahman Referred To Contact Lab Diagnoses Type 1 diabetes mellitus without complications Procedures URINALYSIS DIPSTICK [place] [address] Referral ID Status Reason Start Date Expiration Date Visits Re quested Visits Authorized [id number] Closed 07/19/2021 1 1 Specialty Diagnoses / Procedures Referred By Contac t Referred To Contact Lab Diagnoses Type 1 diabetes mellitus without complications Procedures TTG [place] [address] Referral ID Status Reason Start Date Expiration Date V isits Requested Visits Authorized [id number] Pending Review 07/19/2021 1 1 Specialty Diagnoses / Procedures Referred By Contac t Referred To Contact Lab Diagnoses Type 1 diabetes mellitus without complications Procedures [place] [address] Referral ID Status Reason Start Date Expiration Date Visits Re quested Visits Authorized [id number] Closed 07/19/2021 1 1 Specialty Diagnoses / Procedures Referred By Contac t Referred To Contact Lab Diagnoses Type 1 diabetes mellitus without complications Procedures THYROID ANTIBODY [place] [address] Referral ID Status Reason Start Date Expiration Date Visits Re quested Visits Authorized [id number] Closed 07/19/2021 1 1 Specialty Diagnoses / Procedures Referred By Contac t Referred To Contact Lab Diagnoses Type 1 diabetes mellitus without complications Procedures T4 [place] [address] Referral ID Status Reason Start Date Expiration Date Visits Re quested Visits Authorized [id number] Closed 07/19/2021 1 1 Specialty Diagnoses / Procedures Referred By Contac t Referred To Contact Lab Diagnoses Type 1 diabetes mellitus without complications Procedures MICROALBUMIN,RANDOM URINE [place] [address] Referral ID Status Reason Start Date Expiration Date Visits Re quested Visits Authorized [id number] Closed 07/19/2021 1 1 Specialty Diagnoses / Procedures Referred By Contac t Referred To Contact Lab Diagnoses Type 1 diabetes mellitus without complications Procedures LIPID [place] [address] Referral ID Status Reason Start Date Expiration Date Visits Re quested Visits Authorized [id number] Closed 07/19/2021 1 1 Specialty Diagnoses / Procedures Referred By Darshana t Referred To Contact Lab Diagnoses Type 1 diabetes mellitus without complications Procedures BASIC METABOLIC [place]EL [place] [address] Referral ID Status Reason Start Date Expiration Date Visits Re quested Visits Authorized [id number] Closed 07/19/2021 1 1 Chief Complaint and [...] section and content) DATE CREATED AUTHOR 10/15/2018 [facility] DATE CREATED AUTHOR AUTHOR'S ORGANIZ ATION 01/04/2019 [facility] DATE CREATED AUTHOR AUTHOR'S ORGANIZ ATION 02/23/2020 [facility] DATE CREATED AUTHOR AUTHOR'S ORGANIZ ATION 07/11/2020 [facility] DATE CREATED AUTHOR AUTHOR'S ORGANIZ ATION 08/21/2020 [facility] DATE CREATED AUTHOR AUTHOR'S ORGANIZ ATION 12/10/2020 [facility] DATE CREATED AUTHOR AUTHOR'S ORGANIZ ATION 09/11/2022 [facility] DATE CREATED AUTHOR AUTHOR'S ORGANIZ ATION 01/12/2023 [facility] DATE CREATED AUTHOR AUTHOR'S ORGANIZ ATION 07/06/2023 [facility] Reason for Visit (unrecogniz ed section and content) Status Reason Specialty Diagnoses / Procedures Referre d By Contact Referred To Contact Diagnoses DKA, type 1, not at goal (HCC) Kim Squires MD [facility] [place] [id number] [facility] Reason Comments Anal Itching pt reports anal [...] code Procedures Shoulder-Right 2+vw [place] [address] Referral ID Status Reason Start Date Expiration Date Visits Re quested Visits Authorized [id number] Closed 07/19/2021 1 1 Specialty Diagnoses / Procedures Referred By Darshana rahman Referred To Contact Lab Diagnoses Type 1 diabetes mellitus without complications Procedures URINALYSIS DIPSTICK [place] [address] Referral ID Status Reason Start Date Expiration Date Visits Re quested Visits Authorized [id number] Closed 07/19/2021 1 1 Scheduled Active and [...] (Continue to Outside Facility - Provider: Ebony uHtchison RN) sodium chloride 0.45 % with KCl [...] mL, Intravenous, Once in imaging, contrast, Per electric distribution engineer (Radiology), Starting on Jennifer 08/17/20 at 0749, For 1 dose 0841 (Contrast Admin istered - Provider: EMERITA De La OOLOGIST - Comment: [id number] 2023) ondansetron (ZOFRAN) injection 4 mg 4 [...] mL, Intravenous, Once in imaging, contrast, Per electric distribution engineer (Radiology) for line patency check prior to contrast administration, Starting on Jennifer 08/17/20 at 0749, For 1 dose 0842 (Given - Provid er: TECHNOLOGIST Jaylyn) sodium chloride (PF) (NS) 0.9 % contrast line flush 80 mL (COMPLETED) 80 mL, Intravenous, Once in imaging, contrast, Per electric distribution engineer (Radiology), Starting on Jennifer 08/17/20 at 0749, [...] 2023 End: January 13, 2023 Apple Ron [facility] Emergency Provider Active Start: January 07, 2023 [...] 07, 2023 End: January 13, 2023 Kimberly iRvera RN Other Provider Active Start : January 07, 2023 End: January 13, 2023 Candie Burns RN Other Provider Active Start: N ovember 2022 End: January 13, 2023 Char Hlae APRN Other Provider Active Start: January 07, 2023 End: January 13, 2023 Esteban Barraza DO Other Provider Active Start : January 07, 2023 End: January 13, 2023 Rubio Pérez MD Other Provider Active Start : January 07, 2023 End: January 13, 2023 Palomo Bangeas DO Other Provider Active Start: January 07, [...] Active Dominic Rodrigez MD Attending Provider Active Clinical Unit Coordinator Relationship Specialty Start Date End Date Reyna Henderson NP [address] [place] [address] [place] [address] PCP - General Family Practice 11/02/20 Clinical Unit Coordinator Relationship Specialty Start Date End Date Reyna Henderson NP [address] [place], [place] [id number] PCP - General Family Practice 11/02/20 Clinical Unit Coordinator Relationship Specialty Start Date End Date [place] ReynaNISREEN [address] [place] [address] [place] [address] PCP - General Family Practice 11/02/20 Team [...] Primary Care Provider Active Apple Ron , OILING MACHINE OPERATOR-BC Emergency Provider Active Kartik Schwarz MD Admit Provider, Attending Provider Active Team Status: Inactive Member Role Status Dates PHYSICIAN NO FAMILY Primary Care Provider Active Apple Ron , OILING MACHINE OPERATOR-BC Emergency Provider Active Kartik Schwarz MD Admit [...] Rodriguez MD Other Provider Active Vianey Cavanaugh FEATHER CURLING MACHINE OPERATOR-C Other Provider Active Sukhi Posadas MD Other Provider Active Kris Bolanos MD Other Provider Active Preston Medrano MD Other Provider Active Vahe Bass MD Other Provider Active Madison Vogel , DO Other Provider Active Cliff Brar , DO Other Provider Active Nomi Cooper , DO Other Provider Active Marianela Hogan , RAIL ENGINEER Other Provider Active Ari Dodson , DO Other Provider Active Rashi Clark MD Other Provider Active Lyudmila Purcell , RAIL ENGINEER Other Provider Active Elza Robert , RAIL ENGINEER Other Provider Active Jeri Deleon MD Other Provider Active Anthony Samson MD Other Provider Active Maria Isabel Groves , RAIL ENGINEER Other Provider Active Salma Thorne , DO [...] Active Start: March 22, 2023 Sarah Reid RAIL ENGINEER ACNP- Other Provider Active Start: March 22, [...] Active Start: March 22, 2023 Andrew Rosa [facility] , DO Other Provider Active Start: March [...] BE BASED ON THE PRIMARY CLINICAL RECORDS. [facility]. provides no warranty or guarantee of the accuracy or completeness of information in this document.
[2024-01-10 00:39] LABS: Hematocrit 52.2 % (42.0-54.0); Hemoglobin 17.9 g/dL (14.0-18.0); Mean Corpuscular HGB Conc 34.3 g/dL (29.9-35.2); Mean Corpuscular Hemoglobin 31.3 pg (25.9-34.0); Mean Corpuscular Volume 91.3 fL (80.0-94.0); Mean Platelet Volume 9.7 fL (9.5-13.5); Platelet Count 446 10^3/uL (150-450); Red Blood Count 5.72 10^6/uL (4.70-6.10); Red Cell Distribution Width 12.3 % (11.0-15.0); White Blood Count 21.7 10^3/uL (4.0-11.0)
[2024-01-10 00:43] LABS: PCO2 VBG 21.9 mmHg (40.0-52.0); pH VBG 7.041 (7.330-7.430)
[2024-01-10] MEDS: INSULIN REGULAR, HUMAN (100 UNIT/ML) 10 ML MDV 10 UNIT IV (00:50)
[2024-01-10] MEDS: INSULIN REGULAR, HUMAN (100 UNIT/ML) 10 ML MDV 20 UNIT SUBQ (00:50)
[2024-01-10 01:01] LABS: Alanine Aminotransferase 25 U/L (16-63); Albumin Level 2.9 g/dL (3.4-5.0); Alkaline Phosphatase 148 U/L (46-116); Anion Gap 37.00001; Aspartate Amino Transferase 17 U/L (15-37); BUN Creatinine Ratio 16.4; Bilirubin Total 0.6 mg/dL (0.2-1.0); Calcium 8.3 mg/dL (8.5-10.1); Carbon Dioxide <5.0 mmol/L (21.0-32.0); Chloride 95 mmol/L (98-107); Estimated GFR (African America >60 (>=60 mL/min/1.73m^2); Estimated GFR (Non-African Ame >60 (>=60 mL/min/1.73m^2); Sodium 132 mmol/L (136-145); Total Protein 5.9 g/dL (6.4-8.2)
[2024-01-10 01:03] LABS: Glucose 665 mg/dL (74-106)
[2024-01-10 01:04] LABS: Lactate/Lactic Acid 2.1 mmol/L (0.4-2.0)
[2024-01-10 01:08] LABS: Acetone SMALL (NEGATIVE)
--- NOTE | 2024-01-10 01:14 | ED_ITS ---
HPI HPI - General Adult General Chief complaint: Recheck/Abnormal Lab/Rx Stated complaint: nausea Time Seen by Provider: 01/10/24 00:19 Source: patient Mode of arrival: ambulance History of Present Illness HPI narrative: 18yr old diabetic presents with nausea, vomiting and abdominal pain with blood sugar over 600. He said that has been taking insulin as prescribed and that hs glucose has ranged from 200 to 300 for the last few days. He suddenly felt weak this morning and as the day progressed he became more nauseous and has not been able to drink or eat anything. He apparently sees Dr Kole Corona in [place] and has been hospitalized in the past for DKA. Related Data Home Medications ?Medication ?Instructions ?Recorded ?Confirmed insulin glargine 100 unit/mL (3 30 unit subcut .HS 12/24/23 01/10/24 mL) subcutaneous pen (Lantus Solostar U-100 Insulin) insulin lispro 100 unit/mL 1 sliding scale dose subcut .TID 12/24/23 01/10/24 subcutaneous pen (Humalog KwikPen with meals Diabetes (U-100) Insulin) Allergies Allergy/AdvReac Type Severity Reaction Status Date / Time No Known Drug Allergies Allergy Verified 01/10/24 00:18 Opioid HPI Opioid Management Most Recent Opioid Data: Last ORT Total Score 2 12/25/23 01:44 12/25/23 Last ORT Risk Category Low Risk 12/25/23 01:44 12/25/23 Ur Phencyclidine Scrn Negative (NEGATIVE) 01/03/23 20:00 12/12 06/02 [facility] PFS Medical History (Updated 01/10/24 @ 01:22 by Jermaine Sesay) Diabetic ketoacidosis ?E11.10 - Type 2 diabetes mellitus with ketoacidosis without coma (ICD-10) IDDM (insulin dependent diabetes mellitus) Surgical History (Updated 12/25/23 @ 01:52 by Tanya Purcell RN) History of appendectomy ?Z90.49 - Acquired absence of other specified parts of digestive tract (ICD- 10) Social History Little interest or pleasure in doing things: not at all Feeling down, depressed, or hopeless: not at all Exam Narrative Exam Narrative: Nurses notes and vital signs reviewed and patient is not hypoxic. afebrile General: Ill-appearing young male. Skin: Warm, dry, no pallor noted. No rash. Head: Normocephalic, atraumatic. Neck: Supple, non-tender. No meningismus. Eye: Pupils are equal, round and EOMI. No scleral icterus. Ears, Nose, Mouth, and Throat: Oral mucosa is dry Cardiovascular: tachycardia Respiratory: No accessory muscle use or respiratory distress. Lungs are clear to auscultation, no wheezing, rales or rhonchi Chest Wall: no tenderness Back: No midline thoracic or lumbar vertebral tenderness. No CVA tenderness Musculoskeletal: normal ROM, no calf or popliteal tenderness, no lower extremity edema/swelling GI: Abdomen is soft, non-distended. Normal bowel sounds. No masses appreciated. Mild, diffuse tenderness to palpation. No rebound, guarding, or rigidity noted. Neurological: A&O x4. No cranial nerve dysfunction observed. No truncal ataxia. Moves all extremities. Sensation intact. Psychiatric: Cooperative and interactive. Normal mood and affect. Constitutional Vital Signs, click to edit/add: Last Vital Signs Temp 98 F 01/10/24 00:14 Pulse 127 H 01/10/24 02:56 Resp 18 01/10/24 02:56 BP 108/61 01/10/24 02:56 Pulse Ox 100 01/10/24 02:56 O2 Del Method Room Air 01/10/24 02:56 Course Vital Signs Vital signs: Vital Signs Temperature 98 F 01/10/24 00:14 Pulse Rate 140 H 01/10/24 00:14 Respiratory Rate 18 01/10/24 00:14 Blood Pressure 121/84 01/10/24 00:14 Pulse Oximetry 99 01/10/24 00:14 Oxygen Delivery Method Room Air 01/10/24 00:14 Temperature 98 F 01/10/24 00:14 Pulse Rate 127 H 01/10/24 02:56 Respiratory Rate 18 01/10/24 02:56 Blood Pressure 108/61 01/10/24 02:56 Pulse Oximetry 100 01/10/24 02:56 Oxygen Delivery Method Room Air 01/10/24 02:56 Medical Decision Making MDM Narrative Medical decision making narrative: Glucometer reads greater than 600 on arrival to the ED. Patient was placed on hair or beauty salon assistant and EKG obtained. Blood drawn and sent for evaluation. Peripheral IV order to be established x 2 the patient was ordered to receive 30 mL/kg IV bolus, per sepsis protocol. He was ordered to receive 10 units of IV insulin and 20 units of subcutaneous insulin. Patient was also given IV Zofran. White blood cell count elevated at 21.7. Lactate elevated at 2.1. Blood cultures are pending. The patient was given IV Rocephin Sodium is 132, likely pseudohyponatremia. Potassium 5. Chloride low at 95. Carbon dioxide is very low at less than 5. BUN slightly elevated 20. Cre atinine normal at 1.22. Glucose 665. AST and ALT normal with minimally elevated alk phos at 148. Total protein and albumin are low at 5.9 and 2.9 respectively. Acetone is small. Venous pH 7.0 The patient is in acute DKA and was started on insulin drip. Glucose had decreased to 516 before insulin drip was started. I spoke with the vinyl flooring installer and she said that there are no beds available in the ICU because they are in a critical staffing shortage and have no staff to work in the ICU. 01:00 Call was placed to [facility] to discuss transfer of this patient to their intensive care unit. 02:[address] Rodrigez, the hospitallist at [facility]. After discussing the patient's case, he agreed to accept the patient for transfer to their facility. He asked that the patient get at least 2.5L NS IVF. 02:32 Nurse informed me that the patient's Glucose had decreased to 364 so I asked her to slow the insulin drip to 0.025 units/kg/hr. 02:45 Received bed assignment at [facility] and calls placed to obtain transportation via ambulance. 03:20 [facility] called to give us an ETA for pickup - should arrive by 04:15. 04:30 [facility] arrived to take the patient to [facility]. Pt's insulin drip had to be stopped for transport. Patient stable for transfer to [facility]. Repeat CMP = sodium 141, potassium 4.4, chloride 107, bicarb 8.8, BUN 20, creatinine 1.18, glucose 318 See note re critical care time He was improved at the time of ambulance pickup for transfer to [facility]. Lab Data Lab results reviewed: Yes I reviewed the patient's lab results Labs: Lab Results 01/10/24 01/10/24 01/10/24 Range/Units 00:20 01:47 02:34 WBC 21.7 H (4.0-11.0) 10^3/uL RBC 5.72 (4.70-6.10) 10^6/uL Hgb 17.9 (14.0-18.0) g/dL Hct 52.2 (42.0-54.0) % MCV 91.3 (80.0-94.0) fL MCH 31.3 (25.9-34.0) pg MCHC 34.3 (29.9-35.2) g/dL RDW 12.3 (11.0-15.0) % Plt Count 446 (150-450) 10^3/uL MPV 9.7 (9.5-13.5) fL VBG pH 7.041 L (7.330-7.430) VBG pCO2 21.9 L (40.0-52.0) mmHg Sodium 132 L (136-145) mmol/L Potassium 5.0 (3.5-5.1) mmol/L Chloride 95 L (98-107) mmol/L Carbon Dioxide <5.0 L (21.0-32.0) mmol/L Anion Gap 37.36231 BUN 20.0 H (6.4-19.3) mg/dL Creatinine 1.22 (0.70-1.30) mg/dL Est GFR ( Amer) >60 (>=60 mL/min/1.73m^2) Est GFR (Non-Af Amer) >60 (>=60 mL/min/1.73m^2) BUN/Creatinine Ratio 16.4 Glucose 665 H* (74-106) mg/dL Lactate 2.1 H (0.4-2.0) mmol/L Calcium 8.3 L (8.5-10.1) mg/dL Total Bilirubin 0.6 (0.2-1.0) mg/dL AST 17 (15-37) U/L ALT 25 (16-63) U/L Alkaline Phosphatase 148 H (46-116) U/L Total Protein 5.9 L (6.4-8.2) g/dL Albumin 2.9 L (3.4-5.0) g/dL Globulin 3.0 g/dL Albumin/Globulin Ratio 1.0 Acetone, Qual Small A (NEGATIVE) POC Glucose 516 H* 364 H (74-106) mg/dL 01/10/24 01/10/24 Range/Units 03:32 03:40 WBC (4.0-11.0) 10^3/uL RBC (4.70-6.10) 10^6/uL Hgb (14.0-18.0) g/dL Hct (42.0-54.0) % MCV (80.0-94.0) fL MCH (25.9-34.0) pg MCHC (29.9-35.2) g/dL RDW (11.0-15.0) % Plt Count (150-450) 10^3/uL MPV (9.5-13.5) fL VBG pH (7.330-7.430) VBG pCO2 (40.0-52.0) mmHg Sodium 141 (136-145) mmol/L Potassium 4.4 (3.5-5.1) mmol/L Chloride 107 (98-107) mmol/L Carbon Dioxide 8.8 L (21.0-32.0) mmol/L Anion Gap 29.6 BUN 20.0 H (6.4-19.3) mg/dL Creatinine 1.18 (0.70-1.30) mg/dL Est GFR ( Amer) >60 (>=60 mL/min/1.73m^2) Est GFR (Non-Af Amer) >60 (>=60 mL/min/1.73m^2) BUN/Creatinine Ratio 16.9 Glucose 318 H (74-106) mg/dL Lactate (0.4-2.0) mmol/L Calcium 7.6 L (8.5-10.1) mg/dL Total Bilirubin 0.4 (0.2-1.0) mg/dL AST 10 L (15-37) U/L ALT 20 (16-63) U/L Alkaline Phosphatase 107 (46-116) U/L Total Protein 4.9 L (6.4-8.2) g/dL Albumin 2.3 L (3.4-5.0) g/dL Globulin 2.6 g/dL Albumin/Globulin Ratio 0.9 Acetone, Qual (NEGATIVE) POC Glucose 261 H (74-106) mg/dL Critical Care Time Critical Care Time Critical Care Time: Yes Total Critical Care Time: 65 Attestation: Critical Care Time: 65 minutes, critical care time is separate from any procedures that are performed. The following was considered in the determination of critical care but not limited to the level medical decision-making, intensive cardiac and/or respiratory monitor, frequent vital sign monitoring, evaluation of laboratory studies, evaluation of a radiographic studies, oxygen monitoring and constant monitoring. Discharge Plan Discharge Chief Complaint: Recheck/Abnormal Lab/Rx Clinical Impression: DKA (diabetic ketoacidosis) Patient Disposition: [facility] Time of Disposition Decision: 00:55 Discharge Location: [facility]
[2024-01-10] MEDS: ONDANSETRON PF 4 MG/2 ML VIAL IV ×2 (01:39→02:48)
[2024-01-10 01:48] LABS: Glucometer 516 mg/dL (74-106)
[2024-01-10] MEDS: INSULIN REGULAR IN 0.9 % NACL 100 UNIT/100 ML PLAST..BAG IV (01:48)
[2024-01-10] MEDS: CEFTRIAXONE 1,000 MG in 0.9 % SODIUM CHLORIDE 50 ML 100 MG IV (01:58)
[2024-01-10 02:09] VITALS: BP 111/68; PULSE 141; O2SAT 100
[2024-01-10 02:34] LABS: Glucometer 364 mg/dL (74-106)
[2024-01-10] MEDS: SODIUM CHLORIDE 535 ML IV (02:42)
[2024-01-10 02:56] VITALS: BP 108/61; PULSE 127; O2SAT 100
[2024-01-10 03:34] LABS: Glucometer 261 mg/dL (74-106)
[2024-01-10] MEDS: 0.9 % SODIUM CHLORIDE 1,000 ML 1000 ML IV (03:53)
[2024-01-10 04:01] LABS: Alanine Aminotransferase 20 U/L (16-63); Albumin Globulin Ratio 0.9; Albumin Level 2.3 g/dL (3.4-5.0); Alkaline Phosphatase 107 U/L (46-116); Anion Gap 29.6; Aspartate Amino Transferase 10 U/L (15-37); BUN Creatinine Ratio 16.9; Bilirubin Total 0.4 mg/dL (0.2-1.0); Calcium 7.6 mg/dL (8.5-10.1); Carbon Dioxide 8.8 mmol/L (21.0-32.0); Chloride 107 mmol/L (98-107); Estimated GFR (African America >60 (>=60 mL/min/1.73m^2); Estimated GFR (Non-African Ame >60 (>=60 mL/min/1.73m^2); Globulin 2.6 g/dL; Glucose 318 mg/dL (74-106); Potassium 4.4 mmol/L (3.5-5.1); Sodium 141 mmol/L (136-145); Total Protein 4.9 g/dL (6.4-8.2)
== END 2024-01-10 04:30 | disposition short-term general hospital (02) ==
PROVIDERS: Emergency Provider Emergency Medicine
DX: E11.10 Type 2 diabetes mellitus with ketoacidosis without coma (principal); Z79.4 Long term (current) use of insulin
CPT/HCPCS: 36415; 80053; 82009; 82800; 83605; 85007; 85027; 87040; 96361; 96365; 96375; 96376; 99285; J0696; J1817; J2405

== ENCOUNTER 2024-08-20 15:28 | Inpatient (IN) | payer SELFPAY ==
[2024-08-20] VITALS (34 sets, daily range): BP systolic 91–130; BP diastolic 61–75; PULSE 96–133; TEMP 36.3–36.8; O2SAT 95–98; BMI 18.3; BMI 17.0
--- NOTE | 2024-08-20 15:55 | ED.GENADUL1 ---
HPI HPI - General Adult General Chief complaint: Nausea/Vomiting/Diarrhea Stated complaint: SOB, NAUSEA, TIRED Time Seen by Provider: 08/20/24 15:39 Source: patient Mode of arrival: walk-in History of Present Illness HPI narrative: The patient is a 19-year-old male who presents to the emergency department today for evaluation concerns for generally not feeling well. He states he woke up this morning with symptoms of nausea without vomiting in addition to some diarrhea. He reports some generalized abdominal discomfort. He states he is type I diabetic and on insulin therapy which she states he is compliant with. He denies any fever/chills, cough/cold symptoms, chest pain, shortness of breath. Related Data Home Medications ?Medication ?Instructions ?Recorded ?Confirmed insulin glargine 100 unit/mL (3 30 unit subcut .HS 12/24/23 08/20/24 mL) subcutaneous pen (Lantus Solostar U-100 Insulin) insulin lispro 100 unit/mL 1 sliding scale dose subcut .TID 12/24/23 08/20/24 subcutaneous pen (Humalog KwikPen with meals Diabetes (U-100) Insulin) Allergies Allergy/AdvReac Type Severity Reaction Status Date / Time No Known Drug Allergies Allergy Verified 08/20/24 15:35 Opioid HPI Opioid Management Most Recent Opioid Data: Last ORT Total Score 2 12/25/23, 01:44 Last ORT Risk Category Low Risk 12/25/23, 01:44 Ur Phencyclidine Scrn, (NEGATIVE) Negative 01/03/23, 20:00 Review of Systems ROS Status of ROS 10 or more systems reviewed and unremarkable except as noted in history and below PFSH [facility] Medical History (Updated 08/20/24 @ 17:26 by Barbara Fiore NP) Diabetic ketoacidosis ?E11.10 - Type 2 diabetes mellitus with ketoacidosis without coma (ICD-10) IDDM (insulin dependent diabetes mellitus) Surgical History (Updated 12/25/23 @ 01:52 by Tanya Purcell RN) History of appendectomy ?Z90.49 - Acquired absence of other specified parts of digestive tract (ICD-10) Social History Little interest or pleasure in doing things: not at all Feeling down, depressed, or hopeless: not at all Exam Narrative Exam Narrative: Constituational: Awake/ alert, mildly ill and fatigued. HENMT: normocephalic, external ears normal, moist oral mucous membranes and oropharynx normal Eyes: EOMI and conjunctivae normal Neck: ROM intact Chest: inspection of chest normal Respiratory: Normal respiratory effort, clear to auscultation bilaterally Cardio: + Tachycardia with HR 120s, regular rhythm GI: soft to palpation and non-tender Back: nontender MSK: ROM intact, +NVI Skin: no rashes or petechiae Neuro: no focal deficits Psych: mental status grossly normal Constitutional Vital Signs, click to edit/add: Last Vital Signs Temp 98.1 F 08/20/24 15:35 Pulse 120 H 08/20/24 17:00 Resp 19 08/20/24 17:00 BP 91/63 08/20/24 17:00 Pulse Ox 96 08/20/24 17:00 O2 Del Method Room Air 08/20/24 15:35 Course Vital Signs Vital signs: Vital Signs Temperature 98.1 F 08/20/24 15:35 Pulse Rate 128 H 08/20/24 15:35 Respiratory Rate 18 08/20/24 15:35 Blood Pressure 130/75 08/20/24 15:35 Pulse Oximetry 95 08/20/24 15:35 Oxygen Delivery Method Room Air 08/20/24 15:35 Temperature 98.1 F 08/20/24 15:35 Pulse Rate 120 H 08/20/24 17:00 Respiratory Rate 19 08/20/24 17:00 Blood Pressure 91/63 08/20/24 17:00 Pulse Oximetry 96 08/20/24 17:00 Oxygen Delivery Method Room Air 08/20/24 15:35 Medical Decision Making [facility] Narrative Medical decision making narrative: Patient is a mildly ill and fatigued appearing 19-year-old male who presented to the emergency department today for evaluation of concerns initially for nausea without vomiting and diarrhea with mild generalized abdominal discomfort. Initial examination patient noted to be flushed along with mildly tachypneic and tachycardic with heart rate in the 120s. Patient did endorse he was diabetic with historically blood glucoses in the 200s yesterday that he did not check today but did admittedly express concerns for DKA due to his symptoms. He has been compliant with his insulin therapy. Initial blood glucose was 543. EKG without acute changes and does show sinus tachycardia. Labs showed no significant leukocytosis, anemia, thrombocytopenia. Blood glucose on chemistry is noted 573 with anion gap of 34, small acetone noted in addition to pH of 7.2 -> clinical picture consistent with DKA. Otherwise electrolytes including renal and hepatic function stable. Normal Lipase. Abdomen is nonacute on serial reexaminations. UA and urine drug screen are pending. Patient did receive IV fluids in addition to Zofran and subsequently was placed on drip. Serial reevaluations heart rate did downtrend. Did discuss patient's condition with the hospitalist Dr Cook [id number] -> accepts patient for admission. Discussed the above findings and recommendations with the patient. He additionally is agreeable with the plan to be mated for further care of the above.. Medical Records Medical records reviewed: Yes I reviewed the patient's medical records Lab Data Lab results reviewed: Yes I reviewed the patient's lab results Labs: Lab Results 08/20/24 Range/Units 15:55 WBC 7.9 (4.0-11.0) 10^3/uL RBC 5.27 (4.70-6.10) 10^6/uL Hgb 16.3 (14.0-18.0) g/dL Hct 44.9 (42.0-54.0) % MCV 85.2 (80.0-94.0) fL MCH 30.9 (25.9-34.0) pg MCHC 36.3 H (29.9-35.2) g/dL RDW 12.0 (11.0-15.0) % Plt Count 331 (150-450) 10^3/uL MPV 9.7 (9.5-13.5) fL Neut % (Auto) 57.4 (43.0-75.0) % Lymph % (Auto) 24.0 (20.5-60.0) % [place] % (Auto) 9.8 (1.7-12.0) % Eos % (Auto) 6.5 (0.9-7.0) % Baso % (Auto) 1.3 (0.2-2.0) % Neut # (Auto) 4.5 (1.4-6.5) 10^3/uL Lymph # (Auto) 1.9 (1.2-3.8) 10^3/uL [place] # (Auto) 0.8 (0.3-0.8) 10^3/uL Eos # (Auto) 0.5 (0.0-0.7) 10^3/uL Baso # (Auto) 0.1 (0.0-0.1) 10^3/uL Abs Immat Gran (auto) 0.08 H (0.00-0.03) 10^3/uL Imm/Tot Granulo (auto) 1.0 H (0.0-0.5) % VBG pH 7.206 L (7.330-7.430) VBG pCO2 24.0 L (40.0-52.0) mmHg Sodium 135 L (136-145) mmol/L Potassium 4.0 (3.5-5.1) mmol/L Chloride 94 L (98-107) mmol/L Carbon Dioxide 10.9 L (21.0-32.0) mmol/L Anion Gap 34.1 BUN 15.0 (7.0-18.0) mg/dL Creatinine 1.10 (0.70-1.30) mg/dL Est GFR ( Amer) >60 (>=60 mL/min/1.73m^2) Est GFR (Non-Af Amer) >60 (>=60 mL/min/1.73m^2) BUN/Creatinine Ratio 13.6 Glucose 573 H* (74-106) mg/dL Calcium 8.7 (8.5-10.1) mg/dL Total Bilirubin 0.9 (0.2-1.0) mg/dL AST 14 L (15-37) U/L ALT 25 (16-63) U/L Alkaline Phosphatase 150 H (46-116) U/L Total Protein 6.7 (6.4-8.2) g/dL Albumin 3.6 (3.4-5.0) g/dL Globulin 3.1 g/dL Albumin/Globulin Ratio 1.2 Lipase 16.0 (16.0-77.0) U/L Acetone, Qual Small A (NEGATIVE) POC Glucose 543 H* (74-106) mg/dL ECG Data Attestation: I personally reviewed and interpreted this ECG as follows: (ST with HR 122, no acute changes) Critical Care Time Critical Care Time Critical Care Time: Yes Total Critical Care Time: 31 Attestation: Given that the patient was critically ill and my immediate attention was required upon arrival. Also a significant time was spent directly at the bedside reevaluating the patient, discussing with consults/family, and with documentation. Discharge Plan Discharge Patient Disposition: Still a Patient
--- NOTE | 2024-08-20 16:06 | ECG_ITS ---
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
[2024-08-20 16:08] LABS: Hematocrit 44.9 % (42.0-54.0); Hemoglobin 16.3 g/dL (14.0-18.0); Immature Granulocytes Abs Auto 0.08 10^3/uL (0.00-0.03); Immature Granulocytes Pct Auto 1.0 % (0.0-0.5); Lymphocytes Absolute Auto 1.9 10^3/uL (1.2-3.8); Mean Corpuscular HGB Conc 36.3 g/dL (29.9-35.2); Mean Corpuscular Hemoglobin 30.9 pg (25.9-34.0); Mean Corpuscular Volume 85.2 fL (80.0-94.0); Platelet Count 331 10^3/uL (150-450); Red Blood Count 5.27 10^6/uL (4.70-6.10); White Blood Count 7.9 10^3/uL (4.0-11.0)
[2024-08-20 16:09] LABS: pH VBG 7.206 (7.330-7.430)
[2024-08-20 16:10] LABS: PCO2 VBG 24.0 mmHg (40.0-52.0)
[2024-08-20] MEDS: 0.9 % SODIUM CHLORIDE 1,000 ML 1000 ML IV (16:11)
[2024-08-20 16:45] LABS: Alanine Aminotransferase 25 U/L (16-63); Albumin Globulin Ratio 1.2; Albumin Level 3.6 g/dL (3.4-5.0); Alkaline Phosphatase 150 U/L (46-116); Anion Gap 34.1; Aspartate Amino Transferase 14 U/L (15-37); Blood Urea Nitrogen 15.0 mg/dL (7.0-18.0); Calcium 8.7 mg/dL (8.5-10.1); Carbon Dioxide 10.9 mmol/L (21.0-32.0); Chloride 94 mmol/L (98-107); Estimated GFR (African America >60 (>=60 mL/min/1.73m^2); Estimated GFR (Non-African Ame >60 (>=60 mL/min/1.73m^2); Globulin 3.1 g/dL; Lipase 16.0 U/L (16.0-77.0); Potassium 4.0 mmol/L (3.5-5.1); Sodium 135 mmol/L (136-145); Total Protein 6.7 g/dL (6.4-8.2)
[2024-08-20 16:47] LABS: Glucose 573 mg/dL (74-106)
[2024-08-20] MEDS: 0.9 % SODIUM CHLORIDE 1,000 ML 125 ML IV (17:22)
[2024-08-20] MEDS: INSULIN REGULAR IN 0.9 % NACL 100 UNIT/100 ML PLAST..BAG 6.124 UNIT IV (17:23)
[2024-08-20] MEDS: POTASSIUM CHLORIDE 10 MEQ ER TABLET 40 MEQ PO (18:31)
[2024-08-20] MEDS: MAGNESIUM SULFATE IN WATER 2 GM/50 ML PREMIX IV (18:31)
[2024-08-20 19:53] LABS: Glucose Urine UA 500 mg/dL (NEGATIVE)
[2024-08-20 20:02] LABS: Cannabinoid Screen Urine NEGATIVE (NEGATIVE); Methamphetamines Screen Urine NEGATIVE (NEGATIVE); Tricyclic Antidepressant Urine NEGATIVE (NEGATIVE)
[2024-08-20 22:10] LABS: Anion Gap 15.2; Blood Urea Nitrogen 11.0 mg/dL (7.0-18.0); Calcium 7.3 mg/dL (8.5-10.1); Carbon Dioxide 18.4 mmol/L (21.0-32.0); Chloride 108 mmol/L (98-107); Estimated GFR (African America >60 (>=60 mL/min/1.73m^2); Estimated GFR (Non-African Ame >60 (>=60 mL/min/1.73m^2); Glucose 264 mg/dL (74-106); Potassium 4.6 mmol/L (3.5-5.1); Sodium 137 mmol/L (136-145)
[2024-08-20] MEDS: DEXTROSE 5 %-0.45 % SOD CHLORD 1,000 ML 125 ML IV (22:46)
[2024-08-21] VITALS (141 sets, daily range): BP systolic 97–130; BP diastolic 58–75; PULSE 87–145; TEMP 36.5–37.2; O2SAT 94–100
[2024-08-21] MEDS: POTASSIUM CHLORIDE 10 MEQ ER TABLET 20 MEQ PO (02:00)
[2024-08-21] MEDS: 0.9 % SODIUM CHLORIDE 1,000 ML 125 ML IV ×3 (02:00→19:48)
[2024-08-21] MEDS: 0.9 % SODIUM CHLORIDE 1,000 ML 150 ML IV (05:35)
[2024-08-21] MEDS: INSULIN GLARGINE 300 UNIT/3 ML INSULN.PEN 20 UNIT SQ (05:39)
[2024-08-21 06:34] LABS: Hematocrit 38.2 % (42.0-54.0); Hemoglobin 13.6 g/dL (14.0-18.0); Immature Granulocytes Abs Auto 0.07 10^3/uL (0.00-0.03); Immature Granulocytes Pct Auto 1.0 % (0.0-0.5); Lymphocytes Absolute Auto 1.8 10^3/uL (1.2-3.8); Mean Corpuscular HGB Conc 35.6 g/dL (29.9-35.2); Mean Corpuscular Hemoglobin 31.0 pg (25.9-34.0); Mean Corpuscular Volume 87.0 fL (80.0-94.0); Platelet Count 249 10^3/uL (150-450); Red Blood Count 4.39 10^6/uL (4.70-6.10); White Blood Count 7.2 10^3/uL (4.0-11.0)
[2024-08-21 07:00] LABS: Alanine Aminotransferase 19 U/L (16-63); Albumin Globulin Ratio 1.0; Albumin Level 2.3 g/dL (3.4-5.0); Alkaline Phosphatase 74 U/L (46-116); Anion Gap 19.3; Aspartate Amino Transferase 14 U/L (15-37); Blood Urea Nitrogen 12.0 mg/dL (7.0-18.0); Calcium 7.5 mg/dL (8.5-10.1); Carbon Dioxide 16.0 mmol/L (21.0-32.0); Chloride 111 mmol/L (98-107); Estimated GFR (African America >60 (>=60 mL/min/1.73m^2); Estimated GFR (Non-African Ame >60 (>=60 mL/min/1.73m^2); Globulin 2.3 g/dL; Glucose 183 mg/dL (74-106); Magnesium 1.7 mg/dL (1.8-2.4); Potassium 4.3 mmol/L (3.5-5.1); Sodium 142 mmol/L (136-145); Total Protein 4.6 g/dL (6.4-8.2)
[2024-08-21] MEDS: MAGNESIUM SULFATE IN WATER 2 GM/50 ML PREMIX IV (08:03)
[2024-08-21] MEDS: INSULIN ASPART 300 UNIT/3 ML PEN SUBQ ×6 (08:04→22:29)
[2024-08-21] MEDS: POTASSIUM PHOS,M-BASIC-D-BASIC 15 MMOL in 0.9 % SODIUM CHLORIDE 100 ML 26.25 MMOL IV (08:04)
[2024-08-21] MEDS: ENOXAPARIN SODIUM 40 MG/0.4 ML SYRINGE SUBQ (08:05)
--- NOTE | 2024-08-21 08:37 | PM.HP ---
HPI H&P: HPI History of Present Illness Chief complaint: SOB, NAUSEA, TIRED, DKA Narrative: Mr. Godinez is a 19-year-old gentleman with a history of insulin-dependent diabetes, likely type I. Patient came in not feeling well, nauseous and tired. Was found to have DKA. Patient stated that he has been taking insulin except yesterday when he did not take it. Patient was found to have significant elevation of the anion gap. His bicarbonate level was 11. No fever or chills. No chest pain or palpitation. No abdominal pain. Opioid HPI Opioid Management Most Recent Pain and Opioid Data: Last Pain Assessment 08/20/24, 18:00 Last ORT Total Score 2 08/20/24, 17:58 Last ORT Risk Category Low Risk 08/20/24, 17:58 Ur Phencyclidine Scrn, (NEGATIVE) Negative 08/20/24, 19:40 Review of Systems ROS Status of ROS 10 or more systems reviewed and unremarkable except as noted in history and below PFSH PFS Medical History (Updated 08/21/24 @ 08:39 by Miracle Cook MD) Diabetic ketoacidosis ?E11.10 - Type 2 diabetes mellitus with ketoacidosis without coma (ICD-10) IDDM (insulin dependent diabetes mellitus) Surgical History (Updated 12/25/23 @ 01:52 by Tanya Purcell RN) History of appendectomy ?Z90.49 - Acquired absence of other specified parts of digestive tract (ICD-10) Family History (Updated 08/20/24 @ 18:15 by Angela Palma) Father Family history of diabetes mellitus Social History (Updated 08/20/24 @ 18:15 by Angela Palma) Smoking status: Current some day smoker Non-prescribed substance use: denies use Highest level of school completed/degree received: high school graduate Little interest or pleasure in doing things: not at all Feeling down, depressed, or hopeless: not at all Meds Home Medications and Allergies Home Medications ?Medication ?Instructions ?Recorded ?Confirmed ?Type insulin glargine 100 unit/mL (3 30 unit subcut .HS 12/24/23 08/20/24 History mL) subcutaneous pen (Lantus Solostar U-100 Insulin) insulin lispro 100 unit/mL 1 sliding scale dose subcut .TID 12/24/23 08/20/24 History subcutaneous pen (Humalog KwikPen with meals Diabetes (U-100) Insulin) Allergies Allergy/AdvReac Type Severity Reaction Status Date / Time No Known Drug Allergies Allergy Verified 08/20/24 15:35 Exam Narrative Exam Narrative: [pt is awake and alert. oriented to place, time and person HEENT: [place] conjunctiva and dry skin and buccal mucosa Neck: Supple, no tenderness Endocrine: No Thyromegaly. Vascular: No JVD or carotid bruit. Lymphatic: No cervical lymphadenopathy. Chest: CTA no DTP. Heart RRR, no extra sound or murmur. Abd: Soft, no tenderness, no rebound and no rigidity. Increase abd girth therefore clinically I could not exclude the possibility of intra abd mass or organomegaly. LE: No cyanosis or clubbing, no varices or edema. Neuro: A A O. Nl speech, comprehension and attention. Nl and symetrical motor and tone examination through out. []] Constitutional Vital Signs, click to edit/add: Last Vital Signs Temp 97.7 F 08/21/24 04:00 Pulse 95 H 08/21/24 06:00 Resp 13 08/21/24 05:30 BP 100/72 08/21/24 04:17 Pulse Ox 100 08/21/24 06:00 O2 Del Method Nasal Cannula 08/20/24 17:58 Results Labs Labs: Short CBC 08/20/24 08/21/24 Range/Units 15:55 06:24 WBC 7.9 7.2 (4.0-11.0) 10^3/uL Hgb 16.3 13.6 L (14.0-18.0) g/dL Hct 44.9 38.2 L (42.0-54.0) % Plt Count 331 249 (150-450) 10^3/uL BMP 08/20/24 08/20/24 08/21/24 15:55 21:52 06:24 Sodium 135 L 137 142 Potassium 4.0 4.6 4.3 Chloride 94 L 108 H 111 H Carbon Dioxide 10.9 L 18.4 L 16.0 L BUN 15.0 11.0 12.0 Creatinine 1.10 0.82 0.55 L Glucose 573 H* 264 H 183 H Calcium 8.7 7.3 L 7.5 L Liver Function 08/20/24 08/21/24 Range/Units 15:55 06:24 Total Bilirubin 0.9 0.6 (0.2-1.0) mg/dL AST 14 L 14 L (15-37) U/L ALT 25 19 (16-63) U/L Alkaline Phosphatase 150 H 74 (46-116) U/L Albumin 3.6 2.3 L (3.4-5.0) g/dL Urine 08/20/24 Range/Units 19:40 Urine Color Lt. yellow (YELLOW) Urine Clarity Clear (CLEAR) Urine pH 6.0 (5.0-9.0) Ur Specific [place] 1.025 (1.005-1.025) Urine Protein Negative (NEG/TRACE) mg/dL Urine Glucose (UA) 500 A (NEGATIVE) mg/dL ABG ABG results: 08/20/24 15:55 VBG pH 7.206 L VBG pCO2 24.0 L Assessment and Plan Assessment and Plan (1) DKA (diabetic ketoacidosis): (2) Uncontrolled diabetes mellitus: (3) Hypomagnesemia: (4) Hypophosphatemia: (5) Dehydration: Plan DKA Patient was admitted to the stepdown unit on insulin drip. Insulin DKA protocol was followed. Aggressive IV fluid infusion. Potassium supplementation. Convert to subcu insulin, long-acting, short acting meal insulin as well as sliding scale. Uncontrolled diabetes. A1c is 14. Patient stated that he takes medication daily. Counseling and education were provided about compliance. Continue long-acting insulin, short acting meal insulin as well as sliding scale Hypomagnesemia, hypophosphatemia and borderline hypokalemia Potassium, magnesium and phosphate supplementation. DVT prophylaxis Recommend subacute. Chronic medical conditions not listed above, incidental findings seen on labs and imaging. These would need to be addressed. Could be addressed when time and condition are appropriate. Could be addressed in the outpatient setting by PCP collaboration with other needed outpatient providers.
[2024-08-21] MEDS: SODIUM BICARBONATE 325 MG TABLET 1300 MG PO ×3 (10:22→22:50)
[2024-08-21 16:18] LABS: Anion Gap 17.3; Blood Urea Nitrogen 12.0 mg/dL (7.0-18.0); Calcium 7.3 mg/dL (8.5-10.1); Carbon Dioxide 18.4 mmol/L (21.0-32.0); Chloride 106 mmol/L (98-107); Estimated GFR (African America >60 (>=60 mL/min/1.73m^2); Estimated GFR (Non-African Ame >60 (>=60 mL/min/1.73m^2); Glucose 291 mg/dL (74-106); Potassium 3.7 mmol/L (3.5-5.1); Sodium 138 mmol/L (136-145)
[2024-08-21] MEDS: INSULIN GLARGINE 300 UNIT/3 ML INSULN.PEN 15 UNIT SQ (17:12)
[2024-08-21] MEDS: INSULIN ASPART 300 UNIT/3 ML PEN 8 UNIT SUBQ (17:13)
[2024-08-21] MEDS: POTASSIUM CHLORIDE 10 MEQ ER TABLET 30 MEQ PO (17:19)
[2024-08-22] VITALS (51 sets, daily range): BP systolic 87–106; BP diastolic 54–73; PULSE 77–118; TEMP 36.7–37; O2SAT 96–97
[2024-08-22] MEDS: 0.9 % SODIUM CHLORIDE 1,000 ML 125 ML IV (03:27)
[2024-08-22] MEDS: SODIUM BICARBONATE 325 MG TABLET 1300 MG PO (05:42)
[2024-08-22 07:12] LABS: Alanine Aminotransferase 15 U/L (16-63); Albumin Level 2.1 g/dL (3.4-5.0); Alkaline Phosphatase 62 U/L (46-116); Anion Gap 12.1; Aspartate Amino Transferase 11 U/L (15-37); Blood Urea Nitrogen 8.0 mg/dL (7.0-18.0); Calcium 7.4 mg/dL (8.5-10.1); Carbon Dioxide 25.7 mmol/L (21.0-32.0); Chloride 113 mmol/L (98-107); Estimated GFR (African America >60 (>=60 mL/min/1.73m^2); Estimated GFR (Non-African Ame >60 (>=60 mL/min/1.73m^2); Globulin 2.0 g/dL; Glucose 81 mg/dL (74-106); Magnesium 1.4 mg/dL (1.8-2.4); Sodium 148 mmol/L (136-145); Total Protein 4.1 g/dL (6.4-8.2)
[2024-08-22 07:21] LABS: Albumin Globulin Ratio 1.1
[2024-08-22 07:23] LABS: Potassium 2.8 mmol/L (3.5-5.1)
[2024-08-22] MEDS: POTASSIUM CHLORIDE 20 MEQ in 0.9 % SODIUM CHLORIDE 250 ML 130 MEQ IV (09:18)
[2024-08-22] MEDS: INSULIN ASPART 300 UNIT/3 ML PEN SUBQ ×3 (09:19→12:04)
[2024-08-22] MEDS: MAGNESIUM SULFATE IN WATER 4 GM/100 ML PIGGYBACK IV (09:19)
[2024-08-22] MEDS: INSULIN GLARGINE 300 UNIT/3 ML INSULN.PEN 30 UNIT SQ (09:20)
--- NOTE | 2024-08-22 09:23 | PM.DS1 ---
DS: Providers Provider Date of admission: 08/20/24 17:41 Primary care physician: Non-Staff Physician, Consults: 08/20/24 18:05 Consult to Oil Heater Operator Routine Reason for consultation: DM ed Has provider been notified: No Consult to Dietitian Routine Reason for consultation: DM diet ed DS: Diagnosis Discharge Diagnosis (1) DKA (diabetic ketoacidosis): (2) Uncontrolled diabetes mellitus: (3) Hypomagnesemia: (4) Hypophosphatemia: (5) Dehydration: Plan As listed above and others that are listed DS: Summary Hospital Course Hospital Course: Mr. Godinez is a 19-year-old gentleman who came in nauseous and not feeling well and was found to have the following DKA Patient was admitted to the stepdown unit on insulin drip. Insulin DKA protocol was followed. Aggressive IV fluid infusion. Potassium supplementation. Convert to subcu insulin, long-acting, short acting meal insulin as well as sliding scale. DKA had resolved. Uncontrolled diabetes. Likely caused by noncompliance. His blood sugar is well-controlled now on current home medications. A1c is 14. Patient stated that he takes medication daily. Counseling and education were provided about compliance. Continue long-acting insulin, short acting meal insulin as well as sliding scale Hypomagnesemia, hypophosphatemia and borderline hypokalemia Potassium, magnesium and phosphate supplementation. DVT prophylaxis Recommend subacute. Chronic medical conditions not listed above, incidental findings seen on labs and imaging. These would need to be addressed. Could be addressed when time and condition are appropriate. Could be addressed in the outpatient setting by PCP collaboration with other needed outpatient providers. Patient has few medical issues as listed above and others that are not listed. All appear to be stable. I do not have any clear or strong clinical justification to extend inpatient hospitalization. Patient however will require close and frequent monitoring as well as additional work-up, investigation and therapeutic intervention that could take place from this point on post discharge. That is to prevent relapse, decompensation, rehospitalization and other medical implications. I instructed patient to ask her primary care doctor to obtain [facility] record entirely to address abnormalities seen on labs and imaging that I have and have not addressed during this hospitalization, follow-up on pending blood work, imaging and pathology is if available and to follow-up on needed medical care in the outpatient setting. Time Spent with Patient Time attestation: Total time spent providing and/or coordinating discharge services: Exam Narrative Exam Narrative: [pt is awake and alert. oriented to place, time and person HEENT: [place] conjunctiva and NL buccal mucosa Neck: Supple, no tenderness Endocrine: No Thyromegaly. Vascular: No JVD or carotid bruit. Lymphatic: No cervical lymphadenopathy. Chest: CTA no DTP. Heart RRR, no extra sound or murmur. Abd: Soft, no tenderness, no rebound and no rigidity. Increase abd girth therefore clinically I could not exclude the possibility of intra abd mass or organomegaly. LE: No cyanosis or clubbing, no varices or edema. Neuro: A A O. Nl speech, comprehension and attention. Nl and symetrical motor and tone examination through out. []] Constitutional Vital Signs, click to edit/add: Last Vital Signs Temp 98.6 F 08/22/24 05:40 Pulse 85 08/22/24 06:09 Resp 8 L 08/22/24 05:40 BP 87/54 L 08/22/24 05:38 Pulse Ox 95 08/21/24 16:00 O2 Del Method Room Air 08/21/24 16:00 DS: Data Data Completed and Pending Labs on day of discharge: Labs from last 24 hours 08/22/24 08/21/24 06:49 15:57 Sodium 148 H 138 Potassium 2.8 L* 3.7 Chloride 113 H 106 Carbon Dioxide 25.7 18.4 L Anion Gap 12.1 17.3 BUN 8.0 12.0 Creatinine 0.39 L 0.68 L Est GFR ( Amer) >60 >60 Est GFR (Non-Af Amer) >60 >60 BUN/Creatinine Ratio 20.5 17.6 Glucose 81 291 H Calcium 7.4 L 7.3 L Phosphorus 3.3 Magnesium 1.4 L Total Bilirubin 0.4 AST 11 L ALT 15 L Alkaline Phosphatase 62 Total Protein 4.1 L Albumin 2.1 L Globulin 2.0 Albumin/Globulin Ratio 1.1 Discharge Plan Discharge Disposition: Home, Self-Care Condition: Fair Health Concerns: I may not have addressed or treated all of your medical illnesses or the abnormal blood work or imaging studies during this hospitalization. Please ask your primary care provider to obtain [facility] records entirely to follow up on all of the abnormal physical, laboratory, and imaging findings that I have not addressed. Please return back to the emergency room or seek medical attention if your symptoms worsen or return. Check your blood sugar 3 times a day before meals. Document these numbers on a blood glucose log and bring them with you to your follow-up appointment with your primary care doctor. Communicate with your primary care doctor or medical reimbursement specialist if your blood sugar is under 100 or above 300 on 2 consecutive checks. Communicate with your primary care doctor or medical reimbursement specialist if you have any questions about your diabetes medications. Signs of a low blood sugar include sweating, racing heart, dizziness and/or weakness. Check your blood sugar if you have any of the symptoms. Use the long-acting insulin Lantus once a day Use short acting Humalog 5 units 3 times a day with meals in addition to the sliding scale dose Discharging you from [facility] does not mean that your medical care ends here and now. You may still need additional monitoring, work up, investigation, and treatment plan to be handled from this point on by out patient providers including your primary care provider and specialists. For any medication question, please contact your retail pharmacist or your primary care provider. Thank you. Discharge Medications: New insulin aspart U-100 [Novolog FlexPen U-100 Insulin] 100 unit/mL (3 mL) Insulin Pen 5 unit subcut WM Qty: 0 0RF Rx Instructions: 5 units 3 times a day with meals in addition to sliding scale dose Continued insulin lispro [Humalog KwikPen Insulin] 100 unit/mL insulin pen 1 sliding scale dose SUBCUT .TID with meals Rx Instructions: Pt states he takes 1 unit for every 50 above 150 insulin glargine [Lantus Solostar U-100 Insulin] 100 unit/mL (3 mL) insulin pen 30 unit SUBCUT .HS Print Language: Tajik Forms: Portal Instructions
[2024-08-22] MEDS: POTASSIUM CHLORIDE 10 MEQ ER TABLET 40 MEQ PO (09:33)
[2024-08-22] MEDS: ENOXAPARIN SODIUM 40 MG/0.4 ML SYRINGE SUBQ (09:33)
[2024-08-22] MEDS: SODIUM BICARBONATE 325 MG TABLET 650 MG PO (13:18)
[2024-08-22 15:16] LABS: Anion Gap 10.6; Blood Urea Nitrogen 8.0 mg/dL (7.0-18.0); Calcium 7.8 mg/dL (8.5-10.1); Carbon Dioxide 28.0 mmol/L (21.0-32.0); Chloride 106 mmol/L (98-107); Estimated GFR (African America >60 (>=60 mL/min/1.73m^2); Estimated GFR (Non-African Ame >60 (>=60 mL/min/1.73m^2); Glucose 248 mg/dL (74-106); Magnesium 1.9 mg/dL (1.8-2.4); Potassium 3.6 mmol/L (3.5-5.1); Sodium 141 mmol/L (136-145)
--- NOTE | 2024-08-23 15:06 | CM.DCFOLLOWU ---
1st attempt 08/23/24, no answer
--- NOTE | 2024-08-25 13:55 | CM.DCFOLLOWU ---
3rd attempt 08/25/24, no answer
== END 2024-08-22 16:26 | disposition home or self-care (01) | DRG 639 ==
LOC: ER 17:35 → MS 17:48
PROVIDERS: Nurse Practitioner; Admitting Provider Internal Medicine; Emergency Provider Emergency Medicine; Visit Provider Internal Medicine
DX: E10.10 Type 1 diabetes mellitus with ketoacidosis without coma (principal); Z79.4 Long term (current) use of insulin; Z90.49 Acquired absence of other specified parts of digestive tract; F17.200 Nicotine dependence, unspecified, uncomplicated; E86.0 Dehydration; E83.42 Hypomagnesemia; E83.39 Other disorders of phosphorus metabolism; Z91.199 Patient's noncompliance with other medical treatment and regimen due to unspecified reason; E87.6 Hypokalemia
CPT/HCPCS: 36415; 80048; 80053; 80307; 81003; 82009; 82800; 82948; 83036; 83690; 83735; 84100; 85025; 93005; 96361; 96374; 99285; J1650; J2405; J3475; J3480

== ENCOUNTER 2024-12-07 08:20 | Emergency (ER) | payer SELFPAY ==
--- OUTSIDE RECORDS SUMMARY | 2023-01-23 12:25 | XMS_ITS | Continuity of Care Document ---
Author Organization [facility] Address [address] [place] [id number] Phone Care Team Providers Care Copier Field Service Technician Name Role Phone Pelon MSN, INTEGRITY ENGINEER-C, PMKylie Unavailable Unavailable Advance Directives Directive Yes / No Effective Date File Name No Information Encounters Encounter Description Practice Location Reason(s) For Visit Diagnoses Date Provider Providers Copied on Encounter [facility], [address], [place], [id number], [place] tel:[phone] [facility] No Information Pelon Espinal. [address] [place], [address], [place]. tel:[phone] Family History Family Member Type Diagnosis Age At Onset No Information Payers Payer name Insurance type Covered alliance party ID Authoriza tion(s) No Information Social History Type Description Quantity Date Captured Comments Alcohol Use Details Unknown Caffeine Use Details Unknown Tobacco Use Status No Information Smoking Status No Information Sex Male Sexual Orientation Straight or heterosexual Gender Identity Male Chief Complaint And Reason For Visit No Information Reason For Referral Reason For Referral No Information Plan Of Treatment Date Type Action Status Goal Influenza vaccine. Due on De due Goal Hepatitis C screening. Due o n due Goal Tdap Vaccine. Due on 2022 due Goal Unhealthy drug use screening . Due on due Goal RLP. Due on due Goal PRAPARE ASSESSMENT. Due on D due Goal Depression screening. Due on due Goal Tdap. Due on due History Of Present Illness Encounter Date Complaint History Of Prese nt Illness No Information Functional Status Date Functional Assessmen t No Information Instructions Date Instruction Additional Infor mation No Information Assessments Type Assessment Date No Information Patient Care Teams Name Effective Dates (start - stop) Status Members No Information
[2024-12-07] VITALS (51 sets, daily range): BP systolic 96–151; BP diastolic 50–98; PULSE 129–160; O2SAT 95–100; BMI 17.0
--- NOTE | 2024-12-07 08:26 | ECG_ITS ---
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
--- NOTE | 2024-12-07 08:35 | XR_ITS ---
[place] [id number] Patient Name: BOB BENSON MRN: [id number] date: 2005 Sex: M Assigned Patient Location: ED.MAIN Current Patient Location: ED.MAIN Accession/Order Number: [id number] Exam Date: 12/07/2024 08:30 Report Date: 12/07/2024 09:00 At the request of: MANUEL DUBOIS MD Procedure: XR chest 1V PORTABLE AP ERECT CHEST 0835 hours CLINICAL HISTORY: Shortness of breath and hyperglycemia COMPARISON: 12/25/2023 The heart is within normal limits. There is no vascular congestion. The lungs, as visualized, are clear. There is no effusion or pneumothorax. The osseous structures are intact. XR/XR chest 1V IMPRESSION: NO ACUTE FINDINGS Impression dictated by: Tabitha Clayton M.D. 12/07/2024 9:00 AM Dictation Location: [place] [address] Electronically authenticated by: [id number] Y Date: 12/07/2024 09:00
--- OUTSIDE RECORDS SUMMARY | 2024-12-07 08:49 | XMS_ITS | Clinical Summary ---
Author Organization [facility] Address [address] [place] [address] Care Team Providers Care Sustainability Manager Name Role Phone Unallocated, [facility] Provider Primary Care Provi john Allergies No known active allergies Medications MedicationSigDispense QuantityRefillsLast FilledStart DateEnd DateStatus insulin lispro (HumaLOG) 100 UNIT/ML patient supplied pump Inject under the skin continuously.Active insulin glargine (Lantus) 100 UNIT/ML injection Inject under the skin at bedtime.Active insulin glargine (Lantus SoloStar) 100 UNIT/ML pen Indications:Poor control type I diabetes mellitus (HCC)Inject 30 Units under the skin at bedtime 27 mL ctive Continuous Glucose Rag Willow Operator (Dexcom G7 Rag Willow Operator) device USE SHQSJBAX71/02/2024ctive Continuous Glucose Sensor (Dexcom G7 Sensor) misc 01/19/2024ctive B-D UF III MINI PEN NEEDLES 31G X 5 MM misc Inject 1 each under the skin 5 (five) times a day01/11/2024ctive Family History Medical HistoryRelationNameCommentsDiabetesFatherRelationNameStatusComments FatherAliveMotherAlive Social History Tobacco UseTypesPacks/DayYears UsedDateSmoking Tobacco: Never Tobacco Cessation:Counseling Given: Not Answered Alcohol UseStandard Drinks/WeekCommentsNever0 (1 standard drink = 0.6 oz pure alcohol)Sex and Gender InformationValueDate RecordedSex Assigned at BirthNot on fileLegal NqaPesl72/14/2023 12:15 PM EDTGender IdentityNot on fileSexual OrientationNot on file Last Filed Vital Signs Vital SignReadingTime TakenCommentsBlood Zytbrpqw536/6004 12:38 PM EDT Einvt49559/02/2023 11:26 AM CSUJnvtdrmzkxg44.5 ??C (97.7 ??F)05/16/2023 12:38 PM EDTRespiratory Qsex590106/11/2023 11:26 AM EDTOxygen Ncirgciyaj81%06/11/2023 11:26 AM EDTInhaled Oxygen Concentration--Ucytbq47.1 kg (128 lb)06/11/2023 11:26 AM GOQUvpeir755.6 cm (5' 11.5 )06/11/2023 11:26 AM EDTBody Mass Index17.605 11:26 AM EDT Plan of Treatment Health MaintenanceDue DateLast DoneCommentsDiabetes: Hemoglobin A1C2004 Diabetes: Retinopathy Eafelwxoy03/10/2015Diabetes: Urine Protein Screening 02/19/2023Influenza Vaccine (#1)2024 Care Teams Team MemberRelationshipSpecialtyStart DateEnd Date Unallocated, [facility] Provider, [address] [place] [address] PCP - Bcotkbq22/14/23
[2024-12-07 09:00] LABS: PO2 ABG 139.0 mmHg (80.0-100.0)
[2024-12-07 09:01] LABS: Allen Test POSITIVE (POSITIVE); O2 Mode RA; Oxygen Saturation ABG 97.7 %; Puncture Site RR
[2024-12-07 09:04] LABS: ABG PCO2 <15.4 mmHg (35.0-45.0)
--- NOTE | 2024-12-07 09:04 | ED_ITS ---
HPI HPI - General Adult General Chief complaint: Shortness of Breath/Dyspnea Stated complaint: VOMITING SOB Time Seen by Provider: 12/07/24 08:24 Source: patient Mode of arrival: ambulance History of Present Illness HPI narrative: The patient is 19 years old male presenting to us after he called the EMS for shortness of breath the patient on arrival of the EMS was found to be tachycardic, he have a history of diabetic type I and he had multiple presentation to the ER due to DKA, patient complaining of generalized body ache and complaining of pain all over , denies any nausea or vomiting mentioned that he did not take his medication because he was in a lot of pain for the last few days The patient have no cough no fever Related Data Home Medications ?Medication ?Instructions ?Recorded ?Confirmed insulin lispro 100 unit/mL 1 sliding scale dose subcut .TID 12/24/23 08/20/24 subcutaneous pen (Humalog KwikPen with meals Diabetes (U-100) Insulin) Previous Rx's ?Medication ?Instructions ?Recorded insulin aspart U-100 100 unit/mL 5 unit (0.05 mL) subc ut WM #0 mL 08/22/24 (3 mL) subcutaneous pen (Novolog FlexPen U-100 Insulin aspart) insulin glargine 100 unit/mL (3 30 unit (0.3 mL) subcu t DAILY #0 mL 08/22/24 mL) subcutaneous pen (Lantus Solostar U-100 Insulin) Allergies Allergy/AdvReac Type Severity Reaction Status Date / Time No Known Drug Allergies Allergy Verified 08/20/24 15:35 Opioid HPI Opioid Management Most Recent Opioid Data: Last ORT Total Score 2 08/20/24, 17:58 Last ORT Risk Category Low Risk 08/20/24, 17:58 Ur Phencyclidine Scrn, (NEGATIVE) Negative Today, 09:50 Review of Systems ROS Status of ROS 10 or more systems reviewed and unremark able except as noted in history and below [facility] Medical History (Updated 12/07/24 @ 14:55 by Tyesha Lawson MD) Diabetic ketoacidosis ?E11.10 - Type 2 diabetes mellitus with ketoacidosis without coma (ICD-10) IDDM (insulin dependent diabetes mellitus) Surgical History (Updated 12/25/23 @ 01:52 by Tanya Purcell RN) History of appendectomy ?Z90.49 - Acquired absence of other specified parts of digestive tract (ICD- 10) Family History (Updated 08/20/24 @ 18:15 by Angela Palma) Father Family history of diabetes mellitus Social History (Updated 08/20/24 @ 18:15 by Angela Palma) Smoking status: Current some day smoker Non-prescribed substance use: denies use Highest level of school completed/degree received: high school graduate Little interest or pleasure in doing things: not at all Feeling down, depressed, or hopeless: not at all Exam Narrative Exam Narrative: Nurses notes and vital signs reviewed and patient is distressed and he is tachypneic General: Looks dehydrated Skin: Warm, dry, no pallor noted. No rash. Head: Normocephalic, atraumatic. Neck: Supple, non-tender. Eye: Pupils are equal, round and EOMI. No scleral icterus. Ears, Nose, Mouth, and Throat: Dehydrated mucous membranes Cardiovascular: Regular Rate and Rhythm without murmur, gallop or rub. Respiratory: No accessory muscle use or respiratory distress. Lungs are clear to auscultation, no wheezing, rales or rhonchi Chest Wall: no tenderness GI: Abdomen is soft, non-distended. Normal bowel sounds. No masses appreciated. No tenderness to palpation. No rebound, guarding, or rigidity noted. Neurological: A&O x4. No cranial nerve dysfunction observed. No truncal ataxia. Moves all extremities. Sensation intact. Psychiatric: Cooperative and interactive. Normal mood and affect. Constitutional Vital Signs, click to edit/add: Last Vital Signs Pulse 139 H 12/07/24 14:20 Resp 31 H 12/07/24 14:20 BP 145/98 H 12/07/24 12:47 Pulse Ox 100 12/07/24 13:30 O2 Del Method Room Air 12/07/24 08:45 Course Vital Signs Vital signs: Vital Signs Blood Pressure 138/97 H 12/07/24 08:19 Pulse Rate 139 H 12/07/24 14:20 Respiratory Rate 31 H 12/07/24 14:20 Blood Pressure 145/98 H 12/07/24 12:47 Pulse Oximetry 100 12/07/24 13:30 Oxygen Delivery Method Room Air 12/07/24 08:45 Medical Decision Making MDM Narrative Medical decision making narrative: Upon arrival the patient was obviously in possible DKA his blood sugar was elevated and recorded high He is started initially on IV fluids already by the EMS after that we continued the IV fluid with 1 L the blood workup did not show initiated the patient having leukocytosis with no source of infection as the patient abdomen is benign the chest x-ray showed no pneumonia The patient potassium initially was 5.7 and he was only on IV fluid normal saline mostly and his pH was 6.8 and he was started on bicarb drip 100 Meq and 400 cc of fluid over 2 hours The patient was tachycardic at 140 heart rate per hour and the patient EKG upon arrival was showing tachycardia with a heart rate of [address] elevation or depression it was sinus tachycardia IV access was lacking in this patient and multiple attempts by the nurse was not adequate the patient ended up having a central line placed in the right internal jugular using the central line placement protocol The patient then had an x-ray that showed there is a curling in the superior vena cava of the central line and the central line was replaced again using the central line placement protocol and ultrasound and using the guidewire The chest x-ray after that was adequate and the patient had IV access central line on the right side used for IV fluid he continued to have IV fluid normal saline the blood workup repeated still showing pH of 6.8 I reviewed the bicarb drip right now 100 mEq with half-normal saline over 2 hours The patient also to continue insulin drip according to DKA protocol at 8 units/h and also having initially 10 units IV one-time The patient IV fluid 1 L with 20 mEq of potassium over 2 hours as well started Ferguson catheter was placed The patient does have leukocytosis which I discussed with who knows the patient very well he was tachycardic and right now there is no source of infection he does not have any tenderness on abdominal examination but elevated leukocytosis like this is concerning The patient transportation will be here in 20 minutes and I will leave it to the caring team in [facility] and for possible need for the CT abdomen Lactic acid improved from 2.1-2 Phosphorus and magnesium were within normal while the patient was here Procedures note After locating the internal jugular with ultrasound and after centerline protocol initiation and obtaining a consent from the patient Using sterile environment and using the protocol of placement of central line on the right side and locating the internal jugular using ultrasound and while using the ultrasound probe covering provided with the kit The patient had internal jugular central line placed and fixed with 4 stitches Lab Data Labs: Lab Results 12/07/24 12/07/24 12/07/24 Range/Units 08:37 08:40 09:21 WBC 36.9 H* (4.0-11.0) 10^3/uL RBC 6.27 H (4.70-6.10) 10^6/uL Hgb 20.2 H (14.0-18.0) g/dL Hct 60.5 H (42.0-54.0) % MCV 96.5 H (80.0-94.0) fL MCH 32.2 (25.9-34.0) pg MCHC 33.4 (29.9-35.2) g/dL RDW 12.7 (11.0-15.0) % Plt Count 327 (150-450) 10^3/uL MPV 10.0 (9.5-13.5) fL Seg Neuts % (Manual) 67.0 (43.0-75.0) Band Neutrophils % 9.0 H (0-5) % Lymphocytes % (Manual) 9.0 L (20.5-60.0) % Monocytes % (Manual) 8.0 (1.7-12.0) % Eosinophils % (Manual) 0.0 L (0.9-7.0) % Basophils % (Manual) 1.0 (0.2-2.0) % Metamyelocytes % 3.0 Myelocytes % 3.0 Neutrophils # (Manual) 24.72 H (1.4-6.5) 10^3/uL Band Neutrophils # 3.3 H (0.0-0.3) 10^3/uL Lymphocytes # (Manual) 3.32 (1.20-3.80) 10^3/uL Monocytes # (Manual) 2.95 H (0.30-0.80) 10^3/uL Eosinophils # (Manual) 0.00 (0.00-0.70) 10^3/uL Basophils # (Manual) 0.36 H (0.00-0.10) 10^3/uL Metamyelocytes # 1.10 Myelocytes # 1.10 Puncture Site Rr ABG pH 6.896 L* (7.350-7.450) ABG pCO2 <15.4 L* (35.0-45.0) mmHg ABG pO2 139.0 H (80.0-100.0) mmHg ABG O2 Saturation 97.7 % Lanre Test Positive (POSITIVE) VBG pH (7.330-7.430) VBG pCO2 (40.0-52.0) mmHg Sodium 132 L (136-145) mmol/L Potassium 5.7 H (3.5-5.1) mmol/L Chloride 97 L (98-107) mmol/L Carbon Dioxide <5.0 L (21.0-32.0) mmol/L Anion Gap 35.78135 BUN 28.0 H (7.0-18.0) mg/dL Creatinine 1.52 H (0.70-1.30) mg/dL Est GFR ( Amer) >60 (>=60 mL/min/1.73m^2) Est GFR (Non-Af Amer) 59 L (>=60 mL/min/1.73m^2) BUN/Creatinine Ratio 18.4 Glucose 616 H* (74-106) mg/dL Estimat Average Glucose 266 mg/dL Hemoglobin A1c 10.9 H (4.5-6.2) % Lactate 2.1 H* (0.4-2.0) mmol/L Calcium 8.0 L (8.5-10.1) mg/dL Phosphorus 6.0 H (2.6-4.7) mg/dL Magnesium 2.4 (1.8-2.4) mg/dL Total Bilirubin 0.4 (0.2-1.0) mg/dL AST 18 (15-37) U/L ALT 32 (16-63) U/L Alkaline Phosphatase 197 H (46-116) U/L Troponin I High Sens <4.0 L (4.0-76.1) pg/mL Total Protein 6.5 (6.4-8.2) g/dL Albumin 3.1 L (3.4-5.0) g/dL Globulin 3.4 g/dL Albumin/Globulin Ratio 0.9 Urine Color (YELLOW) Urine Clarity (CLEAR) Urine pH (5.0-9.0) Ur Specific [place] (1.005-1.025) Urine Protein (NEG/TRACE) mg/dL Urine Glucose (UA) (NEGATIVE) mg/dL Urine Ketones (NEGATIVE) mg/dL Urine Occult Blood (NEGATIVE) Urine Nitrite (NEGATIVE) Urine Bilirubin (NEGATIVE) Urine Urobilinogen (0.2-1.0) EU/dL Ur Leukocyte Esterase (NEGATIVE) Urine RBC (0-2) #/HPF Urine WBC (NONE SEEN) #/HPF Ur Squamous Epith Cells (NONE/RARE) #/LPF Urine Crystals (None Seen) #/HPF Urine Bacteria (NONE SEEN) #/HPF Urine Casts (NONE SEEN) #/LPF Urine Mucus (NONE SEEN) Ur Culture Indicated? Urine Opiates Screen (NEGATIVE) Ur Buprenorphine Scrn (NEGATIVE) Ur Oxycodone Screen (NEGATIVE) Urine Methadone Screen (NEGATIVE) Ur Barbiturates Screen (NEGATIVE) U Tricyclic Antidepress (NEGATIVE) Ur Phencyclidine Scrn (NEGATIVE) Ur Amphetamines Screen (NEGATIVE) U Methamphetamines Scrn (NEGATIVE) U Benzodiazepines Scrn (NEGATIVE) Urine Cocaine Screen (NEGATIVE) U Cannabinoids Screen (NEGATIVE) Ethanol Quant <3 mg/dL Acetone, Qual Moderate A (NEGATIVE) POC Glucose (74-106) mg/dL 12/07/24 12/07/24 12/07/24 Range/Units 09:50 13:31 14:23 WBC 49.9 H* (4.0-11.0) 10^3/uL RBC 5.34 (4.70-6.10) 10^6/uL Hgb 16.9 (14.0-18.0) g/dL Hct 50.8 (42.0-54.0) % MCV 95.1 H (80.0-94.0) fL MCH 31.6 (25.9-34.0) pg MCHC 33.3 (29.9-35.2) g/dL RDW 12.8 (11.0-15.0) % Plt Count 595 H (150-450) 10^3/uL MPV 9.5 (9.5-13.5) fL Seg Neuts % (Manual) 60.0 (43.0-75.0) Band Neutrophils % 4.0 (0-5) % Lymphocytes % (Manual) 23.0 (20.5-60.0) % Monocytes % (Manual) 7.0 (1.7-12.0) % Eosinophils % (Manual) 1.0 (0.9-7.0) % Basophils % (Manual) 0.0 L (0.2-2.0) % Metamyelocytes % 1.0 Myelocytes % 4.0 Neutrophils # (Manual) 29.94 H (1.4-6.5) 10^3/uL Band Neutrophils # 2.0 H (0.0-0.3) 10^3/uL Lymphocytes # (Manual) 11.47 H (1.20-3.80) 10^3/uL Monocytes # (Manual) 3.49 H (0.30-0.80) 10^3/uL Eosinophils # (Manual) 0.49 (0.00-0.70) 10^3/uL Basophils # (Manual) 0.00 (0.00-0.10) 10^3/uL Metamyelocytes # 0.49 Myelocytes # 1.99 Puncture Site ABG pH (7.350-7.450) ABG pCO2 (35.0-45.0) mmHg ABG pO2 (80.0-100.0) mmHg ABG O2 Saturation % Lanre Test (POSITIVE) VBG pH 6.845 L (7.330-7.430) VBG pCO2 17.9 L (40.0-52.0) mmHg Sodium 138 (136-145) mmol/L Potassium 3.6 (3.5-5.1) mmol/L Chloride 105 (98-107) mmol/L Carbon Dioxide <5.0 L (21.0-32.0) mmol/L Anion Gap 31.05566 BUN 26.0 H (7.0-18.0) mg/dL Creatinine 1.41 H (0.70-1.30) mg/dL Est GFR ( Amer) >60 (>=60 mL/min/1.73m^2) Est GFR (Non-Af Amer) >60 (>=60 mL/min/1.73m^2) BUN/Creatinine Ratio 18.4 Glucose 438 H (74-106) mg/dL Estimat Average Glucose mg/dL Hemoglobin A1c (4.5-6.2) % Lactate 2.0 (0.4-2.0) mmol/L Calcium 7.5 L (8.5-10.1) mg/dL Phosphorus 5.3 H (2.6-4.7) mg/dL Magnesium 2.1 (1.8-2.4) mg/dL Total Bilirubin (0.2-1.0) mg/dL AST (15-37) U/L ALT (16-63) U/L Alkaline Phosphatase (46-116) U/L Troponin I High Sens (4.0-76.1) pg/mL Total Protein (6.4-8.2) g/dL Albumin (3.4-5.0) g/dL Globulin g/dL Albumin/Globulin Ratio Urine Color Lt. yellow (YELLOW) Urine Clarity Clear (CLEAR) Urine pH 5.5 (5.0-9.0) Ur Specific [place] 1.025 (1.005-1.025) Urine Protein Trace (NEG/TRACE) mg/dL Urine Glucose (UA) 500 A (NEGATIVE) mg/dL Urine Ketones >=80 A (NEGATIVE) mg/dL Urine Occult Blood Trace-i (NEGATIVE) Urine Nitrite Negative (NEGATIVE) Urine Bilirubin Negative (NEGATIVE) Urine Urobilinogen 0.2 (0.2-1.0) EU/dL Ur Leukocyte Esterase Negative (NEGATIVE) Urine RBC 0-2 (0-2) #/HPF Urine WBC None seen (NONE SEEN) #/HPF Ur Squamous Epith Cells Rare (NONE/RARE) #/LPF Urine Crystals None seen (None Seen) #/HPF Urine Bacteria Trace A (NONE SEEN) #/HPF Urine Casts None seen (NONE SEEN) #/LPF Urine Mucus None seen (NONE SEEN) Ur Culture Indicated? No Urine Opiates Screen Negative (NEGATIVE) Ur Buprenorphine Scrn Negative (NEGATIVE) Ur Oxycodone Screen Negative (NEGATIVE) Urine Methadone Screen Negative (NEGATIVE) Ur Barbiturates Screen Negative (NEGATIVE) U Tricyclic Antidepress Negative (NEGATIVE) Ur Phencyclidine Scrn Negative (NEGATIVE) Ur Amphetamines Screen Negative (NEGATIVE) U Methamphetamines Scrn Negative (NEGATIVE) U Benzodiazepines Scrn Negative (NEGATIVE) Urine Cocaine Screen Negative (NEGATIVE) U Cannabinoids Screen Negative (NEGATIVE) Ethanol Quant mg/dL Acetone, Qual (NEGATIVE) POC Glucose 458 H (74-106) mg/dL Discharge Plan Discharge Chief Complaint: Shortness of Breath/Dyspnea Clinical Impression: DKA (diabetic ketoacidosis), JIM (acute kidney injury) Patient Disposition: [facility] Time of Disposition Decision: 14:54
[2024-12-07 09:18] LABS: Hematocrit 60.5 % (42.0-54.0); Hemoglobin 20.2 g/dL (14.0-18.0); Mean Corpuscular HGB Conc 33.4 g/dL (29.9-35.2); Mean Corpuscular Hemoglobin 32.2 pg (25.9-34.0); Mean Corpuscular Volume 96.5 fL (80.0-94.0); Platelet Count 327 10^3/uL (150-450); Red Blood Count 6.27 10^6/uL (4.70-6.10)
[2024-12-07] MEDS: 0.9 % SODIUM CHLORIDE 1,000 ML 1000 ML IV ×2 (09:21→13:43)
[2024-12-07] MEDS: SODIUM BICARBONATE IV ×2 (09:23→14:23)
[2024-12-07] MEDS: SODIUM CHLORIDE 0.9% IV (09:23)
[2024-12-07 09:29] LABS: White Blood Count 36.9 10^3/uL (4.0-11.0)
[2024-12-07 09:54] LABS: Alanine Aminotransferase 32 U/L (16-63); Albumin Globulin Ratio 0.9; Albumin Level 3.1 g/dL (3.4-5.0); Alkaline Phosphatase 197 U/L (46-116); Anion Gap 35.70001; Aspartate Amino Transferase 18 U/L (15-37); Blood Urea Nitrogen 28.0 mg/dL (7.0-18.0); Calcium 8.0 mg/dL (8.5-10.1); Carbon Dioxide <5.0 mmol/L (21.0-32.0); Chloride 97 mmol/L (98-107); Estimated GFR (African America >60 (>=60 mL/min/1.73m^2); Estimated GFR (Non-African Ame 59 (>=60 mL/min/1.73m^2); Globulin 3.4 g/dL; Magnesium 2.4 mg/dL (1.8-2.4); Potassium 5.7 mmol/L (3.5-5.1); Sodium 132 mmol/L (136-145); Total Protein 6.5 g/dL (6.4-8.2)
[2024-12-07 09:58] LABS: Glucose 616 mg/dL (74-106); Lactate/Lactic Acid 2.1 mmol/L (0.4-2.0)
[2024-12-07 10:12] LABS: Band Neutrophils Absolute 3.3 10^3/uL (0.0-0.3); Lymphocytes Absolute Manual 3.32 10^3/uL (1.20-3.80); Lymphocytes Percent Manual 9.0 % (20.5-60.0); Monocytes Absolute Manual 2.95 10^3/uL (0.30-0.80); Monocytes Percent Manual 8.0 % (1.7-12.0); Segmented Neut Absolute Manual 24.72 10^3/uL (1.4-6.5); Segmented Neutrophils % Manual 67.0 (43.0-75.0)
[2024-12-07] MEDS: MORPHINE SULFATE 2 MG/ML SYRINGE IV (10:12)
[2024-12-07 10:13] LABS: Basophils Abs Manual 0.36 10^3/uL (0.00-0.10); Basophils Percent Manual 1.0 % (0.2-2.0); Eosinophils Absolute Manual 0.00 10^3/uL (0.00-0.70); Eosinophils Percent Manual 0.0 % (0.9-7.0); Metamyelocytes Absolute Manual 1.10; Myelocytes % Manual 3.0; Myelocytes Absolute Manual 1.10
[2024-12-07 10:38] LABS: Glucose Urine UA 500 mg/dL (NEGATIVE)
[2024-12-07 11:01] LABS: Cast Seen? NONE SEEN #/LPF (NONE SEEN); Crystals Seen? None Seen #/HPF (None Seen); Urine Culture Indicated NO
[2024-12-07 11:02] LABS: Cannabinoid Screen Urine NEGATIVE (NEGATIVE); Methamphetamines Screen Urine NEGATIVE (NEGATIVE); Tricyclic Antidepressant Urine NEGATIVE (NEGATIVE)
[2024-12-07] MEDS: INSULIN REGULAR IN 0.9 % NACL 100 UNIT/100 ML PLAST..BAG 5.67 UNIT IV (11:37)
--- NOTE | 2024-12-07 11:44 | XR_ITS ---
The [address] [address] Patient Name: BOB BENSON MRN: [id number] date: 2005 Sex: M Assigned Patient Location: ER Current Patient Location: ED.MAIN Accession/Order Number: [id number] Exam Date: 12/07/2024 11:50 Report Date: 12/07/2024 12:06 At the request of: MANUEL DUBOIS MD Procedure: XR chest 1V PA CHEST: CLINICAL HISTORY: central line placement COMPARISON: 12/07/2024 There is a new right IJ central line overlying the superior vena cava. The catheter is looped at the level of the segun with tip directed back up toward the proximal superior vena cava. The heart is normal in size. The lungs remain clear. The pulmonary vasculature is normal. There is no pleural effusions or pneumothorax. Visualized bones are intact. XR/XR chest 1V IMPRESSION: NO ACUTE CARDIOPULMONARY FINDINGS. CENTRAL LINE LOOPED WITHIN THE SUPERIOR VENA CAVA. NO POSTPROCEDURE PNEUMOTHORAX. Impression dictated by: Tabitha Clayton M.D. 12/07/2024 12:06 PM Dictation Location: [place] [address] Electronically authenticated by: [id number] Y Date: 12/07/2024 12:06
[2024-12-07] MEDS: INSULIN REGULAR, HUMAN (100 UNIT/ML) 10 ML MDV 10 UNIT IV (12:25)
--- NOTE | 2024-12-07 12:52 | XR_ITS ---
[place] [id number] Patient Name: BOB BENSON MRN: [id number] date: 2005 Sex: M Assigned Patient Location: ER Current Patient Location: ER Accession/Order Number: [id number] Exam Date: 12/07/2024 13:15 Report Date: 12/07/2024 13:31 At the request of: MANUEL DUBOIS MD Procedure: XR chest 1V Single view chest: CLINICAL HISTORY: replacement of central line COMPARISON: Chest 12/07/2024 at 1136 hours FINDINGS: Right-sided IJ line tip in the SVC. Heart is normal in size. No lung consolidation pneumothorax pleural effusion or free air. XR/XR chest 1V IMPRESSION: RIGHT-SIDED IJ LINE TIP IN THE SVC. NO PNEUMOTHORAX. Impression dictated by: Bob Henry Jr., D.O. 12/07/2024 1:31 PM Dictation Location: [place] [address] Electronically authenticated by: [id number] Y Date: 12/07/2024 13:31
[2024-12-07 13:39] LABS: PCO2 VBG 17.9 mmHg (40.0-52.0); pH VBG 6.845 (7.330-7.430)
[2024-12-07 13:42] LABS: Hematocrit 50.8 % (42.0-54.0); Hemoglobin 16.9 g/dL (14.0-18.0); Mean Corpuscular HGB Conc 33.3 g/dL (29.9-35.2); Mean Corpuscular Hemoglobin 31.6 pg (25.9-34.0); Mean Corpuscular Volume 95.1 fL (80.0-94.0); Platelet Count 595 10^3/uL (150-450); Red Blood Count 5.34 10^6/uL (4.70-6.10)
--- NOTE | 2024-12-07 13:44 | ECG_ITS ---
The [facility] Test Date: 2024-12-07 Pat Name: BOB BENSON Department: Room: - Gender: Male [employer] Work[employer]: : 2005 Requested By: [id number] Order Number: [id number] Reading MD: BENJAMIN VALERO M.D. Measurements Intervals Mcclellan Rate: 159 P: 110 WV: 130 QRS: 75 QRSD: 90 T: 48 QT: 306 QTc: 395 Interpretive Statements 1120 Sinus tachycardia Nonspecific T wave changes 6220 Possible left atrial enlargement 9150 abnormal ECG Compared to ECG 12/07/2024 08:24:25 No significant changes Electronically Signed On 12-07-2024 18:59:02 EDT by BENJAMIN VALERO M.D.
[2024-12-07 13:45] LABS: White Blood Count 49.9 10^3/uL (4.0-11.0)
[2024-12-07 13:56] LABS: Anion Gap 31.60001; Blood Urea Nitrogen 26.0 mg/dL (7.0-18.0); Calcium 7.5 mg/dL (8.5-10.1); Carbon Dioxide <5.0 mmol/L (21.0-32.0); Chloride 105 mmol/L (98-107); Estimated GFR (African America >60 (>=60 mL/min/1.73m^2); Estimated GFR (Non-African Ame >60 (>=60 mL/min/1.73m^2); Glucose 438 mg/dL (74-106); Potassium 3.6 mmol/L (3.5-5.1); Sodium 138 mmol/L (136-145)
[2024-12-07 14:07] LABS: Lactate/Lactic Acid 2.0 mmol/L (0.4-2.0)
[2024-12-07 14:15] LABS: Magnesium 2.1 mg/dL (1.8-2.4)
[2024-12-07 14:23] LABS: Band Neutrophils Absolute 2.0 10^3/uL (0.0-0.3); Segmented Neut Absolute Manual 29.94 10^3/uL (1.4-6.5); Segmented Neutrophils % Manual 60.0 (43.0-75.0)
[2024-12-07] MEDS: SODIUM CHLORIDE 0.45% IV (14:23)
[2024-12-07 14:24] LABS: Basophils Abs Manual 0.00 10^3/uL (0.00-0.10); Basophils Percent Manual 0.0 % (0.2-2.0); Eosinophils Absolute Manual 0.49 10^3/uL (0.00-0.70); Eosinophils Percent Manual 1.0 % (0.9-7.0); Lymphocytes Absolute Manual 11.47 10^3/uL (1.20-3.80); Lymphocytes Percent Manual 23.0 % (20.5-60.0); Metamyelocytes Absolute Manual 0.49; Monocytes Absolute Manual 3.49 10^3/uL (0.30-0.80); Monocytes Percent Manual 7.0 % (1.7-12.0); Myelocytes % Manual 4.0; Myelocytes Absolute Manual 1.99
[2024-12-07] MEDS: POTASSIUM CHLORIDE IV (14:44)
[2024-12-07] MEDS: [UNRECOGNIZED DRUG - OTHER] IV (14:44)
== END 2024-12-07 15:33 | disposition short-term general hospital (02) ==
PROVIDERS: Emergency Provider Emergency Medicine
DX: E10.10 Type 1 diabetes mellitus with ketoacidosis without coma (principal); N17.9 Acute kidney failure, unspecified; Z79.4 Long term (current) use of insulin; F17.200 Nicotine dependence, unspecified, uncomplicated; R00.0 Tachycardia, unspecified
CPT/HCPCS: 36415; 36556; 36600; 71045; 80048; 80053; 80307; 80320; 81001; 82009; 82800; 82805; 82948; 83036; 83605; 83735; 84100; 84484; 85007; 85027; 87040; 87804; 87811; 93005; 96365; 96366; 96375; 96376; 99285; J1817; J2270